=== PATIENT | female | born 1945 | race Caucasian/White ===

== ENCOUNTER 2016-12-07 09:01 | Inpatient (IN) | payer MEDICARE ==
[2016-12-07] MEDS ORDERED: ASPIRIN 81 MG CHEW PO STA (09:47)
[2016-12-07] MEDS ORDERED: NITROGLYCERIN OINT 1 INCH/GM PACKET TOPICAL STA (09:47)
--- NOTE | 2016-12-07 09:51 | ED ---
General Adult HPI - General Chief complaint: Chest Pain Stated complaint: chest face burning Time Seen by Provider: 12/07/16 09:10 Source: patient, RN notes reviewed Mode of arrival: wheelchair Limitations: no limitations - History of Present Illness Initial comments: This is a 71-year-old female who presents emergency Department with an extensive cardiac history hypertension high cholesterol. Patient states she has been having some slight jaw pain over the last week and a half weeks she's had 3 episodes of severe jaws pain. Patient states Thursday she had an episode lasted 10 minutes she was nauseated and vomited times one and she was also diaphoretic. Patient states she's had 2 severe episodes today that were very similar to the Thursday episode except she also had chest pain. Patient states she has noted over this last week and a half if she exerts herself at all she starts getting jaw pain. Patient denies any recent fever chills or cough. Patient denies any abdominal pain patient denies any diarrhea. Patient states she is not currently nauseated and she does not currently have any chest pain however she still has a little bit of jaw pain. Patient denies headache patient denies numbness weakness. Patient denies any lightheadedness dizziness or near syncopal episode. - Related Data Home Medications Medication Instructions Recorded Confirmed Clopidogrel [Plavix] 75 mg PO DAILY 06/16/16 12/07/16 Diltiazem Cd [Cardizem Cd] 120 mg PO DAILY 06/16/16 12/07/16 Nebivolol HCl [Bystolic] 20 mg PO DAILY 06/16/16 12/07/16 amLODIPine [Norvasc] 10 mg PO DAILY 06/16/16 12/07/16 predniSONE 2.5 mg PO DAILY 06/16/16 12/07/16 Aspirin [Adult Low Dose Aspirin EC] 81 mg PO DAILY PRN 12/07/16 12/07/16 Furosemide [Lasix] 20 mg PO DAILY 12/07/16 12/07/16 Allergies Allergy/AdvReac Type Severity Reaction Status Date / Time Sulfa (Sulfonamide Allergy Unknown Verified 12/07/16 10:23 Antibiotics) Review of Systems ROS Statement: Those systems with pertinent positive or pertinent negative responses have been documented in the HPI. ROS Other: All systems not noted in ROS Statement are negative. Past Medical History Past Medical History: Coronary Artery Disease (CAD), Hypertension, Myocardial Infarction ([place]) Additional Past Medical History / Comment(s): polymyalgia History of Any Multi-Drug Resistant Organisms: None Reported Past Surgical History: Heart Catheterization With Stent, Hysterectomy, Tonsillectomy Past Psychological History: No Psychological Hx Reported Smoking Status: Never smoker Past Alcohol Use History: None Reported Past Drug Use History: None Reported General Exam - General Exam Comments Initial Comments: GENERAL: Patient is well-developed and well-nourished. Patient is nontoxic and well- hydrated and is in mild distress. ENT: Neck is soft and supple. No significant lymphadenopathy is noted. Oropharynx is clear. Moist mucous membranes. Neck has full range of motion without eliciting any pain. EYES: The sclera were anicteric and conjunctiva were pink and moist. Extraocular movements were intact and pupils were equal round and reactive to light. Eyelids were unremarkable. PULMONARY: Unlabored respirations. Good breath sounds bilaterally. No audible rales rhonchi or wheezing was noted. CARDIOVASCULAR: There is a regular rate and rhythm without any murmurs gallops or rubs. ABDOMEN: Soft and nontender with normal bowel sounds. SKIN: Skin is clear with no lesions or rashes and otherwise unremarkable. NEUROLOGIC: Patient is alert and oriented x3. Cranial nerves II through XII are grossly intact. Motor and sensory are also intact. Normal speech, volume and content. Symmetrical smile. MUSCULOSKELETAL: Normal extremities with adequate strength and full range of motion. No lower extremity swelling or edema. No calf tenderness. LYMPHATICS: No significant lymphadenopathy is noted PSYCHIATRIC: Normal psychiatric evaluation. Normal interpersonal interactions appears functionally intact in deals appropriately with others. No signs of depression. No signs of anxiety. Limitations: no limitations Course Vital Signs 12/07/16 09:07 Temperature 97.8 F Pulse Rate 60 Respiratory 20 Rate Blood Pressure 165/70 O2 Sat by Pulse 97 Oximetry Medical Decision Making - Medical Decision Making EKG shows sinus bradycardia [address] interval is 184 QRSs 84 Q-T intervals 462 QTC is 457. Patient's EKG shows some slight ST segment depression in leads V3 through V6 as well as 1 and aVL. Chest x-ray shows no acute abnormality. Patient's troponin is mildly elevated this along with her past medical history and her current symptoms puts her at high risk I called unstable angina I started heparin. I spoke with Dr. Alexander and he agreed to admit the patient I wrote admitting orders consult to cardiology continued heparin and aspirin and nitro paste on the floor. He is pain-free - Lab Data Result diagrams: 12/07/16 09:30 12/07/16 09:30 Lab Results 12/07/16 12/07/16 12/07/16 Range/Units 09:30 09:30 09:30 WBC 13.3 H (3.8-10.6) k/uL RBC 5.10 (3.80-5.40) m/uL Hgb 14.6 (11.4-16.0) gm/dL Hct 43.7 (34.0-46.0) % MCV 85.7 (80.0-100.0) fL MCH 28.6 (25.0-35.0) pg MCHC 33.3 (31.0-37.0) g/dL RDW 13.0 (11.5-15.5) % Plt Count 291 (150-450) k/uL Neutrophils % 89 % Lymphocytes % 5 % Monocytes % 4 % Eosinophils % 1 % Basophils % 0 % Neutrophils # 11.9 H (1.3-7.7) k/uL Lymphocytes # 0.7 L (1.0-4.8) k/uL Monocytes # 0.5 (0-1.0) k/uL Eosinophils # 0.1 (0-0.7) k/uL Basophils # 0.0 (0-0.2) k/uL PT (9.0-12.0) sec INR (<1.1) APTT (22.0-30.0) sec Sodium 140 (137-145) mmol/L Potassium 4.1 (3.5-5.1) mmol/L Chloride 105 (98-107) mmol/L Carbon Dioxide 24 (22-30) mmol/L Anion Gap 11 mmol/L BUN 26 H (7-17) mg/dL Creatinine 0.98 (0.52-1.04) mg/dL Est GFR (MDRD) Af Amer >60 (>60 ml/min/1.73 sqM) Est GFR (MDRD) Non-Af 56 (>60 ml/min/1.73 sqM) Glucose 160 H (74-99) mg/dL Calcium 9.1 (8.4-10.2) mg/dL Magnesium 1.9 (1.6-2.3) mg/dL Total Bilirubin 0.9 (0.2-1.3) mg/dL AST 25 (14-36) U/L ALT 26 (9-52) U/L Alkaline Phosphatase 164 H (38-126) U/L Total Creatine Kinase 39 (30-135) U/L CK-MB (CK-2) 0.7 (0.0-2.4) ng/mL CK-MB (CK-2) Rel Index 1.8 Troponin I 0.040 H* (0.000-0.034) ng/mL NT-Pro-B Natriuret Pep pg/mL Total Protein 7.0 (6.3-8.2) g/dL Albumin 3.8 (3.5-5.0) g/dL 12/07/16 12/07/16 Range/Units 09:30 09:30 WBC (3.8-10.6) k/uL RBC (3.80-5.40) m/uL Hgb (11.4-16.0) gm/dL Hct (34.0-46.0) % MCV (80.0-100.0) fL MCH (25.0-35.0) pg MCHC (31.0-37.0) g/dL RDW (11.5-15.5) % Plt Count (150-450) k/uL Neutrophils % % Lymphocytes % % Monocytes % % Eosinophils % % Basophils % % Neutrophils # (1.3-7.7) k/uL Lymphocytes # (1.0-4.8) k/uL Monocytes # (0-1.0) k/uL Eosinophils # (0-0.7) k/uL Basophils # (0-0.2) k/uL PT 10.8 (9.0-12.0) sec INR 1.1 (<1.1) APTT 22.5 (22.0-30.0) sec Sodium (137-145) mmol/L Potassium (3.5-5.1) mmol/L Chloride (98-107) mmol/L Carbon Dioxide (22-30) mmol/L Anion Gap mmol/L BUN (7-17) mg/dL Creatinine (0.52-1.04) mg/dL Est GFR (MDRD) Af Amer (>60 ml/min/1.73 sqM) Est GFR (MDRD) Non-Af (>60 ml/min/1.73 sqM) Glucose (74-99) mg/dL Calcium (8.4-10.2) mg/dL Magnesium (1.6-2.3) mg/dL Total Bilirubin (0.2-1.3) mg/dL AST (14-36) U/L ALT (9-52) U/L Alkaline Phosphatase (38-126) U/L Total Creatine Kinase (30-135) U/L CK-MB (CK-2) (0.0-2.4) ng/mL CK-MB (CK-2) Rel Index Troponin I (0.000-0.034) ng/mL NT-Pro-B Natriuret Pep 1200 pg/mL Total Protein (6.3-8.2) g/dL Albumin (3.5-5.0) g/dL Critical Care Time Critical Care Time: Yes Total Critical Care Time: 35 Disposition Clinical Impression: Unstable angina pectoris Disposition: ADMITTED IP TO THIS HOSP Referrals: None,Stated [Primary Care Provider] - 1-2 days Time of Disposition: 12:03
[2016-12-07 10:10] LABS: Basophils % (A) 0 %; CH 28.7; CHCM 33.6; Eosinophils # (A) 0.1 k/uL (0-0.7); Eosinophils % (A) 1 %; HCT 43.7 % (34.0-46.0); HDW 2.49; HGB 14.6 gm/dL (11.4-16.0); Luc # (Auto) 0.13; Luc % (Auto) 1; Lymphocytes # (A) 0.7 k/uL (1.0-4.8); Lymphocytes % (A) 5 %; MCH 28.6 pg (25.0-35.0); MCHC 33.3 g/dL (31.0-37.0); MCV 85.7 fL (80.0-100.0); Mean Platelet Volume 7.2; Monocytes # (A) 0.5 k/uL (0-1.0); Monocytes % (A) 4 %; Neutrophils # (A) 11.9 k/uL (1.3-7.7); Neutrophils % (A) 89 %; WBC 13.3 k/uL (3.8-10.6); WBC (Perox) 12.75
[2016-12-07 10:19] LABS: ALT 26 U/L (9-52); AST 25 U/L (14-36); Alkaline Phosphatase 164 U/L (38-126); Anion Gap 11 mmol/L; Blood Urea Nitrogen 26 mg/dL (7-17); Calcium 9.1 mg/dL (8.4-10.2); Carbon Dioxide 24 mmol/L (22-30); Chloride 105 mmol/L (98-107); Glucose 160 mg/dL (74-99); Magnesium 1.9 mg/dL (1.6-2.3); Non-African American GFR(MDRD) 56 (>60 ml/min/1.73 sqM); Potassium 4.1 mmol/L (3.5-5.1); Sodium 140 mmol/L (137-145); Total Bilirubin 0.9 mg/dL (0.2-1.3)
[2016-12-07 10:24] LABS: INR 1.1 (<1.1); Partial Thromboplastin Time 22.5 sec (22.0-30.0); Prothrombin Time 10.8 sec (9.0-12.0)
[2016-12-07 10:43] LABS: Creatine Kinase MB 0.7 ng/mL (0.0-2.4)
[2016-12-07 10:44] LABS: Troponin I 0.04 ng/mL (0.000-0.034)
--- NOTE | 2016-12-07 11:00 | XR ---
EXAMINATION TYPE: XR chest 2V DATE OF EXAM: 12/07/2016 10:51 AM COMPARISON: NONE HISTORY: Chest pain. History of 7 cardiac stents. TECHNIQUE: Frontal and lateral views of the chest are obtained. FINDINGS: There is no focal air space opacity, pleural effusion, or pneumothorax seen. Linear left m idlung pleural parenchymal scarring versus atelectasis is noted. The cardiac silhouette size is mild ly enlarged. The osseous structures are intact. IMPRESSION: 1. No acute cardiopulmonary process. No focal consolidation. 2. Linear left midlung pleural parenchymal scarring versus atelectasis. 3. Mild cardiac silhouette enlargement.
[2016-12-07] MEDS ORDERED: FUROSEMIDE 10 MG/ML 4 ML VIAL IV STA (11:42)
[2016-12-07] MEDS ORDERED: HEPARIN SODIUM,PORCINE 5,000 UNIT/ML 1 ML VIAL IV ONE (11:46)
[2016-12-07] MEDS ORDERED: HEPARIN SODIUM,PORCINE/D5W PMX 25,000 UNIT in DEXTROSE/WATER 1 500ML.BAG IV SCH (12:00)
[2016-12-07] MEDS ORDERED: SODIUM CHLORIDE 0.9% 1,000 ML IV SCH (12:30)
[2016-12-07 14:03] VITALS: BMI 37.9
--- NOTE | 2016-12-07 15:47 | P.CRDCN ---
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 The patient was in her usual state of health till about 3 days ago when she started experiencing intermittent episodes of jaw pain, and neck pain. The symptoms are clearly exertional and better with resting. The patient has an extensive history of coronary artery disease and she had 7 stents in the past where performed out of the town with unknown details at this point. The EKG showed sinus rhythm with nonspecific changes in the lateral leads. We have only one set of cardiac enzymes came in to be slightly abnormal. The patient symptoms are very concerning and suggestive of acute coronary event. I recommended proceeding with heart catheterization. Currently she is on aspirin and heparin we'll continue that. I would add Plavix and metoprolol and statin and I will obtain an echocardiogram was Doppler. Past Medical History Past Medical History: Coronary Artery Disease (CAD), Hypertension, Myocardial Infarction ([place]) Additional Past Medical History / Comment(s): .polymyalgia Last Myocardial Infarction Date:: 2003 History of Any Multi-Drug Resistant Organisms: None Reported Past Surgical History: Heart Catheterization With Stent, Hysterectomy, Tonsillectomy Additional Past Surgical History / Comment(s): rectal fissure repaipr Date of Last Stent Placement:: 2003 Past Psychological History: No Psychological Hx Reported Smoking Status: Never smoker Past Alcohol Use History: None Reported Past Drug Use History: None Reported - Past Family History Father Family Medical History: Coronary Artery Disease (CAD) Mother Family Medical History: Coronary Artery Disease (CAD) Medications and Allergies Home Medications Medication Instructions Recorded Confirmed Type Clopidogrel [Plavix] 75 mg PO DAILY 06/16/16 12/07/16 History Diltiazem Cd [Cardizem Cd] 120 mg PO DAILY 06/16/16 12/07/16 History Nebivolol HCl [Bystolic] 20 mg PO DAILY 06/16/16 12/07/16 History amLODIPine [Norvasc] 10 mg PO DAILY 06/16/16 12/07/16 History predniSONE 2.5 mg PO DAILY 06/16/16 12/07/16 History Aspirin [Adult Low Dose Aspirin EC] 81 mg PO DAILY PRN 12/07/16 12/07/16 History Furosemide [Lasix] 20 mg PO DAILY 12/07/16 12/07/16 History Allergies Allergy/AdvReac Type Severity Reaction Status Date / Time Sulfa (Sulfonamide Allergy Unknown Verified 12/07/16 10:23 Antibiotics) Physical Exam Vitals: Vital Signs Temp Pulse Pulse Resp BP BP Pulse Ox 12/07/16 13:14 97.7 F 55 L 16 107/56 12/07/16 12:51 98.3 F 52 L 18 123/59 97 12/07/16 12:26 97.8 F 52 L 16 110/73 95 Intake and Output 12/07/16 12/07/16 12/07/16 06:59 14:59 22:59 Other: Weight 106.594 kg Patient Weight 12/08/16 06:59 Weight 106.594 kg - Constitutional General appearance: no acute distress - Respiratory Respiratory: bilateral: CTA - Cardiovascular Rhythm: regular Heart sounds: normal: S1, S2 Results 12/07/16 09:30 12/07/16 09:30 Current Medications Generic Name Dose Route Start Last Admin Trade Name Freq PRN Reason Stop Dose Admin Aspirin 325 mg 12/08/16 09:00 Aspirin PO DAILY [facility] Heparin Sodium/Dextrose 25,000 500 mls @ 19.99 mls/hr 12/07/16 12:00 12:22 unit/ IV Solution IV 9.38 units/kg/hr .Q24H GEOVANNA 19.99 mls/hr Protocol Administration 9.38 UNITS/KG/HR Sodium Chloride 1,000 mls @ 20 mls/hr 12/07/16 12:30 12/07/16 12:26 Saline 0.9% IV 20 mls/hr .Q24H GEOVANNA Administration Nitroglycerin 1 inch 12/07/16 18:00 Nitro-Bid Oint TOPICAL Q6HR [facility] Nitroglycerin 0.4 mg 12/07/16 12:03 Nitrostat SUBLINGUAL Q5M PRN Chest Pain Intake and Output 12/07/16 12/07/16 12/07/16 06:59 14:59 22:59 Other: Weight 106.594 kg Patient Weight 12/08/16 06:59 Weight 106.594 kg Assessment and Plan Plan: Assessment Acute non-STEMI Known CAD with prior stenting Hypertension Plan I recommended proceeding with heart catheterization Antiplatelet and anticoagulation Statin Metoprolol Echocardiogram was Doppler Follow-up with the patient
[2016-12-07 16:52] LABS: Creatine Kinase MB 3.2 ng/mL (0.0-2.4); Troponin I 0.476 ng/mL (0.000-0.034)
[2016-12-07] MEDS: NITROGLYCERIN OINT 1 INCH/GM PACKET TOPICAL SCH (17:34)
--- NOTE | 2016-12-07 18:16 | HP ---
DATE OF ADMISSION: 12/07/2016 CHIEF COMPLAINT: Unstable angina. HISTORY OF PRESENT ILLNESS: This
--- NOTE | 2016-12-07 19:02 | HP ---
DATE OF ADMISSION: 12/07/2016 CHIEF COMPLAINT: Chest pain and unstable angina. HISTORY OF PRESENT ILLNESS: This is the first admission for this 71-year-old G4, P3, A1, white female. She started to have discomfort in the right cheek and jaw and then this moves into her central chest and is typical of angina with a pressure or squeezing-like sensation with nausea, vomiting, and diaphoresis, and very little shortness of breath. She has had 2 myocardial infarctions in the last year or so. She has had 7 stents placed. These were all done elsewhere. In the emergency room, the troponin was borderline. She had a stress test about a year ago. She is not diabetic. She is on treatment for hypertension and hyperlipidemia. She has a strong family history. REVIEW OF SYSTEMS: She has had no other complaints. She has had no neurologic problems, TIAs, change in vision or the hearing, cough, hemoptysis, sputum production, hemoptysis, murmurs, rheumatic fever, orthopnea, PND, heart failure, abdominal pain, nausea, vomiting, hematemesis, melena, he was, jaundice, hematuria, frequency, urgency, arthralgias, diabetes, etc. Past medical history, family history and history, and personal and social histories are otherwise unremarkable. She does not smoke. PHYSICAL EXAMINATION: VITAL SIGNS: Blood pressure is 142/80 with a pulse of 63, respirations 19, and she is afebrile. GENERAL: She appeared to be slightly overweight and in no acute distress. SKIN: Skin color is normal. Skin is warm and dry. Lymph nodes are not enlarged. Head, ears, eyes, mouth, and throat were normal. NECK: Neck veins not distended. The carotids are normal. CHEST: Clear. CARDIAC: Normal. ABDOMEN: Soft and nontender. Extremities are normal and neurologically she is intact. She is admitted to the hospital with diagnoses: 1. Unstable angina pectoris. 2. Coronary disease with previous myocardial infarction and 7 stents. 3. Hypertension. 4. Hyperlipidemia. PLAN: 1. Bed rest. 2. IV fluids. 3. Serial EKGs and enzymes. 4. Further work-up pending outcome of her cardiac enzymes.
[2016-12-07] MEDS: ATORVASTATIN 80 MG TAB PO SCH (20:41)
[2016-12-07] MEDS: METOPROLOL TARTRATE 12.5 MG TAB PO SCH (20:41)
[2016-12-07 21:57] LABS: Creatine Kinase MB 3.2 ng/mL (0.0-2.4); Troponin I 0.758 ng/mL (0.000-0.034)
[2016-12-08] MEDS: NITROGLYCERIN OINT 1 INCH/GM PACKET TOPICAL SCH ×2 (01:12→06:27)
[2016-12-08] MEDS: NITROGLYCERIN SL TABS 0.4 MG TAB SUBLINGUAL PRN ×3 (04:45→08:29)
[2016-12-08] MEDS: METOPROLOL TARTRATE 12.5 MG TAB PO SCH (06:26)
[2016-12-08] MEDS: CLOPIDOGREL 75 MG TAB PO SCH (06:26)
[2016-12-08] MEDS ORDERED: NITROGLYCERIN-D5W PMX 50 MG in DEXTROSE/WATER 1 250ML.BAG IV SCH (07:30)
[2016-12-08 08:05] LABS: Cholesterol 208 mg/dL (<200); HDL Cholesterol 54 mg/dL (40-60); Triglycerides 83 mg/dL (<150)
[2016-12-08] MEDS ORDERED: ALPRAZolam 0.5 MG TAB PO PRN (08:18)
[2016-12-08] MEDS ORDERED: NITROGLYCERIN SL TABS 0.4 MG TAB SUBLINGUAL PRN (08:18)
[2016-12-08] MEDS ORDERED: ALPRAZolam 0.25 MG TAB PO PRN (08:18)
[2016-12-08] MEDS ORDERED: SODIUM CHLORIDE 0.9% 1,000 ML in EMPTY BAG 1 BAG IV ONE (08:18)
[2016-12-08] MEDS ORDERED: ASPIRIN 325 MG TAB PO SCH (09:00)
[2016-12-08] MEDS ORDERED: SODIUM CHLORIDE 0.9% 1,000 ML IV ONE (09:05)
[2016-12-08] MEDS ORDERED: MIDAZOLAM 2 MG/2 ML VIAL IVP ONE (09:05)
[2016-12-08] MEDS ORDERED: LIDOCAINE 2% INJ 20 MG/ML SQ ONE (09:08)
[2016-12-08] MEDS ORDERED: NITROGLYCERIN SL TABS 0.4 MG TAB SUBLINGUAL ONE (09:23)
[2016-12-08] MEDS: HYDROmorphone 2 MG/ML 1 ML SYRINGE IVP ONE ×2 (09:28→10:15)
[2016-12-08] MEDS ORDERED: ONDANSETRON 4 MG/2 ML VIAL IVP ONE (09:29)
[2016-12-08] MEDS ORDERED: BIVALIRUDIN BOLUS 250 MG/50 ML IV ONE ×2 (09:40)
[2016-12-08] MEDS ORDERED: BIVALIRUDIN 250 MG in SODIUM CHLORIDE 0.9% 50 ML IV ONE (09:41)
[2016-12-08] MEDS ORDERED: NITROGLYCERIN 1000MCG/10ML SYRINGE INTRACORON ONE (10:08)
[2016-12-08] MEDS ORDERED: CLOPIDOGREL 75 MG TAB PO ONE (10:16)
[2016-12-08] MEDS ORDERED: IOHEXOL 350 MG/ML 100 ML BOTTLE INJ ONE (10:18)
[2016-12-08] MEDS ORDERED: ASPIRIN 81 MG CHEW PO PRN (10:25)
[2016-12-08] MEDS ORDERED: MAG HYDROX/AL HYDROX/SIMETH 30 ML CUP PO PRN (10:26)
[2016-12-08] MEDS ORDERED: ATROPINE SULFATE 0.1 MG/ML 10ML SYRINGE IV PRN (10:26)
[2016-12-08] MEDS ORDERED: RX INFO: IV CONTRAST WAS GIVEN 1 EACH MISC MISCELLANE PRN (10:26)
[2016-12-08] MEDS: SODIUM CHLORIDE 0.9% 1,000 ML IV SCH (11:53)
[2016-12-08] MEDS: ATORVASTATIN 80 MG TAB PO SCH (19:40)
--- NOTE | 2016-12-08 21:35 | PN ---
DATE OF SERVICE: 12/08/2016 CHIEF COMPLAINT: Chest pain with history of coronary artery disease. HISTORY OF PRESENT ILLNESS: This lady has been fairly comfortable and there has been no interval change. Further studies are pending and she will be seen by cardiology. Physical examination is unchanged. Her chest is clear and cardiac exam is normal. IMPRESSION: 1. Angina pectoris, unstable. 2. Coronary artery disease. PLAN: Continue to follow, await recommendations from cardiology.
--- NOTE | 2016-12-08 23:30 | PTCA ---
DATE OF SERVICE: PROCEDURE: 1. PTCA and stenting of proximal circumflex coronary artery. 2. Percutaneous transluminal coronary angioplasty and stenting of second obtuse marginal branch of circumflex. PERFORMED BY: Dr. Ayana Chand. CLINICAL INFORMATION: Mrs. Belen Zaidi is a 71-year-old lady with a history of hypertension, hyperlipidemia, CAD, no multivessel stenting. She has stenting of LAD performed and also stenting of obtuse marginal branch performed. The last procedure was in 2008, details are unavailable and these were performed [facility]. However, she presented with a classic symptoms of unstable angina and Dr. Lewis evaluated her and performed coronary angiography which revealed that there was a 95% stenosis in proximal circumflex and another 95 to 99% stenosis in distal obtuse marginal branch, which had a fair amount of myocardium being supplied by it beyond the occlusion. She was advised intervention that was performed expeditiously. Coronary arteries were calcified. PROCEDURE NOTE: The existing 6 Tamazight introducer in the right femoral artery was used to perform the procedure. I used a standard left Natasha-type guide catheter to cannulate the left coronary artery. A BMW wire was advanced and positioned in the distal aspect of the circumflex and both the lesions were crossed with this wire. Predilatation was performed using a 2.5 caliber, 12 mm long NC trek balloon. Both lesions were dilated for the proximal lesion was dilated 12 atmospheres, distal lesion at 8 atmospheres. Subsequently, I advanced and positioned a 3.0 caliber, 12 mm long Xience stent and deployed this in the proximal lesion with excellent angiographic result. This lesion was located just before a groove branch and the groove branch flow was excellent as was the obtuse marginal flow. I then tried to advance a 2.25 caliber, 8 mm long stent into the distal lesion but I had considerable difficulty. I then used another wire, this was a Whisper wire and this wire was placed alongside the previous BMW wire. Using louis wire approach and I advanced the stent over the Whisper wire and deployed this in the distal lesion with excellent angiographic result. Patient had mild chest pain and precordial T wave inversions. Excellent angiographic result was achieved. Patient was already on aspirin and Plavix. She received additional 225 mg of Plavix orally. The sheath was then taken out and I used a Perclose device to secure hemostasis and because of some oozing, a FemoStop was applied. The patient tolerated all of the procedure well without complications. Excellent angiographic result was achieved. Results were discussed with the patient and family members specifically her daughter and sister. Conscious sedation was provided with a combination of Versed and Benadryl and this was for a total duration of 45 minutes. The patient was monitored closely.
--- NOTE | 2016-12-08 23:30 | LTR ---
December 08, 2016 RE: Belen Zaidi Dear Dr. Stuart: Thank you for the opportunity to participate in the care of Mrs. Belen Zaidi. I am pleased to report to you that stenting of her proximal circumflex and distal obtuse marginal branch was performed with 2 drug-eluting stents. Excellent angiographic result without complication was achieved. I expect the patient can be discharged tomorrow if she remains stable. Thank you for your referral. Please call for questions. With kindest regards, Sincerely, HARJEET BULL MD
[2016-12-09] MEDS: SODIUM CHLORIDE 0.9% 1,000 ML IV SCH (06:10)
[2016-12-09 07:03] LABS: Basophils % (A) 0 %; CH 28.3; Eosinophils # (A) 0.1 k/uL (0-0.7); Eosinophils % (A) 1 %; HCT 38.5 % (34.0-46.0); HDW 2.32; HGB 12.4 gm/dL (11.4-16.0); Luc % (Auto) 3; Lymphocytes # (A) 1.4 k/uL (1.0-4.8); Lymphocytes % (A) 19 %; MCH 28.7 pg (25.0-35.0); MCHC 32.2 g/dL (31.0-37.0); Monocytes # (A) 0.5 k/uL (0-1.0); Monocytes % (A) 6 %; Neutrophils # (A) 5.4 k/uL (1.3-7.7); Neutrophils % (A) 71 %; RBC 4.33 m/uL (3.80-5.40); RDW 13.5 % (11.5-15.5); WBC 7.6 k/uL (3.8-10.6); WBC (Perox) 8.15
[2016-12-09 07:19] LABS: Anion Gap 6 mmol/L; Blood Urea Nitrogen 18 mg/dL (7-17); Calcium 8.8 mg/dL (8.4-10.2); Carbon Dioxide 27 mmol/L (22-30); Chloride 107 mmol/L (98-107); Glucose 100 mg/dL (74-99); Non-African American GFR(MDRD) 60 (>60 ml/min/1.73 sqM); Potassium 4.4 mmol/L (3.5-5.1); Sodium 140 mmol/L (137-145)
[2016-12-09] MEDS: CLOPIDOGREL 75 MG TAB PO SCH (07:59)
[2016-12-09] MEDS: LOSARTAN 50 MG TAB PO SCH (07:59)
[2016-12-09] MEDS: predniSONE 5 MG TAB PO SCH (08:00)
[2016-12-09] MEDS ORDERED: amLODIPine 10 MG TAB PO SCH (09:00)
[2016-12-09] MEDS: NEBIVOLOL 5 MG TAB PO SCH (13:42)
--- NOTE | 2016-12-09 15:03 | P.PN ---
Subjective Principal diagnosis: NOn STEMI This is a pleasant 71-year-old female who presented to the hospital with a non-Q-wave myocardial infarction. She was taken to the cardiac catheterization lab by Dr. Franklin and subsequently underwent angioplasty with stenting of the circumflex as well as stenting of the OM. EKG this morning shows normal sinus rhythm with no changes from post-PCI. Hemodynamically stable. Echocardiogram with Doppler study was performed which is yet pending. Patient denies any chest pain, breathing is stable. Objective - Vital Signs Vital signs: Vital Signs Temp 97 F L 12/09/16 03:11 Pulse 62 12/09/16 11:13 Resp 18 12/09/16 11:13 BP 129/59 12/09/16 11:13 Pulse Ox 97 12/09/16 11:13 Intake & Output 12/08/16 12/09/16 12/09/16 18:59 06:59 18:59 Intake Total 1248 750 340 Balance 1248 750 340 Weight 108.1 kg Intake: IV 728 750 Heparin Sodium,Porcine/ 24 D5w Pmx 25,000 unit In Dextrose/Water 1 500ml. bag @ 9.38 UNITS/KG/HR 19 .99 mls/hr IV .Q24H [facility] Rx#:[id number] Sodium Chloride 0.9% 1, 40 750 000 ml @ 20 mls/hr IV . Q24H GEOVANNA Rx#:[id number] Intake, IV Titration 400 0 Amount Sodium Chloride 0.9% 1, 400 0 000 ml @ 75 mls/hr IV . [id number] GEOVANNA Rx#:[id number] Oral 120 340 Other: # Voids 1 # Bowel Movements 1 - Exam PHYSICAL EXAMINATION: HEENT: Head is atraumatic, normocephalic. Pupils equal, round. Neck is supple. There is no elevated jugular venous pressure. HEART EXAMINATION: Heart S1, S2 normal. No murmur or gallop heard. CHEST EXAMINATION: Lungs are clear to auscultation and precussion. No chest wall tenderness is noted on palpation or with deep breathing. ABDOMEN: Soft, nontender. Bowel sounds are heard. No organomegaly noted. Right groin ecchymotic, soft, no hematoma, good distal pulse. EXTREMITIES: 2+ peripheral pulses with no evidence of peripheral edema and no calf tenderness noted. NEUROLOGIC patient is awake, alert and oriented -3. . - Labs CBC & Chem 7: 12/09/16 06:28 12/09/16 06:28 Labs: Abnormal Lab Results - Last 24 Hours (Table) 12/09/16 Range/Units 06:28 BUN 18 H (7-17) mg/dL Glucose 100 H (74-99) mg/dL Assessment and Plan (1) NSTEMI (non-ST elevated myocardial infarction) Status: Acute (2) Hyperlipemia Status: Acute (3) HTN (hypertension) Status: Acute Plan: From cardiology's perspective, we will continue the aspirin 81 mg daily, Lipitor 80 mg daily, Plavix 75 mg daily, losartan 50 mg daily, by systolic 20 mg daily will be added to her medication regime and the Norvasc will be discontinued. We will review the echocardiogram with Doppler study and plan for possible discharge home in 24 hours if stable. DNP note has been reviewed, I agree with a documented findings and plan of care. Patient was seen and examined.
--- NOTE | 2016-12-09 19:48 | PN ---
DATE OF SERVICE: 12/09/2016 CHIEF COMPLAINT: Unstable angina and coronary disease. HISTORY OF PRESENT ILLNESS: This lady is doing well and the pain is gone from her cheek and neck. She had 2 stents placed yesterday and she will probably go home today. PHYSICAL EXAMINATION: Chest is clear. The cardiac exam is normal. Abdomen is soft, nontender. IMPRESSION: 1. Unstable angina pectoris. 2. Coronary artery disease. PLAN: Increase activity and probably home today.
[2016-12-09] MEDS: ATORVASTATIN 80 MG TAB PO SCH (20:47)
[2016-12-09 23:41] VITALS: RESP 16
[2016-12-10] MEDS: NEBIVOLOL 5 MG TAB PO SCH (07:45)
[2016-12-10] MEDS: predniSONE 5 MG TAB PO SCH (07:45)
[2016-12-10] MEDS: LOSARTAN 50 MG TAB PO SCH (07:45)
[2016-12-10] MEDS: CLOPIDOGREL 75 MG TAB PO SCH (07:45)
[2016-12-10 11:14] VITALS: BP 121/60; PULSE 58; TEMP 97.8
--- NOTE | 2016-12-10 14:51 | P.PN ---
Subjective Principal diagnosis: NOn STEMI This is a pleasant 71-year-old female who presented to the hospital with a non-Q-wave myocardial infarction. She was taken to the cardiac catheterization lab by Dr. Lewis and subsequently underwent angioplasty with stenting of the circumflex as well as stenting of the OM. EKG shows normal sinus rhythm with no changes from post-PCI. Hemodynamically stable. Echocardiogram with Doppler study was performed which is yet pending. Patient denies any chest pain, breathing is stable. Objective - Vital Signs Vital signs: Vital Signs Temp 97.8 F 12/10/16 11:13 Pulse 58 L 12/10/16 11:15 Resp 16 12/10/16 11:15 BP 121/60 12/10/16 11:13 Pulse Ox 96 12/10/16 11:13 Intake & Output 12/09/16 12/10/16 12/10/16 18:59 06:59 18:59 Intake Total 562 0 480 Balance 562 0 480 Weight 107.9 kg Intake: Intake, IV Titration 0 0 Amount Sodium Chloride 0.9% 1, 0 0 000 ml @ 75 mls/hr IV . [id number] [facility] Rx#:[id number] Sodium Chloride 0.9% 1, 0 000 ml As IV .[employer] [facility] Rx#:[id number] Oral 562 480 Other: # Voids 2 - Exam PHYSICAL EXAMINATION: HEENT: Head is atraumatic, normocephalic. Pupils equal, round. Neck is supple. There is no elevated jugular venous pressure. HEART EXAMINATION: Heart S1, S2 normal. No murmur or gallop heard. CHEST EXAMINATION: Lungs are clear to auscultation and precussion. No chest wall tenderness is noted on palpation or with deep breathing. ABDOMEN: Soft, nontender. Bowel sounds are heard. No organomegaly noted. Right groin ecchymotic, soft, no hematoma, good distal pulse. EXTREMITIES: 2+ peripheral pulses with no evidence of peripheral edema and no calf tenderness noted. NEUROLOGIC patient is awake, alert and oriented -3. . - Labs CBC & Chem 7: 12/09/16 06:28 12/09/16 06:28 Assessment and Plan (1) NSTEMI (non-ST elevated myocardial infarction) Status: Acute (2) Hyperlipemia Status: Acute (3) HTN (hypertension) Status: Acute Plan: From cardiology's perspective, we will continue the aspirin 81 mg daily, Lipitor 80 mg daily, Plavix 75 mg daily, losartan 50 mg daily, bysystolic 20 mg daily, sublingual nitroglycerin as needed for chest pain. Make her a follow-up appointment to see Dr. Leiws in the office post discharge.. DNP note has been reviewed, I agree with a documented findings and plan of care. Patient was seen and examined.
--- NOTE | 2016-12-10 15:09 | P.DS ---
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 The patient was in her usual state of health till about 3 days ago when she started experiencing intermittent episodes of jaw pain, and neck pain. The symptoms are clearly exertional and better with resting. The patient has an extensive history of coronary artery disease and she had 7 stents in the past where performed out of the town with unknown details at this point. The EKG showed sinus rhythm with nonspecific changes in the lateral leads. Patient was taken to the heart catheterization lab by Dr. Franklin underwent angioplasty stenting of the circumflex as well stenting of the OM. Patient was felt he be stable and appropriate proceed with a discharge on December 10 Impression discharge diagnosis Present on admission chest pain due to a non-ST elevated MA Present on admission hypertension urgency Hyperlipidemia Known coronary artery disease with prior coronary stenting Obesity BMI 38 Successful angioplasty stenting this admission to the circumflex and the OM The above dictated assessment and findings were discussed with dr stuart . Impression and the plan of care have been dictated as directed. Anita Hawkins nurse practitioner acting as a scribe for dr stuart Plan - Discharge Summary New Discharge Prescriptions: Atorvastatin [Lipitor] 80 mg PO HS #30 tab Clopidogrel [Plavix] 75 mg PO DAILY #30 tab Losartan [Cozaar] 50 mg PO DAILY #30 tab Nitroglycerin Sl Tabs [Nitrostat] 0.4 mg SUBLINGUAL Q5M PRN #253 tab PRN Reason: Chest Pain Discharge Medication List Nebivolol HCl [Bystolic] 20 mg PO DAILY 06/16/16 [History] predniSONE 2.5 mg PO DAILY 06/16/16 [History] Aspirin [Adult Low Dose Aspirin EC] 81 mg PO DAILY PRN 12/07/16 [History] Furosemide [Lasix] 20 mg PO DAILY 12/07/16 [History] Atorvastatin [Lipitor] 80 mg PO HS #30 tab 12/10/16 [Rx] Clopidogrel [Plavix] 75 mg PO DAILY #30 tab 12/10/16 [Rx] Losartan [Cozaar] 50 mg PO DAILY #30 tab 12/10/16 [Rx] Nitroglycerin Sl Tabs [Nitrostat] 0.4 mg SUBLINGUAL Q5M PRN #253 tab 12/10/16 [ Rx] Follow up Appointment(s)/Referral(s): None,Stated [Primary Care Provider] - 1-2 days Martin Lewis MD [STAFF PHYSICIAN] - 1 Week (patient given all info to make follow up APT.) Mathieu Stuart MD [STAFF PHYSICIAN] - 12/12/16 Patient Instructions/Handouts: *[facility] - After Heart Catheterization - Regional Liaison Instructions, Myocardial Infarction (DC) Discharge Disposition: HOME SELF-CARE
--- NOTE | 2016-12-10 15:41 | ECHOF ---
Referral Reason:nstemi MEASUREMENTS -------- HEIGHT: 167.6 cm WEIGHT: 106.6 kg BP: 128/64 RVIDd: 4.1 cm (< 3.3) IVSd: 1.4 cm (0.6 - 1.1) LVIDd: 4.7 cm (3.9 - 5.3) LVPWd: 1.2 cm (0.6 - 1.1) IVSs: 1.9 cm LVIDs: 3.7 cm LVPWs: 1.2 cm LAESV Index (A-L): 18.25 ml/m Ao Diam: 2.6 cm (2.0 - 3.7) AV Cusp: 1.1 cm (1.5 - 2.6) LA Diam: 4.6 cm (2.7 - 3.8) MV EXCURSION: 17.180 mm (> 18.000) MV EF SLOPE: 75 mm/s (70 - 150) EPSS: 0.9 cm MV E Cliff: 0.78 m/s MV DecT: 260 ms MV A Cliff: 0.87 m/s MV E/A Ratio: 0.89 RAP: 5.00 mmHg RVSP: 35.91 mmHg FINDINGS -------- Sinus rhythm. This was a technically adequate study. There is mild concentric left ventricular hypertrophy. Overall left ventricular systolic function is moderately impaired with, an EF between 35 - 40 %. Basal posterior LV wall motion is hypokinetic. Mid posterior LV wall motion is hypokinetic. The right ventricle is mildly enlarged. Normal LA size by volume 22+/-6 ml/m2. RA appears enlarged. The aortic valve is trileaflet and appears structurally normal. There is no evidence of aortic regurgitation. There is no evidence of aortic stenosis. The mitral valve leaflets are mildly thickened. There is trace mitral regurgitation. Trace tricuspid regurgitation present. There is no evidence of pulmonary hypertension. The right ventricular systolic pressure, as measured by Doppler, is 35.91mmHg. The aortic root size is normal. There is no pericardial effusion. CONCLUSIONS -------- 1. Sinus rhythm. 2. The aortic root size is normal. 3. There is no pericardial effusion. 4. There is mild concentric left ventricular hypertrophy. 5. Overall left ventricular systolic function is moderately impaired with, an EF between 35 - 40 %. 6. The right ventricle is mildly enlarged. 7. RA appears enlarged. 8. The mitral valve leaflets are mildly thickened. 9. There is trace mitral regurgitation. 10. Trace tricuspid regurgitation present. 11. The right ventricular systolic pressure, as measured by Doppler, is 35.91mmHg. FOREST RANGER TECHNICIAN: Ratna Ha RDCS
--- NOTE | 2016-12-11 14:37 | PN ---
DATE OF SERVICE: 12/10/2016 CHIEF COMPLAINT: Unstable angina pectoris. HISTORY OF PRESENT ILLNESS: This lady is doing well and has no further angina or pain in the right side of the neck or jaw. She probably will go home today and this will be arranged by the nurse practitioner. PHYSICAL EXAM: Chest is clear. Cardiac exam is normal. The abdomen is soft, nontender. IMPRESSION: 1. Unstable angina pectoris. 2. Coronary artery disease. PLAN: Probably home today.
--- NOTE | 2016-12-24 12:54 | CC ---
DATE OF SERVICE: INDICATION: Unstable angina. PROCEDURE NOTE: After obtaining informed consent, left heart catheterization and coronary angiogram are performed via the right femoral artery using standard Natasha catheters. Patient tolerated the procedure well without any obvious immediate complications. FINDINGS: 1. HEMODYNAMICS: Left ventricular end-diastolic pressure is 20 mm. There is no significant gradient across the aortic valve. 2. LEFT VENTRICULOGRAM: Left ventriculogram is not performed. 3. ANGIOGRAPHIC DATA: LEFT MAIN CORONARY ARTERY: Left main coronary artery is normal size vessel and is free of stenosis. Divides into left anterior descending coronary artery and circumflex coronary artery. LAD shows a patent stent in the proximal part. Circumflex coronary artery shows a 95% stenosis. The OM branch has a 70% stenosis. Right coronary artery is free of disease. CONCLUSIONS: 1. Patent stent within the left anterior descending artery. 2. A 95% stenosis involving circumflex coronary artery with a 70% stenosis involving OM branch. PLAN: Patient will undergo angioplasty of the circumflex and OM. The total sedation time was 15 minutes.
== END 2016-12-10 15:25 | disposition home or self-care (01) | DRG 247 ==
LOC: EC 09:01 → OBSVTOIN 12:03 → 6SEL 12:03
PROVIDERS: ADMIT Family Medicine; ATTEND Family Medicine
PROC: 027135Z Dilation of Coronary Artery, Two Arteries with Two Drug-eluting Intraluminal Devices, Percutaneous Approach (ICD-10-PCS; principal; 2016-12-08 08:30)
PROC: 4A023N7 Measurement of Cardiac Sampling and Pressure, Left Heart, Percutaneous Approach (ICD-10-PCS; 2016-12-08 08:30)
PROC: B2111ZZ Fluoroscopy of Multiple Coronary Arteries using Low Osmolar Contrast (ICD-10-PCS; 2016-12-08 08:30)
DX: I21.4 Non-ST elevation (NSTEMI) myocardial infarction (principal); I10 Essential (primary) hypertension; E78.5 Hyperlipidemia, unspecified; I25.2 Old myocardial infarction; M35.3 Polymyalgia rheumatica; E66.9 Obesity, unspecified; I16.0 Hypertensive urgency; I25.10 Atherosclerotic heart disease of native coronary artery without angina pectoris; Z68.38 Body mass index [BMI] 38.0-38.9, adult; Z79.02 Long term (current) use of antithrombotics/antiplatelets; Z79.82 Long term (current) use of aspirin; Z79.899 Other long term (current) drug therapy; Z79.52 Long term (current) use of systemic steroids; Z88.2 Allergy status to sulfonamides; Z95.5 Presence of coronary angioplasty implant and graft; Z82.49 Family history of ischemic heart disease and other diseases of the circulatory system
CPT/HCPCS: 36415; 71020; 80048; 80053; 80061; 82550; 82553; 83735; 83880; 84484; 85025; 85610; 85730; 93005; 93306; 93458; 94760; 96360; 96375; 99291

== ENCOUNTER → 2016-12-20 | Outpatient (CLI) | payer MEDICARE ==
[2016-12-20 10:33] LABS: ALT 59 U/L (9-52); AST 36 U/L (14-36); Cholesterol 165 mg/dL (<200); HDL Cholesterol 49 mg/dL (40-60); Triglycerides 117 mg/dL (<150)
== END | disposition home or self-care (01) ==
LOC: LABWHC1 09:20
PROVIDERS: ATTEND Internal Medicine Cardiovascular Disease
DX: E78.2 Mixed hyperlipidemia (principal)
CPT/HCPCS: 36415; 80061; 84450; 84460

== ENCOUNTER 2020-01-31 13:55 | Emergency (ER) | payer MEDICARE ==
[2020-01-31 14:01] VITALS: BP 120/55; PULSE 63; RESP 16; TEMP 98.8
[2020-01-31] MEDS ORDERED: DIPH,PERTUS(ACELL)TETVAC-LF 0.5 ML VIAL IM ONE (14:13)
--- NOTE | 2020-01-31 14:16 | ED ---
General Adult HPI - General Chief complaint: Fall Stated complaint: fall, head injury Time Seen by Provider: 01/31/20 14:10 Source: patient Mode of arrival: wheelchair Limitations: no limitations - History of Present Illness Initial comments: Dictation was produced using [employer] dictation software. please excuse any grammatical, word or spelling errors. This patient was cared for during a federal and state declared state of emergency secondary to Covid 19 Chief Complaint: 75-year-old female on Xarelto for A. fib presents after fall. History of Present Illness: 75-year-old female she was walking down the steps when she came to the last that. Patient states she tripped and fell forward. She landed on her knees and smacked her face on the ground. Patient reports that after the fall she noted there was some ground. She is bleeding from the side of her head. Patient also has some right rib pain and right knee pain after the fall. Patient has any headache. Denies any pain or back pain. Patient's laboratory after the accident. Patient takes Xarelto for A. fib. The ROS documented in this emergency department record has been reviewed and confirmed by me. Those systems with pertinent positive or negative responses h ave been documented in the HPI. All other systems are other negative and/or noncontributory. PHYSICAL EXAM: General Impression: Alert and oriented x3, not in acute distress HEENT: Normocephalic atraumatic, extra-ocular movements intact, pupils equal and reactive to light bilaterally, mucous membranes moist. Cardiovascular: Heart regular rate and rhythm Chest: Able to complete full sentences, no retractions, no tachypnea Abdomen: abdomen soft, non-tender, non-distended, no organomegaly Musculoskeletal: Pulses present and equal in all extremities, no peripheral edema, no thoracic tenderness to palpation, spine is midline without any places of pain or step-offs or deformities Motor: no focal deficits noted Neurological: CN II-XII grossly intact, no focal motor or sensory deficits noted, no ataxia. Able to stand with no complications Skin: Superficial abrasion to the right lateral forehead just next to the eyebrow, superficial abrasion to the right anterior knee Psych: Normal affect and mood ED course: 75-year-old female presents with chest pain, knee pain and medicated injury after fall. Vital signs upon arrival are within acceptable limits. Laboratory evaluation obtained. CBC, coag panel, metabolic panel is unremarkable. Computed tomography scan of the brain and C-spine shows no acute processes. Chest x-ray and pelvis x-ray unremarkable. It says that there is a difficult to exclude proximal right femur fracture. Patient does not have any pain whatsoever. She is ambulating with no complications. The x-rays shows no acute processes. Patient reevaluated at bedside she continues to deny any sort of hip pain. She is an Cheryl without complications. Patient clear for discharge. She is told to seek medical attention if she at any point develops any left hip symptoms. EKG interpretation: Ventricular rate 77, sinus rhythm,. 194, QRS 80, QTc 443. N o WA prolongation, no QTC prolongation, no ST or T-wave changes noted. . Overall, this EKG is unremarkable - Related Data Home Medications Medication Instructions Recorded Confirmed Milk Thistle 150 mg PO DAILY 07/29/17 07/29/17 Ubidecarenone [Co Q-10] 100 mg PO DAILY 07/29/17 07/29/17 Previous Rx's Medication Instructions Recorded Clopidogrel [Plavix] 75 mg PO DAILY #30 tab 12/10/16 Losartan [Cozaar] 50 mg PO DAILY #30 tab 12/10/16 Nitroglycerin Sl Tabs [Nitrostat] 0.4 mg SUBLINGUAL Q5M PRN #253 tab 12/10/16 Metoprolol Succinate (ER) [Toprol 200 mg PO DAILY #60 tab.er.24h 08/05/17 XL] Pantoprazole [Protonix] 40 mg PO AC-BID #60 tablet. 08/05/17 Rivaroxaban [Xarelto] 15 mg PO W/SUPPER #30 tab 08/05/17 Sucralfate [Carafate] 1 gm PO AC-TID #90 tab 08/05/17 Allergies Allergy/AdvReac Type Severity Reaction Status Date / Time Sulfa (Sulfonamide Allergy Unknown Verified 07/29/17 14:31 Antibiotics) Childhood Review of Systems ROS Statement: Those systems with pertinent positive or pertinent negative responses have been documented in the HPI. ROS Other: All systems not noted in ROS Statement are negative. Past Medical History Past Medical History: Coronary Artery Disease (CAD), Hyperlipidemia, Hypertension, Myocardial Infarction (ME) Additional Past Medical History / Comment(s): polymyalgia- similar to fibro in arms Last Myocardial Infarction Date:: 2003 History of Any Multi-Drug Resistant Organisms: None Reported Past Surgical History: Heart Catheterization With Stent, Tonsillectomy Additional Past Surgical History / Comment(s): PARTIAL HYSTERECTOMY. rectal fissure repair Date of Last Stent Placement:: 2003 Past Psychological History: No Psychological Hx Reported Smoking Status: Never smoker Past Alcohol Use History: None Reported Past Drug Use History: None Reported - Past Family History Father Family Medical History: Coronary Artery Disease (CAD) Mother Family Medical History: Coronary Artery Disease (CAD) General Exam Limitations: no limitations Course Vital Signs 01/31/20 13:56 Temperature 98.8 F Pulse Rate 63 Respiratory 16 Rate Blood Pressure 120/55 O2 Sat by Pulse 95 Oximetry Medical Decision Making - Lab Data Result diagrams: 01/31/20 14:25 01/31/20 14:25 Lab Results 01/31/20 01/31/20 01/31/20 Range/Units 14:25 14:25 14:25 WBC 8.2 (3.8-10.6) k/uL RBC 5.04 (3.80-5.40) m/uL Hgb 15.3 (11.4-16.0) gm/dL Hct 46.5 H (34.0-46.0) % MCV 92.3 (80.0-100.0) fL MCH 30.3 (25.0-35.0) pg MCHC 32.8 (31.0-37.0) g/dL RDW 14.3 (11.5-15.5) % Plt Count 214 (150-450) k/uL Neutrophils % 77 % Lymphocytes % 12 % Monocytes % 6 % Eosinophils % 2 % Basophils % 1 % Neutrophils # 6.3 (1.3-7.7) k/uL Lymphocytes # 1.0 (1.0-4.8) k/uL Monocytes # 0.5 (0-1.0) k/uL Eosinophils # 0.1 (0-0.7) k/uL Basophils # 0.1 (0-0.2) k/uL PT 12.4 H (9.0-12.0) sec INR 1.2 H (<1.2) APTT 25.2 (22.0-30.0) sec Sodium 136 L (137-145) mmol/L Potassium 4.4 (3.5-5.1) mmol/L Chloride 106 (98-107) mmol/L Carbon Dioxide 24 (22-30) mmol/L Anion Gap 6 mmol/L BUN 19 H (7-17) mg/dL Creatinine 0.88 (0.52-1.04) mg/dL Est GFR (CKD-EPI)AfAm 74 (>60 ml/min/1.73 sqM) Est GFR (CKD-EPI)NonAf 64 (>60 ml/min/1.73 sqM) Glucose 105 H (74-99) mg/dL Calcium 8.5 (8.4-10.2) mg/dL Disposition Clinical Impression: Head contusion, Fall Disposition: HOME SELF-CARE Condition: Good Instructions (If sedation given, give patient instructions): Fall Prevention for Older Adults (ED) Is patient prescribed a controlled substance at d/c from ED?: No Referrals: None,Stated [Primary Care Provider] - 1-2 days Time of Disposition: 15:19
--- NOTE | 2020-01-31 14:43 | XR ---
AP pelvis HISTORY: Trauma and pain Single frontal view of the pelvis Bone mineralization is reduced. Joint spaces and alignment are maintained. There is a lucency present along the lesser trochanter of the right hip. No dislocation. Degenerative disc changes are present in the visualized lower lumbar spine. IMPRESSION: Difficult to exclude fracture proximal right femur. Consider CT scan as indicated.
[2020-01-31 14:57] LABS: Basophils # (A) 0.1 k/uL (0-0.2); Basophils % (A) 1 %; Eosinophils # (A) 0.1 k/uL (0-0.7); Eosinophils % (A) 2 %; HCT 46.5 % (34.0-46.0); HGB 15.3 gm/dL (11.4-16.0); Lymphocytes % (A) 12 %; MCH 30.3 pg (25.0-35.0); MCHC 32.8 g/dL (31.0-37.0); MCV 92.3 fL (80.0-100.0); Mean Platelet Volume 8.8; Monocytes # (A) 0.5 k/uL (0-1.0); Monocytes % (A) 6 %; Neutrophils # (A) 6.3 k/uL (1.3-7.7); Neutrophils % (A) 77 %; Platelet Count 214 k/uL (150-450); RBC 5.04 m/uL (3.80-5.40); RDW 14.3 % (11.5-15.5); WBC 8.2 k/uL (3.8-10.6)
--- NOTE | 2020-01-31 14:57 | CT ---
EXAMINATION TYPE: CT brain miguel lopez con DATE OF EXAM: 01/31/2020 COMPARISON: 06/16/2016 HISTORY: Fall. Right supraorbital injury. CT DLP: 1447.[address] of the brain was performed. The ventricles, basal cisterns and sulci overlying the cerebral convexities demonstrate mild enlargem ent. There is no evidence for intracranial hemorrhage or sulcal effacement. There is decreased attenuatio n about the periventricular white matter and deep white matter of both cerebral hemispheres, compatib le with chronic small vessel ischemia. No mass effects are seen. If symptoms persist consider MRI. Osseous calvarium is intact. IMPRESSION: 1. Age related atrophic and chronic small vessel ischemic change without acute intracranial process seen at this time. CT Cervical Spine: Unenhanced CT of the cervical spine was performed with bone and soft tissue window settings submitted . Coronal and sagittal reconstruction is obtained. There is normal alignment and prevertebral soft tissues. No evidence for acute cervical fracture . Scattered degenerative disc disease and spondylosis. Biapical scarring. IMPRESSION: 1. No evidence for acute fracture or subluxation of the cervical spine.
[2020-01-31 15:05] LABS: INR 1.2 (<1.2); Partial Thromboplastin Time 25.2 sec (22.0-30.0); Prothrombin Time 12.4 sec (9.0-12.0)
[2020-01-31 15:08] LABS: Calcium 8.5 mg/dL (8.4-10.2); Potassium 4.4 mmol/L (3.5-5.1)
--- NOTE | 2020-01-31 15:10 | XR ---
EXAMINATION TYPE: XR chest 2V, XR ribs RT DATE OF EXAM: 01/31/2020 COMPARISON: NONE HISTORY: Shortness of breath TECHNIQUE: Frontal and lateral views of the chest are obtained. FINDINGS: Scattered senescent parenchymal changes noted. Hyperinflation compatible with COPD. No evidence for infiltrate. No evidence for atelectasis. No evidence for pneumothorax. Heart size is stable. Mediastinal structures are stable and grossly unremarkable. No evidence for hilar prominence. Degenerative changes dorsal spine. IMPRESSION: 1. No evidence for acute pulmonary disease. EXAMINATION TYPE: XR chest 2V, XR ribs RT DATE OF EXAM: 01/31/2020 CLINICAL HISTORY: Pain, Fall Four views of the ribs fail demonstrate evidence for displaced rib fracture or secondary sign of rib fracture. Visualized lungs are clear. No evidence for pneumothorax. IMPRESSION: 1. No displaced rib fractures seen. ICD 10 NO FRACTURE, INITIAL EVALUATION
--- NOTE | 2020-01-31 15:13 | XR ---
EXAMINATION TYPE: XR knee 4V RT DATE OF EXAM: 01/31/2020 CLINICAL HISTORY: pain TECHNIQUE: Three views of the right knee are obtained. COMPARISON: None. FINDINGS: There is no acute fracture/dislocation. The tri-compartment joint spaces appear within no rmal limits. The overlying soft tissue appears unremarkable. IMPRESSION: There is no acute fracture or dislocation.ICD 10 NO FRACTURE, INITIAL EVALUATION
== END 2020-01-31 16:00 | disposition home or self-care (01) ==
LOC: EC 13:55
DX: S00.93XA Contusion of unspecified part of head, initial encounter (principal); I25.10 Atherosclerotic heart disease of native coronary artery without angina pectoris; I25.2 Old myocardial infarction; I48.91 Unspecified atrial fibrillation; Z88.2 Allergy status to sulfonamides; Z95.5 Presence of coronary angioplasty implant and graft; Z79.01 Long term (current) use of anticoagulants; W01.198A Fall on same level from slipping, tripping and stumbling with subsequent striking against other object, initial encounter
CPT/HCPCS: 36415; 70450; 71046; 72125; 72170; 80048; 85025; 85610; 85730; 90471; 90715; 93005; 99284

== ENCOUNTER 2020-12-31 11:42 | Inpatient (IN) | payer MEDICARE ==
--- NOTE | 2020-12-31 12:30 | ED ---
General Adult HPI - General Chief complaint: Weakness Stated complaint: Fatigue,SOB, Cardiac Hx Time Seen by Provider: 12/31/20 12:00 Source: patient, family, RN notes reviewed Mode of arrival: ambulatory Limitations: no limitations - History of Present Illness Initial comments: Patient is a pleasant 75-year-old female presenting to the emergency Department with complaints of fatigue and exertional dyspnea. Symptoms have been present over the past week, much worse since yesterday. Patient states she becomes very fatigued and short of breath even with walking only 5 feet. Patient has occasional minimal dyspnea at rest. No leg pain or leg swelling. Patient does have history of similar symptoms 3 or 4 times previously associated with bleeding cardiac stents. Patient denies chest pain. No nausea. - Related Data Home Medications Medication Instructions Recorded Confirmed Metoprolol Succinate (ER) [Toprol 100 mg PO DAILY 01/31/20 12/31/20 XL] Rivaroxaban [Xarelto] 15 mg PO HS 01/31/20 12/31/20 Atorvastatin [Lipitor] 40 mg PO HS 12/31/20 12/31/20 Losartan [Cozaar] 25 mg PO DAILY 12/31/20 12/31/20 Allergies Allergy/AdvReac Type Severity Reaction Status Date / Time Sulfa (Sulfonamide Allergy Unknown Verified 12/31/20 13:37 Antibiotics) Childhood Review of Systems ROS Statement: Those systems with pertinent positive or pertinent negative responses have been documented in the HPI. ROS Other: All systems not noted in ROS Statement are negative. Constitutional: Denies: fever Eyes: Denies: eye pain ENT: Denies: ear pain Respiratory: Reports: as per HPI, dyspnea. Denies: cough Cardiovascular: Denies: chest pain Endocrine: Reports: fatigue Gastrointestinal: Denies: abdominal pain Genitourinary: Denies: dysuria Musculoskeletal: Denies: back pain Skin: Denies: rash Neurological: Denies: weakness Past Medical History Past Medical History: Coronary Artery Disease (CAD), Heart Failure, Hyperlipidemia, Hypertension, Myocardial Infarction ([place]) Additional Past Medical History / Comment(s): polymyalgia- similar to fibro in arms Last Myocardial Infarction Date:: 2003 History of Any Multi-Drug Resistant Organisms: None Reported Past Surgical History: Heart Catheterization With Stent, Tonsillectomy Additional Past Surgical History / Comment(s): PARTIAL HYSTERECTOMY. rectal fissure repair Date of Last Stent Placement:: 2003 Past Psychological History: No Psychological Hx Reported Smoking Status: Never smoker Past Alcohol Use History: None Reported Past Drug Use History: None Reported - Past Family History Father Family Medical History: Coronary Artery Disease (CAD) Mother Family Medical History: Coronary Artery Disease (CAD) General Exam Limitations: no limitations General appearance: alert, in no apparent distress Head exam: Present: normocephalic Eye exam: Present: normal appearance Neck exam: Present: normal inspection Respiratory exam: Present: normal lung sounds bilaterally. Absent: respiratory distress, chest wall tenderness Cardiovascular Exam: Present: regular rate, normal rhythm Expanded Peripheral pulses: 2+: Radial (R), Radial (L), Dorsalis Pedis (R), Dorsalis Pedis (L) GI/Abdominal exam: Present: soft. Absent: tenderness Extremities exam: Present: normal inspection. Absent: pedal edema, calf tenderness Neurological exam: Present: alert. Absent: motor sensory deficit Psychiatric exam: Present: normal affect, normal mood Skin exam: Present: normal color Course Vital Signs 12/31/20 11:44 Temperature 97.9 F Pulse Rate 68 Respiratory 18 Rate Blood Pressure 111/56 O2 Sat by Pulse 97 Oximetry EKG Findings - EKG Comments: EKG Findings:: Normal sinus rhythm with rate of 69. RI 194. QRS 80. QT 416. QTC 445. Normal axis. Normal QRS. No acute ST change. Medical Decision Making - Medical Decision Making Patient reevaluated. Patient and family updated. Case discussed with Dr. Mccord, who will admit covering hospital call. Cardiology will be placed on consult - Lab Data Result diagrams: 12/31/20 12:44 12/31/20 12:44 Lab Results 12/31/20 12/31/20 12/31/20 Range/Units 12:44 12:44 12:44 WBC 6.1 (3.8-10.6) k/uL RBC 5.04 (3.80-5.40) m/uL Hgb 15.6 (11.4-16.0) gm/dL Hct 45.6 (34.0-46.0) % MCV 90.5 (80.0-100.0) fL MCH 30.9 (25.0-35.0) pg MCHC 34.2 (31.0-37.0) g/dL RDW 13.7 (11.5-15.5) % Plt Count 197 (150-450) k/uL MPV 8.9 Neutrophils % 71 % Lymphocytes % 16 % Monocytes % 8 % Eosinophils % 1 % Basophils % 1 % Neutrophils # 4.3 (1.3-7.7) k/uL Lymphocytes # 1.0 (1.0-4.8) k/uL Monocytes # 0.5 (0-1.0) k/uL Eosinophils # 0.1 (0-0.7) k/uL Basophils # 0.1 (0-0.2) k/uL PT 13.7 H (9.0-12.0) sec INR 1.3 H (<1.2) APTT 28.4 (22.0-30.0) sec D-Dimer 0.35 (<0.60) mg/L FEU Sodium 138 (137-145) mmol/L Potassium 5.4 H (3.5-5.1) mmol/L Chloride 106 (98-107) mmol/L Carbon Dioxide 26 (22-30) mmol/L Anion Gap 6 mmol/L BUN 25 H (7-17) mg/dL Creatinine 1.27 H (0.52-1.04) mg/dL Est GFR (CKD-EPI)AfAm 47 (>60 ml/min/1.73 sqM) Est GFR (CKD-EPI)NonAf 41 (>60 ml/min/1.73 sqM) Glucose 95 (74-99) mg/dL Plasma Lactic Acid Tan (0.7-2.0) mmol/L Calcium 9.0 (8.4-10.2) mg/dL Total Bilirubin 0.9 (0.2-1.3) mg/dL AST 180 H (14-36) U/L ALT 133 H (4-34) U/L Alkaline Phosphatase 153 H (38-126) U/L Troponin I (0.000-0.034) ng/mL NT-Pro-B Natriuret Pep pg/mL Total Protein 7.2 (6.3-8.2) g/dL Albumin 3.6 (3.5-5.0) g/dL Coronavirus (PCR) (Not Detectd) 12/31/20 12/31/20 12/31/20 Range/Units 12:44 12:44 12:44 WBC (3.8-10.6) k/uL RBC (3.80-5.40) m/uL Hgb (11.4-16.0) gm/dL Hct (34.0-46.0) % MCV (80.0-100.0) fL MCH (25.0-35.0) pg MCHC (31.0-37.0) g/dL RDW (11.5-15.5) % Plt Count (150-450) k/uL MPV Neutrophils % % Lymphocytes % % Monocytes % % Eosinophils % % Basophils % % Neutrophils # (1.3-7.7) k/uL Lymphocytes # (1.0-4.8) k/uL Monocytes # (0-1.0) k/uL Eosinophils # (0-0.7) k/uL Basophils # (0-0.2) k/uL PT (9.0-12.0) sec INR (<1.2) APTT (22.0-30.0) sec D-Dimer (<0.60) mg/L FEU Sodium (137-145) mmol/L Potassium (3.5-5.1) mmol/L Chloride (98-107) mmol/L Carbon Dioxide (22-30) mmol/L Anion Gap mmol/L BUN (7-17) mg/dL Creatinine (0.52-1.04) mg/dL Est GFR (CKD-EPI)AfAm (>60 ml/min/1.73 sqM) Est GFR (CKD-EPI)NonAf (>60 ml/min/1.73 sqM) Glucose (74-99) mg/dL Plasma Lactic Acid Tan 1.6 (0.7-2.0) mmol/L Calcium (8.4-10.2) mg/dL Total Bilirubin (0.2-1.3) mg/dL AST (14-36) U/L ALT (4-34) U/L Alkaline Phosphatase (38-126) U/L Troponin I <0.012 (0.000-0.034) ng/mL NT-Pro-B Natriuret Pep 579 pg/mL Total Protein (6.3-8.2) g/dL Albumin (3.5-5.0) g/dL Coronavirus (PCR) (Not Detectd) 12/31/20 Range/Units 12:44 WBC (3.8-10.6) k/uL RBC (3.80-5.40) m/uL Hgb (11.4-16.0) gm/dL Hct (34.0-46.0) % MCV (80.0-100.0) fL MCH (25.0-35.0) pg MCHC (31.0-37.0) g/dL RDW (11.5-15.5) % Plt Count (150-450) k/uL MPV Neutrophils % % Lymphocytes % % Monocytes % % Eosinophils % % Basophils % % Neutrophils # (1.3-7.7) k/uL Lymphocytes # (1.0-4.8) k/uL Monocytes # (0-1.0) k/uL Eosinophils # (0-0.7) k/uL Basophils # (0-0.2) k/uL PT (9.0-12.0) sec INR (<1.2) APTT (22.0-30.0) sec D-Dimer (<0.60) mg/L FEU Sodium (137-145) mmol/L Potassium (3.5-5.1) mmol/L Chloride (98-107) mmol/L Carbon Dioxide (22-30) mmol/L Anion Gap mmol/L BUN (7-17) mg/dL Creatinine (0.52-1.04) mg/dL Est GFR (CKD-EPI)AfAm (>60 ml/min/1.73 sqM) Est GFR (CKD-EPI)NonAf (>60 ml/min/1.73 sqM) Glucose (74-99) mg/dL Plasma Lactic Acid Tan (0.7-2.0) mmol/L Calcium (8.4-10.2) mg/dL Total Bilirubin (0.2-1.3) mg/dL AST (14-36) U/L ALT (4-34) U/L Alkaline Phosphatase (38-126) U/L Troponin I (0.000-0.034) ng/mL NT-Pro-B Natriuret Pep pg/mL Total Protein (6.3-8.2) g/dL Albumin (3.5-5.0) g/dL Coronavirus (PCR) Not Detected (Not Detectd) - Radiology Data Radiology results: image reviewed (X-ray shows no acute process) Disposition Clinical Impression: Exertional dyspnea Disposition: ADMITTED IP TO THIS HOSP Is patient prescribed a controlled substance at d/c from ED?: No Referrals: None,Stated [Primary Care Provider] - 1-2 days Decision Time: 14:08
[2020-12-31 12:54] LABS: Basophils # (A) 0.1 k/uL (0-0.2); Basophils % (A) 1 %; Eosinophils # (A) 0.1 k/uL (0-0.7); Eosinophils % (A) 1 %; HCT 45.6 % (34.0-46.0); HGB 15.6 gm/dL (11.4-16.0); Lymphocytes % (A) 16 %; MCH 30.9 pg (25.0-35.0); MCHC 34.2 g/dL (31.0-37.0); MCV 90.5 fL (80.0-100.0); Mean Platelet Volume 8.9; Monocytes # (A) 0.5 k/uL (0-1.0); Monocytes % (A) 8 %; Neutrophils # (A) 4.3 k/uL (1.3-7.7); Neutrophils % (A) 71 %; Platelet Count 197 k/uL (150-450); RBC 5.04 m/uL (3.80-5.40); RDW 13.7 % (11.5-15.5); WBC 6.1 k/uL (3.8-10.6)
[2020-12-31 13:09] LABS: Potassium 5.4 mmol/L (3.5-5.1)
[2020-12-31 13:10] LABS: Albumin 3.6 g/dL (3.5-5.0); Total Bilirubin 0.9 mg/dL (0.2-1.3); Total Protein 7.2 g/dL (6.3-8.2)
--- NOTE | 2020-12-31 13:14 | XR ---
EXAMINATION TYPE: XR chest 2V DATE OF EXAM: 12/31/2020 COMPARISON: Chest x-ray 01/31/2020 HISTORY: Difficulty breathing TECHNIQUE: Frontal and lateral views of the chest are obtained. FINDINGS: There is no pleural effusion or pneumothorax seen. Subsegmental atelectatic changes are pr esent at the left lung base, possible lingular scarring. The cardiac silhouette size is within normal limits. The osseous structures are remarkable for probable wedge compression deformity superior en dplate in the thoracic lumbar junction which is chronic. IMPRESSION: No acute cardiopulmonary process.
[2020-12-31 13:23] LABS: INR 1.3 (<1.2); Partial Thromboplastin Time 28.4 sec (22.0-30.0); Prothrombin Time 13.7 sec (9.0-12.0)
[2020-12-31] MEDS ORDERED: NITROGLYCERIN SL TABS 0.4 MG TAB SUBLINGUAL PRN (14:08)
[2020-12-31] MEDS ORDERED: ASPIRIN 81 MG PO STA (14:08)
[2020-12-31] MEDS ORDERED: HEPARIN SODIUM 1,000 UN/ML (10ML VL) IV PRN (17:08)
--- NOTE | 2020-12-31 17:16 | P.HPIM ---
History of Present Illness Patient presents on 75-year-old female came in with complaints of January's fatigue and exertional dyspnea has been going on for last few days much worse since yesterday. Patient does have history of coronary artery disease with multiple stents in the past patient had similar symptoms when she had myocardial infarction in the past. EKG did not show any acute ST-T wave changes facet of troponin is negative. Patient is being admitted for possible unstable angina. The other workup for shortness of breath is all negative patient doesn't have any pneumonia d-dimer is negative chest x-ray did not show any congestive heart failure. Patient BNP is around 500. Patient doesn't have any history of COPD and is not wheezing at this time. shortness of breath is exertional upon further questioning patient said she occasionally has some squeezing sense sensation in the chest and heart area. Patient denied any diaphoresis, nausea, lightheadedness. Patient does have history of atrial fibrillation and will the patient on the monitor patient appeared to have atrial flutter. Review of Systems REVIEW OF SYSTEMS: CONSTITUTIONAL: No fever, no malaise, no fatigue. HEENT: No recent visual problems or hearing problems. Denied any sore throat. CARDIOVASCULAR: No chest pain, orthopnea, PND, no palpitations, no syncope. PULMONARY: no hemoptysis. GASTROINTESTINAL: No diarrhea, no nausea, no vomiting, no abdominal pain. NEUROLOGICAL: No headaches, no weakness, no numbness. HEMATOLOGICAL: Denies any bleeding or petechiae. GENITOURINARY: Denies any burning micturition, frequency, or urgency. MUSCULOSKELETAL/RHEUMATOLOGICAL: Denies any joint pain, swelling, or any muscle pain. ENDOCRINE: Denies any polyuria or polydipsia. The rest of the 14-point review of systems is negative. Past Medical History Past Medical History: Coronary Artery Disease (CAD), Heart Failure, Hyperlipidemia, Hypertension, Myocardial Infarction ([place]) Additional Past Medical History / Comment(s): polymyalgia- similar to fibro in arms Last Myocardial Infarction Date:: 2003 History of Any Multi-Drug Resistant Organisms: None Reported Past Surgical History: Heart Catheterization With Stent, Tonsillectomy Additional Past Surgical History / Comment(s): PARTIAL HYSTERECTOMY. rectal fissure repair Date of Last Stent Placement:: 2003 Past Psychological History: No Psychological Hx Reported Smoking Status: Never smoker Past Alcohol Use History: None Reported Past Drug Use History: None Reported - Past Family History Father Family Medical History: Coronary Artery Disease (CAD) Mother Family Medical History: Coronary Artery Disease (CAD) Medications and Allergies Home Medications Medication Instructions Recorded Confirmed Type Metoprolol Succinate (ER) [Toprol 100 mg PO DAILY 01/31/20 12/31/20 History XL] Rivaroxaban [Xarelto] 15 mg PO HS 01/31/20 12/31/20 History Atorvastatin [Lipitor] 40 mg PO HS 12/31/20 12/31/20 History Losartan [Cozaar] 25 mg PO DAILY 12/31/20 12/31/20 History Allergies Allergy/AdvReac Type Severity Reaction Status Date / Time Sulfa (Sulfonamide Allergy Unknown Verified 12/31/20 13:37 Antibiotics) Childhood Physical Exam Vitals: Vital Signs Temp Pulse Resp BP Pulse Ox 12/31/20 11:44 97.9 F 68 18 111/56 97 Intake and Output 12/31/20 12/31/20 12/31/20 06:59 14:59 22:59 Other: Weight 108.862 kg PHYSICAL EXAMINATION: GENERAL: The patient is alert and oriented x3, not in any acute distress. Well developed, well nourished. HEENT: Pupils are round and equally reacting to light. EOMI. No scleral icterus. No conjunctival pallor. Normocephalic, atraumatic. No pharyngeal erythema. No thyromegaly. CARDIOVASCULAR: S1 and S2 present. No murmurs, rubs, or gallops. PULMONARY: Chest is clear to auscultation, no wheezing or crackles. ABDOMEN: Soft, nontender, nondistended, normoactive bowel sounds. No palpable organomegaly. MUSCULOSKELETAL: No joint swelling or deformity. EXTREMITIES: No cyanosis, clubbing, or pedal edema. NEUROLOGICAL: Gross neurological examination did not reveal any focal deficits. SKIN: No rashes. Results CBC & Chem 7: 12/31/20 12:44 12/31/20 12:44 Labs: Abnormal Lab Results - Last 24 Hours (Table) 12/31/20 12/31/20 Range/Units 12:44 12:44 PT 13.7 H (9.0-12.0) sec INR 1.3 H (<1.2) Potassium 5.4 H (3.5-5.1) mmol/L BUN 25 H (7-17) mg/dL Creatinine 1.27 H (0.52-1.04) mg/dL AST 180 H (14-36) U/L ALT 133 H (4-34) U/L Alkaline Phosphatase 153 H (38-126) U/L Assessment and Plan Plan: -Shortness of breath: Possible anginal equal and patient's the Xarelto will be held and patient will be started on low intensity heparin until she is evaluated by cardiology further patient regarding stress test versus cardiac catheterization as per cardiology. Patient's stress test was more than 2 years ago Patient does have significant coronary artery disease history -mild acute renal failure his baseline creatinine is within normal limits, we'll azotemia. Continue with IV fluids -Paroxysmal A. fib patient is presently in atrial flutter: Patient's anti- correlation as mentioned above patient will be resumed on metoprolol succinate. -Coronary artery disease history -Mild elevation of liver enzymes: Patient appeared to have progressive elevation since her last lab test. We'll repeat the liver enzymes again we'll obtain ultrasound of the gallbladder, hepatitis panel. We'll temporally hold off on the statin but patient only has minimal elevation of AST and ALT of the remain stable patient can be restarted back on statins.
[2020-12-31] MEDS: HEPARIN SOD,PORK IN 0.45% NACL 25,000 UNIT in 0.45% NACL 1 250ML.BAG IV SCH (18:52)
[2020-12-31] MEDS ORDERED: RIVAROXABAN 15 MG TAB PO SCH (21:00)
[2020-12-31] MEDS: SODIUM CHLORIDE 0.9% 1,000 ML IV SCH (22:34)
[2020-12-31 22:53] LABS: Hepatitis A Antibody IgM Non-Reactive (Non-Reactive); Hepatitis B Core IgM Non-Reactive (Non-Reactive); Hepatitis B Surface Antigen Non-Reactive (Non-Reactive); Hepatitis C IgG Antibody Non-Reactive (Non-Reactive)
[2021-01-01] MEDS: SODIUM CHLORIDE 0.9% 1,000 ML IV SCH (06:23)
[2021-01-01 06:48] LABS: INR 1.3 (<1.2)
[2021-01-01 07:24] LABS: Partial Thromboplastin Time 130.5 sec (22.0-30.0)
--- NOTE | 2021-01-01 08:55 | US ---
EXAMINATION TYPE: US gallbladder DATE OF EXAM: 01/01/2021 COMPARISON: Prior ultrasound 07/29/2017 CLINICAL HISTORY: elevated liver enzymes. EXAM MEASUREMENTS: Liver Length: 10.0 cm Gallbladder Wall: 0.1 cm CBD: not seen Right Kidney: 8.6 x 4.6 x 3.5 cm Morbidly obese patient with excessive overlying bowel gas, technically difficult, extremely limited s tudy Pancreas: Obscured by bowel gas Liver: not well visualized/ bowel gas/limited acoustic windows/ rib shadowing, coarse echotexture is again noted Gallbladder: not well visualized/ bowel gas/limited acoustic windows/ rib shadowing, question hydrop ic appearance Evidence for sonographic Garcias's sign: no CBD: Obscured by overlying bowel gas Right Kidney: limited views, probably parapelvic cysts, measures small IMPRESSION: There are some limitations the exam. Correlate for possible hepatic steatosis, hepatocell ular disease. Possible hydropic gallbladder.
[2021-01-01] MEDS ORDERED: ASPIRIN 325 MG TAB PO SCH (09:00)
[2021-01-01] MEDS: METOPROLOL SUCCINATE (ER) 100 MG TAB.ER.24H PO SCH (09:41)
[2021-01-01 10:17] LABS: HGB 13.7 g/dL (12.0-15.0); MCH 29.2 pg (27.0-32.0); MCHC 31.9 g/dL (32.0-37.0); MCV 91.7 fL (80.0-97.0); Mean Platelet Volume 11.9 fL (9.5-12.2); Platelet Count 171 X 10*3/uL (140-440); RBC 4.69 X 10*6/uL (4.10-5.20); WBC 4.86 X 10*3/uL (4.50-10.00)
[2021-01-01] MEDS ORDERED: LOSARTAN 25 MG TAB PO SCH (10:45)
--- NOTE | 2021-01-01 10:45 | P.CRDCN ---
History of Present Illness History of present illness: HISTORY OF PRESENTING ILLNESS This is a pleasant 75-year-old female past medical history significant for paroxysmal atrial fibrillation on long-term anticoagulation, coronary artery disease status post PCI to the circumflex and OM 2017, hypertension, dyslipidemia and obesity. She follows in the office with Dr. Lewis. We have been asked to see in consultation for shortness of breath. She states for the previous few weeks she has been experiencing increased shortness of breath with activity. It mostly has been manageable until 2 days ago when it was causing her more distress. She denies chest pain, dizziness, palpitations, nausea, vomiting or diaphoresis. Overall she feels generalized fatigue as well. Most recent echocardiogram obtained in 2017 reveals preserved LV systolic function with ejection fraction 55-60%, mild MR, mild TR and mild pulmonary hypertension with RVSP of 37 mmHg. DIAGNOSTICS EKG reveals sinus mechanism with no acute ST or T wave abnormalities noted. Telemetry tracings indicate persistent sinus mechanism. Chest xray negative for an acute cardiopulmonary process. Ultrasound of the gallbladder reveals possible hepatic steatosis, hepatocellular disease and possible hydropic gallbladder. Laboratory reviewed, CBC unremarkable, d-dimer 0.35, sodium 138, potassium 5.4, creatinine 1.27, cardiac enzymes negative 3, NT proBNP 579, AST 180, ALT 133 and alkaline phosphate 153. Current cardiac medications include Xarelto 15 mg daily, Toprol 100 mg daily, losartan 25 mg daily and atorvastatin 40 mg daily. REVIEW OF SYSTEMS At the time of my exam: CONSTITUTIONAL: Denies fever or chills. CARDIOVASCULAR: Denies chest pain, shortness of breath, orthopnea, PND or palpitations. RESPIRATORY: Denies cough. GASTROINTESTINAL: Denies abdominal pain, diarrhea, constipation, nausea or vomiting. MUSCULOSKELETAL: Denies myalgias. NEUROLOGIC: Denies numbness, tingling, headacbe or weakness. ENDOCRINE: Denies fatigue, weight change, polydipsia or polyurina. GENITOURINARY: Denies burning, hematuria or urgency with micturation. HEMATOLOGIC: Denies history of anemia or bleeding. PHYSICAL EXAMINATION Blood pressure 126/72 heart rate 64 afebrile and maintaining oxygen saturation on room air. CONSTITUTIONAL: No apparent distress. Obese. HEENT: Head is normocephalic. Pupils are equal, round. Sclerae anicteric. Mucous membranes of the mouth are moist. No JVD. No carotid bruit. CHEST EXAMINATION: Lungs are clear to auscultation. No chest wall tenderness is noted on palpation or with deep breathing. HEART EXAMINATION: Regular rate and rhythm. S1, S2 heard. Soft systolic ejection murmur at the base, no gallops or rub. ABDOMEN: Soft, nontender. Positive bowel sounds. EXTREMITIES: 2+ peripheral pulses, no lower extremity edema and no calf ten derness. NEUROLOGIC EXAMINATION: Patient is awake, alert and oriented x3. ASSESSMENT Generalized fatigue and shortness of breath Transaminitis Hyperkalemia Acute kidney injury Coronary artery disease Hypertension Dyslipidemia Paroxysmal atrial fibrillation on long-term anticoagulation currently ma intaining sinus mechanism PLAN An coronary event has been ruled out. Decrease aspirin to 81 mg daily. HOld losartan secondary to JAMI and hyperkalemia. Clinically she is euvolemic with no evidence of acute heart failure. Shortness of breath could be due to transaminitis. Obtain 2-D echocardiogram and Doppler study to assess cardiac structure and function. Repeat CMP in the morning. Continue to monitor breathing closely and we will make further recommendations if her liver enzymes improved. Thank you kindly for this consultation. Nurse Practitioner note has been reviewed, I agree with a documented findings and plan of care. Patient was seen and examined. Past Medical History Past Medical History: Coronary Artery Disease (CAD), Heart Failure, Hy perlipidemia, Hypertension, Myocardial Infarction ([place]) Additional Past Medical History / Comment(s): polymyalgia- similar to fibro in arms Last Myocardial Infarction Date:: 2003 History of Any Multi-Drug Resistant Organisms: None Reported Past Surgical History: Heart Catheterization With Stent, Tonsillectomy Additional Past Surgical History / Comment(s): PARTIAL HYSTERECTOMY. rectal fissure repair Date of Last Stent Placement:: 2003 Past Psychological History: No Psychological Hx Reported Smoking Status: Never smoker Past Alcohol Use History: None Reported Past Drug Use History: None Reported - Past Family History Father Family Medical History: Coronary Artery Disease (CAD) Mother Family Medical History: Coronary Artery Disease (CAD) Medications and Allergies Home Medications Medication Instructions Recorded Confirmed Type Metoprolol Succinate (ER) [Toprol 100 mg PO DAILY 01/31/20 12/31/20 History XL] Rivaroxaban [Xarelto] 15 mg PO HS 01/31/20 12/31/20 History Atorvastatin [Lipitor] 40 mg PO HS 12/31/20 12/31/20 History Losartan [Cozaar] 25 mg PO DAILY 12/31/20 12/31/20 History Allergies Allergy/AdvReac Type Severity Reaction Status Date / Time Sulfa (Sulfonamide Allergy Unknown Verified 12/31/20 13:37 Antibiotics) Childhood Physical Exam Vitals: Vital Signs Temp Pulse Pulse Resp BP BP Pulse Ox 01/01/21 07:05 97.9 F 64 16 126/72 96 01/01/21 02:00 98.2 F 67 16 111/54 96 01/01/21 01:40 17 12/31/20 20:00 98.1 F 58 L 16 108/65 97 12/31/20 19:00 98.2 F 92 20 135/65 97 12/31/20 18:37 98 18 137/58 96 12/31/20 11:44 97.9 F 68 18 111/56 97 Intake and Output 12/31/20 01/01/21 01/01/21 22:59 06:59 14:59 Intake Total 54.467 72.457 Balance 54.467 72.457 Intake: Intake, IV Titration 54.467 72.457 Amount Heparin Sod,Pork in 0.45% 54.467 72.457 NaCl 25,000 unit In 0.45 % NaCl 1 250ml.bag @ 9.18 UNITS/KG/HR 9.994 mls/hr IV .Q24H [facility] Rx#: [id number] Other: Voiding Method Toilet Toilet # Voids 1 2 Results 01/01/21 05:16 12/31/20 12:44 Cardiac Enzymes 12/31/20 12/31/20 12/31/20 Range/Units 12:44 12:44 15:46 AST 180 H (14-36) U/L Troponin I <0.012 <0.012 (0.000-0.034) ng/mL 12/31/20 Range/Units 19:21 AST (14-36) U/L Troponin I <0.012 (0.000-0.034) ng/mL Coagulation 12/31/20 12/31/20 12/31/20 Range/Units 12:44 19:21 22:39 PT 13.7 H (9.0-12.0) sec APTT 28.4 30.6 H 57.3 H (22.0-30.0) sec 01/01/21 Range/Units 05:16 PT 13.0 H (9.0-12.0) sec APTT 130.5 H* (22.0-30.0) sec CBC 12/31/20 Range/Units 12:44 WBC 6.1 (3.8-10.6) k/uL RBC 5.04 (3.80-5.40) m/uL Hgb 15.6 (11.4-16.0) gm/dL Hct 45.6 (34.0-46.0) % Plt Count 197 (150-450) k/uL Comprehensive Metabolic Panel 12/31/20 Range/Units 12:44 Sodium 138 (137-145) mmol/L Potassium 5.4 H (3.5-5.1) mmol/L Chloride 106 (98-107) mmol/L Carbon Dioxide 26 (22-30) mmol/L BUN 25 H (7-17) mg/dL Creatinine 1.27 H (0.52-1.04) mg/dL Glucose 95 (74-99) mg/dL Calcium 9.0 (8.4-10.2) mg/dL AST 180 H (14-36) U/L ALT 133 H (4-34) U/L Alkaline Phosphatase 153 H (38-126) U/L Total Protein 7.2 (6.3-8.2) g/dL Albumin 3.6 (3.5-5.0) g/dL Current Medications Generic Name Dose Route Start Last Admin Trade Name Freq PRN Reason Stop Dose Admin Aspirin 325 mg 01/01/21 09:00 Aspirin 325 Mg Tab PO DAILY GEOVANNA Heparin Sodium (Porcine) 0 unit 12/31/20 17:08 Heparin Sodium 1,000 Un/Ml (10ml Vl) IV PER PROTOCOL PRN Low PTT Protocol Sodium Chloride 1,000 mls @ 75 mls/hr 12/31/20 16:45 01/01/21 06:23 Saline 0.9% IV Not Given .[id number] GEOVANNA Heparin Sodium/Sodium Chloride 250 mls @ 9.994 mls/hr 12/31/20 17:15 01/01/21 07:34 25,000 unit/ Sodium Chloride IV 0 units/kg/hr .Q24H GEOVANNA 0 mls/hr Titration Protocol 9.18 UNITS/KG/HR Metoprolol Succinate 100 mg 06/01/21 09:00 Metoprolol Succinate (Er) 100 Mg Tab.Er.24h PO DAILY [facility] Nitroglycerin 0.4 mg 12/31/20 14:08 Nitroglycerin Sl Tabs 0.4 Mg Tab SUBLINGUAL Q5M PRN Chest Pain Intake and Output 12/31/20 01/01/21 01/01/21 22:59 06:59 14:59 Intake Total 54.467 72.457 Balance 54.467 72.457 Intake: Intake, IV Titration 54.467 72.457 Amount Heparin Sod,Pork in 0.45% 54.467 72.457 NaCl 25,000 unit In 0.45 % NaCl 1 250ml.bag @ 9.18 UNITS/KG/HR 9.994 mls/hr IV .Q24H [facility] Rx#: [id number] Other: Voiding Method Toilet Toilet # Voids 1 2 12/31/20 12:44 12/31/20 12:44
--- NOTE | 2021-01-01 11:40 | ECHOF ---
Referral Reason:Exertional dyspnea MEASUREMENTS -------- HEIGHT: 167.6 cm WEIGHT: 108.9 kg BP: 111/54 RVIDd: 4.3 cm (< 3.3) IVSd: 1.3 cm (0.6 - 1.1) LVIDd: 4.5 cm (3.9 - 5.3) LVPWd: 1.4 cm (0.6 - 1.1) IVSs: 1.8 cm LVIDs: 3.5 cm LVPWs: 1.6 cm LAESV Index (A-L): 27.59 ml/m Ao Diam: 2.6 cm (2.0 - 3.7) AV Cusp: 1.4 cm (1.5 - 2.6) LA Diam: 4.8 cm (2.7 - 3.8) MV EXCURSION: 16.234 mm (> 18.000) MV EF SLOPE: 43 mm/s (70 - 150) EPSS: 0.5 cm MV E Cliff: 0.93 m/s MV DecT: 272 ms MV A Cliff: 0.76 m/s MV E/A Ratio: 1.23 AR PHT: 615 ms RAP: 5.00 mmHg RVSP: 39.54 mmHg FINDINGS -------- Sinus rhythm. This was a technically difficult study with suboptimal apical views. The left ventricular size is normal. There is mild concentric left ventricular hypertrophy. Overa ll left ventricular systolic function is low-normal with, an EF between 50 - 55 %. The diastolic fi lling pattern is normal for the age of the patient 19.31. Possible Distal Septum Hypokinesis. The right ventricle is severely enlarged. Normal LA size by volume 22+/-6 ml/m2. The right atrium is mildly enlarged. 5.0mg of Lumason was utilized for enhancement of images Interatrial and interventricular septum intact. Trace to mild aortic regurgitation. There is no evidence of aortic stenosis. Mild mitral regurgitation is present. Mild tricuspid regurgitation present. There is mild pulmonary hypertension. The right ventricular systolic pressure, as measured by Doppler, is 39.54mmHg. There is no pulmonic regurgitation present. The aortic root size is normal. IVC Not well visulized. There is a trivial pericardial effusion present. CONCLUSIONS -------- 1. The left ventricular size is normal. 2. There is mild concentric left ventricular hypertrophy. 3. Overall left ventricular systolic function is low-normal with, an EF between 50 - 55 %. 4. The right ventricle is severely enlarged. 5. The right atrium is mildly enlarged. 6. Trace to mild aortic regurgitation. 7. Mild mitral regurgitation is present. 8. Mild tricuspid regurgitation present. 9. There is mild pulmonary hypertension. 10. The right ventricular systolic pressure, as measured by Doppler, is 39.54mmHg. 11. There is a trivial pericardial effusion present. KENNEL ATTENDANT: Belen Schwartz RDCS
[2021-01-01 13:36] LABS: African American GFR (CKD) 71.5 (60.0-200.0); Albumin/Globulin Ratio 1.07 (1.60-3.17); Anion Gap 6.4 mmol/L (4.00-12.00); BUN/Creat Ratio 24.44 Ratio (12.00-20.00); Calcium 7.8 mg/dL (8.7-10.3); Carbon Dioxide 22.6 mmol/L (21.6-31.8); Chol/HDL Ratio 3.76; Globulin 2.8 g/dL (1.6-3.3); LDL Cholesterol,Calculated 91.2 mg/dL (0.0-131.0); Non-African American GFR(CKD) 61.7 (60.0-200.0); Potassium 4.1 mmol/L (3.5-5.5); Total Bilirubin 0.8 mg/dL (0.2-1.2); Total Protein 5.8 g/dL (6.2-8.2); VLDL Calculation 10.8 mg/dL (5.00-40.00)
--- NOTE | 2021-01-01 16:20 | P.PN ---
Subjective Progress Note Date: 01/01/21 This is a pleasant 75-year-old female who came in with complaints of increased fatigue and exertional dyspnea has been going on for last few days much worse since yesterday. Patient does have history of coronary artery disease with multiple stents in the past patient had similar symptoms when she had myocardial infarction in the past. EKG did not show any acute ST-T wave changes facet of troponin is negative. Patient is being admitted for possible unstable angina. The other workup for shortness of breath is all negative patient doesn't have any pneumonia d-dimer is negative chest x-ray did not show any congestive heart failure. Patient BNP is around 500. Patient doesn't have any history of COPD and is not wheezing at this time. shortness of breath is exertional upon further questioning patient said she occasionally has some squeezing sense sensation in the chest and heart area. Patient denied any diaphoresis, nausea, lightheadedness. Patient does have history of atrial fibrillation and will the patient on the monitor patient appeared to have atrial flutter. 01/01/2021 She was seen and evaluated in follow-up with no acute overnight issues. Patient continues to have dyspnea with exertion and has undergone 2-D echo which shows overall LV systolic function is low to normal with an EF of 50-55% with the right ventricle being severely enlarged right atrium is mildly enlarged with a trace to mild aortic regurgitation along with mild mitral and tricuspid regurgitation present. There is also mild pulmonary hypertension noted on the echo. There is a trivial pericardial effusion present. Cardiology following the patient and no plans for stress or cardiac catheterization at this time. Patient continues on IV heparin and will continue at this time and will likely transition back to Xarelto once stabilized. Sodium today is 140 with a potassium of 4.1 and current creatinine is 0.9. Liver functions trending down although continued to be somewhat elevated. We'll repeat a.m. labs to monitor closely. Troponins have been negative. Acute hepatitis panel is also negative. Review of systems: Constitutional: Reports generalized fatigue, fever, or chills Cardiovascular: No reports of chest pain or palpitations Respiratory: reports of shortness of breath with exertion GI: No reports of nausea, vomiting, or diarrhea : No reports of dysuria or retention Neurovascular: No reports of weakness or numbness All medications have been reviewed Objective - Vital Signs Vital signs: Vital Signs Temp 97.9 F 01/01/21 07:05 Pulse 64 01/01/21 07:05 Resp 16 01/01/21 07:05 BP 126/72 01/01/21 07:05 Pulse Ox 96 01/01/21 07:05 Intake & Output 12/31/20 01/01/21 01/01/21 18:59 06:59 18:59 Intake Total 54.467 332.457 Balance 54.467 332.457 Weight 108.862 kg Intake: Intake, IV Titration 54.467 212.457 Amount Heparin Sod,Pork in 0.45% 54.467 72.457 NaCl 25,000 unit In 0.45 % NaCl 1 250ml.bag @ 9.18 UNITS/KG/HR 9.994 mls/hr IV .Q24H [facility] Rx#: [id number] Sodium Chloride 0.9% 1, 140 000 ml @ 75 mls/hr IV . [id number] [facility] Rx#:[id number] Oral 120 Other: Voiding Method Toilet # Voids 2 - Exam GENERAL: The patient is alert and oriented x3, not in any acute distress. Well developed, well nourished. HEENT: Pupils are round and equally reacting to light. EOMI. No scleral icterus. No conjunctival pallor. Normocephalic, atraumatic. No pharyngeal erythema. No thyromegaly. CARDIOVASCULAR: S1 and S2 present. No murmurs, rubs, or gallops. PULMONARY: Chest is clear to auscultation, no wheezing or crackles. ABDOMEN: Soft, nontender, nondistended, normoactive bowel sounds. No palpable organomegaly. MUSCULOSKELETAL: No joint swelling or deformity. EXTREMITIES: No cyanosis, clubbing, or pedal edema. NEUROLOGICAL: Gross neurological examination did not reveal any focal deficits. SKIN: No rashes. - Labs CBC & Chem 7: 01/01/21 05:16 01/01/21 05:16 Labs: Abnormal Lab Results - Last 24 Hours (Table) 12/31/20 12/31/20 01/01/21 Range/Units 19:21 22:39 05:16 MCHC (32.0-37.0) g/dL PT (9.0-12.0) sec INR (<1.2) APTT 30.6 H 57.3 H (22.0-30.0) sec Chloride 111 H (96-109) mmol/L BUN/Creatinine Ratio 24.44 H (12.00-20.00) Ratio Glucose 69 L (70-110) mg/dL Calcium 7.8 L (8.7-10.3) mg/dL AST 155 H (13-35) U/L ALT 114 H (8-44) U/L Total Protein 5.8 L (6.2-8.2) g/dL Albumin 3.00 L (3.80-4.90) g/dL Albumin/Globulin Ratio 1.07 L (1.60-3.17) g/dL HDL Cholesterol 37.0 L (40.0-60.0) mg/dL 01/01/21 01/01/21 Range/Units 05:16 05:16 MCHC 31.9 L (32.0-37.0) g/dL PT 13.0 H (9.0-12.0) sec INR 1.3 H (<1.2) APTT 130.5 H* (22.0-30.0) sec Chloride (96-109) mmol/L BUN/Creatinine Ratio (12.00-20.00) Ratio Glucose (70-110) mg/dL Calcium (8.7-10.3) mg/dL AST (13-35) U/L ALT (8-44) U/L Total Protein (6.2-8.2) g/dL Albumin (3.80-4.90) g/dL Albumin/Globulin Ratio (1.60-3.17) g/dL HDL Cholesterol (40.0-60.0) mg/dL Assessment and Plan Assessment: -Shortness of breath: Possible anginal. patient's Xarelto will be held and patient is maintained on low intensity heparin until she is evaluated by cardiology further patient regarding stress test versus cardiac catheterization as per cardiology. Patient's stress test was more than 2 years ago Patient does have significant coronary artery disease history. Cardiology following and awaiting 2-D echo results to discuss any further interventions at this time -mild acute renal failure, her baseline creatinine is within normal limits, prerenal azotemia. Improved and is currently 0.9 and will discontinue IV fluids. -Paroxysmal A. fib patient is presently in atrial flutter: Patient's anticoagulation as mentioned above patient will be resumed on metoprolol succinate. -Coronary artery disease history -Mild elevation of liver enzymes: Patient appeared to have progressive elevation since her last lab test. Liver enzymes trending down and will continue to follow an acute hepatitis panel is negative. Underwent ultrasound of the gallbladder which was limited to correlate for possible hepatic steatosis, hepatocellular disease or possible hydropic gallbladder. We'll temporally hold off on the statin but patient only has minimal elevation of AST and ALT. we'll trend liver functions and consider resuming statins on discharge Plan: Continue to monitor the patient and discuss with cardiology about treatment plan moving forward. 2-D echo as mentioned previously and awaiting and appreciate cardiology recommendations. Will continue to hold Xarelto in the event patient may undergo stress or cardiac catheterization and continue with IV heparin at this time. Will repeat A.m. labs along with liver functions to monitor the trend. Possible discharge in 24 hours.
[2021-01-01] MEDS: HEPARIN SOD,PORK IN 0.45% NACL 25,000 UNIT in 0.45% NACL 1 250ML.BAG IV SCH (19:56)
[2021-01-02] MEDS: ASPIRIN 81 MG PO SCH (08:15)
[2021-01-02] MEDS: METOPROLOL SUCCINATE (ER) 100 MG TAB.ER.24H PO SCH (08:15)
[2021-01-02 10:42] LABS: Basophils % (A) 1 %; Eosinophils # (A) 0.1 k/uL (0-0.7); Eosinophils % (A) 4 %; HCT 42.2 % (34.0-46.0); HGB 13.6 gm/dL (11.4-16.0); Lymphocytes # (A) 1.1 k/uL (1.0-4.8); Lymphocytes % (A) 27 %; MCH 29.9 pg (25.0-35.0); MCHC 32.3 g/dL (31.0-37.0); MCV 92.5 fL (80.0-100.0); Mean Platelet Volume 10.1; Monocytes # (A) 0.5 k/uL (0-1.0); Monocytes % (A) 12 %; Neutrophils # (A) 2.1 k/uL (1.3-7.7); Neutrophils % (A) 54 %; Platelet Count 139 k/uL (150-450); RBC 4.56 m/uL (3.80-5.40); RDW 13.7 % (11.5-15.5); WBC 3.9 k/uL (3.8-10.6)
[2021-01-02] MEDS ORDERED: ALPRAZolam 0.25 MG TAB PO PRN (10:47)
[2021-01-02] MEDS ORDERED: SODIUM CHLORIDE 0.9% 1,000 ML in EMPTY BAG 1 BAG IV ONE (10:47)
[2021-01-02] MEDS ORDERED: ASPIRIN 81 MG PO ONE (10:55)
--- NOTE | 2021-01-02 11:04 | P.PN ---
Subjective HISTORY OF PRESENTING ILLNESS This is a pleasant 75-year-old female past medical history significant for paroxysmal atrial fibrillation on long-term anticoagulation, coronary artery disease status post PCI to the circumflex and OM 2017, hypertension, dyslipidemia and obesity. She follows in the office with Dr. Lewis. We have been asked to see in consultation for shortness of breath. She states for the previous few weeks she has been experiencing increased shortness of breath with activity. It mostly has been manageable until 2 days ago when it was causing her more distress. She denies chest pain, dizziness, palpitations, nausea, vomiting or diaphoresis. Overall she feels generalized fatigue as well. Most recent echocardiogram obtained in 2017 reveals preserved LV systolic function with ejection fraction 55-60%, mild MR, mild TR and mild pulmonary hypertension with RVSP of 37 mmHg. 01/02/2021 Patient seen and examined sitting up in the recliner in no acute distress. She states she has been up ambulating around the room and has no significant shortness of breath however she has not been very active. She continues to feel fatigued. She denies chest pain, dizziness or palpitations. Blood pressure 124/51 heart rate 56 afebrile maintaining oxygen saturation on room air. Daily labs pending. Echocardiogram obtained reveals preserved LV systolic function with ejection fraction 50-55% PHYSICAL EXAMINATION CONSTITUTIONAL: No apparent distress. Obese. HEENT: Head is normocephalic. Pupils are equal, round. Sclerae anicteric. Mucous membranes of the mouth are moist. No JVD. No carotid bruit. CHEST EXAMINATION: Lungs are clear to auscultation. No chest wall tenderness is noted on palpation or with deep breathing. HEART EXAMINATION: Regular rate and rhythm. S1, S2 heard. Soft systolic ejection murmur at the base, no gallops or rub. EXTREMITIES: 2+ peripheral pulses, no lower extremity edema and no calf tend erness.. ASSESSMENT Generalized fatigue and shortness of breath Transaminitis Hyperkalemia Acute kidney injury Coronary artery disease Hypertension Dyslipidemia Paroxysmal atrial fibrillation on long-term anticoagulation currently maintaining sinus mechanism PLAN Proceed with cardiac catheterization. I have discussed the risks, benefits and alternative therapies for the above- mentioned procedure and for both sedation/analgesia as well as necessary blood product administration, if indicated, as they pertain to this patient. The patient has indicated understanding and acceptance of the risks and procedures discussed. Questions have been answered appropriately and she is agreeable to move forward with the above stated procedure. Further recommendations to follow based upon clinical course. Nurse Practitioner note has been reviewed, I agree with a documented findings and plan of care. Patient was seen and examined. Objective - Vital Signs Vital signs: Vital Signs Temp 97.3 F L 01/02/21 07:00 Pulse 56 L 01/02/21 07:00 Resp 18 01/02/21 07:00 BP 124/51 01/02/21 07:00 Pulse Ox 97 01/02/21 07:00 Intake & Output 01/01/21 01/02/21 01/02/21 18:59 06:59 18:59 Intake Total 332.457 142.073 240 Balance 332.457 142.073 240 Intake: Intake, IV Titration 212.457 142.073 Amount Heparin Sod,Pork in 0.45% 72.457 142.073 NaCl 25,000 unit In 0.45 % NaCl 1 250ml.bag @ 9.18 UNITS/KG/HR 9.994 mls/hr IV .Q24H [facility] Rx#: [id number] Sodium Chloride 0.9% 1, 140 000 ml @ 75 mls/hr IV . [id number] [facility] Rx#:[id number] Oral 120 240 Other: Voiding Method Toilet Toilet # Voids 2 - Labs CBC & Chem 7: 01/02/21 05:54 01/01/21 05:16 Labs: Abnormal Lab Results - Last 24 Hours (Table) 01/01/21 01/01/21 01/02/21 Range/Units 05:16 15:26 05:46 APTT 56.0 H 68.7 H (22.0-30.0) sec Chloride 111 H (96-109) mmol/L BUN/Creatinine Ratio 24.44 H (12.00-20.00) Ratio Glucose 69 L (70-110) mg/dL Calcium 7.8 L (8.7-10.3) mg/dL AST 155 H (13-35) U/L ALT 114 H (8-44) U/L Total Protein 5.8 L (6.2-8.2) g/dL Albumin 3.00 L (3.80-4.90) g/dL Albumin/Globulin Ratio 1.07 L (1.60-3.17) g/dL HDL Cholesterol 37.0 L (40.0-60.0) mg/dL
[2021-01-02 11:59] LABS: ALT 117 U/L (4-34); AST 173 U/L (14-36); African American GFR (CKD) 62 (>60 ml/min/1.73 sqM); Albumin 2.9 g/dL (3.5-5.0); Albumin/Globulin Ratio 0.9; Alkaline Phosphatase 134 U/L (38-126); Anion Gap 4 mmol/L; Blood Urea Nitrogen 22 mg/dL (7-17); Calcium 8.6 mg/dL (8.4-10.2); Carbon Dioxide 22 mmol/L (22-30); Chloride 112 mmol/L (98-107); Globulin 3.4 g/dL; Glucose 77 mg/dL (74-99); Non-African American GFR(CKD) 54 (>60 ml/min/1.73 sqM); Potassium 4.3 mmol/L (3.5-5.1); Sodium 138 mmol/L (137-145); Total Bilirubin 0.5 mg/dL (0.2-1.3); Total Protein 6.3 g/dL (6.3-8.2)
[2021-01-02] MEDS ORDERED: fentaNYL (PF) 50 MCG/ML 2 ML AMP ONE (12:17)
[2021-01-02] MEDS ORDERED: VERAPAMIL 2.5 MG/ML 2 ML AMP ONE (12:17)
[2021-01-02] MEDS ORDERED: LIDOCAINE 1% INJ 10MG/ML (20 ML MDV) ONE (12:17)
[2021-01-02] MEDS ORDERED: HEPARIN SODIUM 1,000 UN/ML (10ML VL) ONE (12:17)
[2021-01-02] MEDS ORDERED: HEPARIN SODIUM 1,000 UN/ML (10ML VL) IV STA (13:41)
--- NOTE | 2021-01-02 14:48 | P.PN ---
Subjective 75-year-old female who came in with complaints of increased fatigue and exertional dyspnea has been going on for last few days much worse since yest erday. Patient does have history of coronary artery disease with multiple stents in the past patient had similar symptoms when she had myocardial infarction in the past. EKG did not show any acute ST-T wave changes facet of troponin is negative. Patient is being admitted for possible unstable angina. The other workup for shortness of breath is all negative patient doesn't have any pneumonia d-dimer is negative chest x-ray did not show any congestive heart failure. Patient BNP is around 500. Patient doesn't have any history of COPD and is not wheezing at this time. shortness of breath is exertional upon further questioning patient said she occasionally has some squeezing sense se nsation in the chest and heart area. Patient denied any diaphoresis, nausea, lightheadedness. Patient does have history of atrial fibrillation and will the patient on the monitor patient appeared to have atrial flutter. 01/01/2021 She was seen and evaluated in follow-up with no acute overnight issues. Patient continues to have dyspnea with exertion and has undergone 2-D echo which shows overall LV systolic function is low to normal with an EF of 50-55% with the right ventricle being severely enlarged right atrium is mildly enlarged with a trace to mild aortic regurgitation along with mild mitral and tricuspid regurgitation present. There is also mild pulmonary hypertension noted on the echo. There is a trivial pericardial effusion present. Cardiology following the patient and no plans for stress or cardiac catheterization at this time. Patient continues on IV heparin and will continue at this time and will likely transition back to Xarelto once stabilized. Sodium today is 140 with a potassium of 4.1 and current creatinine is 0.9. Liver functions trending down although continued to be somewhat elevated. We'll repeat a.m. labs to monitor closely. Troponins have been negative. Acute hepatitis panel is also negative. 01/02/2021 and patient will undergo cardiac catheterization today Review of systems: Constitutional: Reports generalized fatigue, fever, or chills Cardiovascular: No reports of chest pain or palpitations Respiratory: reports of shortness of breath with exertion GI: No reports of nausea, vomiting, or diarrhea : No reports of dysuria or retention Neurovascular: No reports of weakness or numbness All medications have been reviewed Objective - Vital Signs Vital signs: Vital Signs Temp 97.7 F 01/02/21 14:40 Pulse 60 01/02/21 14:40 Resp 18 01/02/21 14:40 BP 109/41 01/02/21 14:40 Pulse Ox 98 01/02/21 14:40 Intake & Output 01/01/21 01/02/21 01/02/21 18:59 06:59 18:59 Intake Total 332.457 142.073 453.594 Balance 332.457 142.073 453.594 Intake: Intake, IV Titration 212.457 142.073 33.594 Amount Heparin Sod,Pork in 0.45% 72.457 142.073 33.594 NaCl 25,000 unit In 0.45 % NaCl 1 250ml.bag @ 9.18 UNITS/KG/HR 9.994 mls/hr IV .Q24H [facility] Rx#: [id number] Sodium Chloride 0.9% 1, 140 000 ml @ 75 mls/hr IV . [id number] [facility] Rx#:[id number] Oral 120 420 Other: Voiding Method Toilet Toilet # Voids 2 3 - Exam PHYSICAL EXAMINATION: GENERAL: The patient is alert and oriented x3, not in any acute distress. Well developed, well nourished. HEENT: Pupils are round and equally reacting to light. EOMI. No scleral icterus. No conjunctival pallor. Normocephalic, atraumatic. No pharyngeal erythema. No thyromegaly. CARDIOVASCULAR: S1 and S2 present. No murmurs, rubs, or gallops. PULMONARY: Chest is clear to auscultation, no wheezing or crackles. ABDOMEN: Soft, nontender, nondistended, normoactive bowel sounds. No palpable organomegaly. MUSCULOSKELETAL: No joint swelling or deformity. EXTREMITIES: No cyanosis, clubbing, or pedal edema. NEUROLOGICAL: Gross neurological examination did not reveal any focal deficits. SKIN: No rashes. - Labs CBC & Chem 7: 01/02/21 05:54 01/02/21 05:54 Labs: Abnormal Lab Results - Last 24 Hours (Table) 01/01/21 01/02/21 01/02/21 Range/Units 15:26 05:46 05:54 Plt Count 139 L (150-450) k/uL APTT 56.0 H 68.7 H (22.0-30.0) sec Chloride (98-107) mmol/L BUN (7-17) mg/dL AST (14-36) U/L ALT (4-34) U/L Alkaline Phosphatase (38-126) U/L Albumin (3.5-5.0) g/dL 01/02/21 01/02/21 Range/Units 05:54 12:55 Plt Count (150-450) k/uL APTT 34.5 H (22.0-30.0) sec Chloride 112 H (98-107) mmol/L BUN 22 H (7-17) mg/dL AST 173 H (14-36) U/L ALT 117 H (4-34) U/L Alkaline Phosphatase 134 H (38-126) U/L Albumin 2.9 L (3.5-5.0) g/dL Assessment and Plan Plan: -Shortness of breath: Possible unstable angina patient is undergoing cardiac catheterization today patient had an echo cardiac exam which did not show any significant wall motion abnormalities. -mild acute renal failure, prerenal azotemia. Improved with IV fluids -Paroxysmal A. fib patient is presently in atrial flutter: on metoprolol succinate. Patient is on IV heparin now will be transitioned to by mouth anticoagulants and the time of discharge -Coronary artery disease history -Mild elevation of liver enzymes: Secondary to non-alcoholic state or hepatitis liver enzymes are fairly stable Will repeat compressive metabolic profile again tomorrow
[2021-01-02] MEDS: HEPARIN SOD,PORK IN 0.45% NACL 25,000 UNIT in 0.45% NACL 1 250ML.BAG IV SCH (17:27)
[2021-01-03 06:36] LABS: Potassium 4.7 mmol/L (3.5-5.1)
[2021-01-03 06:37] LABS: ALT 123 U/L (4-34); AST 185 U/L (14-36); African American GFR (CKD) 62 (>60 ml/min/1.73 sqM); Albumin 3.3 g/dL (3.5-5.0); Albumin/Globulin Ratio 0.9; Alkaline Phosphatase 135 U/L (38-126); Anion Gap 4 mmol/L; Blood Urea Nitrogen 22 mg/dL (7-17); Calcium 8.7 mg/dL (8.4-10.2); Carbon Dioxide 27 mmol/L (22-30); Chloride 109 mmol/L (98-107); Globulin 3.6 g/dL; Glucose 89 mg/dL (74-99); Non-African American GFR(CKD) 54 (>60 ml/min/1.73 sqM); Sodium 140 mmol/L (137-145); Total Bilirubin 0.5 mg/dL (0.2-1.3); Total Protein 6.9 g/dL (6.3-8.2)
[2021-01-03] MEDS ORDERED: HEPARIN SODIUM,PORCINE 10,000 UNIT in SODIUM CHLORIDE 0.9% 1,000 ML IRRIGATION PRN (07:00)
[2021-01-03] MEDS ORDERED: HEPARIN SODIUM,PORCINE 2,500 UNIT in SODIUM CHLORIDE 0.9% 250 ML IRRIGATION PRN (07:00)
[2021-01-03] MEDS ORDERED: LIDOCAINE 1% INJ 10MG/ML (20 ML MDV) ONE (07:13)
[2021-01-03] MEDS ORDERED: fentaNYL (PF) 50 MCG/ML 2 ML AMP ONE (07:31)
[2021-01-03] MEDS ORDERED: MIDAZOLAM 2 MG/2 ML VIAL IVP ONE (07:35)
[2021-01-03] MEDS ORDERED: fentaNYL (PF) 50 MCG/ML 2 ML AMP IVP ONE (07:35)
[2021-01-03] MEDS ORDERED: LIDOCAINE 1% INJ 10MG/ML (20 ML MDV) SQ ONE (07:36)
[2021-01-03] MEDS ORDERED: IV FLUID CONTINUATION 1,000 ML IV ONE (07:38)
[2021-01-03] MEDS ORDERED: IOPAMIDOL-370 125ML BTL INJ ONE (07:48)
[2021-01-03] MEDS ORDERED: RX INFO: IV CONTRAST WAS GIVEN 1 EACH MISC MISCELLANE PRN (09:46)
--- NOTE | 2021-01-03 09:49 | CC ---
CARDIAC CATHETERIZATION REPORT INDICATION: Unstable angina in a patient with known coronary artery disease status post prior multivessel angioplasty. PROCEDURE NOTE: After obtaining informed consent, left heart catheterization and coronary angiogram were performed via the right femoral artery using standard Natasha catheters. The patient tolerated the procedure well without any obvious immediate complications. Patient received moderate conscious sedation. Total sedation time was 15 minutes. Femoral angiogram was performed and Angio-Seal was deployed for hemostasis. FINDINGS: HEMODYNAMICS: Left ventricular end-diastolic pressure is 13 mm. There is no significant gradient across the aortic valve. LEFT VENTRICULOGRAM: Not performed. ANGIOGRAPHIC DATA: LEFT MAIN CORONARY ARTERY: Left main coronary artery appears calcified. There is significant ostial left main stenosis. There is a 70% to 80% stenosis with ventricularization of the pressure wave pattern, divides into left anterior descending coronary artery and circumflex coronary artery. LEFT ANTERIOR DESCENDING CORONARY ARTERY: The proximal LAD was previously stented. There is an 80-90 percent focal stenosis in mid LAD. CIRCUMFLEX CORONARY ARTERY: Circumflex coronary artery and the OM branch was stented before. That appears patent. The AV groove circ has focal stenosis. It is a small caliber vessel. RIGHT CORONARY ARTERY: Right coronary artery is a large dominant vessel that was previously stented in the proximal part. The stent appears patent. Mid right coronary artery shows 40% focal stenosis. CONCLUSION: Severe ostial left main stenosis with focal critical stenosis in the mid LAD and the AV groove circ. PLAN: I am going to consult Dr. Aquino, the cardiothoracic surgeon to evaluate the patient for bypass surgery. She has normal LV systolic function on an echocardiogram I performed on this admission. MMODL / IJN: [id number] /
[2021-01-03] MEDS: HEPARIN SOD,PORK IN 0.45% NACL 25,000 UNIT in 0.45% NACL 1 250ML.BAG IV SCH (10:15)
[2021-01-03 12:14] LABS: Basophils % (A) 1 %; Eosinophils % (A) 1 %; HCT 41.6 % (34.0-46.0); HGB 13.5 gm/dL (11.4-16.0); Lymphocytes # (A) 0.9 k/uL (1.0-4.8); Lymphocytes % (A) 22 %; MCH 29.8 pg (25.0-35.0); MCHC 32.4 g/dL (31.0-37.0); MCV 92.1 fL (80.0-100.0); Mean Platelet Volume 8.9; Monocytes # (A) 0.2 k/uL (0-1.0); Monocytes % (A) 6 %; Neutrophils # (A) 2.7 k/uL (1.3-7.7); Neutrophils % (A) 66 %; Platelet Count 132 k/uL (150-450); RBC 4.52 m/uL (3.80-5.40)
--- NOTE | 2021-01-03 12:17 | P.GSCN ---
History of Present Illness Consult date: 01/03/21 Reason for Consult: Coronary artery disease with left main disease. Requesting physician: Martin Lewis History of present illness: This is a 75-year-old female patient with a past medical history significant for coronary arteries disease with previous stent placement to her left anterior descending coronary artery, and obtuse marginal coronary artery in 2017, history of myocardial infarction, hypertension, hyperlipidemia, history of fatty liver with elevated AST and ALT, persistent paroxysmal atrial fibrillation on Xarelto at home for anticoagulation and morbid obesity with a BMI of 38.7 kg/m. The patient reports over the past week or so she has had complaints of progressive shortness of breath, fatigue, dizziness, generalized weakness and feeling of complete exhaustion. She denies any recent nausea, vomiting, syncope, palpitations, diaphoresis or orthopnea. Due to the above-mentioned symptoms he presented to the emergency department here at [facility] for further evaluation and treatment recommendations. On admission a chest x-ray was completed which showed no acute cardiopulmonary process. A 12-lead EKG was completed which showed normal sinus rhythm with a heart rate of 69 BPM. Initial laboratory results showed a WBC count 6.1, hemoglobin 15.6, hematocrit 45.6, platelets 197, PT 13.7, INR 1.3, sodium 138, potassium 5.4, BUN 25, creatinine 1.27, AST 180 and ALT 133. Serial troponins were completed which were less than 0.01 to and her pro-BNP was 579. Due to her past medical history of coronary artery disease and her presenting symptoms a consult was placed to cardiology associates Dr. Lewis and a 2-D echocardiogram was completed. The 2-D echocardiogram showed an overall left ventricular systolic function to be low normal with an ejection fraction between 50 and 55%, trace to mild aortic valve regurgitation, mild mitral valve regurgitation, mild tricuspid valve regurgitation and a trivial pericardial effusion. Also due to her elevated liver enzymes an ultrasound of her gallbladder was completed which showed possible hepatic steatosis, a hepatocellular disease and possible hydropic gallbladder. Today she underwent a cardiac catheterization performed by Dr. Lewis which demonstrated a 70-80% stenosis to her left main coronary artery, and an 80-90% focal stenosis to her mid left anterior descending coronary artery. Subsequently, due to the findings on the cardiac catheterization a consult was placed to Dr. Curtis Aquino to cardiothoracic surgery for further evaluation and treatment recommendations including myocardial revascularization surgery. Review of Systems A 14 point review of systems was completed and was negative except as mentioned in the HPI. Past Medical History Past Medical History: Atrial Fibrillation, Coronary Artery Disease (CAD), Heart Failure, Hyperlipidemia, Hypertension, Myocardial Infarction ([place]) Additional Past Medical History / Comment(s): polymyalgia- similar to fibro in arms, history of fatty liver with elevated transaminase enzymes. Last Myocardial Infarction Date:: 2003 History of Any Multi-Drug Resistant Organisms: None Reported Past Surgical History: Heart Catheterization With Stent, Tonsillectomy Additional Past Surgical History / Comment(s): PARTIAL HYSTERECTOMY. Bilateral cataract surgery. rectal fissure repair Date of Last Stent Placement:: 2003 Past Psychological History: No Psychological Hx Reported Smoking Status: Never smoker Past Alcohol Use History: None Reported Past Drug Use History: None Reported - Past Family History Father Family Medical History: Coronary Artery Disease (CAD) Mother Family Medical History: Coronary Artery Disease (CAD) Medications and Allergies Home Medications Medication Instructions Recorded Confirmed Type Metoprolol Succinate (ER) [Toprol 100 mg PO DAILY 01/31/20 12/31/20 History XL] Rivaroxaban [Xarelto] 15 mg PO HS 01/31/20 12/31/20 History Atorvastatin [Lipitor] 40 mg PO HS 12/31/20 12/31/20 History Losartan [Cozaar] 25 mg PO DAILY 12/31/20 12/31/20 History Allergies Allergy/AdvReac Type Severity Reaction Status Date / Time Sulfa (Sulfonamide Allergy Unknown Verified 12/31/20 13:37 Antibiotics) Childhood Surgical - Exam Vital Signs Temp Pulse Resp BP Pulse Ox 97.9 F 68 18 111/56 97 12/31/20 11:44 12/31/20 11:44 12/31/20 11:44 12/31/20 11:44 12/31/20 11:44 - General well developed, well nourished, no distress, no pain, obese - Eyes PERRL, normal ocular movement, no icteric - ENT normal pinna, normal nares, normal mucosa, no hearing loss, no congestion, no nasal discharge - Neck Neck is supple, no JVD. No lymphadenopathy. no masses, no bruits, trachea midline, no venous distension - Respiratory Lung sounds essentially clear throughout, few scattered crackles to her bilateral bases. Respirations are symmetrical and nonlabored. Oxygen saturation are 97% on room air. - Cardiovascular Regular rhythm and rate. S1 and S2 present, negative for S3, gallop or murmur. No edema present. - Abdomen Abdomen is soft, nontender and nondistended. Active bowel sounds present in all performed, quadrants. No guarding or rigidity. No organomegaly appreciated. Obese. - Integumentary no rash, no growths, no abnormal pigmentation - Neurologic Cranial nerves II through XII intact. normal coordination, normal sensation - Musculoskeletal Moves all 4 extremities with equal strength. - Psychiatric oriented to time, oriented to person, oriented to place, speech is normal, memory intact Results - Labs 01/02/21 05:54 01/03/21 04:42 Abnormal Lab Results - Last 24 Hours (Table) 01/02/21 01/02/21 01/02/21 Range/Units 05:54 12:55 19:47 APTT 34.5 H 74.1 H (22.0-30.0) sec Chloride 112 H (98-107) mmol/L BUN 22 H (7-17) mg/dL AST 173 H (14-36) U/L ALT 117 H (4-34) U/L Alkaline Phosphatase 134 H (38-126) U/L Albumin 2.9 L (3.5-5.0) g/dL 01/03/21 01/03/21 Range/Units 01:30 04:42 APTT 46.7 H (22.0-30.0) sec Chloride 109 H (98-107) mmol/L BUN 22 H (7-17) mg/dL AST 185 H (14-36) U/L ALT 123 H (4-34) U/L Alkaline Phosphatase 135 H (38-126) U/L Albumin 3.3 L (3.5-5.0) g/dL Diabetes panel 01/02/21 01/03/21 Range/Units 05:54 04:42 Sodium 138 140 (137-145) mmol/L Potassium 4.3 4.7 (3.5-5.1) mmol/L Chloride 112 H 109 H (98-107) mmol/L Carbon Dioxide 22 27 (22-30) mmol/L BUN 22 H 22 H (7-17) mg/dL Creatinine 1.02 1.01 (0.52-1.04) mg/dL Glucose 77 89 (74-99) mg/dL Calcium 8.6 8.7 (8.4-10.2) mg/dL AST 173 H 185 H (14-36) U/L ALT 117 H 123 H (4-34) U/L Alkaline Phosphatase 134 H 135 H (38-126) U/L Total Protein 6.3 6.9 (6.3-8.2) g/dL Albumin 2.9 L 3.3 L (3.5-5.0) g/dL Calcium panel 01/02/21 01/03/21 Range/Units 05:54 04:42 Calcium 8.6 8.7 (8.4-10.2) mg/dL Albumin 2.9 L 3.3 L (3.5-5.0) g/dL Pituitary panel 01/02/21 01/03/21 Range/Units 05:54 04:42 Sodium 138 140 (137-145) mmol/L Potassium 4.3 4.7 (3.5-5.1) mmol/L Chloride 112 H 109 H (98-107) mmol/L Carbon Dioxide 22 27 (22-30) mmol/L BUN 22 H 22 H (7-17) mg/dL Creatinine 1.02 1.01 (0.52-1.04) mg/dL Glucose 77 89 (74-99) mg/dL Calcium 8.6 8.7 (8.4-10.2) mg/dL Adrenal panel 01/02/21 01/03/21 Range/Units 05:54 04:42 Sodium 138 140 (137-145) mmol/L Potassium 4.3 4.7 (3.5-5.1) mmol/L Chloride 112 H 109 H (98-107) mmol/L Carbon Dioxide 22 27 (22-30) mmol/L BUN 22 H 22 H (7-17) mg/dL Creatinine 1.02 1.01 (0.52-1.04) mg/dL Glucose 77 89 (74-99) mg/dL Calcium 8.6 8.7 (8.4-10.2) mg/dL Total Bilirubin 0.5 0.5 (0.2-1.3) mg/dL AST 173 H 185 H (14-36) U/L ALT 117 H 123 H (4-34) U/L Alkaline Phosphatase 134 H 135 H (38-126) U/L Total Protein 6.3 6.9 (6.3-8.2) g/dL Albumin 2.9 L 3.3 L (3.5-5.0) g/dL - Imaging Chest x-ray: report reviewed, image reviewed EKG: image reviewed Additional studies: 2-D echocardiogram and cardiac catheterization results and films reviewed by Dr. Curtis Aquino. Assessment and Plan Assessment: 1. Coronary artery disease with left main disease, history of multivessel angioplasty 2. History of myocardial infarction 3. Hypertension 4. Hyperlipidemia 5. Shortness of breath 6. Generalized weakness 7. Acute kidney injury with elevation of her BUN and creatinine on admission, current BUN 22 creatinine 1.01 8. History of persistent paroxysmal atrial fibrillation on Xarelto for anticoagulation on an outpatient 9. History of fatty liver with elevation of her transaminase enzymes 10. Family history of coronary artery disease Plan: The patient was seen and examined at her bedside on the cardiac observation unit. Her chart and diagnostics were reviewed. The patient was seen and examined by Dr. Curtis Aquino from cardiothoracic surgery. Preoperative testing and preoperative teaching has been initiated. Once the patient is able to ambulate a 5 m walk test will be obtained. The usual preoperative course of myocardial revascularization surgery was discussed in detail with the patient and her questions were answered. Continue to maximize medical therapy with aspirin, statin and beta maxi. Once her preoperative testing has been completed an STS risk score will be calculated and discussed with the patient. Medical management and other comorbidities primary care service. More recommendations to follow based on patient's clinical course. Thank you Dr. Lewis for this consult and we will look fourth working with you in the care of this patient. Time with Patient: Greater than 30
[2021-01-03 12:21] LABS: INR 1.1 (<1.2); Prothrombin Time 11.3 sec (9.0-12.0)
--- NOTE | 2021-01-03 13:22 | P.DS ---
Providers Date of admission: 01/03/21 09:36 Attending physician: Kierra Story Consults: 12/31/20 14:08 Consult Physician Urgent Consulting Provider: Suraj Chand Consult Reason/Comments: Exertional dyspnea Do you want consulting provider notified?: Yes 01/03/21 09:51 Consult Physician Urgent Consulting Provider: Curtis Aquino Consult Reason/Comments: left main disease Do you want consulting provider notified?: Already Contacted Primary care physician: Stated None Hospital Course: 75-year-old female who came in with complaints of increased fatigue and exertional dyspnea has been going on for last few days much worse since yesterday. Patient does have history of coronary artery disease with multiple stents in the past patient had similar symptoms when she had myocardial infarction in the past. EKG did not show any acute ST-T wave changes facet of troponin is negative. Patient is being admitted for possible unstable angina. The other workup for shortness of breath is all negative patient doesn't have any pneumonia d-dimer is negative chest x-ray did not show any congestive heart failure. Patient BNP is around 500. Patient doesn't have any history of COPD and is not wheezing at this time. shortness of breath is exertional upon further questioning patient said she occasionally has some squeezing sense sensation in the chest and heart area. Patient denied any diaphoresis, nausea, lightheadedness. Patient does have history of atrial fibrillation and will the patient on the monitor patient appeared to have atrial flutter. 01/01/2021 She was seen and evaluated in follow-up with no acute overnight issues. Patient continues to have dyspnea with exertion and has undergone 2-D echo which shows overall LV systolic function is low to normal with an EF of 50-55% with the right ventricle being severely enlarged right atrium is mildly enlarged with a trace to mild aortic regurgitation along with mild mitral and tricuspid regurgitation present. There is also mild pulmonary hypertension noted on the echo. There is a trivial pericardial effusion present. Cardiology following the patient and no plans for stress or cardiac catheterization at this time. Patient continues on IV heparin and will continue at this time and will likely transition back to Xarelto once stabilized. Sodium today is 140 with a potassium of 4.1 and current creatinine is 0.9. Liver functions trending down although continued to be somewhat elevated. We'll repeat a.m. labs to monitor closely. Troponins have been negative. Acute hepatitis panel is also negative. 01/02/2021 and patient will undergo cardiac catheterization today. 01/03/2021 Patient had a categorization today which showed severe left main ostial stenosis with focal critical stenosis in the mid LAD and the AV groove. Coronary artery bypass grafting was recommended by cardiology to, Edwardo 6 surgery evaluated the patient and patient is scheduled for coronary artery bypass grafting on next Thursday. Patient will be discharged if cleared by cardiology and she'll come back for CABG. PHYSICAL EXAMINATION: GENERAL: The patient is alert and oriented x3, not in any acute distress. Well developed, well nourished. HEENT: Pupils are round and equally reacting to light. EOMI. No scleral icterus. No conjunctival pallor. Normocephalic, atraumatic. No pharyngeal erythema. No thyromegaly. CARDIOVASCULAR: S1 and S2 present. No murmurs, rubs, or gallops. PULMONARY: Chest is clear to auscultation, no wheezing or crackles. ABDOMEN: Soft, nontender, nondistended, normoactive bowel sounds. No palpable organomegaly. MUSCULOSKELETAL: No joint swelling or deformity. EXTREMITIES: No cyanosis, clubbing, or pedal edema. NEUROLOGICAL: Gross neurological examination did not reveal any focal deficits. SKIN: No rashes. Assessment and Plan Plan: -Shortness of breath: Secondary to unstable angina, patient has critical LAD lesion as mentioned above. CABG next Thursday -mild acute renal failure, prerenal azotemia. Improved with IV fluids. -Paroxysmal A. fib patient is presently in atrial flutter: on metoprolol succinate. Patient will be resumed on oral anticoagulation and will hold off antibiotic correlation 48 hours before surgery -Coronary artery disease history -Mild elevation of liver enzymes: Secondary to non-alcoholic steato- hepatitis liver enzymes are fairly stable . Plan - Discharge Summary Discharge Rx Participant: No New Discharge Prescriptions: New Aspirin 81 mg PO DAILY #30 chew Nitroglycerin Sl Tabs [Nitrostat] 0.4 mg SUBLINGUAL Q5M PRN #30 tab PRN Reason: Chest Pain Continue Metoprolol Succinate (ER) [Toprol XL] 100 mg PO DAILY Atorvastatin [Lipitor] 40 mg PO HS Rivaroxaban [Xarelto] 15 mg PO HS #0 Discontinued Losartan [Cozaar] 25 mg PO DAILY Discharge Medication List Metoprolol Succinate (ER) [Toprol XL] 100 mg PO DAILY 01/31/20 [History] Atorvastatin [Lipitor] 40 mg PO HS 12/31/20 [History] Aspirin 81 mg PO DAILY #30 chew 01/03/21 [Rx] Nitroglycerin Sl Tabs [Nitrostat] 0.4 mg SUBLINGUAL Q5M PRN #30 tab 01/03/21 [Rx] Rivaroxaban [Xarelto] 15 mg PO HS #0 01/03/21 [Rx] Follow up Appointment(s)/Referral(s): Riri Payne III, MD [STAFF PHYSICIAN] - 1 Week [facility],Equipment [NON-STAFF] - As Needed (Supplier of 4 wheeled walker with seat)
[2021-01-03] MEDS: METOPROLOL SUCCINATE (ER) 100 MG TAB.ER.24H PO SCH (14:35)
[2021-01-03] MEDS: ASPIRIN 81 MG PO SCH (14:35)
[2021-01-03 15:55] LABS: Appearance,Urine Clear (Clear); Bacteria,Urine Rare /hpf; Bilirubin,Urine Negative (Negative); Blood,Urine Large (Negative); Color,Urine Light Yellow; Glucose,Urine (UA) Negative (Negative); Ketones,Urine Negative (Negative); Leukocyte Esterase,Urine Negative (Negative); Mucus,Urine Rare /hpf; Nitrite,Urine Negative (Negative); PH, Urine 5.5 (5.0-8.0); Protein,Urine Negative (Negative); RBC,Urine <1 /hpf (0-5); Specific Gravity,Urine 1.024 (1.001-1.035); Squamous Epithelial Cell,Urine <1 /hpf (0-4); Urobilinogen,Urine <2.0 mg/dL (<2.0)
--- NOTE | 2021-01-03 16:18 | US ---
EXAMINATION TYPE: US carotid duplex BILAT DATE OF EXAM: 01/03/2021 COMPARISON: NONE CLINICAL HISTORY: Pre-Op Cardiac Surgery,Ankle Brachial Index (TOY) . EXAM MEASUREMENTS: RIGHT: Peak Systolic Velocity (PSV) cm/sec ----- Right CCA: 65.3 ----- Right ICA: 70.0 ----- Right ECA: 70.3 ICA/CCA ratio: 1.1 RIGHT: End Diastole cm/sec ----- Right CCA: 13.0 ----- Right ICA: 17.2 ----- Right ECA: 0.0 LEFT: Peak Systolic Velocity (PSV) cm/sec ----- Left CCA: 78.8 ----- Left ICA: 120.5 ----- Left ECA: 50.3 ICA/CCA ratio: 1.5 LEFT: End Diastole cm/sec ----- Left CCA: 12.7 ----- Left ICA: 30.0 ----- Left ECA: 0.0 VERTEBRALS (direction of flow): Right Vertebral: Antegrade Left Vertebral: Antegrade Rhythm: Normal No significant velocity elevations, mild atherosclerotic changes. IMPRESSION: 1. Atherosclerotic changes with no significant hemodynamic stenosis. Criteria for Assigning % of Stenosis / Diameter reduction (Estimation based on the indirect measurements of the internal carotid artery velocities (ICA PSV). 1. Normal (no stenosis)=ICA PSV < 125 cm/s: ratio < 2.0: ICA EDV<40 cm/s. 2. Less than 50% stenosis=ICA PSV < 125 cm/s: ratio < 2.0: ICA EDV<40 cm/s. 3. 50 to 69% stenosis=ICA PSV of 125 to 230 cm/s: ration 2.0 ? 4.0: ICA EDV 40-100 cm/s. 4. Greater than 70% stenosis to near occlusion= ICA PSV > 230 cm/s: ratio > 4.0: ICA EDV > 100 cm/s. 5. Near occlusion= ICA PSV velocities may be low or undetectable: variable ratio and ICA EDV. 6. Total occlusion=unable to detect flow.
[2021-01-04] MEDS: METOPROLOL SUCCINATE (ER) 100 MG TAB.ER.24H PO SCH (08:08)
[2021-01-04] MEDS: ASPIRIN 81 MG PO SCH (08:08)
[2021-01-04] MEDS: ALPRAZolam 0.5 MG TAB PO PRN (08:21)
[2021-01-04] MEDS: MUPIROCIN 2% OINT 22 GM TUBE NASAL SCH ×2 (11:08→20:45)
--- NOTE | 2021-01-04 12:54 | P.PN ---
Subjective HISTORY OF PRESENTING ILLNESS This is a pleasant 75-year-old female past medical history significant for paroxysmal atrial fibrillation on long-term anticoagulation, coronary artery disease status post PCI to the circumflex and OM 2017, hypertension, dyslipidemia and obesity. She follows in the office with Dr. Lewis. We have been asked to see in consultation for shortness of breath. She states for the previous few weeks she has been experiencing increased shortness of breath with activity. It mostly has been manageable until 2 days ago when it was causing her more distress. She denies chest pain, dizziness, palpitations, nausea, vomiting or diaphoresis. Overall she feels generalized fatigue as well. Most recent echocardiogram obtained in 2017 reveals preserved LV systolic function with ejection fraction 55-60%, mild MR, mild TR and mild pulmonary hypertension with RVSP of 37 mmHg. 01/04/2021 Patient seen and examined sitting up in recliner in no acute distress. She states overall she slept well last night. When she got up to use the restroom she did have some exertional shortness of breath. She has had no symptoms of chest discomfort. Blood pressure 125/68 heart rate 77 afebrile maintaining oxygen saturation on room air. Cardiac catheterization revealed severe ostial left main stenosis with focal critical stenosis also in the mid LAD and the AV groove circumflex. She continues to be on IV heparin. She has been seen by CT surgery and is scheduled to undergo bypass grafting January 11. PHYSICAL EXAMINATION CONSTITUTIONAL: No apparent distress. Obese. HEENT: Head is normocephalic. Pupils are equal, round. Sclerae anicteric. Mucous membranes of the mouth are moist. No JVD. No carotid bruit. CHEST EXAMINATION: Lungs are clear to auscultation. No chest wall tenderness is noted on palpation or with deep breathing. HEART EXAMINATION: Regular rate and rhythm. S1, S2 heard. Soft systolic ejection murmur at the base, no gallops or rub. EXTREMITIES: 2+ peripheral pulses, no lower extremity edema and no calf tenderness.. ASSESSMENT Generalized fatigue and shortness of breath Transaminitis Hyperkalemia Acute kidney injury Coronary artery disease Hypertension Dyslipidemia Paroxysmal atrial fibrillation on long-term anticoagulation currently maintaining sinus mechanism PLAN Losartan held due to JAMI and hyperkalemia. Stain held due to transaminitis on admission. Continue heparin infusion pending surgery next week. Continue to maximize her medical therapy. Transfer to ICU or 3S as ICU hold. Nurse Practitioner note has been reviewed, I agree with a documented findings and plan of care. Patient was seen and examined. Objective - Vital Signs Vital signs: Vital Signs Temp 97.6 F 01/04/21 07:00 Pulse 77 01/04/21 07:00 Resp 17 01/04/21 08:00 BP 125/68 01/04/21 07:00 Pulse Ox 97 01/04/21 07:00 Intake & Output 01/03/21 01/04/21 01/04/21 18:59 06:59 18:59 Intake Total 351.079 108.214 Balance 351.079 108.214 Intake: IV 50 Intake, IV Titration 64.079 108.214 Amount Heparin Sod,Pork in 0.45% 64.079 108.214 NaCl 25,000 unit In 0.45 % NaCl 1 250ml.bag @ 9.18 UNITS/KG/HR 9.994 mls/hr IV .Q24H GEOVANNA Rx#: [id number] Oral 237 Other: Voiding Method Toilet # Voids 3 1 - Labs CBC & Chem 7: 01/03/21 11:14 01/03/21 04:42 Labs: Abnormal Lab Results - Last 24 Hours (Table) 01/03/21 Range/Units 15:15 Urine Blood Large H (Negative) Urine Bacteria Rare H (None) /hpf Urine Mucus Rare H (None) /hpf
[2021-01-04 13:20] LABS: African American GFR (CKD) 62.9 (60.0-200.0); Albumin 2.9 g/dL (3.80-4.90); Albumin/Globulin Ratio 1.04 (1.60-3.17); Anion Gap 5.3 mmol/L (4.00-12.00); Calcium 8.9 mg/dL (8.7-10.3); Carbon Dioxide 24.7 mmol/L (21.6-31.8); Globulin 2.8 g/dL (1.6-3.3); Non-African American GFR(CKD) 54.3 (60.0-200.0); Potassium 4.2 mmol/L (3.5-5.5); Total Bilirubin 0.5 mg/dL (0.2-1.2); Total Protein 5.7 g/dL (6.2-8.2)
--- NOTE | 2021-01-04 13:26 | CDI ---
Documentation Clarification Form Date: 01/04/2021 01:17:51 PM From: Belen YoussefHUNTER, CCDS Admit Date: 01/03/2021 09:36:00 AM Patient Name: Belen Zaidi Visit Number: [id number] Discharge Date: ATTENTION: The Clinical Documentation Specialists (CDI) and [facility] Coding Staff appreciate your assistance in clarifying documentation. Please respond to the clarification below the line at the bottom and electronically sign. The CDI & [facility] Coding staff will review the response and follow-up if needed. Please note: Queries are made part of the Legal Health Record. If you have any questions, please contact the author of this message via ITS. Dr. Shayla Jose: Atrial Flutter is documented in the 12/31 H/P and subsequent Progress Notes without further specificity. Atrial Flutter is not documented by Cardiology or the Cardiothoracic Surgeon. Additional clarification regarding the type of Atrial Flutter is requested. History/Risk factors per the 12/31 H/P: CAD, Atrial Fibrillation, CHF, Hyperlipidemia, Hypertension, [place], Polymyalgia. Clinical Indicators: Presented to the ED on 12/31 with Weakness, SOB with cardiac history, fatigue & exertional dyspnea. ED Clinical Impression: Exertional dyspnea 12/31 VS: T 97.9, P 68, R 18 (SOB), BP 111/56, PO 97 RA, BMI: 38.7 12/31 LAB: PT 13.7, INR 1.3, K 5.4, BUN 25, Cr 1.27, AST 180, ALT 133, Alk Phos 153, BNP 579, Troponin <0.012, <0.012. 12/31 CXR: No acute cardiopulmonary process. 12/31 EKG: R 69 nsr 01/01 EKG: R 66 nsr, Nonspecific T Wave Abnormality 01/03 EKG: R 65 nsr w/sinus arrhythmia Treatment 12/31: po Aspirin, IV Heparin drip, po Toprol, po Cozaar 01/03 Heart Cath: Severe ostial left main stenosis with focal critical stenosis in the mid LAD and the AV groove circ. Patient is scheduled for CABG on 01/11. Please clarify the type of Atrial Flutter, if known: [ ] Typical/Type I [ ] Atypical/Type II [ ] Atrial Flutter ruled out [ ] Other, please specify [ ] Unable to determine (Template Last Revised: October 2020) Atrial Flutter ruled out MTDD
--- NOTE | 2021-01-04 15:55 | P.PN ---
Subjective 75-year-old female who came in with complaints of increased fatigue and exertional dyspnea has been going on for last few days much worse since yest eribertoay. Patient does have history of coronary artery disease with multiple stents in the past patient had similar symptoms when she had myocardial infarction in the past. EKG did not show any acute ST-T wave changes facet of troponin is negative. Patient is being admitted for possible unstable angina. The other workup for shortness of breath is all negative patient doesn't have any pneumonia d-dimer is negative chest x-ray did not show any congestive heart failure. Patient BNP is around 500. Patient doesn't have any history of COPD and is not wheezing at this time. shortness of breath is exertional upon further questioning patient said she occasionally has some squeezing sense se nsation in the chest and heart area. Patient denied any diaphoresis, nausea, lightheadedness. Patient does have history of atrial fibrillation and will the patient on the monitor patient appeared to have atrial flutter. 01/01/2021 She was seen and evaluated in follow-up with no acute overnight issues. Patient continues to have dyspnea with exertion and has undergone 2-D echo which shows overall LV systolic function is low to normal with an EF of 50-55% with the right ventricle being severely enlarged right atrium is mildly enlarged with a trace to mild aortic regurgitation along with mild mitral and tricuspid regurgitation present. There is also mild pulmonary hypertension noted on the echo. There is a trivial pericardial effusion present. Cardiology following the patient and no plans for stress or cardiac catheterization at this time. Patient continues on IV heparin and will continue at this time and will likely transition back to Xarelto once stabilized. Sodium today is 140 with a potassium of 4.1 and current creatinine is 0.9. Liver functions trending down although continued to be somewhat elevated. We'll repeat a.m. labs to monitor closely. Troponins have been negative. Acute hepatitis panel is also negative. 01/02/2021 and patient will undergo cardiac catheterization today. 01/03/2021 Patient had a categorization today which showed severe left main ostial stenosis with focal critical stenosis in the mid LAD and the AV groove. Coronary artery bypass grafting was recommended by cardiology to, [facility] 6 surgery evaluated the patient and patient is scheduled for coronary artery bypass grafting on next Thursday. Patient will be discharged if cleared by cardiology and she'll come back for CABG. 01/04/2021 Patient doesn't have any symptoms of chest pain at this time. Cardiology is recommending continued hospitalization until her coronary artery bypass grafting and continuation of IV heparin. Patient's liver enzymes are improving can be started on statin. Constitutional: Denied any fatigue denied any fever. Cardio vascular: denied any chest pain, palpitations Gastrointestinal denied any nausea vomiting Pulmonary: Denied any shortness of breath cough Neurologic denied any new focal deficits All inpatient medications were reviewed and appropriate changes in these medications as dictated in the interval history and assessment and plan. Objective - Vital Signs Vital signs: Vital Signs Temp 97.5 F L 01/04/21 15:00 Pulse 65 01/04/21 15:00 Resp 16 01/04/21 15:00 BP 108/61 01/04/21 15:00 Pulse Ox 97 01/04/21 15:00 Intake & Output 01/03/21 01/04/21 01/04/21 18:59 06:59 18:59 Intake Total 351.079 108.214 Balance 351.079 108.214 Intake: IV 50 Intake, IV Titration 64.079 108.214 Amount Heparin Sod,Pork in 0.45% 64.079 108.214 NaCl 25,000 unit In 0.45 % NaCl 1 250ml.bag @ 9.18 UNITS/KG/HR 9.994 mls/hr IV .Q24H [facility] Rx#: [id number] Oral 237 Other: Voiding Method Toilet # Voids 3 1 - Exam PHYSICAL EXAMINATION: GENERAL: The patient is alert and oriented x3, not in any acute distress. Well developed, well nourished. HEENT: Pupils are round and equally reacting to light. EOMI. No scleral icterus. No conjunctival pallor. Normocephalic, atraumatic. No pharyngeal erythema. No thyromegaly. CARDIOVASCULAR: S1 and S2 present. No murmurs, rubs, or gallops. PULMONARY: Chest is clear to auscultation, no wheezing or crackles. ABDOMEN: Soft, nontender, nondistended, normoactive bowel sounds. No palpable organomegaly. MUSCULOSKELETAL: No joint swelling or deformity. EXTREMITIES: No cyanosis, clubbing, or pedal edema. NEUROLOGICAL: Gross neurological examination did not reveal any focal deficits. SKIN: No rashes. - Labs CBC & Chem 7: 01/03/21 11:14 01/04/21 04:42 Labs: Abnormal Lab Results - Last 24 Hours (Table) 01/03/21 01/04/21 Range/Units 15:15 04:42 Chloride 110 H (96-109) mmol/L Est GFR (CKD-EPI)NonAf 54.3 L (60.0-200.0) BUN/Creatinine Ratio 23.00 H (12.00-20.00) Ratio AST 142 H (13-35) U/L ALT 111 H (8-44) U/L Total Protein 5.7 L (6.2-8.2) g/dL Albumin 2.90 L (3.80-4.90) g/dL Albumin/Globulin Ratio 1.04 L (1.60-3.17) g/dL Urine Blood Large H (Negative) Urine Bacteria Rare H (None) /hpf Urine Mucus Rare H (None) /hpf Microbiology - Last 24 Hours (Table) 01/04/21 05:15 Nasal Screen MRSA/MSSA - Preliminary Nasal Swab Assessment and Plan Plan: Assessment and Plan Plan: -Acute coronary syndrome, patient has critical LAD lesion as mentioned above. CABG next Thursday continued on IV heparin not on statin because of elevated liver enzymes continuing on beta maxi -mild acute renal failure, prerenal azotemia. Improved with IV fluids. -Paroxysmal A. fib patient is presently in atrial flutter: on metoprolol succinate. On IV heparin at this time -Coronary artery disease history -Mild elevation of liver enzymes: Secondary to non-alcoholic steato- hepatitis liver enzymes are fairly stable .
--- NOTE | 2021-01-04 16:28 | P.PN ---
Subjective Progress Note Date: 01/04/21 Principal diagnosis: Coronary artery disease with left main disease, acute kidney injury on admission. Previous medical history of myocardial infarction with multivessel angioplasty, hypertension, hyperlipidemia, paroxysmal atrial fibrillation on Xarelto for anticoagulation, fatty liver with transaminitis, and family history of coronary artery disease The patient's currently laying in bed on [address] in no acute distress. She denies any chest discomfort, however she does state she had an episode of shortness of breath and mild nausea this morning with exertion. She is cu rrently on IV heparin. Preoperative teaching continues. No new questions at this time Objective - Vital Signs Vital signs: Vital Signs Temp 97.5 F L 01/04/21 15:00 Pulse 65 01/04/21 15:00 Resp 16 01/04/21 15:00 BP 108/61 01/04/21 15:00 Pulse Ox 97 01/04/21 15:00 Intake & Output 01/03/21 01/04/21 01/04/21 18:59 06:59 18:59 Intake Total 351.079 108.214 Balance 351.079 108.214 Intake: IV 50 Intake, IV Titration 64.079 108.214 Amount Heparin Sod,Pork in 0.45% 64.079 108.214 NaCl 25,000 unit In 0.45 % NaCl 1 250ml.bag @ 9.18 UNITS/KG/HR 9.994 mls/hr IV .Q24H [facility] Rx#: [id number] Oral 237 Other: Voiding Method Toilet # Voids 3 1 - Exam CONSTITUTIONAL: Appears comfortable, cooperative, no acute distress RESPIRATORY: Lungs sounds diminished bilaterally. Respirations even, nonlabored. Currently on room air with oxygen saturation 97%. Able to achieve 1750 mL on incentive spirometry. Strong cough. CARDIOVASCULAR: S1, S2 present. Regular rate and rhythm, sinus rhythm on telemetry. Sternum stable. Palpable peripheral pulses bilaterally. No edema present. No calf pain or tenderness noted. Heart hugger in place with patient demonstrating appropriate use. Antiembolism stockings, SCDs present. GASTROINTESTINAL: Abdomen soft, nontender, nondistended. Active bowel sounds present 4 quadrants. Tolerating diet. GENITOURINARY: Continues to void INTEGUMENTARY: Skin is warm and dry with evidence of good perfusion. NEUROLOGIC: Cranial nerves II through XII intact MUSKULOSKELETAL: Able to move all extremities, strength equal bilaterally, gait normal PSYCHIATRIC: Alert and oriented to person place and time, appropriate affect, intact judgment and insight - Allied health notes Allied health notes reviewed: nursing - Labs CBC & Chem 7: 01/03/21 11:14 01/04/21 04:42 Labs: Abnormal Lab Results - Last 24 Hours (Table) 01/04/21 Range/Units 04:42 Chloride 110 H (96-109) mmol/L Est GFR (CKD-EPI)NonAf 54.3 L (60.0-200.0) BUN/Creatinine Ratio 23.00 H (12.00-20.00) Ratio AST 142 H (13-35) U/L ALT 111 H (8-44) U/L Total Protein 5.7 L (6.2-8.2) g/dL Albumin 2.90 L (3.80-4.90) g/dL Albumin/Globulin Ratio 1.04 L (1.60-3.17) g/dL Microbiology - Last 24 Hours (Table) 01/04/21 05:15 Nasal Screen MRSA/MSSA - Preliminary Nasal Swab Assessment and Plan Assessment: 1. Symptomatic coronary artery disease with left main disease 2. Acute kidney injury on admission 3. History of myocardial infarction with multivessel angioplasty 4. Hypertension 5. Hyperlipidemia, treated, cholesterol 139, LDL 91 6. Paroxysmal atrial fibrillation on Xarelto for anticoagulation 7. Fatty liver with transaminitis 8. Family history of coronary artery disease Plan: 1. Continue aspirin, beta maxi therapy. Statin on hold secondary to transaminitis 2. Encourage incentive spirometry use 3. Increase activity, ambulate as tolerated 4. Our plan is for coronary artery bypass surgery with the left internal mammary artery and endoscopic vein harvesting, ligation of the left atrial appendage on 01/11/[address] Aquino. 5. Patient will remain inpatient awaiting surgery due to symptomatic left main disease 6. Medical management with the comorbidities per primary care service 7. More recommendations to follow Time with Patient: Greater than 30
[2021-01-04] MEDS: HEPARIN SOD,PORK IN 0.45% NACL 25,000 UNIT in 0.45% NACL 1 250ML.BAG IV SCH (18:20)
[2021-01-04 20:12] LABS: Hepatitis A Antibody IgM Non-Reactive (Non-Reactive); Hepatitis B Core IgM Non-Reactive (Non-Reactive); Hepatitis B Surface Antigen Non-Reactive (Non-Reactive); Hepatitis C IgG Antibody Non-Reactive (Non-Reactive)
[2021-01-05] MEDS: HEPARIN SOD,PORK IN 0.45% NACL 25,000 UNIT in 0.45% NACL 1 250ML.BAG IV SCH (03:30)
[2021-01-05] MEDS: METOPROLOL SUCCINATE (ER) 100 MG TAB.ER.24H PO SCH (08:56)
[2021-01-05] MEDS: MUPIROCIN 2% OINT 22 GM TUBE NASAL SCH ×2 (08:56→20:26)
[2021-01-05] MEDS: ASPIRIN 81 MG PO SCH (08:56)
[2021-01-05 10:35] LABS: Calcium 8.6 mg/dL (8.4-10.2); Potassium 4.5 mmol/L (3.5-5.1); Total Bilirubin 0.6 mg/dL (0.2-1.3); Total Protein 6.4 g/dL (6.3-8.2)
--- NOTE | 2021-01-05 10:48 | P.PN ---
Subjective Progress Note Date: 01/05/21 Principal diagnosis: Coronary artery disease with left main disease, acute kidney injury on admission. Previous medical history of myocardial infarction with multivessel angioplasty, hypertension, hyperlipidemia, paroxysmal atrial fibrillation on Xarelto for anticoagulation, fatty liver with transaminitis, and family history of coronary artery disease The patient's currently sitting up in a recliner on the cardiac stepdown unit in no acute distress. She denies any chest discomfort or shortness of breath at this time. She is currently on IV heparin. Preoperative teaching continues, anticipate surgery early next week. No new questions at this time Objective - Vital Signs Vital signs: Vital Signs Temp 97.5 F L 01/05/21 08:00 Pulse 68 01/05/21 08:00 Resp 20 01/05/21 08:00 BP 114/55 01/05/21 08:00 Pulse Ox 97 01/05/21 08:00 Intake & Output 01/04/21 01/05/21 01/05/21 18:59 06:59 18:59 Intake Total 108.214 136.519 Balance 108.214 136.519 Weight 73.1 kg Intake: Intake, IV Titration 108.214 136.519 Amount Heparin Sod,Pork in 0.45% 108.214 136.519 NaCl 25,000 unit In 0.45 % NaCl 1 250ml.bag @ 9.18 UNITS/KG/HR 9.994 mls/hr IV .Q24H [facility] Rx#: [id number] Other: Voiding Method Toilet # Voids 1 1 - Exam CONSTITUTIONAL: Appears comfortable, cooperative, no acute distress RESPIRATORY: Lungs sounds diminished bilaterally. Respirations even, nonlabored. Currently on room air with oxygen saturation 97%. Able to achieve 1750 mL on incentive spirometry. Strong cough. CARDIOVASCULAR: S1, S2 present. Regular rate and rhythm, sinus rhythm on telemetry. Sternum stable. Palpable peripheral pulses bilaterally. No edema present. No calf pain or tenderness noted. Antiembolism stockings, SCDs present. GASTROINTESTINAL: Abdomen soft, nontender, nondistended. Active bowel sounds present 4 quadrants. Tolerating diet. GENITOURINARY: Continues to void INTEGUMENTARY: Skin is warm and dry with evidence of good perfusion. NEUROLOGIC: Cranial nerves II through XII intact MUSKULOSKELETAL: Able to move all extremities, strength equal bilaterally, gait normal PSYCHIATRIC: Alert and oriented to person place and time, appropriate affect, intact judgment and insight - Allied health notes Allied health notes reviewed: nursing - Labs CBC & Chem 7: 01/03/21 11:14 01/05/21 09:03 Labs: Abnormal Lab Results - Last 24 Hours (Table) 01/04/21 01/04/21 01/05/21 Range/Units 04:42 16:21 09:03 APTT 60.8 H (22.0-30.0) sec Chloride 110 H 109 H (96-109) mmol/L Est GFR (CKD-EPI)NonAf 54.3 L (60.0-200.0) BUN/Creatinine Ratio 23.00 H (12.00-20.00) Ratio Glucose 179 H (74-99) mg/dL AST 142 H 170 H (13-35) U/L ALT 111 H 110 H (8-44) U/L Total Protein 5.7 L (6.2-8.2) g/dL Albumin 2.90 L 3.0 L (3.80-4.90) g/dL Albumin/Globulin Ratio 1.04 L (1.60-3.17) g/dL 01/05/21 Range/Units 09:03 APTT 56.6 H (22.0-30.0) sec Chloride (96-109) mmol/L Est GFR (CKD-EPI)NonAf (60.0-200.0) BUN/Creatinine Ratio (12.00-20.00) Ratio Glucose (74-99) mg/dL AST (13-35) U/L ALT (8-44) U/L Total Protein (6.2-8.2) g/dL Albumin (3.80-4.90) g/dL Albumin/Globulin Ratio (1.60-3.17) g/dL Microbiology - Last 24 Hours (Table) 01/04/21 05:15 Nasal Screen MRSA/MSSA - Preliminary Nasal Swab Assessment and Plan Assessment: 1. Symptomatic coronary artery disease with left main disease 2. Acute kidney injury on admission 3. History of myocardial infarction with multivessel angioplasty 4. Hypertension 5. Hyperlipidemia, treated, cholesterol 139, LDL 91 6. Paroxysmal atrial fibrillation on Xarelto for anticoagulation 7. Fatty liver with transaminitis 8. Family history of coronary artery disease Plan: 1. Continue aspirin, beta maxi therapy. Statin on hold secondary to transaminitis 2. Encourage incentive spirometry use 3. Increase activity, ambulate as tolerated 4. Our plan is for coronary artery bypass surgery with the left internal mammary artery and endoscopic vein harvesting, ligation of the left atrial appendage on 01/08/[address] Aquino. 5. Patient will remain inpatient awaiting surgery due to symptomatic left main disease 6. Medical management with the comorbidities per primary care service 7. More recommendations to follow Time with Patient: Greater than 30
--- NOTE | 2021-01-05 11:47 | PN ---
PROGRESS NOTE HISTORY: The patient is a 75-year-old female with a history of coronary artery disease who presented with symptoms of progressive dyspnea. Underwent cardiac catheterization by Dr. Lewis, was found to have significant left main disease as well as obstructive disease in the LAD and left circumflex. She is scheduled to undergo coronary bypass grafting next week. She had an echocardiogram which revealed ejection fraction of 50% to 55%. with mild mitral and tricuspid regurgitation. She is feeling well this morning. She denies any chest pain. She denies any dizziness or palpitations. She denies any nausea. She continues on aspirin once a day, IV heparin, metoprolol succinate 100 mg daily. PHYSICAL EXAMINATION: Blood pressure 114/50 with a heart rate of 60. LUNGS: Clear good rhythm S1, S2. No S3. No rub. ABDOMEN: Soft nontender. EXTREMITIES: No edema. LAB DATA: Lab data revealed a BUN and creatinine of 23 and 1.0. Potassium 4.0. Her AST is 142, ALT of 111. IMPRESSION: 1. Severe coronary artery disease scheduled for coronary artery bypass grafting. 2. Hyperlipidemia. 3. Hypertension. 4. Paroxysmal atrial fibrillation, continued sinus mechanism. 5. Acute renal injury, resolved. RECOMMENDATIONS: I will continue present therapy. I will re-initiate treatment with statin. Follow her lipid profile. Depending on that, further recommendations will be made. MMHERNANDOL / IJN: [id number] /
[2021-01-05] MEDS: ATORVASTATIN 40 MG TAB PO SCH (13:36)
--- NOTE | 2021-01-05 16:24 | P.PN ---
Subjective 75-year-old female who came in with complaints of increased fatigue and exertional dyspnea has been going on for last few days much worse since yest eribertoay. Patient does have history of coronary artery disease with multiple stents in the past patient had similar symptoms when she had myocardial infarction in the past. EKG did not show any acute ST-T wave changes facet of troponin is negative. Patient is being admitted for possible unstable angina. The other workup for shortness of breath is all negative patient doesn't have any pneumonia d-dimer is negative chest x-ray did not show any congestive heart failure. Patient BNP is around 500. Patient doesn't have any history of COPD and is not wheezing at this time. shortness of breath is exertional upon further questioning patient said she occasionally has some squeezing sense se nsation in the chest and heart area. Patient denied any diaphoresis, nausea, lightheadedness. Patient does have history of atrial fibrillation and will the patient on the monitor patient appeared to have atrial flutter. 01/01/2021 She was seen and evaluated in follow-up with no acute overnight issues. Patient continues to have dyspnea with exertion and has undergone 2-D echo which shows overall LV systolic function is low to normal with an EF of 50-55% with the right ventricle being severely enlarged right atrium is mildly enlarged with a trace to mild aortic regurgitation along with mild mitral and tricuspid regurgitation present. There is also mild pulmonary hypertension noted on the echo. There is a trivial pericardial effusion present. Cardiology following the patient and no plans for stress or cardiac catheterization at this time. Patient continues on IV heparin and will continue at this time and will likely transition back to Xarelto once stabilized. Sodium today is 140 with a potassium of 4.1 and current creatinine is 0.9. Liver functions trending down although continued to be somewhat elevated. We'll repeat a.m. labs to monitor closely. Troponins have been negative. Acute hepatitis panel is also negative. 01/02/2021 and patient will undergo cardiac catheterization today. 01/03/2021 Patient had a categorization today which showed severe left main ostial stenosis with focal critical stenosis in the mid LAD and the AV groove. Coronary artery bypass grafting was recommended by cardiology to, [facility] 6 surgery evaluated the patient and patient is scheduled for coronary artery bypass grafting on next Thursday. Patient will be discharged if cleared by cardiology and she'll come back for CABG. 01/04/2021 Patient doesn't have any symptoms of chest pain at this time. Cardiology is recommending continued hospitalization until her coronary artery bypass grafting and continuation of IV heparin. Patient's liver enzymes are improving can be started on statin. 01/05/2021 Patient doesn't have any chest pain patient probably will undergo CABG and Thursday Constitutional: Denied any fatigue denied any fever. Cardio vascular: denied any chest pain, palpitations Gastrointestinal denied any nausea vomiting Pulmonary: Denied any shortness of breath cough Neurologic denied any new focal deficits All inpatient medications were reviewed and appropriate changes in these medications as dictated in the interval history and assessment and plan. Objective - Vital Signs Vital signs: Vital Signs Temp 97.8 F 01/05/21 16:00 Pulse 68 01/05/21 16:00 Resp 16 01/05/21 16:00 BP 129/58 01/05/21 16:00 Pulse Ox 98 01/05/21 16:00 Intake & Output 01/04/21 01/05/21 01/05/21 18:59 06:59 18:59 Intake Total 108.214 136.519 Balance 108.214 136.519 Weight 73.1 kg Intake: Intake, IV Titration 108.214 136.519 Amount Heparin Sod,Pork in 0.45% 108.214 136.519 NaCl 25,000 unit In 0.45 % NaCl 1 250ml.bag @ 9.18 UNITS/KG/HR 9.994 mls/hr IV .Q24H [facility] Rx#: [id number] Other: Voiding Method Toilet # Voids 1 1 1 - Exam PHYSICAL EXAMINATION: GENERAL: The patient is alert and oriented x3, not in any acute distress. Well developed, well nourished. HEENT: Pupils are round and equally reacting to light. EOMI. No scleral icterus. No conjunctival pallor. Normocephalic, atraumatic. No pharyngeal erythema. No thyromegaly. CARDIOVASCULAR: S1 and S2 present. No murmurs, rubs, or gallops. PULMONARY: Chest is clear to auscultation, no wheezing or crackles. ABDOMEN: Soft, nontender, nondistended, normoactive bowel sounds. No palpable organomegaly. MUSCULOSKELETAL: No joint swelling or deformity. EXTREMITIES: No cyanosis, clubbing, or pedal edema. NEUROLOGICAL: Gross neurological examination did not reveal any focal deficits. SKIN: No rashes. - Labs CBC & Chem 7: 01/03/21 11:14 01/05/21 09:03 Labs: Abnormal Lab Results - Last 24 Hours (Table) 01/04/21 01/05/21 01/05/21 Range/Units 16:21 09:03 09:03 APTT 60.8 H 56.6 H (22.0-30.0) sec Chloride 109 H (98-107) mmol/L Glucose 179 H (74-99) mg/dL AST 170 H (14-36) U/L ALT 110 H (4-34) U/L Albumin 3.0 L (3.5-5.0) g/dL Microbiology - Last 24 Hours (Table) 01/04/21 05:15 Nasal Screen MRSA/MSSA - Final Nasal Swab Assessment and Plan Plan: Assessment and Plan Plan: -Acute coronary syndrome, patient has critical LAD lesion as mentioned above. CABG next Thursday continued on IV heparin not on statin because of elevated liver enzymes continuing on beta maxi -mild acute renal failure, prerenal azotemia. Improved with IV fluids. -Paroxysmal A. fib patient is presently in atrial flutter: on metoprolol succinate. On IV heparin at this time -Coronary artery disease history -Mild elevation of liver enzymes: Secondary to non-alcoholic steato- hepatitis liver enzymes are fairly stable .
[2021-01-06] MEDS: ASPIRIN 81 MG PO SCH (08:03)
[2021-01-06] MEDS: MUPIROCIN 2% OINT 22 GM TUBE NASAL SCH ×2 (08:03→22:40)
[2021-01-06] MEDS: METOPROLOL SUCCINATE (ER) 100 MG TAB.ER.24H PO SCH (08:03)
[2021-01-06] MEDS: ATORVASTATIN 40 MG TAB PO SCH (08:03)
--- NOTE | 2021-01-06 09:25 | P.PN ---
Subjective 75-year-old female who came in with complaints of increased fatigue and exertional dyspnea has been going on for last few days much worse since yest eribertoay. Patient does have history of coronary artery disease with multiple stents in the past patient had similar symptoms when she had myocardial infarction in the past. EKG did not show any acute ST-T wave changes facet of troponin is negative. Patient is being admitted for possible unstable angina. The other workup for shortness of breath is all negative patient doesn't have any pneumonia d-dimer is negative chest x-ray did not show any congestive heart failure. Patient BNP is around 500. Patient doesn't have any history of COPD and is not wheezing at this time. shortness of breath is exertional upon further questioning patient said she occasionally has some squeezing sense se nsation in the chest and heart area. Patient denied any diaphoresis, nausea, lightheadedness. Patient does have history of atrial fibrillation and will the patient on the monitor patient appeared to have atrial flutter. 01/01/2021 She was seen and evaluated in follow-up with no acute overnight issues. Patient continues to have dyspnea with exertion and has undergone 2-D echo which shows overall LV systolic function is low to normal with an EF of 50-55% with the right ventricle being severely enlarged right atrium is mildly enlarged with a trace to mild aortic regurgitation along with mild mitral and tricuspid regurgitation present. There is also mild pulmonary hypertension noted on the echo. There is a trivial pericardial effusion present. Cardiology following the patient and no plans for stress or cardiac catheterization at this time. Patient continues on IV heparin and will continue at this time and will likely transition back to Xarelto once stabilized. Sodium today is 140 with a potassium of 4.1 and current creatinine is 0.9. Liver functions trending down although continued to be somewhat elevated. We'll repeat a.m. labs to monitor closely. Troponins have been negative. Acute hepatitis panel is also negative. 01/02/2021 and patient will undergo cardiac catheterization today. 01/03/2021 Patient had a categorization today which showed severe left main ostial stenosis with focal critical stenosis in the mid LAD and the AV groove. Coronary artery bypass grafting was recommended by cardiology to, Edward[facility] 6 surgery evaluated the patient and patient is scheduled for coronary artery bypass grafting on next Thursday. Patient will be discharged if cleared by cardiology and she'll come back for CABG. 01/04/2021 Patient doesn't have any symptoms of chest pain at this time. Cardiology is recommending continued hospitalization until her coronary artery bypass grafting and continuation of IV heparin. Patient's liver enzymes are improving can be started on statin. 01/05/2021 Patient doesn't have any chest pain patient probably will undergo CABG and Thursday01/06/2021 No chest pain patient clinically doing well. Constitutional: Denied any fatigue denied any fever. Cardio vascular: denied any chest pain, palpitations Gastrointestinal denied any nausea vomiting Pulmonary: Denied any shortness of breath cough Neurologic denied any new focal deficits All inpatient medications were reviewed and appropriate changes in these med ications as dictated in the interval history and assessment and plan. Objective - Vital Signs Vital signs: Vital Signs Temp 98.2 F 01/06/21 03:12 Pulse 65 01/06/21 08:00 Resp 20 01/06/21 08:00 BP 120/55 01/06/21 08:00 Pulse Ox 96 01/06/21 08:00 Intake & Output 01/05/21 01/06/21 01/06/21 18:59 06:59 18:59 Intake Total 240 Balance 240 Weight 110.9 kg Intake: Oral 240 Other: Voiding Method Toilet # Voids 1 1 - Exam PHYSICAL EXAMINATION: GENERAL: The patient is alert and oriented x3, not in any acute distress. Well developed, well nourished. HEENT: Pupils are round and equally reacting to light. EOMI. No scleral icterus. No conjunctival pallor. Normocephalic, atraumatic. No pharyngeal erythema. No thyromegaly. CARDIOVASCULAR: S1 and S2 present. No murmurs, rubs, or gallops. PULMONARY: Chest is clear to auscultation, no wheezing or crackles. ABDOMEN: Soft, nontender, nondistended, normoactive bowel sounds. No palpable organomegaly. MUSCULOSKELETAL: No joint swelling or deformity. EXTREMITIES: No cyanosis, clubbing, or pedal edema. NEUROLOGICAL: Gross neurological examination did not reveal any focal deficits. SKIN: No rashes. - Labs CBC & Chem 7: 01/03/21 11:14 01/05/21 09:03 Labs: Abnormal Lab Results - Last 24 Hours (Table) 01/05/21 01/05/21 01/06/21 Range/Units 09:03 09:03 08:01 APTT 56.6 H 59.3 H (22.0-30.0) sec Chloride 109 H (98-107) mmol/L Glucose 179 H (74-99) mg/dL AST 170 H (14-36) U/L ALT 110 H (4-34) U/L Albumin 3.0 L (3.5-5.0) g/dL Microbiology - Last 24 Hours (Table) 01/04/21 05:15 Nasal Screen MRSA/MSSA - Final Nasal Swab Assessment and Plan Plan: Assessment and Plan Plan: -Acute coronary syndrome, patient has critical LAD lesion as mentioned above. CABG next Thursday continued on IV heparin not on statin because of elevated liver enzymes continuing on beta maxi -mild acute renal failure, prerenal azotemia. Improved with IV fluids. -Paroxysmal A. fib patient is presently in atrial flutter: on metoprolol succinate. On IV heparin at this time -Coronary artery disease history -Mild elevation of liver enzymes: Secondary to non-alcoholic steato- hepatitis liver enzymes are fairly stable .
--- NOTE | 2021-01-06 09:28 | P.PN ---
Subjective Progress Note Date: 01/06/21 Principal diagnosis: Coronary artery disease with left main disease, acute kidney injury on admission. Previous medical history of myocardial infarction with multivessel angioplasty, hypertension, hyperlipidemia, paroxysmal atrial fibrillation on Xarelto for anticoagulation, fatty liver with transaminitis, and family history of coronary artery disease The patient's currently sitting up in a recliner on the cardiac stepdown unit in no acute distress. She denies any chest discomfort or shortness of breath at this time. She is currently on IV heparin. Preoperative teaching continues, anticipate surgery Thursday. No new questions at this time Objective - Vital Signs Vital signs: Vital Signs Temp 98.2 F 01/06/21 03:12 Pulse 65 01/06/21 08:00 Resp 20 01/06/21 08:00 BP 120/55 01/06/21 08:00 Pulse Ox 96 01/06/21 08:00 Intake & Output 01/05/21 01/06/21 01/06/21 18:59 06:59 18:59 Intake Total 240 Balance 240 Weight 110.9 kg Intake: Oral 240 Other: Voiding Method Toilet # Voids 1 1 - Exam CONSTITUTIONAL: Appears comfortable, cooperative, no acute distress RESPIRATORY: Lungs sounds diminished bilaterally. Respirations even, nonlabored. Currently on room air with oxygen saturation 97%. Able to achieve 1000 mL on incentive spirometry. Strong cough. CARDIOVASCULAR: S1, S2 present. Regular rate and rhythm, sinus rhythm on telemetry. Sternum stable. Palpable peripheral pulses bilaterally. No edema present. No calf pain or tenderness noted. Antiembolism stockings, SCDs p resent. GASTROINTESTINAL: Abdomen soft, nontender, nondistended. Active bowel sounds present 4 quadrants. Tolerating diet. GENITOURINARY: Continues to void INTEGUMENTARY: Skin is warm and dry with evidence of good perfusion. NEUROLOGIC: Cranial nerves II through XII intact MUSKULOSKELETAL: Able to move all extremities, strength equal bilaterally, gait normal PSYCHIATRIC: Alert and oriented to person place and time, appropriate affect, intact judgment and insight - Allied health notes Allied health notes reviewed: nursing - Labs CBC & Chem 7: 01/03/21 11:14 01/05/21 09:03 Labs: Abnormal Lab Results - Last 24 Hours (Table) 01/05/21 01/05/21 01/06/21 Range/Units 09:03 09:03 08:01 APTT 56.6 H 59.3 H (22.0-30.0) sec Chloride 109 H (98-107) mmol/L Glucose 179 H (74-99) mg/dL AST 170 H (14-36) U/L ALT 110 H (4-34) U/L Albumin 3.0 L (3.5-5.0) g/dL Microbiology - Last 24 Hours (Table) 01/04/21 05:15 Nasal Screen MRSA/MSSA - Final Nasal Swab Assessment and Plan Assessment: 1. Symptomatic coronary artery disease with left main disease 2. Acute kidney injury on admission 3. History of myocardial infarction with multivessel angioplasty 4. Hypertension 5. Hyperlipidemia, treated, cholesterol 139, LDL 91 6. Paroxysmal atrial fibrillation on Xarelto for anticoagulation 7. Fatty liver with transaminitis 8. Never smoker, preoperative FEV1 57% of predicted 9. Family history of coronary artery disease Plan: 1. Continue aspirin, statin, beta maxi therapy. 2. Encourage incentive spirometry use 3. Increase activity, ambulate as tolerated 4. Our plan is for coronary artery bypass surgery with the left internal mammary artery and endoscopic vein harvesting, ligation of the left atrial appendage on 01/08/[address] Aquino. 5. Patient will remain inpatient awaiting surgery due to symptomatic left main disease 6. Medical management with the comorbidities per primary care service 7. More recommendations to follow Time with Patient: Less than 30
[2021-01-06] MEDS: HEPARIN SOD,PORK IN 0.45% NACL 25,000 UNIT in 0.45% NACL 1 250ML.BAG IV SCH (11:29)
--- NOTE | 2021-01-06 12:52 | PN ---
PROGRESS NOTE Mrs. Zaidi is a 75-year-old female who presented with symptoms of progressive dyspnea, underwent cardiac catheterization and was found to have critical left main disease. She is scheduled to undergo coronary artery bypass grafting on Thursday. She is feeling well this morning. She denies any chest pain. Her breathing is stable. She denies any dizziness or palpitation. She denies any nausea. Hemodynamically, she is stable. She continues to be on the IV heparin. In addition to that she is on aspirin, Lipitor 40 mg daily, metoprolol succinate 100 mg daily. PHYSICAL EXAMINATION: Blood pressure 120/50 with a heart rate in the 60s. LUNGS: Clear. HEART: Regular rate and rhythm, S1, S2. No S3. No rub with a systolic murmur at the base. No diastolic murmur. No rub. No gallop. ABDOMEN: Soft, nontender. EXTREMITIES: No edema. IMPRESSION: 1. Severe left main disease scheduled for coronary artery bypass grafting. 2. Hyperlipidemia. 3. History of hypertension. 4. Paroxysmal atrial fibrillation. RECOMMENDATION: We will continue present therapy. Proceed with surgery as planned on Thursday. MMODL / IJN: [id number] /
[2021-01-06] MEDS: ALPRAZolam 0.5 MG TAB PO PRN (17:29)
[2021-01-07] MEDS ORDERED: NITROGLYCERIN-D5W PMX 50 MG in DEXTROSE/WATER 1 250ML.BAG IV ONE (05:00)
[2021-01-07] MEDS ORDERED: LACTATED RINGERS 1,000 ML IV ONE (05:00)
[2021-01-07] MEDS: ASPIRIN 81 MG PO SCH (09:08)
[2021-01-07] MEDS: METOPROLOL SUCCINATE (ER) 100 MG TAB.ER.24H PO SCH (09:08)
[2021-01-07] MEDS: ATORVASTATIN 40 MG TAB PO SCH (09:09)
[2021-01-07] MEDS: MUPIROCIN 2% OINT 22 GM TUBE NASAL SCH ×2 (09:09→20:54)
--- NOTE | 2021-01-07 09:59 | P.PN ---
Subjective Progress Note Date: 01/07/21 Principal diagnosis: Coronary artery disease with left main disease, acute kidney injury on admission. Previous medical history of myocardial infarction with multivessel angioplasty, hypertension, hyperlipidemia, paroxysmal atrial fibrillation on Xarelto for anticoagulation, fatty liver with transaminitis, and family history of coronary artery disease The patient's currently sitting up in a recliner on the cardiac stepdown unit in no acute distress. She denies chest discomfort, does complain of some mild shortness of breath at this time though she continues to have good oxygen saturation on room air. She is currently on IV heparin. Preoperative teaching continues, anticipate surgery tomorrow. No new questions at this time Objective - Vital Signs Vital signs: Vital Signs Temp 97.7 F 01/07/21 04:00 Pulse 69 01/07/21 04:00 Resp 18 01/07/21 04:00 BP 119/59 01/07/21 04:00 Pulse Ox 97 01/07/21 04:00 Intake & Output 01/06/21 01/07/21 01/07/21 18:59 06:59 18:59 Intake Total 1149.982 420 Balance 1149.982 420 Weight 111.4 kg Intake: Intake, IV Titration 249.982 Amount Heparin Sod,Pork in 0.45% 249.982 NaCl 25,000 unit In 0.45 % NaCl 1 250ml.bag @ 9.18 UNITS/KG/HR 9.994 mls/hr IV .Q24H GEOVANNA Rx#: [id number] Oral 900 420 Other: Voiding Method Toilet # Voids 1 1 - Exam CONSTITUTIONAL: Appears comfortable, cooperative, no acute distress RESPIRATORY: Lungs sounds diminished bilaterally. Respirations even, nonlabored. Currently on room air with oxygen saturation 97%. Able to achieve 1000 mL on incentive spirometry. Strong cough. CARDIOVASCULAR: S1, S2 present. Regular rate and rhythm, sinus rhythm on telemetry. Sternum stable. Palpable peripheral pulses bilaterally. No edema present. No calf pain or tenderness noted. Antiembolism stockings, SCDs present. GASTROINTESTINAL: Abdomen soft, nontender, nondistended. Active bowel sounds present 4 quadrants. Tolerating diet. GENITOURINARY: Continues to void INTEGUMENTARY: Skin is warm and dry with evidence of good perfusion. NEUROLOGIC: Cranial nerves II through XII intact MUSKULOSKELETAL: Able to move all extremities, strength equal bilaterally, gait normal PSYCHIATRIC: Alert and oriented to person place and time, appropriate affect, intact judgment and insight - Allied health notes Allied health notes reviewed: nursing - Labs CBC & Chem 7: 01/03/21 11:14 01/05/21 09:03 - Imaging and Cardiology Chest x-ray: image reviewed Assessment and Plan Assessment: 1. Symptomatic coronary artery disease with left main disease 2. Acute kidney injury on admission 3. History of myocardial infarction with multivessel angioplasty 4. Hypertension 5. Hyperlipidemia, treated, cholesterol 139, LDL 91 6. Paroxysmal atrial fibrillation on Xarelto for anticoagulation 7. Fatty liver with transaminitis 8. Never smoker, preoperative FEV1 57% of predicted 9. Family history of coronary artery disease Plan: 1. Continue aspirin, statin, beta maxi therapy. 2. Encourage incentive spirometry use 3. Increase activity, ambulate as tolerated 4. Our plan is for coronary artery bypass surgery with the left internal mammary artery and endoscopic vein harvesting, ligation of the left atrial appendage tomorrow by Dr. Aquino. 5. Medical management with the comorbidities per primary care service 6. More recommendations to follow Time with Patient: Greater than 30
--- NOTE | 2021-01-07 10:08 | XR ---
EXAMINATION TYPE: XR chest 2V DATE OF EXAM: 01/07/2021 COMPARISON: 12/31/2020 TECHNIQUE: PA and lateral views submitted. HISTORY: Preop FINDINGS: The lungs are clear and there is no pneumothorax, pleural effusion, or focal pneumonia. Bilateral s ubsegmental areas of consolidation. Diffuse osteopenia. Arthropathy shoulders. No sizable pneumothora x. IMPRESSION: 1. COPD with changes of bilateral scar or atelectasis..
[2021-01-07 10:23] LABS: HCT 39.3 % (34.0-46.0); MCH 30.7 pg (25.0-35.0); MCHC 33.1 g/dL (31.0-37.0); MCV 92.8 fL (80.0-100.0); Mean Platelet Volume 9.1; Platelet Count 134 k/uL (150-450); RBC 4.24 m/uL (3.80-5.40); RDW 13.9 % (11.5-15.5); WBC 4.8 k/uL (3.8-10.6)
[2021-01-07] MEDS ORDERED: MD COMMUNICATION TO PHARMACY 1 EACH MISC PO ONE (10:25)
[2021-01-07 10:55] LABS: Partial Thromboplastin Time 58.1 sec (22.0-30.0); Prothrombin Time 11.1 sec (9.0-12.0)
[2021-01-07 11:20] LABS: Albumin 3.2 g/dL (3.5-5.0); Magnesium 1.8 mg/dL (1.6-2.3); Total Bilirubin 0.4 mg/dL (0.2-1.3); Total Protein 6.6 g/dL (6.3-8.2)
[2021-01-07 11:36] LABS: Potassium 3.8 mmol/L (3.5-5.1)
--- NOTE | 2021-01-07 12:27 | P.CNPUL ---
History of Present Illness Consult date: 01/07/21 Requesting physician: Kierra Story Chief complaint: Preoperative pulmonary evaluation. History of present illness: Pulmonary consultation dated 01/07/2021. 75-year-old female, with anticipated off pump bypass grafting by Dr. Aquino tomorrow. We are asked to see the patient for preop clearance. The patient is a lifelong nonsmoker. She denies a history of any lung issues such as COPD, emphysema, chronic bronchitis, or asthma. She denies any breathing or pulmonary symptoms such as shortness of breath, cough, wheezing, phlegm production, tightness, or any other complaints for that matter. The patient has been in the hospital for a number of days. She apparently was admitted back on December 31. She had a cardiac catheterization performed by Dr. Lewis on January 03. I explained to the patient what our role in the bypass surgery would be. It would include 2 major things, initially getting the patient off the mechanical ventilator. The second thing would be watching her throughout her hospitalization to make sure she did not develop a primary complication such as pleural effusion, atelectasis, lobar collapse, or pneumonia. Lab data includes a CBC which is essentially normal. Platelet count a bit low 134. Electrolyte profile is also relatively normal. AST and ALTs are bit elevated at 190 and 119 respectively. A chest x-ray done on the day of admission showed no acute cardiopulmonary process. Review of Systems REVIEW OF SYSTEMS: CONSTITUTIONAL: Weakness and fatigue. NEUROLOGIC: [ Negative.] HEENT: [ Negative.] CARDIAC: [Negative.] PULMONARY: Exertional dyspnea. GI: [Negative.] : [Negative.] RHEUMATOLOGIC: [ Negative.] IMMUNOLOGIC: [ Negative.] ENDOCRINE: [Negative. ] DERMATOLOGIC: [Negative.] Past Medical History Past Medical History: Atrial Fibrillation, Coronary Artery Disease (CAD), Heart Failure, Hyperlipidemia, Hypertension, Myocardial Infarction ([place]) Additional Past Medical History / Comment(s): polymyalgia- similar to fibro in arms, history of fatty liver with elevated transaminase enzymes. Last Myocardial Infarction Date:: 2003 History of Any Multi-Drug Resistant Organisms: None Reported Past Surgical History: Heart Catheterization With Stent, Tonsillectomy Additional Past Surgical History / Comment(s): PARTIAL HYSTERECTOMY. Bilateral cataract surgery. rectal fissure repair Date of Last Stent Placement:: 2003 Past Psychological History: No Psychological Hx Reported Smoking Status: Never smoker Past Alcohol Use History: None Reported Past Drug Use History: None Reported - Past Family History Father Family Medical History: Coronary Artery Disease (CAD) Mother Family Medical History: Coronary Artery Disease (CAD) Medications and Allergies Home Medications Medication Instructions Recorded Confirmed Type Metoprolol Succinate (ER) [Toprol 100 mg PO DAILY 01/31/20 12/31/20 History XL] Atorvastatin [Lipitor] 40 mg PO HS 12/31/20 12/31/20 History Aspirin 81 mg PO DAILY #30 chew 01/03/21 Rx Nitroglycerin Sl Tabs [Nitrostat] 0.4 mg SUBLINGUAL Q5M PRN #30 tab 01/03/21 Rx Rivaroxaban [Xarelto] 15 mg PO HS #0 01/03/21 12/31/20 Rx Allergies Allergy/AdvReac Type Severity Reaction Status Date / Time Sulfa (Sulfonamide Allergy Unknown Verified 12/31/20 13:37 Antibiotics) Childhood Physical Exam Osteopathic Statement: *. No significant issues noted on an osteopathic structural exam other than those noted in the History and Physical/Consult. Vitals: Vital Signs Temp Pulse Pulse Resp BP Pulse Ox 01/07/21 08:00 97.6 F 69 66 16 127/58 98 01/07/21 04:00 97.7 F 69 18 119/59 97 01/07/21 02:00 69 18 01/06/21 23:39 97.8 F 71 17 133/72 97 01/06/21 20:00 97.6 F 66 18 111/57 95 01/06/21 16:00 97.8 F 63 22 173/66 98 Intake and Output 01/06/21 01/07/21 01/07/21 22:59 06:59 14:59 Intake Total 240 420 Balance 240 420 Intake: Oral 240 420 Other: Voiding Method Toilet Toilet Toilet # Voids 2 1 Weight 111.4 kg No acute distress, oriented 3. HEENT examination is grossly unremarkable. Neck supple. Full range of motion. No adenopathy thyromegaly or neck vein distention. Cardiovascular examination reveals regular rhythm rate. S1-S2 normal. No S3 or S4. No discernible murmur noted. Lungs reveal clear breath sounds. Breath sounds are equal bilaterally. No adventitious lung sounds including wheezes rhonchi or crackles. Abdomen soft bowel sounds are heard. No masses or tenderness. Extremities are intact. No cyanosis clubbing or edema. Skin is without rash or lesion. Neurologic examination is brief but nonfocal. Results - Laboratory Findings CBC and BMP: 01/07/21 09:58 01/07/21 09:58 PT/INR, D-dimer PT 11.1 sec (9.0-12.0) 01/07/21 09:58 INR 1.0 (<1.2) 01/07/21 09:58 D-Dimer 0.35 mg/L FEU (<0.60) 12/31/20 12:44 Abnormal lab findings: Abnormal Labs 12/31/20 12/31/20 12/31/20 12:44 12:44 19:21 MCHC Plt Count Lymphocytes # PT 13.7 H INR 1.3 H APTT 30.6 H Potassium 5.4 H Chloride BUN 25 H Creatinine 1.27 H Est GFR (CKD-EPI)NonAf BUN/Creatinine Ratio Glucose Calcium AST 180 H ALT 133 H Alkaline Phosphatase 153 H Total Protein Albumin Albumin/Globulin Ratio HDL Cholesterol Urine Blood Urine Bacteria Urine Mucus Crossmatch 12/31/20 01/01/21 01/01/21 22:39 05:16 05:16 MCHC 31.9 L Plt Count Lymphocytes # PT INR APTT 57.3 H Potassium Chloride 111 H BUN Creatinine Est GFR (CKD-EPI)NonAf BUN/Creatinine Ratio 24.44 H Glucose 69 L Calcium 7.8 L AST 155 H ALT 114 H Alkaline Phosphatase Total Protein 5.8 L Albumin 3.00 L Albumin/Globulin Ratio 1.07 L HDL Cholesterol 37.0 L Urine Blood Urine Bacteria Urine Mucus Crossmatch 01/01/21 01/01/21 01/02/21 05:16 15:26 05:46 MCHC Plt Count Lymphocytes # PT 13.0 H INR 1.3 H APTT 130.5 H* 56.0 H 68.7 H Potassium Chloride BUN Creatinine Est GFR (CKD-EPI)NonAf BUN/Creatinine Ratio Glucose Calcium AST ALT Alkaline Phosphatase Total Protein Albumin Albumin/Globulin Ratio HDL Cholesterol Urine Blood Urine Bacteria Urine Mucus Crossmatch 01/02/21 01/02/21 01/02/21 05:54 05:54 12:55 MCHC Plt Count 139 L Lymphocytes # PT INR APTT 34.5 H Potassium Chloride 112 H BUN 22 H Creatinine Est GFR (CKD-EPI)NonAf BUN/Creatinine Ratio Glucose Calcium AST 173 H ALT 117 H Alkaline Phosphatase 134 H Total Protein Albumin 2.9 L Albumin/Globulin Ratio HDL Cholesterol Urine Blood Urine Bacteria Urine Mucus Crossmatch 01/02/21 01/03/21 01/03/21 19:47 01:30 04:42 MCHC Plt Count Lymphocytes # PT INR APTT 74.1 H 46.7 H Potassium Chloride 109 H BUN 22 H Creatinine Est GFR (CKD-EPI)NonAf BUN/Creatinine Ratio Glucose Calcium AST 185 H ALT 123 H Alkaline Phosphatase 135 H Total Protein Albumin 3.3 L Albumin/Globulin Ratio HDL Cholesterol Urine Blood Urine Bacteria Urine Mucus Crossmatch 01/03/21 01/03/21 01/04/21 11:14 15:15 04:42 MCHC Plt Count 132 L Lymphocytes # 0.9 L PT INR APTT Potassium Chloride 110 H BUN Creatinine Est GFR (CKD-EPI)NonAf 54.3 L BUN/Creatinine Ratio 23.00 H Glucose Calcium AST 142 H ALT 111 H Alkaline Phosphatase Total Protein 5.7 L Albumin 2.90 L Albumin/Globulin Ratio 1.04 L HDL Cholesterol Urine Blood Large H Urine Bacteria Rare H Urine Mucus Rare H Crossmatch 01/04/21 01/05/21 01/05/21 16:21 09:03 09:03 MCHC Plt Count Lymphocytes # PT INR APTT 60.8 H 56.6 H Potassium Chloride 109 H BUN Creatinine Est GFR (CKD-EPI)NonAf BUN/Creatinine Ratio Glucose 179 H Calcium AST 170 H ALT 110 H Alkaline Phosphatase Total Protein Albumin 3.0 L Albumin/Globulin Ratio HDL Cholesterol Urine Blood Urine Bacteria Urine Mucus Crossmatch 01/06/21 01/07/21 01/07/21 08:01 09:58 09:58 MCHC Plt Count Lymphocytes # PT INR APTT 59.3 H 58.1 H Potassium Chloride BUN Creatinine Est GFR (CKD-EPI)NonAf BUN/Creatinine Ratio Glucose Calcium AST ALT Alkaline Phosphatase Total Protein Albumin Albumin/Globulin Ratio HDL Cholesterol Urine Blood Urine Bacteria Urine Mucus Crossmatch See Detail 01/07/21 01/07/21 09:58 09:58 MCHC Plt Count 134 L Lymphocytes # PT INR APTT Potassium Chloride BUN Creatinine Est GFR (CKD-EPI)NonAf BUN/Creatinine Ratio Glucose 111 H Calcium AST 190 H ALT 119 H Alkaline Phosphatase 141 H Total Protein Albumin 3.2 L Albumin/Globulin Ratio HDL Cholesterol Urine Blood Urine Bacteria Urine Mucus Crossmatch - Diagnostic Findings Chest x-ray: image reviewed Assessment and Plan Assessment: Coronary artery disease, with anticipated off pump bypass on 01/08/2021, by Dr. Aquino. No history of pulmonary disease. Lifelong nontobacco use. History of heart failure. History of hyperlipidemia. History of hypertension. Prior history of myocardial infarction. History of CAD with previous stent placement. Plan: Plan dated 01/07/2021. The patient should do very well. She has no history of any lung issues. She is a lifelong nontobacco user. She denies a prior history of asthma, COPD, chronic bronchitis, or emphysema. The patient denies all pulmonary complaints including shortness of breath, cough, wheezing, chest tightness, and phlegm production. I did explain our role in the process. She understands. Time with Patient: Less than 30
--- NOTE | 2021-01-07 13:05 | P.PN ---
Subjective HISTORY OF PRESENTING ILLNESS This is a pleasant 75-year-old female past medical history significant for paroxysmal atrial fibrillation on long-term anticoagulation (Xarelto at home), coronary artery disease status post PCI to the circumflex and OM 2017, hypertension, dyslipidemia and obesity. She follows in the office with Dr. Lewis. We have been asked to see in consultation for shortness of breath. She states for the previous few weeks she has been experiencing increased shortness of breath with activity. It mostly has been manageable until 2 days ago when it was causing her more distress. Echo reveals preserved LV systolic function with ejection fraction 50-55%, mild MR, mild TR and mild pulmonary hypertension with RVSP of 39 mmHg. Cardiac catheterization revealed severe ostial left main stenosis with focal critical stenosis also in the mid LAD and the AV groove circumflex. 01/07/2021 Patient seen and examined sitting up in recliner in no acute distress. She states overall she slept well last night. When she ambulates in her room and the halls she does have some exertional shortness of breath. She has had no sym ptoms of chest discomfort. Blood pressure 127/58 heart rate 66 afebrile maintaining oxygen saturation on room air. She is currently being maintained on IV heparin, aspirin 81 mg daily, atorvastatin 40 mg daily. Laboratory data reviewed, sodium 140, potassium 3.8, BUN 17, serum 0.8, magnesium 1.8, AST 190, PLT 119, alkaline phosphatase 141, WBC 4.8, hemoglobin 13, platelets 134 She has been seen by CT surgery and is scheduled to undergo bypass grafting tomorrow January 08. PHYSICAL EXAMINATION CONSTITUTIONAL: No apparent distress. Obese. HEENT: Head is normocephalic. Pupils are equal, round. Sclerae anicteric. Mucous membranes of the mouth are moist. No JVD. No carotid bruit. CHEST EXAMINATION: Lungs are clear to auscultation. No chest wall tenderness is noted on palpation or with deep breathing. HEART EXAMINATION: Regular rate and rhythm. S1, S2 heard. Soft systolic ejection murmur at the base, no gallops or rub. EXTREMITIES: 2+ peripheral pulses, no lower extremity edema and no calf tenderness.. ASSESSMENT Severe left main disease - scheduled for CABG on January 08 Transaminitis Hyperkalemia Acute kidney injury Coronary artery disease status post PCI to the circumflex and OM 2017 Hypertension Dyslipidemia Paroxysmal atrial fibrillation on long-term anticoagulation (Xarelto) currently maintaining sinus mechanism PLAN Continue current medical therapy with statin, aspirin, IV heparin, atorvastatin Encourage incentive spirometry use Plan for coronary artery bypass grafting tomorrow January 08 We will continue to follow Nurse Practitioner note has been reviewed, I agree with a documented findings and plan of care. Patient was seen and examined. Objective - Vital Signs Vital signs: Vital Signs Temp 97.6 F 01/07/21 08:00 Pulse 69 01/07/21 08:00 Resp 18 01/07/21 08:00 BP 127/58 01/07/21 08:00 Pulse Ox 98 01/07/21 08:00 Intake & Output 01/06/21 01/07/21 01/07/21 18:59 06:59 18:59 Intake Total 1149.982 420 Balance 1149.982 420 Weight 111.4 kg Intake: Intake, IV Titration 249.982 Amount Heparin Sod,Pork in 0.45% 249.982 NaCl 25,000 unit In 0.45 % NaCl 1 250ml.bag @ 9.18 UNITS/KG/HR 9.994 mls/hr IV .Q24H [facility] Rx#: [id number] Oral 900 420 Other: Voiding Method Toilet Toilet # Voids 1 1 - Labs CBC & Chem 7: 01/07/21 09:58 01/07/21 09:58 Labs: Abnormal Lab Results - Last 24 Hours (Table) 01/07/21 01/07/21 01/07/21 Range/Units 09:58 09:58 09:58 Plt Count 134 L (150-450) k/uL APTT 58.1 H (22.0-30.0) sec Glucose (74-99) mg/dL AST (14-36) U/L ALT (4-34) U/L Alkaline Phosphatase (38-126) U/L Albumin (3.5-5.0) g/dL Crossmatch See Detail 01/07/21 Range/Units 09:58 Plt Count (150-450) k/uL APTT (22.0-30.0) sec Glucose 111 H (74-99) mg/dL AST 190 H (14-36) U/L ALT 119 H (4-34) U/L Alkaline Phosphatase 141 H (38-126) U/L Albumin 3.2 L (3.5-5.0) g/dL Crossmatch
[2021-01-07] MEDS: HEPARIN SOD,PORK IN 0.45% NACL 25,000 UNIT in 0.45% NACL 1 250ML.BAG IV SCH (18:11)
[2021-01-07] MEDS: ALPRAZolam 0.5 MG TAB PO PRN (20:54)
[2021-01-08] MEDS ORDERED: ATORVASTATIN 10 MG TAB PO ONE (05:00)
[2021-01-08] MEDS ORDERED: ASPIRIN 325 MG TAB PO ONE (05:00)
[2021-01-08] MEDS ORDERED: CLEVIDIPINE BUTYRATE 25 MG in EMPTY BAG 1 BAG IV ONE (05:00)
[2021-01-08] MEDS ORDERED: INSULIN REGULAR 100 UNIT in SODIUM CHLORIDE 0.9% 100 ML IV ONE (05:00)
[2021-01-08] MEDS ORDERED: ALBUMIN HUMAN 25% 50 ML in EMPTY BAG 1 BAG IVPB ONE (05:00)
[2021-01-08] MEDS ORDERED: PROTAMINE SULFATE 10 MG/ML 25 ML VIAL IV ONE (05:00)
[2021-01-08] MEDS ORDERED: METOPROLOL TARTRATE 12.5 MG TAB PO ONE (05:00)
[2021-01-08] MEDS ORDERED: CARDIOPLEGIC SOLN (K+ 16 MEQ/L 1,000 ML with SOD BICARB SYR 8.4% (1 MEQ/ML) 20 ML, LIDO... PERFUSION NR ×3 (05:00)
[2021-01-08] MEDS ORDERED: ceFAZolin 1,000 MG in SODIUM CHLORIDE 0.9% IRRIGATIO 1,000 ML IRRIGATION ONE (05:00)
[2021-01-08] MEDS ORDERED: CALCIUM CHLORIDE 100 MG/ML 10 ML SYRINGE IVP ONE (05:00)
[2021-01-08] MEDS ORDERED: MAGNESIUM SULFATE SYG 4.06 MEQ/ML SYRINGE IV ONE (05:00)
[2021-01-08] MEDS ORDERED: PAPAVERINE 360 MG in SODIUM CHLORIDE 0.9% 90 ML IV ONE (05:00)
[2021-01-08] MEDS ORDERED: CHLORHEXIDINE GLUCONATE 15 ML CUP MUCOUS MEM ONE (05:00)
[2021-01-08] MEDS ORDERED: PHENYLEPHRINE 10 MG/ML VIAL IV ONE (05:00)
[2021-01-08] MEDS ORDERED: HEPARIN SODIUM,PORCINE 5,000 UNIT in SODIUM CHLORIDE 0.9% 500 ML 500 ML IV ONE (05:00)
[2021-01-08] MEDS ORDERED: PHENYLEPHRINE 40 MG in SODIUM CHLORIDE 0.9% 250 ML IV ONE (05:00)
[2021-01-08] MEDS ORDERED: NOREPINEPHRINE 4 MG in SODIUM CHLORIDE 0.9% 250 ML IV ONE (05:00)
[2021-01-08] MEDS ORDERED: SODIUM BICARB 8.4% 50 ML SYR (1 MEQ/ML) IV ONE (05:00)
[2021-01-08] MEDS ORDERED: NITROGLYCERIN-D5W PMX 50 MG in DEXTROSE/WATER 1 250ML.BAG IV ONE (05:00)
[2021-01-08] MEDS ORDERED: NITROGLYCERIN-D5W PMX 25 MG/250 ML BTL IV ONE (05:00)
[2021-01-08] MEDS ORDERED: HEPARIN SODIUM 1,000 UN/ML (10ML VL) IV ONE (05:00)
[2021-01-08] MEDS ORDERED: MANNITOL 25% 12.5 GM/50 ML VIAL IV ONE ×2 (05:00)
[2021-01-08] MEDS ORDERED: PROTAMINE SULFATE 250 MG in EMPTY BAG 1 BAG IV ONE (05:00)
[2021-01-08] MEDS ORDERED: ALBUMIN HUMAN 5% 500 ML in EMPTY BAG 1 BAG IVPB ONE ×6 (05:00)
[2021-01-08] MEDS ORDERED: TRANEXAMIC ACID 2,000 MG in SODIUM CHLORIDE 0.9% 80 ML IV ONE ×4 (05:00)
[2021-01-08] MEDS: MUPIROCIN 2% OINT 22 GM TUBE NASAL SCH (08:34)
--- NOTE | 2021-01-08 10:32 | P.PN ---
Subjective Progress Note Date: 01/07/21 Principal diagnosis: Left main coronary artery disease. 75-year-old female who came in with complaints of increased fatigue and exertional dyspnea has been going on for last few days much worse since yesterday. Patient does have history of coronary artery disease with multiple stents in the past patient had similar symptoms when she had myocardial infarction in the past. EKG did not show any acute ST-T wave changes facet of troponin is negative. Patient is being admitted for possible unstable angina. The other workup for shortness of breath is all negative patient doesn't have any pneumonia d-dimer is negative chest x-ray did not show any congestive heart failure. Patient BNP is around 500. Patient doesn't have any history of COPD and is not wheezing at this time. shortness of breath is exertional upon further questioning patient said she occasionally has some squeezing sense sensation in the chest and heart area. Patient denied any diaphoresis, nausea, lightheadedness. Patient does have history of atrial fibrillation and will the patient on the monitor patient appeared to have atrial flutter. 01/01/2021 She was seen and evaluated in follow-up with no acute overnight issues. Patient continues to have dyspnea with exertion and has undergone 2-D echo which shows overall LV systolic function is low to normal with an EF of 50-55% with the right ventricle being severely enlarged right atrium is mildly enlarged with a trace to mild aortic regurgitation along with mild mitral and tricuspid regurgitation present. There is also mild pulmonary hypertension noted on the echo. There is a trivial pericardial effusion present. Cardiology following the patient and no plans for stress or cardiac catheterization at this time. Patient continues on IV heparin and will continue at this time and will likely transition back to Xarelto once stabilized. Sodium today is 140 with a potassium of 4.1 and current creatinine is 0.9. Liver functions trending down although continued to be somewhat elevated. We'll repeat a.m. labs to monitor closely. Troponins have been negative. Acute hepatitis panel is also negative. 01/02/2021 and patient will undergo cardiac catheterization today. 01/03/2021 Patient had a categorization today which showed severe left main ostial stenosis with focal critical stenosis in the mid LAD and the AV groove. Coronary artery bypass grafting was recommended by cardiology to, Edwardo 6 surgery evaluated the patient and patient is scheduled for coronary artery bypass grafting on next Thursday. Patient will be discharged if cleared by cardiology and she'll come back for CABG. 01/04/2021 Patient doesn't have any symptoms of chest pain at this time. Cardiology is recommending continued hospitalization until her coronary artery bypass grafting and continuation of IV heparin. Patient's liver enzymes are improving can be started on statin. 01/05/2021 Patient doesn't have any chest pain patient probably will undergo CABG and Thursday01/06/2021 No chest pain patient clinically doing well. 01/07/2021. Patient is currently sitting in the chair comfortably. No complaints of chest p ain or shortness of breath. No leg swelling. Patient is scheduled for CABG tomorrow. Using incentive spirometry. Constitutional: Denied any fatigue denied any fever. Cardio vascular: denied any chest pain, palpitations Gastrointestinal denied any nausea vomiting Pulmonary: Denied any shortness of breath cough Neurologic denied any new focal deficits All inpatient medications were reviewed and appropriate changes in these medications as dictated in the interval history and assessment and plan. Objective - Vital Signs Vital signs: Vital Signs Temp 97.7 F 01/07/21 04:00 Pulse 69 01/07/21 04:00 Resp 18 01/07/21 04:00 BP 119/59 01/07/21 04:00 Pulse Ox 97 01/07/21 04:00 Intake & Output 01/06/21 01/07/21 01/07/21 18:59 06:59 18:59 Intake Total 1149.982 420 Balance 1149.982 420 Weight 111.4 kg Intake: Intake, IV Titration 249.982 Amount Heparin Sod,Pork in 0.45% 249.982 NaCl 25,000 unit In 0.45 % NaCl 1 250ml.bag @ 9.18 UNITS/KG/HR 9.994 mls/hr IV .Q24H [facility] Rx#: [id number] Oral 900 420 Other: Voiding Method Toilet # Voids 1 1 - Exam PHYSICAL EXAMINATION: GENERAL: The patient is alert and oriented x3, not in any acute distress. Well developed, well nourished. HEENT: Pupils are round and equally reacting to light. EOMI. No scleral icterus. No conjunctival pallor. Normocephalic, atraumatic. No pharyngeal erythema. No thyromegaly. CARDIOVASCULAR: S1 and S2 present. No murmurs, rubs, or gallops. PULMONARY: Chest is clear to auscultation, no wheezing or crackles. ABDOMEN: Soft, nontender, nondistended, normoactive bowel sounds. No palpable organomegaly. MUSCULOSKELETAL: No joint swelling or deformity. EXTREMITIES: No cyanosis, clubbing, or pedal edema. NEUROLOGICAL: Gross neurological examination did not reveal any focal deficits. SKIN: No rashes. - Labs CBC & Chem 7: 01/07/21 09:58 01/07/21 09:58 Labs: Abnormal Lab Results - Last 24 Hours (Table) 01/07/21 Range/Units 09:58 Plt Count 134 L (150-450) k/uL Assessment and Plan Assessment: -Acute coronary syndrome, patient has critical LAD lesion as mentioned above. Patient is scheduled for CABG. Continue with aspirin, statins and beta blockers. Encourage incentive spirometry. -mild acute renal failure, prerenal azotemia. Improved with IV fluids. -Paroxysmal A. fib patient is presently in atrial flutter: on metoprolol succinate. On Xarelto at this time -Coronary artery disease history and history of NE. -Mild elevation of liver enzymes: Secondary to non-alcoholic steato- hepatitis liver enzymes are fairly stable . -Family history of coronary disease. Time with Patient: Greater than 30
--- NOTE | 2021-01-08 10:56 | P.PN ---
Subjective Progress Note Date: 01/08/21 Principal diagnosis: Coronary artery disease. Pulmonary consultation dated 01/07/2021. 75-year-old female, with anticipated off pump bypass grafting by Dr. Aquino tomorrow. We are asked to see the patient for preop clearance. The patient is a lifelong nonsmoker. She denies a history of any lung issues such as COPD, emphysema, chronic bronchitis, or asthma. She denies any breathing or pulmonary symptoms such as shortness of breath, cough, wheezing, phlegm production, tig htness, or any other complaints for that matter. The patient has been in the hospital for a number of days. She apparently was admitted back on December 31. She had a cardiac catheterization performed by Dr. Lewis on January 03. I explained to the patient what our role in the bypass surgery would be. It would include 2 major things, initially getting the patient off the mechanical ventilator. The second thing would be watching her throughout her hospitalization to make sure she did not develop a primary complication such as pleural effusion, atelectasis, lobar collapse, or pneumonia. Lab data includes a CBC which is essentially normal. Platelet count a bit low 134. Electrolyte profile is also relatively normal. AST and ALTs are bit elevated at 190 and 119 respectively. A chest x-ray done on the day of admission showed no acute cardiopulmonary process. Progress note dated 01/08/2021. The patient will have surgery today. She is postop having off pump bypass grafting done by Dr. Aquino. I again explained the role of the pulmonary/critical care doctor in the process. She understands that she'll be coming back from the operating room on the mechanical ventilator. It's our goal to get her off the ventilator as quickly as possible. In addition, I told that we will see her each step of the way, to make sure that her lungs remain in good shape while here. I emphasized the importance of using incentive spirometer. She has no clearcut evidence of any lung issues or lung disease. He is a lifelong nonsmoker. She should do well. Objective - Vital Signs Vital signs: Vital Signs Temp 97.7 F 01/08/21 02:37 Pulse 69 01/08/21 08:00 Resp 18 01/08/21 08:00 BP 161/67 01/08/21 08:00 Pulse Ox 98 01/08/21 08:00 Intake & Output 01/07/21 01/08/21 01/08/21 18:59 06:59 18:59 Intake Total 1139.951 Balance 1139.951 Weight 111.3 kg Intake: Intake, IV Titration 239.951 Amount Heparin Sod,Pork in 0.45% 239.951 NaCl 25,000 unit In 0.45 % NaCl 1 250ml.bag @ 9.18 UNITS/KG/HR 9.994 mls/hr IV .Q24H [facility] Rx#: [id number] Oral 900 Other: Voiding Method Toilet Toilet # Voids 2 1 - Exam No acute distress, oriented 3. HEENT examination is grossly unremarkable. Neck supple. Full range of motion. No adenopathy thyromegaly or neck vein dist ention. Cardiovascular examination reveals regular rhythm rate. S1-S2 normal. No S3 or S4. No discernible murmur noted. Lungs reveal clear breath sounds. Breath sounds are equal bilaterally. No adventitious lung sounds including wheezes rhonchi or crackles. Abdomen soft bowel sounds are heard. No masses or tenderness. Extremities are intact. No cyanosis clubbing or edema. Skin is without rash or lesion. Neurologic examination is brief but nonfocal. - Labs CBC & Chem 7: 01/07/21 09:58 01/07/21 09:58 Labs: Abnormal Lab Results - Last 24 Hours (Table) 01/07/21 01/07/21 01/07/21 Range/Units 09:58 09:58 09:58 APTT 58.1 H (22.0-30.0) sec Glucose 111 H (74-99) mg/dL AST 190 H (14-36) U/L ALT 119 H (4-34) U/L Alkaline Phosphatase 141 H (38-126) U/L Albumin 3.2 L (3.5-5.0) g/dL Crossmatch See Detail Assessment and Plan Assessment: Coronary artery disease, with anticipated off pump bypass on 01/08/2021, by Dr. Aquino. No history of pulmonary disease. Lifelong nontobacco use. History of heart failure. History of hyperlipidemia. History of hypertension. Prior history of myocardial infarction. History of CAD with previous stent placement. Plan: Plan dated 01/07/2021. The patient should do very well. She has no history of any lung issues. She is a lifelong nontobacco user. She denies a prior history of asthma, COPD, chronic bronchitis, or emphysema. The patient denies all pulmonary complaints including shortness of breath, cough, wheezing, chest tightness, and phlegm production. I did explain our role in the process. She understands. Plan dated 01/08/2021. The patient will be going to the operating room to much later today. They will probably call me with blood gases, and we'll make adjustments accordingly. Hopefully, we can get the patient extubated quickly. Our goal is to get the patient extubated in less than 4 hours, and certainly less than 6 hours. No additional recommendations are made. Patient is again counseled about the impor tance of using the incentive spirometer. Additional recommendations and suggestions are forthcoming. Time with Patient: Less than 30
[2021-01-08] MEDS ORDERED: IV FLUID CONTINUATION 1,000 ML IV ONE (11:49)
[2021-01-08] MEDS ORDERED: SUCCINYLCHOLINE CHLORIDE 100 MG/5 ML SYR IV ONE (12:42)
[2021-01-08] MEDS ORDERED: ALBUMIN HUMAN 5% (25gm) 500 ML VIAL IVPB ONE (12:42)
[2021-01-08] MEDS ORDERED: fentaNYL (PF) 50 MCG/ML 50 ML VIAL ONE (12:42)
[2021-01-08] MEDS ORDERED: PROPOFOL 10 MG/ML 20 ML VIAL IV ONE (12:42)
[2021-01-08] MEDS ORDERED: NITROGLYCERIN-D5W PMX 50 MG/250 ML BOTTLE IV ONE (12:42)
[2021-01-08] MEDS ORDERED: HEPARIN SODIUM,PORCINE 10,000 UNIT/ML 1 ML VIAL ONE (12:42)
[2021-01-08] MEDS ORDERED: SODIUM CHLORIDE 0.9% IRRIG 1,000 ML BTL IRRIGATION ONE (12:42)
[2021-01-08] MEDS ORDERED: DOPamine DRIP 400 MG/250 ML BAG IV ONE (12:42)
[2021-01-08] MEDS ORDERED: PROTAMINE SULFATE 10 MG/ML 5 ML VIAL IV ONE (12:42)
[2021-01-08] MEDS ORDERED: VECURONIUM 10 MG VIAL IV ONE (12:42)
[2021-01-08] MEDS ORDERED: SODIUM CHLORIDE 0.9% 100 ML BAG ONE (12:42)
[2021-01-08] MEDS ORDERED: SODIUM BICARB 8.4% 50 ML SYR (1 MEQ/ML) ONE (12:42)
[2021-01-08] MEDS ORDERED: MAGNESIUM SULFATE 4 MEQ/ML 10ML VIAL ONE (12:42)
[2021-01-08] MEDS ORDERED: ceFAZolin 1,000 MG VIAL ONE (12:42)
[2021-01-08] MEDS ORDERED: fentaNYL (PF) 50 MCG/ML 2 ML AMP ONE (12:42)
[2021-01-08] MEDS ORDERED: ePHEDrine SULFATE/0.9% NACL/PF 50 MG/5 ML SYRINGE IV ONE (12:42)
[2021-01-08] MEDS ORDERED: MIDAZOLAM 2 MG/2 ML VIAL ONE (12:42)
[2021-01-08 14:00] LABS: ABG Base Excess -2.5 mmol/L; ABG Glucose Whole Blood 81 mg/dL (75-99); ABG HCO3 22 mmol/L (21-25); ABG Hematocrit 35 % (34.0-46.0); ABG Ionized Calcium 4.7 mg/dL (4.5-5.3); ABG Lactic Acid Whole Blood 1.8 mmol/L (0.5-1.6); ABG Oxygen Saturation 99.9 % (94-97); ABG PCO2 37 mmHg (35-45); ABG PH 7.39 (7.35-7.45); ABG PO2 228 mmHg (83-108); ABG Potassium Whole Blood 4.2 mmol/L (3.4-4.5); ABG Sodium Whole Blood 141 mmol/L (135-146); ABG TCO2 23 mmol/L (19-24)
[2021-01-08 15:17] LABS: ABG Glucose Whole Blood 100 mg/dL (75-99); ABG HCO3 22 mmol/L (21-25); ABG Hematocrit 33 % (34.0-46.0); ABG Ionized Calcium 4.5 mg/dL (4.5-5.3); ABG Lactic Acid Whole Blood 1.1 mmol/L (0.5-1.6); ABG Oxygen Saturation 99.9 % (94-97); ABG PCO2 33 mmHg (35-45); ABG PH 7.43 (7.35-7.45); ABG PO2 229 mmHg (83-108); ABG Potassium Whole Blood 5.2 mmol/L (3.4-4.5); ABG Sodium Whole Blood 140 mmol/L (135-146); ABG TCO2 23 mmol/L (19-24)
[2021-01-08 15:40] LABS: ABG Base Excess -3.9 mmol/L; ABG Glucose Whole Blood 106 mg/dL (75-99); ABG HCO3 20 mmol/L (21-25); ABG Hematocrit 29 % (34.0-46.0); ABG Ionized Calcium 4.4 mg/dL (4.5-5.3); ABG Lactic Acid Whole Blood 1.1 mmol/L (0.5-1.6); ABG PCO2 30 mmHg (35-45); ABG PH 7.43 (7.35-7.45); ABG PO2 247 mmHg (83-108); ABG Potassium Whole Blood 3.9 mmol/L (3.4-4.5); ABG Sodium Whole Blood 141 mmol/L (135-146); ABG TCO2 21 mmol/L (19-24)
[2021-01-08 16:30] LABS: ABG Base Excess -3.9 mmol/L; ABG Glucose Whole Blood 118 mg/dL (75-99); ABG HCO3 21 mmol/L (21-25); ABG Hematocrit 28 % (34.0-46.0); ABG Ionized Calcium 4.5 mg/dL (4.5-5.3); ABG Lactic Acid Whole Blood 1.3 mmol/L (0.5-1.6); ABG Oxygen Saturation 99.8 % (94-97); ABG PCO2 34 mmHg (35-45); ABG PH 7.39 (7.35-7.45); ABG PO2 194 mmHg (83-108); ABG Sodium Whole Blood 141 mmol/L (135-146); ABG TCO2 22 mmol/L (19-24)
[2021-01-08 16:47] LABS: ABG Base Excess -0.6 mmol/L; ABG Glucose Whole Blood 116 mg/dL (75-99); ABG HCO3 24 mmol/L (21-25); ABG Hematocrit 28 % (34.0-46.0); ABG Ionized Calcium 4.4 mg/dL (4.5-5.3); ABG Lactic Acid Whole Blood 1.6 mmol/L (0.5-1.6); ABG Oxygen Saturation 98.7 % (94-97); ABG PCO2 37 mmHg (35-45); ABG PH 7.42 (7.35-7.45); ABG PO2 109 mmHg (83-108); ABG Sodium Whole Blood 143 mmol/L (135-146); ABG TCO2 25 mmol/L (19-24)
--- NOTE | 2021-01-08 16:58 | P.OP ---
Date of Procedure: 01/08/21 Preoperative Diagnosis: Coronary artery disease Postoperative Diagnosis: Same Procedure(s) Performed: Off pump CABG 2 with WASSERMAN to LAD, saphenous vein graft to obtuse marginal, application of 35 mm Atri-clip to Base of left atrial appendage, endovascular vein harvest. Implants: 35 mm Atri-clip Anesthesia: JACKSON Surgeon: Curtis Aquino Purchasing Administrative Assistant #1: Edouard Delgado Purchasing Administrative Assistant #2: Annel Raymond Estimated Blood Loss (ml): 100 IV fluids (ml): 2,000 Urine output (ml): 40 Condition: stable Disposition: ICU Indications for Procedure: 75-year-old female who presents with ongoing fatigue and worsening dyspnea. Found to have significant left main coronary artery stenosis. Coronary bypass surgery was scheduled at the next available time slot. Operative Findings: Significant left ventricular hypertrophy. Small coronary targets. Small blood well flowing internal mammary artery. Large but thin-walled and consistent saphenous vein. Description of Procedure: The patient was brought to the operating room, placed supine on the operating table, anesthetized and intubated. T probe was placed. [place]in catheter and arterial line of been placed in preop holding. Blackwood catheter was placed. The anterior torso and bilateral lower extremities were sterilely sterilely prepped and draped. Left greater saphenous vein was harvested from knee to groin and was of good quality. Endovascular vein harvest technique was used. Simultaneous sternotomy was performed, the left hemisternum was retracted upwards, left internal mammary artery was harvested on a vascularized pedicle. Was left intact on its origin from the subclavian and divided distally. The left pleural space was drained with a 32-Burmese chest tube. Standard sternal retractor was placed. Pericardium was opened in the midline. The heart was exposed pericardial sutures. Patient was systemically heparinized. A CTs were maintained greater than 250 during grafting. WASSERMAN to the LAD was performed first. The LAD ran intramyocardial for much of its length. It exited the distal portion of the middle third of the anterior wall. Here was a 1.5 mm vessel of good quality. It was dissected just proximal to this and grafted here. WASSERMAN to the LAD anastomosis was constructed with running 8-0 Prolene suture. The artery was opened and the blood flow within the LAD was controlled with a 1.5 mm flow through. On completion of the anastomosis flow through was removed effectively probing the proximal distal portion anastomosis. Suture was tied with good result and hemostasis. Inflow the WASSERMAN to the LAD was opened. Good hemostasis was again noted. The graft lay well with good length and with no kinking. The heart filled well. LILLIAN pedicle was tacked surrounding epicardium with 6-0 silk suture. The lateral wall of the heart was exposed. The 35 mm AtriCure clip was placed at the base of the left atrial appendage. Major marginal branch was identified. It ran fairly deep in the epicardial fat. Stent the previously placed was palpated and we dissected distal to this. Here the vessel was a 1.5-1.75 mm vessel of good quality. It was opened and blood flow control with a 1.5 mm flow through. Saphenous vein was anastomosed in end-to-side fashion with running 7-0 Prolene suture. Completion anastomosis flow through was removed 50 probe the proximal distal portion anastomosis. Suture was tied with good result and hemostasis. Good backbleeding was noted and the vein graft to the first valve. Heart was lowered into anatomic position. The vein was cut to appropriately to reach the ascending aorta. Heartstring device was deployed in the mid ascending aorta to the left of midline. Proximal anastomosis was constructed with running 5-0 Prolene suture. On completion anastomosis the heartstring device was removed and the suture was tied with good result and hemostasis. Inflow was open. Good hemostasis was noted at the distal. Heparin was reversed with protamine. Once good hemostasis of been obtained throughout the chest the mediastinum was drained with a 36- Burmese chest tube and irrigated with antibiotic solution. Sternum was closed with 8 sternal wires. Fascia was closed with 0 Ethibond. Subcutaneous and subcuticular layers were closed with layers of Vicryl suture. Patient was transferred to the CVICU in stable condition.
[2021-01-08] MEDS: INSULIN REGULAR 100 UNIT in SODIUM CHLORIDE 0.9% 100 ML IV SCH (17:30)
[2021-01-08] MEDS ORDERED: ALBUMIN HUMAN 5% 250 ML IVPB ONE ×2 (17:37→18:18)
[2021-01-08] MEDS ORDERED: DEXMEDETOMIDINE/0.9% NACL(PMX) 400 MCG in EMPTY BAG 1 BAG IV SCH (17:49)
[2021-01-08] MEDS ORDERED: METOCLOPRAMIDE 5 MG/ML 2 ML VIAL IVP PRN (17:49)
[2021-01-08] MEDS ORDERED: CALCIUM GLUCONATE 2 GM in SODIUM CHLORIDE 0.9% 100 ML IVPB PRN (17:49)
[2021-01-08] MEDS ORDERED: Phosphorus Replacement Protoco 1 EACH MISC MISCELLANE PRN (17:49)
[2021-01-08] MEDS ORDERED: Potassium Replacement Protocol 1 EACH MISC MISCELLANE PRN (17:49)
[2021-01-08] MEDS ORDERED: BENZOCAINE/MENTHOL LOZENG 1 EACH LOZENGE MUCOUS MEM PRN (17:49)
[2021-01-08] MEDS ORDERED: AMIODARONE 360 MG in DEXTROSE 5% IN WATER 200 ML IV PRN ×2 (17:49)
[2021-01-08] MEDS ORDERED: IPRATROPIUM-ALBUTEROL 3 ML NEB INHALATION PRN (17:49)
[2021-01-08] MEDS ORDERED: ONDANSETRON 4 MG/2 ML VIAL IVP PRN (17:49)
[2021-01-08] MEDS ORDERED: hydrALAZINE HCL 20 MG/ML 1 ML VIAL IVP PRN (17:49)
[2021-01-08] MEDS ORDERED: AMIODARONE 450 MG in DEXTROSE 5% IN WATER 250 ML IV PRN ×2 (17:49)
[2021-01-08] MEDS ORDERED: Magnesium Replacement Protocol 1 EACH MISC MISCELLANE PRN (17:49)
[2021-01-08] MEDS: ALBUMIN HUMAN 5% 250 ML in EMPTY BAG 1 BAG IVPB PRN ×4 (17:50→18:29)
[2021-01-08 17:57] LABS: Ionized Calcium 4.6 mg/dL (4.5-5.3)
[2021-01-08 17:58] LABS: Basophils % (A) 0 %; Eosinophils # (A) 0.1 k/uL (0-0.7); Eosinophils % (A) 1 %; HCT 28.7 % (34.0-46.0); Lymphocytes # (A) 0.6 k/uL (1.0-4.8); Lymphocytes % (A) 6 %; MCV 91.1 fL (80.0-100.0); Mean Platelet Volume 9.6; Monocytes # (A) 0.4 k/uL (0-1.0); Monocytes % (A) 4 %; Neutrophils % (A) 88 %; RBC 3.15 m/uL (3.80-5.40); RDW 13.9 % (11.5-15.5); WBC 10.2 k/uL (3.8-10.6)
[2021-01-08] MEDS: CLEVIDIPINE BUTYRATE 25 MG in EMPTY BAG 1 BAG IV SCH (18:00)
[2021-01-08 18:04] LABS: ABG HCO3 23 mmol/L (21-25); ABG PCO2 43 mmHg (35-45); ABG PH 7.33 (7.35-7.45); ABG PO2 180 mmHg (83-108); ABG TCO2 24 mmol/L (19-24)
[2021-01-08 18:07] LABS: Allen Test Performed? No
[2021-01-08 18:08] LABS: HGB 9.8 gm/dL (11.4-16.0)
[2021-01-08 18:09] LABS: Albumin 2.8 g/dL (3.5-5.0); Magnesium 2.1 mg/dL (1.6-2.3); Total Bilirubin 0.5 mg/dL (0.2-1.3); Total Protein 5.2 g/dL (6.3-8.2)
--- NOTE | 2021-01-08 18:10 | XR ---
EXAMINATION TYPE: XR chest 1V portable DATE OF EXAM: 01/08/2021 COMPARISON: 01/07/2021 HISTORY: Preop cardiac surgery TECHNIQUE: Single view FINDINGS: There is pulmonary congestion. There is poor inspiration. There is right jugular catheter w ith tip in the right pulmonary artery. There is endotracheal tube 3 cm from the dao. There is naso gastric tube. There is some infiltrate at both lung bases. IMPRESSION: There is compared to yesterday new congestive heart failure and basilar pulmonary infiltr ates and atelectasis.
[2021-01-08 18:13] LABS: Glucose,Whole Blood 143 mg/dL (75-99)
[2021-01-08] MEDS: LACTATED RINGERS 1,000 ML IV SCH ×2 (18:15→19:01)
[2021-01-08] MEDS ORDERED: ALBUMIN HUMAN 5% IVPB ONE (18:19)
[2021-01-08 18:21] LABS: INR 1.2 (<1.2); Partial Thromboplastin Time 24.5 sec (22.0-30.0); Prothrombin Time 12.1 sec (9.0-12.0)
[2021-01-08 18:24] LABS: Platelet Count 92 k/uL (150-450)
[2021-01-08] MEDS ORDERED: DOPamine DRIP 800 MG in DEXTROSE/WATER 1 250ML.BAG IV SCH (18:30)
[2021-01-08] MEDS ORDERED: NITROGLYCERIN-D5W PMX 50 MG in DEXTROSE/WATER 1 250ML.BAG IV SCH (18:30)
[2021-01-08] MEDS: ACETAMINOPHEN IV (For NPO) 1,000 MG in EMPTY BAG 1 BAG IVPB SCH (18:53)
[2021-01-08 19:24] LABS: Glucose,Whole Blood 151 mg/dL (75-99)
[2021-01-08 19:49] LABS: Glucose,Whole Blood 151 mg/dL (75-99)
[2021-01-08] MEDS: IPRATROPIUM-ALBUTEROL 3 ML NEB INHALATION SCH (20:01)
[2021-01-08 20:11] LABS: Basophils % (A) 0 %; Eosinophils % (A) 0 %; HCT 25.9 % (34.0-46.0); HGB 8.8 gm/dL (11.4-16.0); Lymphocytes # (A) 0.7 k/uL (1.0-4.8); Lymphocytes % (A) 7 %; MCH 30.8 pg (25.0-35.0); MCHC 33.9 g/dL (31.0-37.0); Mean Platelet Volume 10.6; Monocytes # (A) 0.5 k/uL (0-1.0); Monocytes % (A) 5 %; Neutrophils # (A) 8.7 k/uL (1.3-7.7); Neutrophils % (A) 87 %; RBC 2.85 m/uL (3.80-5.40); WBC 9.9 k/uL (3.8-10.6)
[2021-01-08 20:28] LABS: Platelet Count 86 k/uL (150-450)
[2021-01-08] MEDS: KETOROLAC 15 MG/ML 1 ML VIAL IVP SCH (20:31)
[2021-01-08 20:52] LABS: Glucose,Whole Blood 159 mg/dL (75-99)
[2021-01-08 21:49] LABS: Glucose,Whole Blood 148 mg/dL (75-99)
[2021-01-08 22:57] LABS: Glucose,Whole Blood 139 mg/dL (75-99)
[2021-01-08 23:07] LABS: Basophils % (A) 0 %; Eosinophils % (A) 0 %; HCT 27.2 % (34.0-46.0); HGB 9.2 gm/dL (11.4-16.0); Lymphocytes # (A) 0.5 k/uL (1.0-4.8); Lymphocytes % (A) 4 %; MCH 30.7 pg (25.0-35.0); MCHC 33.6 g/dL (31.0-37.0); MCV 91.1 fL (80.0-100.0); Mean Platelet Volume 11.8; Monocytes # (A) 0.6 k/uL (0-1.0); Monocytes % (A) 5 %; Neutrophils # (A) 10.3 k/uL (1.3-7.7); Neutrophils % (A) 90 %; RBC 2.99 m/uL (3.80-5.40); WBC 11.5 k/uL (3.8-10.6)
[2021-01-08 23:13] LABS: Platelet Count 93 k/uL (150-450)
[2021-01-08] MEDS: HEPARIN SODIUM,PORCINE/PF 5,000 UNIT/0.5 ML SYRINGE SQ SCH (23:29)
[2021-01-09] MEDS: KETOROLAC 15 MG/ML 1 ML VIAL IVP SCH ×5 (00:14→23:44)
[2021-01-09] MEDS: ACETAMINOPHEN IV (For NPO) 1,000 MG in EMPTY BAG 1 BAG IVPB SCH (00:14)
[2021-01-09 00:22] LABS: Glucose,Whole Blood 129 mg/dL (75-99)
[2021-01-09 01:16] LABS: Glucose,Whole Blood 124 mg/dL (75-99)
[2021-01-09 01:51] LABS: Glucose,Whole Blood 140 mg/dL (75-99)
[2021-01-09 03:34] LABS: Glucose,Whole Blood 104 mg/dL (75-99)
[2021-01-09 03:47] LABS: Basophils # (A) 0.1 k/uL (0-0.2); Basophils % (A) 1 %; Eosinophils % (A) 0 %; HCT 28.5 % (34.0-46.0); HGB 9.5 gm/dL (11.4-16.0); Lymphocytes # (A) 0.3 k/uL (1.0-4.8); Lymphocytes % (A) 2 %; MCH 30.2 pg (25.0-35.0); MCHC 33.4 g/dL (31.0-37.0); MCV 90.3 fL (80.0-100.0); Mean Platelet Volume 11.1; Monocytes # (A) 0.7 k/uL (0-1.0); Monocytes % (A) 6 %; Neutrophils # (A) 11.1 k/uL (1.3-7.7); Neutrophils % (A) 90 %; Platelet Count 103 k/uL (150-450); RBC 3.16 m/uL (3.80-5.40); RDW 13.9 % (11.5-15.5); WBC 12.4 k/uL (3.8-10.6)
[2021-01-09 04:01] LABS: ALT 57 U/L (4-34); AST 89 U/L (14-36); African American GFR (CKD) >90 (>60 ml/min/1.73 sqM); Albumin 3.5 g/dL (3.5-5.0); Alkaline Phosphatase 65 U/L (38-126); Anion Gap 6 mmol/L; Blood Urea Nitrogen 14 mg/dL (7-17); Calcium 8.4 mg/dL (8.4-10.2); Carbon Dioxide 24 mmol/L (22-30); Chloride 110 mmol/L (98-107); Glucose 99 mg/dL (74-99); Magnesium 1.8 mg/dL (1.6-2.3); Non-African American GFR(CKD) 83 (>60 ml/min/1.73 sqM); Sodium 140 mmol/L (137-145); Total Bilirubin 0.5 mg/dL (0.2-1.3); Total Protein 5.8 g/dL (6.3-8.2)
[2021-01-09 04:20] LABS: Glucose,Whole Blood 107 mg/dL (75-99)
[2021-01-09] MEDS ORDERED: HYDROcodone/APAP 5-325MG 1 EACH TAB PO PRN (04:55)
[2021-01-09] MEDS: ALBUMIN HUMAN 5% 250 ML in EMPTY BAG 1 BAG IVPB PRN ×3 (05:21→23:13)
[2021-01-09] MEDS: MAGNESIUM SULFATE-D5W PMX 1 GM in DEXTROSE/WATER 1 100ML.BAG IVPB SCH ×2 (05:30→06:52)
[2021-01-09 06:06] LABS: Glucose,Whole Blood 163 mg/dL (75-99)
[2021-01-09 06:58] LABS: Glucose,Whole Blood 159 mg/dL (75-99)
[2021-01-09] MEDS: IPRATROPIUM-ALBUTEROL 3 ML NEB INHALATION SCH ×5 (07:39→21:48)
--- NOTE | 2021-01-09 07:59 | P.PN ---
Subjective Progress Note Date: 01/09/21 Principal diagnosis: Coronary artery disease with left main disease, acute kidney injury on admission. Previous medical history of myocardial infarction with multivessel angioplasty, hypertension, hyperlipidemia, paroxysmal atrial fibrillation on Xarelto for anticoagulation, fatty liver with transaminitis, and family history of coronary artery disease POD 1 off-pump coronary artery bypass graft 2 with left internal mammary artery to the left anterior descending artery, reverse saphenous vein graft to the obtuse marginal artery, ligation of the left atrial appendage using a 35 mm AtriClip, endovascular vein harvest of the left greater saphenous vein from the knee to the groin, intraoperative transesophageal echocardiogram Postoperative acute blood loss anemia and thrombocytopenia, expected given hemodilution The patient's currently sitting up in a recliner in the intensive care unit in no acute distress. She was successfully extubated last night at 00:05. She does complain of post surgical pain which is controlled on current medication regimen, denies shortness of breath. Remains in sinus rhythm and hemodynamically stable. She was on IV dopamine for renal perfusion and urine output which has picked up since surgery. Right internal jugular [place]/Cordis, right radial arterial line, mediastinal and left pleural chest tubes all remaining present. No other new concerns Objective - Vital Signs Vital signs: Vital Signs Temp 97.7 F 01/09/21 04:00 Pulse 63 01/09/21 07:15 Resp 10 L 01/09/21 07:15 BP 126/73 01/09/21 05:30 Pulse Ox 97 01/09/21 07:15 Intake & Output 01/08/21 01/09/21 01/09/21 18:59 06:59 18:59 Intake Total 749.837 6233.329 114.306 Output Total 810 1480 5 Balance -771.689 7761.329 109.306 Weight 105.4 kg Intake: IV 242.0 2423.5 59 ACETAMINOPHEN IV (For NPO 100 ) 1,000 mg In Empty Bag 1 bag @ 400 mls/hr IVPB Q6HR [facility] Rx#:[id number] Albumin Human 5% 250 ml 1250 In Empty Bag 1 bag @ 250 mls/hr IVPB Q1HR PRN Rx#: [id number] CO/CI 60 260 Calcium Gluconate 2 gm In 100 Sodium Chloride 0.9% 100 ml @ 100 mls/hr IVPB ONCE PRN Rx#:[id number] DOPamine DRIP 800 mg In 8 4 Dextrose/Water 1 250ml. bag @ 2 MCG/KG/MIN 4.174 mls/hr IV .Q24H [facility] Rx#: [id number] Lactated Ringers 1,000 ml 100 600 50 @ 50 mls/hr IV .Q20H [facility] Rx#:[id number] Nitroglycerin-D5w Pmx 50 3.0 1.5 mg In Dextrose/Water 1 250ml.bag @ 5 MCG/MIN 1.5 mls/hr IV .Q24H [facility] Rx#: [id number] Pressure Bags 18 108 9 Intake, IV Titration 3.125 78.829 55.306 Amount Clevidipine Butyrate 25 2.367 20.967 mg In Empty Bag 1 bag @ 1 MG/HR 2 mls/hr IV .Q24H [facility] Rx#:[id number] DOPamine DRIP 800 mg In 55.306 Dextrose/Water 1 250ml. bag @ 2 MCG/KG/MIN 4.174 mls/hr IV .Q24H [facility] Rx#: [id number] Insulin Regular 100 unit 0.758 33.709 In Sodium Chloride 0.9% 100 ml @ Per Protocol IV .Q0M [facility] Rx#:[id number] propofoL 1,000 mg In 24.153 Empty Bag 1 bag @ Titrate IV .Q0M [facility] Rx#: [id number] Output: Chest Tube Drainage 130 520 0 Chest Tube Left Pleural/ 130 520 0 Mediastinal Urine 180 960 5 Estimated Blood Loss 500 Other: Voiding Method Indwelling Catheter ABP, PAP, CO, CI - Last Documented Arterial Blood Pressure 134/40 Pulmonary Artery Pressure 36/11 Cardiac Output 4.7 Cardiac Index 2.2 - Exam CONSTITUTIONAL: Appears comfortable, cooperative, no acute distress RESPIRATORY: Lungs sounds diminished bilaterally. Respirations even, nonlabored. Currently on 4 L nasal cannula with oxygen saturation 97%. Able to achieve 500 mL on incentive spirometry. Strong cough. CARDIOVASCULAR: S1, S2 present. Regular rate and rhythm, sinus rhythm on telemetry. Sternum stable. Palpable peripheral pulses bilaterally. Trace bilateral lower extremity edema present. No calf pain or tenderness noted. Heart hugger in place with patient demonstrating appropriate use. Antiembolism stockings, SCDs present. GASTROINTESTINAL: Abdomen soft, nontender, nondistended. Active bowel sounds present 4 quadrants. Tolerating clear liquids. Negative flatus GENITOURINARY: Blackwood present draining clear, yellow urine. Output overnight 75-100 mL per hour INTEGUMENTARY: Skin is warm and dry with evidence of good perfusion. Anterior chest incision well approximated and covered with dry intact dressing. EVH site well approximated without redness or drainage. NEUROLOGIC: Cranial nerves II through XII intact MUSKULOSKELETAL: Able to move all extremities, strength equal bilaterally, gait normal PSYCHIATRIC: Alert and oriented to person place and time, appropriate affect, intact judgment and insight INVASIVE LINES AND TUBES: Mediastinal/left pleural chest tubes present and connected to wall suction, no air leaks present, 250 mL serosanguineous output overnight, 650 mL since surgery. Right internal jugular [place]/Cordis, right radial arterial line present. Last CO/CI 4.7/2.2, PA 32/8, CVP 2. - Allied health notes Allied health notes reviewed: nursing - Labs CBC & Chem 7: 01/09/21 03:30 01/09/21 03:30 Labs: Abnormal Lab Results - Last 24 Hours (Table) 01/07/21 01/08/21 01/08/21 Range/Units 09:58 14:02 15:20 WBC (3.8-10.6) k/uL RBC (3.80-5.40) m/uL Hgb (11.4-16.0) gm/dL Hct (34.0-46.0) % Plt Count (150-450) k/uL Neutrophils # (1.3-7.7) k/uL Lymphocytes # (1.0-4.8) k/uL PT (9.0-12.0) sec INR (<1.2) ABG pH (7.35-7.45) ABG pCO2 33 L (35-45) mmHg ABG pO2 228 H 229 H (83-108) mmHg ABG HCO3 (21-25) mmol/L ABG Total CO2 (19-24) mmol/L ABG O2 Saturation 99.9 H 99.9 H (94-97) % ABG Hematocrit 33 L (34.0-46.0) % ABG Potassium 5.2 H (3.4-4.5) mmol/L ABG Ionized Calcium (4.5-5.3) mg/dL ABG Glucose 100 H (75-99) mg/dL ABG Lactic Acid 1.8 H (0.5-1.6) mmol/L Hemoglobin 11.3 L 10.7 L (11.4-16.0) gm/dL Chloride (98-107) mmol/L Glucose (74-99) mg/dL POC Glucose (mg/dL) (75-99) mg/dL Calcium (8.4-10.2) mg/dL AST (14-36) U/L ALT (4-34) U/L Total Protein (6.3-8.2) g/dL Albumin (3.5-5.0) g/dL Arterial Blood Potassium 5.2 H (3.4-4.5) mmol/L Arterial Blood Glucose 100 H (75-99) mg/dL Crossmatch See Detail 01/08/21 01/08/21 01/08/21 Range/Units 15:42 16:33 16:50 WBC (3.8-10.6) k/uL RBC (3.80-5.40) m/uL Hgb (11.4-16.0) gm/dL Hct (34.0-46.0) % Plt Count (150-450) k/uL Neutrophils # (1.3-7.7) k/uL Lymphocytes # (1.0-4.8) k/uL PT (9.0-12.0) sec INR (<1.2) ABG pH (7.35-7.45) ABG pCO2 30 L 34 L (35-45) mmHg ABG pO2 247 H 194 H 109 H (83-108) mmHg ABG HCO3 20 L (21-25) mmol/L ABG Total CO2 25 H (19-24) mmol/L ABG O2 Saturation 100.0 H 99.8 H 98.7 H (94-97) % ABG Hematocrit 29 L 28 L 28 L (34.0-46.0) % ABG Potassium (3.4-4.5) mmol/L ABG Ionized Calcium 4.4 L 4.4 L (4.5-5.3) mg/dL ABG Glucose 106 H 118 H 116 H (75-99) mg/dL ABG Lactic Acid (0.5-1.6) mmol/L Hemoglobin 9.5 L 9.0 L 9.0 L (11.4-16.0) gm/dL Chloride (98-107) mmol/L Glucose (74-99) mg/dL POC Glucose (mg/dL) (75-99) mg/dL Calcium (8.4-10.2) mg/dL AST (14-36) U/L ALT (4-34) U/L Total Protein (6.3-8.2) g/dL Albumin (3.5-5.0) g/dL Arterial Blood Potassium (3.4-4.5) mmol/L Arterial Blood Glucose 106 H 118 H 116 H (75-99) mg/dL Crossmatch 01/08/21 01/08/21 01/08/21 Range/Units 17:34 17:38 17:40 WBC (3.8-10.6) k/uL RBC 3.15 L (3.80-5.40) m/uL Hgb 9.8 L D (11.4-16.0) gm/dL Hct 28.7 L (34.0-46.0) % Plt Count 92 L (150-450) k/uL Neutrophils # 9.0 H (1.3-7.7) k/uL Lymphocytes # 0.6 L (1.0-4.8) k/uL PT (9.0-12.0) sec INR (<1.2) ABG pH 7.33 L (7.35-7.45) ABG pCO2 (35-45) mmHg ABG pO2 180 H (83-108) mmHg ABG HCO3 (21-25) mmol/L ABG Total CO2 (19-24) mmol/L ABG O2 Saturation 99.0 H (94-97) % ABG Hematocrit (34.0-46.0) % ABG Potassium (3.4-4.5) mmol/L ABG Ionized Calcium (4.5-5.3) mg/dL ABG Glucose (75-99) mg/dL ABG Lactic Acid (0.5-1.6) mmol/L Hemoglobin (11.4-16.0) gm/dL Chloride (98-107) mmol/L Glucose (74-99) mg/dL POC Glucose (mg/dL) 140 H (75-99) mg/dL Calcium (8.4-10.2) mg/dL AST (14-36) U/L ALT (4-34) U/L Total Protein (6.3-8.2) g/dL Albumin (3.5-5.0) g/dL Arterial Blood Potassium (3.4-4.5) mmol/L Arterial Blood Glucose (75-99) mg/dL Crossmatch 01/08/21 01/08/21 01/08/21 Range/Units 17:40 17:40 18:12 WBC (3.8-10.6) k/uL RBC (3.80-5.40) m/uL Hgb (11.4-16.0) gm/dL Hct (34.0-46.0) % Plt Count (150-450) k/uL Neutrophils # (1.3-7.7) k/uL Lymphocytes # (1.0-4.8) k/uL PT 12.1 H (9.0-12.0) sec INR 1.2 H (<1.2) ABG pH (7.35-7.45) ABG pCO2 (35-45) mmHg ABG pO2 (83-108) mmHg ABG HCO3 (21-25) mmol/L ABG Total CO2 (19-24) mmol/L ABG O2 Saturation (94-97) % ABG Hematocrit (34.0-46.0) % ABG Potassium (3.4-4.5) mmol/L ABG Ionized Calcium (4.5-5.3) mg/dL ABG Glucose (75-99) mg/dL ABG Lactic Acid (0.5-1.6) mmol/L Hemoglobin (11.4-16.0) gm/dL Chloride 110 H (98-107) mmol/L Glucose 135 H (74-99) mg/dL POC Glucose (mg/dL) 143 H (75-99) mg/dL Calcium 8.0 L (8.4-10.2) mg/dL AST 111 H (14-36) U/L ALT 78 H (4-34) U/L Total Protein 5.2 L (6.3-8.2) g/dL Albumin 2.8 L (3.5-5.0) g/dL Arterial Blood Potassium (3.4-4.5) mmol/L Arterial Blood Glucose (75-99) mg/dL Crossmatch 01/08/21 01/08/21 01/08/21 Range/Units 19:04 19:47 19:52 WBC (3.8-10.6) k/uL RBC 2.85 L (3.80-5.40) m/uL Hgb 8.8 L (11.4-16.0) gm/dL Hct 25.9 L (34.0-46.0) % Plt Count 86 L (150-450) k/uL Neutrophils # 8.7 H (1.3-7.7) k/uL Lymphocytes # 0.7 L (1.0-4.8) k/uL PT (9.0-12.0) sec INR (<1.2) ABG pH (7.35-7.45) ABG pCO2 (35-45) mmHg ABG pO2 (83-108) mmHg ABG HCO3 (21-25) mmol/L ABG Total CO2 (19-24) mmol/L ABG O2 Saturation (94-97) % ABG Hematocrit (34.0-46.0) % ABG Potassium (3.4-4.5) mmol/L ABG Ionized Calcium (4.5-5.3) mg/dL ABG Glucose (75-99) mg/dL ABG Lactic Acid (0.5-1.6) mmol/L Hemoglobin (11.4-16.0) gm/dL Chloride (98-107) mmol/L Glucose (74-99) mg/dL POC Glucose (mg/dL) 151 H 151 H (75-99) mg/dL Calcium (8.4-10.2) mg/dL AST (14-36) U/L ALT (4-34) U/L Total Protein (6.3-8.2) g/dL Albumin (3.5-5.0) g/dL Arterial Blood Potassium (3.4-4.5) mmol/L Arterial Blood Glucose (75-99) mg/dL Crossmatch 01/08/21 01/08/21 01/08/21 Range/Units 20:51 21:49 22:55 WBC (3.8-10.6) k/uL RBC (3.80-5.40) m/uL Hgb (11.4-16.0) gm/dL Hct (34.0-46.0) % Plt Count (150-450) k/uL Neutrophils # (1.3-7.7) k/uL Lymphocytes # (1.0-4.8) k/uL PT (9.0-12.0) sec INR (<1.2) ABG pH (7.35-7.45) ABG pCO2 (35-45) mmHg ABG pO2 (83-108) mmHg ABG HCO3 (21-25) mmol/L ABG Total CO2 (19-24) mmol/L ABG O2 Saturation (94-97) % ABG Hematocrit (34.0-46.0) % ABG Potassium (3.4-4.5) mmol/L ABG Ionized Calcium (4.5-5.3) mg/dL ABG Glucose (75-99) mg/dL ABG Lactic Acid (0.5-1.6) mmol/L Hemoglobin (11.4-16.0) gm/dL Chloride (98-107) mmol/L Glucose (74-99) mg/dL POC Glucose (mg/dL) 159 H 148 H 139 H (75-99) mg/dL Calcium (8.4-10.2) mg/dL AST (14-36) U/L ALT (4-34) U/L Total Protein (6.3-8.2) g/dL Albumin (3.5-5.0) g/dL Arterial Blood Potassium (3.4-4.5) mmol/L Arterial Blood Glucose (75-99) mg/dL Crossmatch 01/08/21 01/09/21 01/09/21 Range/Units 22:56 00:21 01:14 WBC 11.5 H (3.8-10.6) k/uL RBC 2.99 L (3.80-5.40) m/uL Hgb 9.2 L (11.4-16.0) gm/dL Hct 27.2 L (34.0-46.0) % Plt Count 93 L (150-450) k/uL Neutrophils # 10.3 H (1.3-7.7) k/uL Lymphocytes # 0.5 L (1.0-4.8) k/uL PT (9.0-12.0) sec INR (<1.2) ABG pH (7.35-7.45) ABG pCO2 (35-45) mmHg ABG pO2 (83-108) mmHg ABG HCO3 (21-25) mmol/L ABG Total CO2 (19-24) mmol/L ABG O2 Saturation (94-97) % ABG Hematocrit (34.0-46.0) % ABG Potassium (3.4-4.5) mmol/L ABG Ionized Calcium (4.5-5.3) mg/dL ABG Glucose (75-99) mg/dL ABG Lactic Acid (0.5-1.6) mmol/L Hemoglobin (11.4-16.0) gm/dL Chloride (98-107) mmol/L Glucose (74-99) mg/dL POC Glucose (mg/dL) 129 H 124 H (75-99) mg/dL Calcium (8.4-10.2) mg/dL AST (14-36) U/L ALT (4-34) U/L Total Protein (6.3-8.2) g/dL Albumin (3.5-5.0) g/dL Arterial Blood Potassium (3.4-4.5) mmol/L Arterial Blood Glucose (75-99) mg/dL Crossmatch 01/09/21 01/09/21 01/09/21 Range/Units 03:30 03:30 03:32 WBC 12.4 H (3.8-10.6) k/uL RBC 3.16 L (3.80-5.40) m/uL Hgb 9.5 L (11.4-16.0) gm/dL Hct 28.5 L (34.0-46.0) % Plt Count 103 L (150-450) k/uL Neutrophils # 11.1 H (1.3-7.7) k/uL Lymphocytes # 0.3 L (1.0-4.8) k/uL PT (9.0-12.0) sec INR (<1.2) ABG pH (7.35-7.45) ABG pCO2 (35-45) mmHg ABG pO2 (83-108) mmHg ABG HCO3 (21-25) mmol/L ABG Total CO2 (19-24) mmol/L ABG O2 Saturation (94-97) % ABG Hematocrit (34.0-46.0) % ABG Potassium (3.4-4.5) mmol/L ABG Ionized Calcium (4.5-5.3) mg/dL ABG Glucose (75-99) mg/dL ABG Lactic Acid (0.5-1.6) mmol/L Hemoglobin (11.4-16.0) gm/dL Chloride 110 H (98-107) mmol/L Glucose (74-99) mg/dL POC Glucose (mg/dL) 104 H (75-99) mg/dL Calcium (8.4-10.2) mg/dL AST 89 H (14-36) U/L ALT 57 H (4-34) U/L Total Protein 5.8 L (6.3-8.2) g/dL Albumin (3.5-5.0) g/dL Arterial Blood Potassium (3.4-4.5) mmol/L Arterial Blood Glucose (75-99) mg/dL Crossmatch 01/09/21 01/09/21 01/09/21 Range/Units 04:19 06:05 06:57 WBC (3.8-10.6) k/uL RBC (3.80-5.40) m/uL Hgb (11.4-16.0) gm/dL Hct (34.0-46.0) % Plt Count (150-450) k/uL Neutrophils # (1.3-7.7) k/uL Lymphocytes # (1.0-4.8) k/uL PT (9.0-12.0) sec INR (<1.2) ABG pH (7.35-7.45) ABG pCO2 (35-45) mmHg ABG pO2 (83-108) mmHg ABG HCO3 (21-25) mmol/L ABG Total CO2 (19-24) mmol/L ABG O2 Saturation (94-97) % ABG Hematocrit (34.0-46.0) % ABG Potassium (3.4-4.5) mmol/L ABG Ionized Calcium (4.5-5.3) mg/dL ABG Glucose (75-99) mg/dL ABG Lactic Acid (0.5-1.6) mmol/L Hemoglobin (11.4-16.0) gm/dL Chloride (98-107) mmol/L Glucose (74-99) mg/dL POC Glucose (mg/dL) 107 H 163 H 159 H (75-99) mg/dL Calcium (8.4-10.2) mg/dL AST (14-36) U/L ALT (4-34) U/L Total Protein (6.3-8.2) g/dL Albumin (3.5-5.0) g/dL Arterial Blood Potassium (3.4-4.5) mmol/L Arterial Blood Glucose (75-99) mg/dL Crossmatch - Imaging and Cardiology Chest x-ray: image reviewed Assessment and Plan Assessment: 1. Symptomatic coronary artery disease with left main disease, status post 2 vessel CABG 2. Acute kidney injury on admission, resolved 3. History of myocardial infarction with multivessel angioplasty 4. Hypertension 5. Hyperlipidemia, treated, cholesterol 139, LDL 91 6. Paroxysmal atrial fibrillation on Xarelto for anticoagulation, status post left atrial appendage ligation 7. Fatty liver with transaminitis 8. Never smoker, preoperative FEV1 57% of predicted 9. Family history of coronary artery disease 10. Postoperative acute blood loss anemia and thrombocytopenia, expected Plan: 1. Continue aspirin, Plavix, statin, beta maxi therapy. Will increase beta maxi therapy as tolerated. Discontinue IV nitro. 2. Discontinue IV dopamine 3. Wean O2 as tolerated. Encourage incentive spirometry use 10 times every hour while awake. Bronchodilators per pulmonology 3. Increase activity, ambulate as tolerated. PT/OT/cardiac rehab consulted 4. Will monitor daily labs and x-rays. Electrolyte replacement per protocol. 5. GI/DVT prophylaxis 6. Insulin management per primary care service. Patient is not diabetic, hemoglobin A1c 5.4% 7. Pain controlled with current medication regimen 8. Discontinue [place]. Connect Cordis to continuous CVP monitoring 9. Will continue mediastinal left pleural chest tubes, Cord[place], arterial line for another 24 hours 10. Will continue Blackwood catheter for another 24 hours for strict accurate intake and output. Daily weights 11. More recommendations to follow based on patient's progress Time with Patient: Greater than 30
--- NOTE | 2021-01-09 08:45 | XR ---
EXAMINATION TYPE: XR chest 1V portable DATE OF EXAM: 01/09/2021 COMPARISON: 01/08/2021 HISTORY: Postop TECHNIQUE: Single frontal view of the chest is obtained. FINDINGS: ET and NG tube have been removed. [place] catheter stable bilateral infiltrate and pleur al effusion. Chest tube noted with no sizable pneumothorax. Arthropathy of the shoulders. Cardiomegaly and postsur gical changes noted. IMPRESSION: 1. Bilateral infiltrate and pleural effusion. 2. Postsurgical changes
[2021-01-09] MEDS ORDERED: MAGNESIUM HYDROXIDE 2,400 MG/10 ML CUP PO PRN (09:00)
[2021-01-09] MEDS ORDERED: bisacodyL 10 MG SUPP RECTAL PRN (09:00)
--- NOTE | 2021-01-09 09:23 | P.PN ---
Subjective Progress Note Date: 01/09/21 Principal diagnosis: Coronary artery disease, status post coronary artery bypass grafting 2 with a WASSERMAN to the LAD, SVG to the OM. Pulmonary consultation dated 01/07/2021. 75-year-old female, with anticipated off pump bypass grafting by Dr. Aquino tomorrow. We are asked to see the patient for preop clearance. The patient is a lifelong nonsmoker. She denies a history of any lung issues such as COPD, emphysema, chronic bronchitis, or asthma. She denies any breathing or pulmonary symptoms such as shortness of breath, cough, wheezing, phlegm production, tightness, or any other complaints for that matter. The patient has been in the hospital for a number of days. She apparently was admitted back on December 31. She had a cardiac catheterization performed by Dr. Lewis on January 03. I explained to the patient what our role in the bypass surgery would be. It would include 2 major things, initially getting the patient off the mechanical ventilator. The second thing would be watching her throughout her hospitalization to make sure she did not develop a primary complication such as pleural effusion, atelectasis, lobar collapse, or pneumonia. Lab data includes a CBC which is essentially normal. Platelet count a bit low 134. Electrolyte profile is also relatively normal. AST and ALTs are bit elevated at 190 and 119 respectively. A chest x-ray done on the day of admission showed no acute cardiopulmonary process. Progress note dated 01/08/2021. The patient will have surgery today. She is postop having off pump bypass grafting done by Dr. Aquino. I again explained the role of the pulmonary/critical care doctor in the process. She understands that she'll be coming back from the operating room on the mechanical ventilator. It's our goal to get her off the ventilator as quickly as possible. In addition, I told that we will see her each step of the way, to make sure that her lungs remain in good shape while here. I emphasized the importance of using incentive spirometer. She has no clearcut evidence of any lung issues or lung disease. He is a l ifelong nonsmoker. She should do well. The patient is seen today 01/09/2021 in follow-up in the intensive care unit. She is awake and alert in no acute distress. Sitting up in a chair at the [facility]. Postoperative day #1 of coronary artery bypass grafting 2 with a WASSERMAN to the LAD, SVG to the OM. She is currently on 4 L/m per nasal cannula and maintaining O2 saturation in the 90s. Chest x-ray reveals bilateral infiltrates/atelectasis with effusion. Chest tube remains in place. No sizable pneumothorax. Working with the incentive spirometer. She remains on a nitroglycerin drip at 5 mg/m. Insulin drip at 5 units per hour. Lactated Ringer's at 50 MLS per hour. White count 12.4. Hemoglobin 9.5. Platelets 103. Sodium 140. Potassium 4.0. Creatinine 0.71. AST 89. ALT 57. Current blood pressure 124/38, PA pressure 29/8. Mean of 15. CVP 3. Cardiac output 4.7. Cardiac index 2.2. She remains on bronchodilators, heparin for DVT prophylaxis. Protonix for GI prophylaxis. Objective - Vital Signs Vital signs: Vital Signs Temp 98.9 F 01/09/21 08:00 Pulse 74 01/09/21 09:00 Resp 9 L 01/09/21 09:00 BP 126/73 01/09/21 09:00 Pulse Ox 97 01/09/21 09:00 Intake & Output 01/08/21 01/09/21 01/09/21 18:59 06:59 18:59 Intake Total 947.307 5021.329 192.306 Output Total 810 1480 80 Balance -593.449 3292.329 112.306 Weight 105.4 kg Intake: IV 242.0 2423.5 137 ACETAMINOPHEN IV (For NPO 100 ) 1,000 mg In Empty Bag 1 bag @ 400 mls/hr IVPB Q6HR [facility] Rx#:[id number] Albumin Human 5% 250 ml 1250 In Empty Bag 1 bag @ 250 mls/hr IVPB Q1HR PRN Rx#: [id number] CO/CI 60 260 60 Calcium Gluconate 2 gm In 100 Sodium Chloride 0.9% 100 ml @ 100 mls/hr IVPB ONCE PRN Rx#:[id number] DOPamine DRIP 800 mg In 8 4 Dextrose/Water 1 250ml. bag @ 2 MCG/KG/MIN 4.174 mls/hr IV .Q24H [facility] Rx#: [id number] Lactated Ringers 1,000 ml 100 600 50 @ 50 mls/hr IV .Q20H [facility] Rx#:[id number] Nitroglycerin-D5w Pmx 50 3.0 1.5 mg In Dextrose/Water 1 250ml.bag @ 5 MCG/MIN 1.5 mls/hr IV .Q24H [facility] Rx#: [id number] Pressure Bags 18 108 27 Intake, IV Titration 3.125 78.829 55.306 Amount Clevidipine Butyrate 25 2.367 20.967 mg In Empty Bag 1 bag @ 1 MG/HR 2 mls/hr IV .Q24H [facility] Rx#:[id number] DOPamine DRIP 800 mg In 55.306 Dextrose/Water 1 250ml. bag @ 2 MCG/KG/MIN 4.174 mls/hr IV .Q24H [facility] Rx#: [id number] Insulin Regular 100 unit 0.758 33.709 In Sodium Chloride 0.9% 100 ml @ Per Protocol IV .Q0M [facility] Rx#:[id number] propofoL 1,000 mg In 24.153 Empty Bag 1 bag @ Titrate IV .Q0M [facility] Rx#: [id number] Output: Chest Tube Drainage 130 520 0 Chest Tube Left Pleural/ 130 520 0 Mediastinal Urine 180 960 80 Estimated Blood Loss 500 Other: Voiding Method Indwelling Catheter Indwelling Catheter ABP, PAP, CO, CI - Last Documented Arterial Blood Pressure 124/38 Pulmonary Artery Pressure 29/8 Cardiac Output 4.7 Cardiac Index 2.2 - Exam GENERAL EXAM: Alert, very pleasant 75-year-old female, on 4 L nasal cannula, up in a chair, fairly comfortable in no apparent distress. HEAD: Normocephalic. EYES: Normal reaction of pupils, equal size. NOSE: Clear with pink turbinates. THROAT: No erythema or exudates. NECK: [place]-Navin catheter in place. No masses, no JVD. CHEST: Sternal dressing dry and intact. Hugger in place. Chest tubes in place. LUNGS: Equal air entry with crackles in the bilateral bases. CVS: S1 and S2 normal with no audible murmur, regular rhythm. ABDOMEN: No hepatosplenomegaly, normal bowel sounds, no guarding or rigidity. SPINE: No scoliosis or deformity SKIN: No rashes CENTRAL NERVOUS SYSTEM: No focal deficits, tone is normal in all 4 extremities. EXTREMITIES: SCDs in place. There is trace peripheral edema. No clubbing, no cyanosis. Peripheral pulses are intact. - Labs CBC & Chem 7: 01/09/21 03:30 01/09/21 03:30 Labs: Abnormal Lab Results - Last 24 Hours (Table) 01/07/21 01/08/21 01/08/21 Range/Units 09:58 14:02 15:20 WBC (3.8-10.6) k/uL RBC (3.80-5.40) m/uL Hgb (11.4-16.0) gm/dL Hct (34.0-46.0) % Plt Count (150-450) k/uL Neutrophils # (1.3-7.7) k/uL Lymphocytes # (1.0-4.8) k/uL PT (9.0-12.0) sec INR (<1.2) ABG pH (7.35-7.45) ABG pCO2 33 L (35-45) mmHg ABG pO2 228 H 229 H (83-108) mmHg ABG HCO3 (21-25) mmol/L ABG Total CO2 (19-24) mmol/L ABG O2 Saturation 99.9 H 99.9 H (94-97) % ABG Hematocrit 33 L (34.0-46.0) % ABG Potassium 5.2 H (3.4-4.5) mmol/L ABG Ionized Calcium (4.5-5.3) mg/dL ABG Glucose 100 H (75-99) mg/dL ABG Lactic Acid 1.8 H (0.5-1.6) mmol/L Hemoglobin 11.3 L 10.7 L (11.4-16.0) gm/dL Chloride (98-107) mmol/L Glucose (74-99) mg/dL POC Glucose (mg/dL) (75-99) mg/dL Calcium (8.4-10.2) mg/dL AST (14-36) U/L ALT (4-34) U/L Total Protein (6.3-8.2) g/dL Albumin (3.5-5.0) g/dL Arterial Blood Potassium 5.2 H (3.4-4.5) mmol/L Arterial Blood Glucose 100 H (75-99) mg/dL Crossmatch See Detail 01/08/21 01/08/21 01/08/21 Range/Units 15:42 16:33 16:50 WBC (3.8-10.6) k/uL RBC (3.80-5.40) m/uL Hgb (11.4-16.0) gm/dL Hct (34.0-46.0) % Plt Count (150-450) k/uL Neutrophils # (1.3-7.7) k/uL Lymphocytes # (1.0-4.8) k/uL PT (9.0-12.0) sec INR (<1.2) ABG pH (7.35-7.45) ABG pCO2 30 L 34 L (35-45) mmHg ABG pO2 247 H 194 H 109 H (83-108) mmHg ABG HCO3 20 L (21-25) mmol/L ABG Total CO2 25 H (19-24) mmol/L ABG O2 Saturation 100.0 H 99.8 H 98.7 H (94-97) % ABG Hematocrit 29 L 28 L 28 L (34.0-46.0) % ABG Potassium (3.4-4.5) mmol/L ABG Ionized Calcium 4.4 L 4.4 L (4.5-5.3) mg/dL ABG Glucose 106 H 118 H 116 H (75-99) mg/dL ABG Lactic Acid (0.5-1.6) mmol/L Hemoglobin 9.5 L 9.0 L 9.0 L (11.4-16.0) gm/dL Chloride (98-107) mmol/L Glucose (74-99) mg/dL POC Glucose (mg/dL) (75-99) mg/dL Calcium (8.4-10.2) mg/dL AST (14-36) U/L ALT (4-34) U/L Total Protein (6.3-8.2) g/dL Albumin (3.5-5.0) g/dL Arterial Blood Potassium (3.4-4.5) mmol/L Arterial Blood Glucose 106 H 118 H 116 H (75-99) mg/dL Crossmatch 01/08/21 01/08/21 01/08/21 Range/Units 17:34 17:38 17:40 WBC (3.8-10.6) k/uL RBC 3.15 L (3.80-5.40) m/uL Hgb 9.8 L D (11.4-16.0) gm/dL Hct 28.7 L (34.0-46.0) % Plt Count 92 L (150-450) k/uL Neutrophils # 9.0 H (1.3-7.7) k/uL Lymphocytes # 0.6 L (1.0-4.8) k/uL PT (9.0-12.0) sec INR (<1.2) ABG pH 7.33 L (7.35-7.45) ABG pCO2 (35-45) mmHg ABG pO2 180 H (83-108) mmHg ABG HCO3 (21-25) mmol/L ABG Total CO2 (19-24) mmol/L ABG O2 Saturation 99.0 H (94-97) % ABG Hematocrit (34.0-46.0) % ABG Potassium (3.4-4.5) mmol/L ABG Ionized Calcium (4.5-5.3) mg/dL ABG Glucose (75-99) mg/dL ABG Lactic Acid (0.5-1.6) mmol/L Hemoglobin (11.4-16.0) gm/dL Chloride (98-107) mmol/L Glucose (74-99) mg/dL POC Glucose (mg/dL) 140 H (75-99) mg/dL Calcium (8.4-10.2) mg/dL AST (14-36) U/L ALT (4-34) U/L Total Protein (6.3-8.2) g/dL Albumin (3.5-5.0) g/dL Arterial Blood Potassium (3.4-4.5) mmol/L Arterial Blood Glucose (75-99) mg/dL Crossmatch 01/08/21 01/08/21 01/08/21 Range/Units 17:40 17:40 18:12 WBC (3.8-10.6) k/uL RBC (3.80-5.40) m/uL Hgb (11.4-16.0) gm/dL Hct (34.0-46.0) % Plt Count (150-450) k/uL Neutrophils # (1.3-7.7) k/uL Lymphocytes # (1.0-4.8) k/uL PT 12.1 H (9.0-12.0) sec INR 1.2 H (<1.2) ABG pH (7.35-7.45) ABG pCO2 (35-45) mmHg ABG pO2 (83-108) mmHg ABG HCO3 (21-25) mmol/L ABG Total CO2 (19-24) mmol/L ABG O2 Saturation (94-97) % ABG Hematocrit (34.0-46.0) % ABG Potassium (3.4-4.5) mmol/L ABG Ionized Calcium (4.5-5.3) mg/dL ABG Glucose (75-99) mg/dL ABG Lactic Acid (0.5-1.6) mmol/L Hemoglobin (11.4-16.0) gm/dL Chloride 110 H (98-107) mmol/L Glucose 135 H (74-99) mg/dL POC Glucose (mg/dL) 143 H (75-99) mg/dL Calcium 8.0 L (8.4-10.2) mg/dL AST 111 H (14-36) U/L ALT 78 H (4-34) U/L Total Protein 5.2 L (6.3-8.2) g/dL Albumin 2.8 L (3.5-5.0) g/dL Arterial Blood Potassium (3.4-4.5) mmol/L Arterial Blood Glucose (75-99) mg/dL Crossmatch 01/08/21 01/08/21 01/08/21 Range/Units 19:04 19:47 19:52 WBC (3.8-10.6) k/uL RBC 2.85 L (3.80-5.40) m/uL Hgb 8.8 L (11.4-16.0) gm/dL Hct 25.9 L (34.0-46.0) % Plt Count 86 L (150-450) k/uL Neutrophils # 8.7 H (1.3-7.7) k/uL Lymphocytes # 0.7 L (1.0-4.8) k/uL PT (9.0-12.0) sec INR (<1.2) ABG pH (7.35-7.45) ABG pCO2 (35-45) mmHg ABG pO2 (83-108) mmHg ABG HCO3 (21-25) mmol/L ABG Total CO2 (19-24) mmol/L ABG O2 Saturation (94-97) % ABG Hematocrit (34.0-46.0) % ABG Potassium (3.4-4.5) mmol/L ABG Ionized Calcium (4.5-5.3) mg/dL ABG Glucose (75-99) mg/dL ABG Lactic Acid (0.5-1.6) mmol/L Hemoglobin (11.4-16.0) gm/dL Chloride (98-107) mmol/L Glucose (74-99) mg/dL POC Glucose (mg/dL) 151 H 151 H (75-99) mg/dL Calcium (8.4-10.2) mg/dL AST (14-36) U/L ALT (4-34) U/L Total Protein (6.3-8.2) g/dL Albumin (3.5-5.0) g/dL Arterial Blood Potassium (3.4-4.5) mmol/L Arterial Blood Glucose (75-99) mg/dL Crossmatch 01/08/21 01/08/21 01/08/21 Range/Units 20:51 21:49 22:55 WBC (3.8-10.6) k/uL RBC (3.80-5.40) m/uL Hgb (11.4-16.0) gm/dL Hct (34.0-46.0) % Plt Count (150-450) k/uL Neutrophils # (1.3-7.7) k/uL Lymphocytes # (1.0-4.8) k/uL PT (9.0-12.0) sec INR (<1.2) ABG pH (7.35-7.45) ABG pCO2 (35-45) mmHg ABG pO2 (83-108) mmHg ABG HCO3 (21-25) mmol/L ABG Total CO2 (19-24) mmol/L ABG O2 Saturation (94-97) % ABG Hematocrit (34.0-46.0) % ABG Potassium (3.4-4.5) mmol/L ABG Ionized Calcium (4.5-5.3) mg/dL ABG Glucose (75-99) mg/dL ABG Lactic Acid (0.5-1.6) mmol/L Hemoglobin (11.4-16.0) gm/dL Chloride (98-107) mmol/L Glucose (74-99) mg/dL POC Glucose (mg/dL) 159 H 148 H 139 H (75-99) mg/dL Calcium (8.4-10.2) mg/dL AST (14-36) U/L ALT (4-34) U/L Total Protein (6.3-8.2) g/dL Albumin (3.5-5.0) g/dL Arterial Blood Potassium (3.4-4.5) mmol/L Arterial Blood Glucose (75-99) mg/dL Crossmatch 01/08/21 01/09/21 01/09/21 Range/Units 22:56 00:21 01:14 WBC 11.5 H (3.8-10.6) k/uL RBC 2.99 L (3.80-5.40) m/uL Hgb 9.2 L (11.4-16.0) gm/dL Hct 27.2 L (34.0-46.0) % Plt Count 93 L (150-450) k/uL Neutrophils # 10.3 H (1.3-7.7) k/uL Lymphocytes # 0.5 L (1.0-4.8) k/uL PT (9.0-12.0) sec INR (<1.2) ABG pH (7.35-7.45) ABG pCO2 (35-45) mmHg ABG pO2 (83-108) mmHg ABG HCO3 (21-25) mmol/L ABG Total CO2 (19-24) mmol/L ABG O2 Saturation (94-97) % ABG Hematocrit (34.0-46.0) % ABG Potassium (3.4-4.5) mmol/L ABG Ionized Calcium (4.5-5.3) mg/dL ABG Glucose (75-99) mg/dL ABG Lactic Acid (0.5-1.6) mmol/L Hemoglobin (11.4-16.0) gm/dL Chloride (98-107) mmol/L Glucose (74-99) mg/dL POC Glucose (mg/dL) 129 H 124 H (75-99) mg/dL Calcium (8.4-10.2) mg/dL AST (14-36) U/L ALT (4-34) U/L Total Protein (6.3-8.2) g/dL Albumin (3.5-5.0) g/dL Arterial Blood Potassium (3.4-4.5) mmol/L Arterial Blood Glucose (75-99) mg/dL Crossmatch 01/09/21 01/09/21 01/09/21 Range/Units 03:30 03:30 03:32 WBC 12.4 H (3.8-10.6) k/uL RBC 3.16 L (3.80-5.40) m/uL Hgb 9.5 L (11.4-16.0) gm/dL Hct 28.5 L (34.0-46.0) % Plt Count 103 L (150-450) k/uL Neutrophils # 11.1 H (1.3-7.7) k/uL Lymphocytes # 0.3 L (1.0-4.8) k/uL PT (9.0-12.0) sec INR (<1.2) ABG pH (7.35-7.45) ABG pCO2 (35-45) mmHg ABG pO2 (83-108) mmHg ABG HCO3 (21-25) mmol/L ABG Total CO2 (19-24) mmol/L ABG O2 Saturation (94-97) % ABG Hematocrit (34.0-46.0) % ABG Potassium (3.4-4.5) mmol/L ABG Ionized Calcium (4.5-5.3) mg/dL ABG Glucose (75-99) mg/dL ABG Lactic Acid (0.5-1.6) mmol/L Hemoglobin (11.4-16.0) gm/dL Chloride 110 H (98-107) mmol/L Glucose (74-99) mg/dL POC Glucose (mg/dL) 104 H (75-99) mg/dL Calcium (8.4-10.2) mg/dL AST 89 H (14-36) U/L ALT 57 H (4-34) U/L Total Protein 5.8 L (6.3-8.2) g/dL Albumin (3.5-5.0) g/dL Arterial Blood Potassium (3.4-4.5) mmol/L Arterial Blood Glucose (75-99) mg/dL Crossmatch 01/09/21 01/09/21 01/09/21 Range/Units 04:19 06:05 06:57 WBC (3.8-10.6) k/uL RBC (3.80-5.40) m/uL Hgb (11.4-16.0) gm/dL Hct (34.0-46.0) % Plt Count (150-450) k/uL Neutrophils # (1.3-7.7) k/uL Lymphocytes # (1.0-4.8) k/uL PT (9.0-12.0) sec INR (<1.2) ABG pH (7.35-7.45) ABG pCO2 (35-45) mmHg ABG pO2 (83-108) mmHg ABG HCO3 (21-25) mmol/L ABG Total CO2 (19-24) mmol/L ABG O2 Saturation (94-97) % ABG Hematocrit (34.0-46.0) % ABG Potassium (3.4-4.5) mmol/L ABG Ionized Calcium (4.5-5.3) mg/dL ABG Glucose (75-99) mg/dL ABG Lactic Acid (0.5-1.6) mmol/L Hemoglobin (11.4-16.0) gm/dL Chloride (98-107) mmol/L Glucose (74-99) mg/dL POC Glucose (mg/dL) 107 H 163 H 159 H (75-99) mg/dL Calcium (8.4-10.2) mg/dL AST (14-36) U/L ALT (4-34) U/L Total Protein (6.3-8.2) g/dL Albumin (3.5-5.0) g/dL Arterial Blood Potassium (3.4-4.5) mmol/L Arterial Blood Glucose (75-99) mg/dL Crossmatch Assessment and Plan Assessment: 1 Coronary artery disease status post coronary artery bypass grafting 2 with a WASSERMAN to LAD, saphenous vein grafts to the obtuse marginal. Postoperative day #1 2 Mechanical ventilation management, extubated just after midnight 01/09/2021 3 Lifelong nonsmoker 4 History of congestive heart failure 5 Hyperlipidemia 6 Hypertension 7 Prior history of myocardial infarction with stent placement Plan: The patient was seen and evaluated by Dr. Waterman Chest x-ray, labs reviewed Continue to encourage increased use the incentive spirometer Titrate the FiO2 as tolerated Increase her activity as tolerated Continue bronchodilators, DVT prophylaxis We will continue to follow and make further recommendations based on her clinical status I, the cosigning physician, performed a history & physical examination of the patient. Lungs sounds with crackles in bilateral bases. Maintaining good O2 saturations in the 90s on 4 L/m per nasal cannula. I discussed the assessment and plan of care with my nurse practitioner, Joanna Newsome. I attest to the above note as dictated by her.
--- NOTE | 2021-01-09 10:09 | P.VSCSTY ---
Greater Saphenous Vein Mapping This is bilateral lower extremity greater saphenous vein mapping. Date of service: 01/03/2021 Vein quality and ultrasound appearance: We see no intraluminal thrombus or obvious wall changes. Vein size groin right : 6.6 x 6.0 groin left: 7.6 x 6.4 High thigh right: 3.5 x 2.8 high thigh left: 6.2 x 5.6 Mid thigh right: 2.9 x 2.9 mid thigh left: 5.3 x 4.7 Above-knee right: 2.2 x 1.7 above- knee left: 5.3 x 5.0 Below knee right: 4.0 x 2.9 below-knee left: 3.9 x 3.0 Mid calf right: 2.0 x 2.1 mid calf left: 1.8 x 2.2 Ankle right: 3.1 x 2.5 ankle left: 2.5 x 1.4 Impression: Usable bilateral greater saphenous vein.
--- NOTE | 2021-01-09 10:09 | P.PN ---
Subjective This is a pleasant 75-year-old female past medical history significant for paroxysmal atrial fibrillation on long-term anticoagulation (Xarelto at home), coronary artery disease status post PCI to the circumflex and OM 2017, hypertension, dyslipidemia and obesity. She follows in the office with Dr. Lewis. We were first consulted for for shortness of breath on 01/01/21. Echo 01/01 revealed preserved LV systolic function with ejection fraction 50-55%, mild MR, mild TR and mild pulmonary hypertension with RVSP of 39 mmHg. Cardiac catheteri zation was recommended and completed on 01/03 which revealed severe ostial left main stenosis with focal critical stenosis also in the mid LAD and the AV groove circumflex. Cardiothoracic Surgery was consulted for further evaluation and treatment recommendations including myocardial revascularization surgery 01/08/21 Patient underwent coronary artery bypass graft 2 with WASSERMAN to the LAD, reverse saphenous vein graft to the obtuse marginal artery, ligation of the left atrial appendage, endovascular vein harvest of the left greater saphenous vein from the knee to the groin. 01/09/2021 Patient is POD #1. Patient seen and examined sitting up in recliner in no acute distress. She was extubated overnight She states she does have some left sided back pain. She is able to tolerate some jello this morning, not much of an appetite. Post operatively patient was on IV nitro and IV dopamine. Which have been discontinued. Blood pressure 124/38 HR 74, afebrile, maintaining oxygen saturations on 4L nasal cannula. She is currently being maintained on aspirin 325 mg daily, atorvastatin 40 mg daily, IV Cleviprex has been turned off, Plavix 75mg daily, metoprolol 12.5mg BID. Laboratory data reviewed, WBC 12.4, hemoglobin 9.5, platelets 3, sodium 140, potassium 4.0, BUN 14, serum creatinine 0.7, magnesium 1.8, AST 89, PLT 57 PHYSICAL EXAMINATION CONSTITUTIONAL: No apparent distress. HEENT: Mucous membranes of the mouth are moist. No JVD. Righ IJ swan/cordis noted. CHEST EXAMINATION: Lungs are diminished bilaterally to auscultation. Denies chest tenderness. Mediastinal and left pleural chest tubes with serosanguineous drainage HEART EXAMINATION: Regular rate and rhythm. S1, S2 heard. Soft systolic ejection murmur at the base, no gallops or rub. EXTREMITIES: 2+ peripheral pulses, no lower extremity edema and no calf tenderness. Right radial arterial line present : bruce catheter in place SKIN: Anterior chest incision site clean dry covered in dressin NEURO: Alert and oriented x 3. ASSESSMENT Severe left main disease Status post 2 vessel coronary artery bypass graft 01/08/21 Transaminitis Hyperkalemia Acute kidney injury Coronary artery disease status post PCI to the circumflex and OM 2017 Hypertension Dyslipidemia Paroxysmal atrial fibrillation on long-term anticoagulation (Xarelto) currently maintaining sinus mechanism PLAN Continue aspirin, Plavix, statin, beta maxi therapy. Post operative management per CT surgery Increase activity as tolerated Encourage incentive spirometry every hour Further recommendations based on clinical course. We will follow patient. Nurse Practitioner note has been reviewed, I agree with a documented findings and plan of care. Patient was seen and examined. Objective - Vital Signs Vital signs: Vital Signs Temp 98.9 F 01/09/21 08:00 Pulse 74 01/09/21 09:00 Resp 9 L 01/09/21 09:00 BP 126/73 01/09/21 09:00 Pulse Ox 97 01/09/21 09:00 Intake & Output 01/08/21 01/09/21 01/09/21 18:59 06:59 18:59 Intake Total 217.865 0629.329 192.306 Output Total 810 1480 80 Balance -608.401 1498.329 112.306 Weight 105.4 kg Intake: IV 242.0 2423.5 137 ACETAMINOPHEN IV (For NPO 100 ) 1,000 mg In Empty Bag 1 bag @ 400 mls/hr IVPB Q6HR GE[facility]NA Rx#:[id number] Albumin Human 5% 250 ml 1250 In Empty Bag 1 bag @ 250 mls/hr IVPB Q1HR PRN Rx#: [id number] CO/CI 60 260 60 Calcium Gluconate 2 gm In 100 Sodium Chloride 0.9% 100 ml @ 100 mls/hr IVPB ONCE PRN Rx#:[id number] DOPamine DRIP 800 mg In 8 4 Dextrose/Water 1 250ml. bag @ 2 MCG/KG/MIN 4.174 mls/hr IV .Q24H GE[facility]ANNA Rx#: [id number] Lactated Ringers 1,000 ml 100 600 50 @ 50 mls/hr IV .Q20H GE[facility]NA Rx#:[id number] Nitroglycerin-D5w Pmx 50 3.0 1.5 mg In Dextrose/Water 1 250ml.bag @ 5 MCG/MIN 1.5 mls/hr IV .Q24H ONE Rx#: [id number] Pressure Bags 18 108 27 Intake, IV Titration 3.125 78.829 55.306 Amount Clevidipine Butyrate 25 2.367 20.967 mg In Empty Bag 1 bag @ 1 MG/HR 2 mls/hr IV .Q24H [facility]NA Rx#:[id number] DOPamine DRIP 800 mg In 55.306 Dextrose/Water 1 250ml. bag @ 2 MCG/KG/MIN 4.174 mls/hr IV .Q24H [facility]NA Rx#: [id number] Insulin Regular 100 unit 0.758 33.709 In Sodium Chloride 0.9% 100 ml @ Per Protocol IV .Q0M [facility] Rx#:[id number] propofoL 1,000 mg In 24.153 Empty Bag 1 bag @ Titrate IV .Q0M GE[facility]NA Rx#: [id number] Output: Chest Tube Drainage 130 520 0 Chest Tube Left Pleural/ 130 520 0 Mediastinal Urine 180 960 80 Estimated Blood Loss 500 Other: Voiding Method Indwelling Catheter Indwelling Catheter ABP, PAP, CO, CI - Last Documented Arterial Blood Pressure 124/38 Pulmonary Artery Pressure 29/8 Cardiac Output 4.7 Cardiac Index 2.2 - Labs CBC & Chem 7: 01/09/21 03:30 01/09/21 03:30 Labs: Abnormal Lab Results - Last 24 Hours (Table) 01/07/21 01/08/21 01/08/21 Range/Units 09:58 14:02 15:20 WBC (3.8-10.6) k/uL RBC (3.80-5.40) m/uL Hgb (11.4-16.0) gm/dL Hct (34.0-46.0) % Plt Count (150-450) k/uL Neutrophils # (1.3-7.7) k/uL Lymphocytes # (1.0-4.8) k/uL PT (9.0-12.0) sec INR (<1.2) ABG pH (7.35-7.45) ABG pCO2 33 L (35-45) mmHg ABG pO2 228 H 229 H (83-108) mmHg ABG HCO3 (21-25) mmol/L ABG Total CO2 (19-24) mmol/L ABG O2 Saturation 99.9 H 99.9 H (94-97) % ABG Hematocrit 33 L (34.0-46.0) % ABG Potassium 5.2 H (3.4-4.5) mmol/L ABG Ionized Calcium (4.5-5.3) mg/dL ABG Glucose 100 H (75-99) mg/dL ABG Lactic Acid 1.8 H (0.5-1.6) mmol/L Hemoglobin 11.3 L 10.7 L (11.4-16.0) gm/dL Chloride (98-107) mmol/L Glucose (74-99) mg/dL POC Glucose (mg/dL) (75-99) mg/dL Calcium (8.4-10.2) mg/dL AST (14-36) U/L ALT (4-34) U/L Total Protein (6.3-8.2) g/dL Albumin (3.5-5.0) g/dL Arterial Blood Potassium 5.2 H (3.4-4.5) mmol/L Arterial Blood Glucose 100 H (75-99) mg/dL Crossmatch See Detail 01/08/21 01/08/21 01/08/21 Range/Units 15:42 16:33 16:50 WBC (3.8-10.6) k/uL RBC (3.80-5.40) m/uL Hgb (11.4-16.0) gm/dL Hct (34.0-46.0) % Plt Count (150-450) k/uL Neutrophils # (1.3-7.7) k/uL Lymphocytes # (1.0-4.8) k/uL PT (9.0-12.0) sec INR (<1.2) ABG pH (7.35-7.45) ABG pCO2 30 L 34 L (35-45) mmHg ABG pO2 247 H 194 H 109 H (83-108) mmHg ABG HCO3 20 L (21-25) mmol/L ABG Total CO2 25 H (19-24) mmol/L ABG O2 Saturation 100.0 H 99.8 H 98.7 H (94-97) % ABG Hematocrit 29 L 28 L 28 L (34.0-46.0) % ABG Potassium (3.4-4.5) mmol/L ABG Ionized Calcium 4.4 L 4.4 L (4.5-5.3) mg/dL ABG Glucose 106 H 118 H 116 H (75-99) mg/dL ABG Lactic Acid (0.5-1.6) mmol/L Hemoglobin 9.5 L 9.0 L 9.0 L (11.4-16.0) gm/dL Chloride (98-107) mmol/L Glucose (74-99) mg/dL POC Glucose (mg/dL) (75-99) mg/dL Calcium (8.4-10.2) mg/dL AST (14-36) U/L ALT (4-34) U/L Total Protein (6.3-8.2) g/dL Albumin (3.5-5.0) g/dL Arterial Blood Potassium (3.4-4.5) mmol/L Arterial Blood Glucose 106 H 118 H 116 H (75-99) mg/dL Crossmatch 01/08/21 01/08/21 01/08/21 Range/Units 17:34 17:38 17:40 WBC (3.8-10.6) k/uL RBC 3.15 L (3.80-5.40) m/uL Hgb 9.8 L D (11.4-16.0) gm/dL Hct 28.7 L (34.0-46.0) % Plt Count 92 L (150-450) k/uL Neutrophils # 9.0 H (1.3-7.7) k/uL Lymphocytes # 0.6 L (1.0-4.8) k/uL PT (9.0-12.0) sec INR (<1.2) ABG pH 7.33 L (7.35-7.45) ABG pCO2 (35-45) mmHg ABG pO2 180 H (83-108) mmHg ABG HCO3 (21-25) mmol/L ABG Total CO2 (19-24) mmol/L ABG O2 Saturation 99.0 H (94-97) % ABG Hematocrit (34.0-46.0) % ABG Potassium (3.4-4.5) mmol/L ABG Ionized Calcium (4.5-5.3) mg/dL ABG Glucose (75-99) mg/dL ABG Lactic Acid (0.5-1.6) mmol/L Hemoglobin (11.4-16.0) gm/dL Chloride (98-107) mmol/L Glucose (74-99) mg/dL POC Glucose (mg/dL) 140 H (75-99) mg/dL Calcium (8.4-10.2) mg/dL AST (14-36) U/L ALT (4-34) U/L Total Protein (6.3-8.2) g/dL Albumin (3.5-5.0) g/dL Arterial Blood Potassium (3.4-4.5) mmol/L Arterial Blood Glucose (75-99) mg/dL Crossmatch 01/08/21 01/08/21 01/08/21 Range/Units 17:40 17:40 18:12 WBC (3.8-10.6) k/uL RBC (3.80-5.40) m/uL Hgb (11.4-16.0) gm/dL Hct (34.0-46.0) % Plt Count (150-450) k/uL Neutrophils # (1.3-7.7) k/uL Lymphocytes # (1.0-4.8) k/uL PT 12.1 H (9.0-12.0) sec INR 1.2 H (<1.2) ABG pH (7.35-7.45) ABG pCO2 (35-45) mmHg ABG pO2 (83-108) mmHg ABG HCO3 (21-25) mmol/L ABG Total CO2 (19-24) mmol/L ABG O2 Saturation (94-97) % ABG Hematocrit (34.0-46.0) % ABG Potassium (3.4-4.5) mmol/L ABG Ionized Calcium (4.5-5.3) mg/dL ABG Glucose (75-99) mg/dL ABG Lactic Acid (0.5-1.6) mmol/L Hemoglobin (11.4-16.0) gm/dL Chloride 110 H (98-107) mmol/L Glucose 135 H (74-99) mg/dL POC Glucose (mg/dL) 143 H (75-99) mg/dL Calcium 8.0 L (8.4-10.2) mg/dL AST 111 H (14-36) U/L ALT 78 H (4-34) U/L Total Protein 5.2 L (6.3-8.2) g/dL Albumin 2.8 L (3.5-5.0) g/dL Arterial Blood Potassium (3.4-4.5) mmol/L Arterial Blood Glucose (75-99) mg/dL Crossmatch 01/08/21 01/08/21 01/08/21 Range/Units 19:04 19:47 19:52 WBC (3.8-10.6) k/uL RBC 2.85 L (3.80-5.40) m/uL Hgb 8.8 L (11.4-16.0) gm/dL Hct 25.9 L (34.0-46.0) % Plt Count 86 L (150-450) k/uL Neutrophils # 8.7 H (1.3-7.7) k/uL Lymphocytes # 0.7 L (1.0-4.8) k/uL PT (9.0-12.0) sec INR (<1.2) ABG pH (7.35-7.45) ABG pCO2 (35-45) mmHg ABG pO2 (83-108) mmHg ABG HCO3 (21-25) mmol/L ABG Total CO2 (19-24) mmol/L ABG O2 Saturation (94-97) % ABG Hematocrit (34.0-46.0) % ABG Potassium (3.4-4.5) mmol/L ABG Ionized Calcium (4.5-5.3) mg/dL ABG Glucose (75-99) mg/dL ABG Lactic Acid (0.5-1.6) mmol/L Hemoglobin (11.4-16.0) gm/dL Chloride (98-107) mmol/L Glucose (74-99) mg/dL POC Glucose (mg/dL) 151 H 151 H (75-99) mg/dL Calcium (8.4-10.2) mg/dL AST (14-36) U/L ALT (4-34) U/L Total Protein (6.3-8.2) g/dL Albumin (3.5-5.0) g/dL Arterial Blood Potassium (3.4-4.5) mmol/L Arterial Blood Glucose (75-99) mg/dL Crossmatch 01/08/21 01/08/21 01/08/21 Range/Units 20:51 21:49 22:55 WBC (3.8-10.6) k/uL RBC (3.80-5.40) m/uL Hgb (11.4-16.0) gm/dL Hct (34.0-46.0) % Plt Count (150-450) k/uL Neutrophils # (1.3-7.7) k/uL Lymphocytes # (1.0-4.8) k/uL PT (9.0-12.0) sec INR (<1.2) ABG pH (7.35-7.45) ABG pCO2 (35-45) mmHg ABG pO2 (83-108) mmHg ABG HCO3 (21-25) mmol/L ABG Total CO2 (19-24) mmol/L ABG O2 Saturation (94-97) % ABG Hematocrit (34.0-46.0) % ABG Potassium (3.4-4.5) mmol/L ABG Ionized Calcium (4.5-5.3) mg/dL ABG Glucose (75-99) mg/dL ABG Lactic Acid (0.5-1.6) mmol/L Hemoglobin (11.4-16.0) gm/dL Chloride (98-107) mmol/L Glucose (74-99) mg/dL POC Glucose (mg/dL) 159 H 148 H 139 H (75-99) mg/dL Calcium (8.4-10.2) mg/dL AST (14-36) U/L ALT (4-34) U/L Total Protein (6.3-8.2) g/dL Albumin (3.5-5.0) g/dL Arterial Blood Potassium (3.4-4.5) mmol/L Arterial Blood Glucose (75-99) mg/dL Crossmatch 01/08/21 01/09/21 01/09/21 Range/Units 22:56 00:21 01:14 WBC 11.5 H (3.8-10.6) k/uL RBC 2.99 L (3.80-5.40) m/uL Hgb 9.2 L (11.4-16.0) gm/dL Hct 27.2 L (34.0-46.0) % Plt Count 93 L (150-450) k/uL Neutrophils # 10.3 H (1.3-7.7) k/uL Lymphocytes # 0.5 L (1.0-4.8) k/uL PT (9.0-12.0) sec INR (<1.2) ABG pH (7.35-7.45) ABG pCO2 (35-45) mmHg ABG pO2 (83-108) mmHg ABG HCO3 (21-25) mmol/L ABG Total CO2 (19-24) mmol/L ABG O2 Saturation (94-97) % ABG Hematocrit (34.0-46.0) % ABG Potassium (3.4-4.5) mmol/L ABG Ionized Calcium (4.5-5.3) mg/dL ABG Glucose (75-99) mg/dL ABG Lactic Acid (0.5-1.6) mmol/L Hemoglobin (11.4-16.0) gm/dL Chloride (98-107) mmol/L Glucose (74-99) mg/dL POC Glucose (mg/dL) 129 H 124 H (75-99) mg/dL Calcium (8.4-10.2) mg/dL AST (14-36) U/L ALT (4-34) U/L Total Protein (6.3-8.2) g/dL Albumin (3.5-5.0) g/dL Arterial Blood Potassium (3.4-4.5) mmol/L Arterial Blood Glucose (75-99) mg/dL Crossmatch 01/09/21 01/09/21 01/09/21 Range/Units 03:30 03:30 03:32 WBC 12.4 H (3.8-10.6) k/uL RBC 3.16 L (3.80-5.40) m/uL Hgb 9.5 L (11.4-16.0) gm/dL Hct 28.5 L (34.0-46.0) % Plt Count 103 L (150-450) k/uL Neutrophils # 11.1 H (1.3-7.7) k/uL Lymphocytes # 0.3 L (1.0-4.8) k/uL PT (9.0-12.0) sec INR (<1.2) ABG pH (7.35-7.45) ABG pCO2 (35-45) mmHg ABG pO2 (83-108) mmHg ABG HCO3 (21-25) mmol/L ABG Total CO2 (19-24) mmol/L ABG O2 Saturation (94-97) % ABG Hematocrit (34.0-46.0) % ABG Potassium (3.4-4.5) mmol/L ABG Ionized Calcium (4.5-5.3) mg/dL ABG Glucose (75-99) mg/dL ABG Lactic Acid (0.5-1.6) mmol/L Hemoglobin (11.4-16.0) gm/dL Chloride 110 H (98-107) mmol/L Glucose (74-99) mg/dL POC Glucose (mg/dL) 104 H (75-99) mg/dL Calcium (8.4-10.2) mg/dL AST 89 H (14-36) U/L ALT 57 H (4-34) U/L Total Protein 5.8 L (6.3-8.2) g/dL Albumin (3.5-5.0) g/dL Arterial Blood Potassium (3.4-4.5) mmol/L Arterial Blood Glucose (75-99) mg/dL Crossmatch 01/09/21 01/09/21 01/09/21 Range/Units 04:19 06:05 06:57 WBC (3.8-10.6) k/uL RBC (3.80-5.40) m/uL Hgb (11.4-16.0) gm/dL Hct (34.0-46.0) % Plt Count (150-450) k/uL Neutrophils # (1.3-7.7) k/uL Lymphocytes # (1.0-4.8) k/uL PT (9.0-12.0) sec INR (<1.2) ABG pH (7.35-7.45) ABG pCO2 (35-45) mmHg ABG pO2 (83-108) mmHg ABG HCO3 (21-25) mmol/L ABG Total CO2 (19-24) mmol/L ABG O2 Saturation (94-97) % ABG Hematocrit (34.0-46.0) % ABG Potassium (3.4-4.5) mmol/L ABG Ionized Calcium (4.5-5.3) mg/dL ABG Glucose (75-99) mg/dL ABG Lactic Acid (0.5-1.6) mmol/L Hemoglobin (11.4-16.0) gm/dL Chloride (98-107) mmol/L Glucose (74-99) mg/dL POC Glucose (mg/dL) 107 H 163 H 159 H (75-99) mg/dL Calcium (8.4-10.2) mg/dL AST (14-36) U/L ALT (4-34) U/L Total Protein (6.3-8.2) g/dL Albumin (3.5-5.0) g/dL Arterial Blood Potassium (3.4-4.5) mmol/L Arterial Blood Glucose (75-99) mg/dL Crossmatch
[2021-01-09 10:39] VITALS: BMI 37.5
[2021-01-09] MEDS: ASPIRIN 325 MG TAB PO SCH (10:42)
[2021-01-09] MEDS: PANTOPRAZOLE 40 MG/10 ML VIAL IVP SCH (10:43)
[2021-01-09] MEDS: ATORVASTATIN 40 MG TAB PO SCH (10:43)
[2021-01-09] MEDS: METOPROLOL TARTRATE 12.5 MG TAB PO SCH ×2 (10:43→20:39)
[2021-01-09] MEDS: CLOPIDOGREL 75 MG TAB PO SCH (10:43)
[2021-01-09 10:55] LABS: Glucose,Whole Blood 119 mg/dL (75-99)
[2021-01-09] MEDS: HEPARIN SODIUM,PORCINE/PF 5,000 UNIT/0.5 ML SYRINGE SQ SCH ×3 (11:01→23:46)
[2021-01-09 12:52] LABS: Glucose,Whole Blood 80 mg/dL (75-99)
[2021-01-09 16:17] LABS: Glucose,Whole Blood 158 mg/dL (75-99)
[2021-01-09 17:54] LABS: Glucose,Whole Blood 148 mg/dL (75-99)
[2021-01-09] MEDS: CLEVIDIPINE BUTYRATE 25 MG in EMPTY BAG 1 BAG IV SCH (18:07)
[2021-01-09 19:12] LABS: Glucose,Whole Blood 163 mg/dL (75-99)
[2021-01-09 19:51] LABS: Glucose,Whole Blood 161 mg/dL (75-99)
[2021-01-09] MEDS: SENNOSIDES-DOCUSATE SODIUM 1 EACH TAB PO SCH (20:39)
[2021-01-09 22:13] LABS: Glucose,Whole Blood 92 mg/dL (75-99)
[2021-01-09] MEDS: HYDROcodone/APAP 5-325MG 1 EACH TAB PO PRN (22:16)
[2021-01-09 23:24] LABS: Glucose,Whole Blood 106 mg/dL (75-99)
[2021-01-09 23:56] LABS: Glucose,Whole Blood 98 mg/dL (75-99)
--- NOTE | 2021-01-10 00:02 | P.PN ---
Subjective Progress Note Date: 01/08/21 Principal diagnosis: Left main coronary artery disease. 75-year-old female who came in with complaints of increased fatigue and exertional dyspnea has been going on for last few days much worse since yesterday. Patient does have history of coronary artery disease with multiple stents in the past patient had similar symptoms when she had myocardial infarction in the past. EKG did not show any acute ST-T wave changes facet of troponin is negative. Patient is being admitted for possible unstable angina. The other workup for shortness of breath is all negative patient doesn't have any pneumonia d-dimer is negative chest x-ray did not show any congestive heart failure. Patient BNP is around 500. Patient doesn't have any history of COPD and is not wheezing at this time. shortness of breath is exertional upon further questioning patient said she occasionally has some squeezing sense sensation in the chest and heart area. Patient denied any diaphoresis, nausea, lightheadedness. Patient does have history of atrial fibrillation and will the patient on the monitor patient appeared to have atrial flutter. 01/01/2021 She was seen and evaluated in follow-up with no acute overnight issues. Patient continues to have dyspnea with exertion and has undergone 2-D echo which shows overall LV systolic function is low to normal with an EF of 50-55% with the right ventricle being severely enlarged right atrium is mildly enlarged with a trace to mild aortic regurgitation along with mild mitral and tricuspid regurgitation present. There is also mild pulmonary hypertension noted on the echo. There is a trivial pericardial effusion present. Cardiology following the patient and no plans for stress or cardiac catheterization at this time. Patient continues on IV heparin and will continue at this time and will likely transition back to Xarelto once stabilized. Sodium today is 140 with a potassium of 4.1 and current creatinine is 0.9. Liver functions trending down although continued to be somewhat elevated. We'll repeat a.m. labs to monitor closely. Troponins have been negative. Acute hepatitis panel is also negative. 01/02/2021 and patient will undergo cardiac catheterization today. 01/03/2021 Patient had a categorization today which showed severe left main ostial stenosis with focal critical stenosis in the mid LAD and the AV groove. Coronary artery bypass grafting was recommended by cardiology to, [facility] 6 surgery evaluated the patient and patient is scheduled for coronary artery bypass grafting on next Thursday. Patient will be discharged if cleared by cardiology and she'll come back for CABG. 01/04/2021 Patient doesn't have any symptoms of chest pain at this time. Cardiology is recommending continued hospitalization until her coronary artery bypass grafting and continuation of IV heparin. Patient's liver enzymes are improving can be started on statin. 01/05/2021 Patient doesn't have any chest pain patient probably will undergo CABG and Thursday01/06/2021 No chest pain patient clinically doing well. 01/07/2021. Patient is currently sitting in the chair comfortably. No complaints of chest p ain or shortness of breath. No leg swelling. Patient is scheduled for CABG tomorrow. Using incentive spirometry. 01/08/2021 Patient is scheduled for coronary artery bypass graft today afternoon. Continued on incentive spirometry. No complaints of chest pain or shortness of. No leg swelling. No headache or dizziness or lightheadedness. CT surgery and critical care team is on board. Patient will be transferred to MICU for surgery. Constitutional: Denied any fatigue denied any fever. Cardio vascular: denied any chest pain, palpitations Gastrointestinal denied any nausea vomiting Pulmonary: Denied any shortness of breath cough Neurologic denied any new focal deficits All inpatient medications were reviewed and appropriate changes in these medications as dictated in the interval history and assessment and plan. Objective - Vital Signs Vital signs: Vital Signs Temp 97.2 F L 01/08/21 20:00 Pulse 81 01/08/21 20:30 Resp 16 01/08/21 20:30 BP 106/54 01/08/21 20:30 Pulse Ox 100 01/08/21 20:30 Intake & Output 01/08/21 01/08/21 01/09/21 06:59 18:59 06:59 Intake Total 554.480 3027.007 Output Total 810 260 Balance -063.455 0836.007 Weight 111.3 kg Intake: IV 242.0 1383.5 ACETAMINOPHEN IV (For NPO 100 ) 1,000 mg In Empty Bag 1 bag @ 400 mls/hr IVPB Q6HR [facility] Rx#:[id number] Albumin Human 5% 250 ml 1000 In Empty Bag 1 bag @ 250 mls/hr IVPB Q1HR PRN Rx#: [id number] CO/CI 60 39 Calcium Gluconate 2 gm In 100 Sodium Chloride 0.9% 100 ml @ 100 mls/hr IVPB ONCE PRN Rx#:[id number] DOPamine DRIP 800 mg In 8 4 Dextrose/Water 1 250ml. bag @ 2 MCG/KG/MIN 4.174 mls/hr IV .Q24H [facility] Rx#: [id number] Lactated Ringers 1,000 ml 100 100 @ 50 mls/hr IV .Q20H [facility] Rx#:[id number] Nitroglycerin-D5w Pmx 50 3.0 1.5 mg In Dextrose/Water 1 250ml.bag @ 5 MCG/MIN 1.5 mls/hr IV .Q24H [facility] Rx#: [id number] Pressure Bags 18 39 Intake, IV Titration 3.125 33.507 Amount Clevidipine Butyrate 25 2.367 2.867 mg In Empty Bag 1 bag @ 1 MG/HR 2 mls/hr IV .Q24H [facility] Rx#:[id number] Insulin Regular 100 unit 0.758 7.155 In Sodium Chloride 0.9% 100 ml @ Per Protocol IV .Q0M [facility] Rx#:[id number] propofoL 1,000 mg In 23.485 Empty Bag 1 bag @ Titrate IV .Q0M [facility] Rx#: [id number] Output: Chest Tube Drainage 130 120 Chest Tube Left Pleural/ 130 120 Mediastinal Urine 180 140 Estimated Blood Loss 500 Other: Voiding Method Toilet # Voids 1 ABP, PAP, CO, CI - Last Documented Arterial Blood Pressure 104/38 Pulmonary Artery Pressure 39/21 Cardiac Output 6.8 Cardiac Index 3.1 - Exam PHYSICAL EXAMINATION: GENERAL: The patient is alert and oriented x3, not in any acute distress. Well developed, well nourished. HEENT: Pupils are round and equally reacting to light. EOMI. No scleral icterus. No conjunctival pallor. Normocephalic, atraumatic. No pharyngeal erythema. No thyromegaly. CARDIOVASCULAR: S1 and S2 present. No murmurs, rubs, or gallops. PULMONARY: Chest is clear to auscultation, no wheezing or crackles. ABDOMEN: Soft, nontender, nondistended, normoactive bowel sounds. No palpable organomegaly. MUSCULOSKELETAL: No joint swelling or deformity. EXTREMITIES: No cyanosis, clubbing, or pedal edema. NEUROLOGICAL: Gross neurological examination did not reveal any focal deficits. SKIN: No rashes. - Labs CBC & Chem 7: 01/09/21 03:30 01/09/21 03:30 Labs: Abnormal Lab Results - Last 24 Hours (Table) 01/07/21 01/08/21 01/08/21 Range/Units 09:58 14:02 15:20 RBC (3.80-5.40) m/uL Hgb (11.4-16.0) gm/dL Hct (34.0-46.0) % Plt Count (150-450) k/uL Neutrophils # (1.3-7.7) k/uL Lymphocytes # (1.0-4.8) k/uL PT (9.0-12.0) sec INR (<1.2) ABG pH (7.35-7.45) ABG pCO2 33 L (35-45) mmHg ABG pO2 228 H 229 H (83-108) mmHg ABG HCO3 (21-25) mmol/L ABG Total CO2 (19-24) mmol/L ABG O2 Saturation 99.9 H 99.9 H (94-97) % ABG Hematocrit 33 L (34.0-46.0) % ABG Potassium 5.2 H (3.4-4.5) mmol/L ABG Ionized Calcium (4.5-5.3) mg/dL ABG Glucose 100 H (75-99) mg/dL ABG Lactic Acid 1.8 H (0.5-1.6) mmol/L Hemoglobin 11.3 L 10.7 L (11.4-16.0) gm/dL Chloride (98-107) mmol/L Glucose (74-99) mg/dL POC Glucose (mg/dL) (75-99) mg/dL Calcium (8.4-10.2) mg/dL AST (14-36) U/L ALT (4-34) U/L Total Protein (6.3-8.2) g/dL Albumin (3.5-5.0) g/dL Arterial Blood Potassium 5.2 H (3.4-4.5) mmol/L Arterial Blood Glucose 100 H (75-99) mg/dL Crossmatch See Detail 01/08/21 01/08/21 01/08/21 Range/Units 15:42 16:33 16:50 RBC (3.80-5.40) m/uL Hgb (11.4-16.0) gm/dL Hct (34.0-46.0) % Plt Count (150-450) k/uL Neutrophils # (1.3-7.7) k/uL Lymphocytes # (1.0-4.8) k/uL PT (9.0-12.0) sec INR (<1.2) ABG pH (7.35-7.45) ABG pCO2 30 L 34 L (35-45) mmHg ABG pO2 247 H 194 H 109 H (83-108) mmHg ABG HCO3 20 L (21-25) mmol/L ABG Total CO2 25 H (19-24) mmol/L ABG O2 Saturation 100.0 H 99.8 H 98.7 H (94-97) % ABG Hematocrit 29 L 28 L 28 L (34.0-46.0) % ABG Potassium (3.4-4.5) mmol/L ABG Ionized Calcium 4.4 L 4.4 L (4.5-5.3) mg/dL ABG Glucose 106 H 118 H 116 H (75-99) mg/dL ABG Lactic Acid (0.5-1.6) mmol/L Hemoglobin 9.5 L 9.0 L 9.0 L (11.4-16.0) gm/dL Chloride (98-107) mmol/L Glucose (74-99) mg/dL POC Glucose (mg/dL) (75-99) mg/dL Calcium (8.4-10.2) mg/dL AST (14-36) U/L ALT (4-34) U/L Total Protein (6.3-8.2) g/dL Albumin (3.5-5.0) g/dL Arterial Blood Potassium (3.4-4.5) mmol/L Arterial Blood Glucose 106 H 118 H 116 H (75-99) mg/dL Crossmatch 01/08/21 01/08/21 01/08/21 Range/Units 17:34 17:40 17:40 RBC 3.15 L (3.80-5.40) m/uL Hgb 9.8 L D (11.4-16.0) gm/dL Hct 28.7 L (34.0-46.0) % Plt Count 92 L (150-450) k/uL Neutrophils # 9.0 H (1.3-7.7) k/uL Lymphocytes # 0.6 L (1.0-4.8) k/uL PT 12.1 H (9.0-12.0) sec INR 1.2 H (<1.2) ABG pH 7.33 L (7.35-7.45) ABG pCO2 (35-45) mmHg ABG pO2 180 H (83-108) mmHg ABG HCO3 (21-25) mmol/L ABG Total CO2 (19-24) mmol/L ABG O2 Saturation 99.0 H (94-97) % ABG Hematocrit (34.0-46.0) % ABG Potassium (3.4-4.5) mmol/L ABG Ionized Calcium (4.5-5.3) mg/dL ABG Glucose (75-99) mg/dL ABG Lactic Acid (0.5-1.6) mmol/L Hemoglobin (11.4-16.0) gm/dL Chloride (98-107) mmol/L Glucose (74-99) mg/dL POC Glucose (mg/dL) (75-99) mg/dL Calcium (8.4-10.2) mg/dL AST (14-36) U/L ALT (4-34) U/L Total Protein (6.3-8.2) g/dL Albumin (3.5-5.0) g/dL Arterial Blood Potassium (3.4-4.5) mmol/L Arterial Blood Glucose (75-99) mg/dL Crossmatch 01/08/21 01/08/21 01/08/21 Range/Units 17:40 18:12 19:04 RBC (3.80-5.40) m/uL Hgb (11.4-16.0) gm/dL Hct (34.0-46.0) % Plt Count (150-450) k/uL Neutrophils # (1.3-7.7) k/uL Lymphocytes # (1.0-4.8) k/uL PT (9.0-12.0) sec INR (<1.2) ABG pH (7.35-7.45) ABG pCO2 (35-45) mmHg ABG pO2 (83-108) mmHg ABG HCO3 (21-25) mmol/L ABG Total CO2 (19-24) mmol/L ABG O2 Saturation (94-97) % ABG Hematocrit (34.0-46.0) % ABG Potassium (3.4-4.5) mmol/L ABG Ionized Calcium (4.5-5.3) mg/dL ABG Glucose (75-99) mg/dL ABG Lactic Acid (0.5-1.6) mmol/L Hemoglobin (11.4-16.0) gm/dL Chloride 110 H (98-107) mmol/L Glucose 135 H (74-99) mg/dL POC Glucose (mg/dL) 143 H 151 H (75-99) mg/dL Calcium 8.0 L (8.4-10.2) mg/dL AST 111 H (14-36) U/L ALT 78 H (4-34) U/L Total Protein 5.2 L (6.3-8.2) g/dL Albumin 2.8 L (3.5-5.0) g/dL Arterial Blood Potassium (3.4-4.5) mmol/L Arterial Blood Glucose (75-99) mg/dL Crossmatch 01/08/21 01/08/21 01/08/21 Range/Units 19:47 19:52 20:51 RBC 2.85 L (3.80-5.40) m/uL Hgb 8.8 L (11.4-16.0) gm/dL Hct 25.9 L (34.0-46.0) % Plt Count 86 L (150-450) k/uL Neutrophils # 8.7 H (1.3-7.7) k/uL Lymphocytes # 0.7 L (1.0-4.8) k/uL PT (9.0-12.0) sec INR (<1.2) ABG pH (7.35-7.45) ABG pCO2 (35-45) mmHg ABG pO2 (83-108) mmHg ABG HCO3 (21-25) mmol/L ABG Total CO2 (19-24) mmol/L ABG O2 Saturation (94-97) % ABG Hematocrit (34.0-46.0) % ABG Potassium (3.4-4.5) mmol/L ABG Ionized Calcium (4.5-5.3) mg/dL ABG Glucose (75-99) mg/dL ABG Lactic Acid (0.5-1.6) mmol/L Hemoglobin (11.4-16.0) gm/dL Chloride (98-107) mmol/L Glucose (74-99) mg/dL POC Glucose (mg/dL) 151 H 159 H (75-99) mg/dL Calcium (8.4-10.2) mg/dL AST (14-36) U/L ALT (4-34) U/L Total Protein (6.3-8.2) g/dL Albumin (3.5-5.0) g/dL Arterial Blood Potassium (3.4-4.5) mmol/L Arterial Blood Glucose (75-99) mg/dL Crossmatch Assessment and Plan Assessment: -Acute coronary syndrome, patient has critical LAD lesion as mentioned above. Patient is scheduled for CABG today. Continue with aspirin, statins and beta blockers. Encourage incentive spirometry. -mild acute renal failure, prerenal azotemia. Improved with IV fluids. -Paroxysmal A. fib patient is presently in atrial flutter: on metoprolol succinate. On Xarelto at this time -Coronary artery disease history and history of CA. -Mild elevation of liver enzymes: Secondary to non-alcoholic steato- hepatitis liver enzymes are fairly stable . -Family history of coronary disease.
--- NOTE | 2021-01-10 00:10 | P.PN ---
Subjective Progress Note Date: 01/09/21 Principal diagnosis: Left main coronary artery disease. 75-year-old female who came in with complaints of increased fatigue and exertional dyspnea has been going on for last few days much worse since yesterday. Patient does have history of coronary artery disease with multiple stents in the past patient had similar symptoms when she had myocardial infarction in the past. EKG did not show any acute ST-T wave changes facet of troponin is negative. Patient is being admitted for possible unstable angina. The other workup for shortness of breath is all negative patient doesn't have any pneumonia d-dimer is negative chest x-ray did not show any congestive heart failure. Patient BNP is around 500. Patient doesn't have any history of COPD and is not wheezing at this time. shortness of breath is exertional upon further questioning patient said she occasionally has some squeezing sense sensation in the chest and heart area. Patient denied any diaphoresis, nausea, lightheadedness. Patient does have history of atrial fibrillation and will the patient on the monitor patient appeared to have atrial flutter. 01/01/2021 She was seen and evaluated in follow-up with no acute overnight issues. Patient continues to have dyspnea with exertion and has undergone 2-D echo which shows overall LV systolic function is low to normal with an EF of 50-55% with the right ventricle being severely enlarged right atrium is mildly enlarged with a trace to mild aortic regurgitation along with mild mitral and tricuspid regurgitation present. There is also mild pulmonary hypertension noted on the echo. There is a trivial pericardial effusion present. Cardiology following the patient and no plans for stress or cardiac catheterization at this time. Patient continues on IV heparin and will continue at this time and will likely transition back to Xarelto once stabilized. Sodium today is 140 with a potassium of 4.1 and current creatinine is 0.9. Liver functions trending down although continued to be somewhat elevated. We'll repeat a.m. labs to monitor closely. Troponins have been negative. Acute hepatitis panel is also negative. 01/02/2021 and patient will undergo cardiac catheterization today. 01/03/2021 Patient had a categorization today which showed severe left main ostial stenosis with focal critical stenosis in the mid LAD and the AV groove. Coronary artery bypass grafting was recommended by cardiology to, [facility] 6 surgery evaluated the patient and patient is scheduled for coronary artery bypass grafting on next Thursday. Patient will be discharged if cleared by cardiology and she'll come back for CABG. 01/04/2021 Patient doesn't have any symptoms of chest pain at this time. Cardiology is recommending continued hospitalization until her coronary artery bypass grafting and continuation of IV heparin. Patient's liver enzymes are improving can be started on statin. 01/05/2021 Patient doesn't have any chest pain patient probably will undergo CABG and Thursday01/06/2021 No chest pain patient clinically doing well. 01/07/2021. Patient is currently sitting in the chair comfortably. No complaints of chest p ain or shortness of breath. No leg swelling. Patient is scheduled for CABG tomorrow. Using incentive spirometry. 01/08/2021 Patient is scheduled for coronary artery bypass graft today afternoon. Continued on incentive spirometry. No complaints of chest pain or shortness of. No leg swelling. No headache or dizziness or lightheadedness. CT surgery and critical care team is on board. Patient will be transferred to MICU for surgery. 01/09/21 Postoperative day one-CABG x2. Patient is currently in MICU. Awake alert and oriented. Sitting in a chair comfortably. Patient was extubated overnight. Satur ating well on oxygen via nasal cannula. Chest tube is in place. On insulin drip for better blood sugar control which has been discontinued and continue with insulin sliding scale. Patient has been afebrile. Chest x-ray today showed bilateral infiltrate and pleural effusion. Postsurgical changes noted. Lab data showed WBC 12.4, hemoglobin 9.5 and platelets 103 BUN 14 and creatinine 0.71 AST 89 ALT 57 and total protein 5.8 and blood sugar is 163 this morning. Cardiology and pulmonary is on board. Patient is being continued aspirin, statins, Plavix and breathing treatments.. Constitutional: Denied any fatigue denied any fever. Cardio vascular: denied any chest pain, palpitations Gastrointestinal denied any nausea vomiting Pulmonary: Denied any shortness of breath cough Neurologic denied any new focal deficits All inpatient medications were reviewed and appropriate changes in these medicat ions as dictated in the interval history and assessment and plan. Objective - Vital Signs Vital signs: Vital Signs Temp 98.9 F 01/09/21 08:00 Pulse 85 01/09/21 15:32 Resp 16 01/09/21 12:00 BP 126/73 01/09/21 09:00 Pulse Ox 97 01/09/21 12:00 Intake & Output 01/08/21 01/09/21 01/09/21 18:59 06:59 18:59 Intake Total 037.231 2463.329 192.306 Output Total 810 1480 80 Balance -376.428 0383.329 112.306 Weight 105.4 kg 105.4 kg Intake: IV 242.0 2423.5 137 ACETAMINOPHEN IV (For NPO 100 ) 1,000 mg In Empty Bag 1 bag @ 400 mls/hr IVPB Q6HR [facility] Rx#:[id number] Albumin Human 5% 250 ml 1250 In Empty Bag 1 bag @ 250 mls/hr IVPB Q1HR PRN Rx#: [id number] CO/CI 60 260 60 Calcium Gluconate 2 gm In 100 Sodium Chloride 0.9% 100 ml @ 100 mls/hr IVPB ONCE PRN Rx#:[id number] DOPamine DRIP 800 mg In 8 4 Dextrose/Water 1 250ml. bag @ 2 MCG/KG/MIN 4.174 mls/hr IV .Q24H [facility] Rx#: [id number] Lactated Ringers 1,000 ml 100 600 50 @ 50 mls/hr IV .Q20H [facility] Rx#:[id number] Nitroglycerin-D5w Pmx 50 3.0 1.5 mg In Dextrose/Water 1 250ml.bag @ 5 MCG/MIN 1.5 mls/hr IV .Q24H [facility] Rx#: [id number] Pressure Bags 18 108 27 Intake, IV Titration 3.125 78.829 55.306 Amount Clevidipine Butyrate 25 2.367 20.967 mg In Empty Bag 1 bag @ 1 MG/HR 2 mls/hr IV .Q24H [facility] Rx#:[id number] DOPamine DRIP 800 mg In 55.306 Dextrose/Water 1 250ml. bag @ 2 MCG/KG/MIN 4.174 mls/hr IV .Q24H [facility] Rx#: [id number] Insulin Regular 100 unit 0.758 33.709 In Sodium Chloride 0.9% 100 ml @ Per Protocol IV .Q0M [facility] Rx#:[id number] propofoL 1,000 mg In 24.153 Empty Bag 1 bag @ Titrate IV .Q0M [facility] Rx#: [id number] Output: Chest Tube Drainage 130 520 0 Chest Tube Left Pleural/ 130 520 0 Mediastinal Urine 180 960 80 Estimated Blood Loss 500 Other: Voiding Method Indwelling Catheter Indwelling Catheter ABP, PAP, CO, CI - Last Documented Arterial Blood Pressure 130/40 Pulmonary Artery Pressure 33/8 Cardiac Output 4.7 Cardiac Index 2.2 - Exam PHYSICAL EXAMINATION: GENERAL: The patient is alert and oriented x3, not in any acute distress. Well developed, well nourished. HEENT: Pupils are round and equally reacting to light. EOMI. No scleral icterus. No conjunctival pallor. Normocephalic, atraumatic. No pharyngeal erythema. No thyromegaly. CARDIOVASCULAR: S1 and S2 present. No murmurs, rubs, or gallops. Midsternal surgical site is bandaged. PULMONARY: Bibasilar diminished sounds., no wheezing or crackles. Chest tube in place. ABDOMEN: Soft, nontender, nondistended, normoactive bowel sounds. No palpable organomegaly. MUSCULOSKELETAL: No joint swelling or deformity. EXTREMITIES: No cyanosis, clubbing, or pedal edema. NEUROLOGICAL: Gross neurological examination did not reveal any focal deficits. SKIN: No rashes. - Labs CBC & Chem 7: 01/09/21 03:30 01/09/21 03:30 Labs: Abnormal Lab Results - Last 24 Hours (Table) 01/07/21 01/08/21 01/08/21 Range/Units 09:58 14:02 15:20 WBC (3.8-10.6) k/uL RBC (3.80-5.40) m/uL Hgb (11.4-16.0) gm/dL Hct (34.0-46.0) % Plt Count (150-450) k/uL Neutrophils # (1.3-7.7) k/uL Lymphocytes # (1.0-4.8) k/uL PT (9.0-12.0) sec INR (<1.2) ABG pH (7.35-7.45) ABG pCO2 33 L (35-45) mmHg ABG pO2 228 H 229 H (83-108) mmHg ABG HCO3 (21-25) mmol/L ABG Total CO2 (19-24) mmol/L ABG O2 Saturation 99.9 H 99.9 H (94-97) % ABG Hematocrit 33 L (34.0-46.0) % ABG Potassium 5.2 H (3.4-4.5) mmol/L ABG Ionized Calcium (4.5-5.3) mg/dL ABG Glucose 100 H (75-99) mg/dL ABG Lactic Acid 1.8 H (0.5-1.6) mmol/L Hemoglobin 11.3 L 10.7 L (11.4-16.0) gm/dL Chloride (98-107) mmol/L Glucose (74-99) mg/dL POC Glucose (mg/dL) (75-99) mg/dL Calcium (8.4-10.2) mg/dL AST (14-36) U/L ALT (4-34) U/L Total Protein (6.3-8.2) g/dL Albumin (3.5-5.0) g/dL Arterial Blood Potassium 5.2 H (3.4-4.5) mmol/L Arterial Blood Glucose 100 H (75-99) mg/dL Crossmatch See Detail 01/08/21 01/08/21 01/08/21 Range/Units 15:42 16:33 16:50 WBC (3.8-10.6) k/uL RBC (3.80-5.40) m/uL Hgb (11.4-16.0) gm/dL Hct (34.0-46.0) % Plt Count (150-450) k/uL Neutrophils # (1.3-7.7) k/uL Lymphocytes # (1.0-4.8) k/uL PT (9.0-12.0) sec INR (<1.2) ABG pH (7.35-7.45) ABG pCO2 30 L 34 L (35-45) mmHg ABG pO2 247 H 194 H 109 H (83-108) mmHg ABG HCO3 20 L (21-25) mmol/L ABG Total CO2 25 H (19-24) mmol/L ABG O2 Saturation 100.0 H 99.8 H 98.7 H (94-97) % ABG Hematocrit 29 L 28 L 28 L (34.0-46.0) % ABG Potassium (3.4-4.5) mmol/L ABG Ionized Calcium 4.4 L 4.4 L (4.5-5.3) mg/dL ABG Glucose 106 H 118 H 116 H (75-99) mg/dL ABG Lactic Acid (0.5-1.6) mmol/L Hemoglobin 9.5 L 9.0 L 9.0 L (11.4-16.0) gm/dL Chloride (98-107) mmol/L Glucose (74-99) mg/dL POC Glucose (mg/dL) (75-99) mg/dL Calcium (8.4-10.2) mg/dL AST (14-36) U/L ALT (4-34) U/L Total Protein (6.3-8.2) g/dL Albumin (3.5-5.0) g/dL Arterial Blood Potassium (3.4-4.5) mmol/L Arterial Blood Glucose 106 H 118 H 116 H (75-99) mg/dL Crossmatch 01/08/21 01/08/21 01/08/21 Range/Units 17:34 17:38 17:40 WBC (3.8-10.6) k/uL RBC 3.15 L (3.80-5.40) m/uL Hgb 9.8 L D (11.4-16.0) gm/dL Hct 28.7 L (34.0-46.0) % Plt Count 92 L (150-450) k/uL Neutrophils # 9.0 H (1.3-7.7) k/uL Lymphocytes # 0.6 L (1.0-4.8) k/uL PT (9.0-12.0) sec INR (<1.2) ABG pH 7.33 L (7.35-7.45) ABG pCO2 (35-45) mmHg ABG pO2 180 H (83-108) mmHg ABG HCO3 (21-25) mmol/L ABG Total CO2 (19-24) mmol/L ABG O2 Saturation 99.0 H (94-97) % ABG Hematocrit (34.0-46.0) % ABG Potassium (3.4-4.5) mmol/L ABG Ionized Calcium (4.5-5.3) mg/dL ABG Glucose (75-99) mg/dL ABG Lactic Acid (0.5-1.6) mmol/L Hemoglobin (11.4-16.0) gm/dL Chloride (98-107) mmol/L Glucose (74-99) mg/dL POC Glucose (mg/dL) 140 H (75-99) mg/dL Calcium (8.4-10.2) mg/dL AST (14-36) U/L ALT (4-34) U/L Total Protein (6.3-8.2) g/dL Albumin (3.5-5.0) g/dL Arterial Blood Potassium (3.4-4.5) mmol/L Arterial Blood Glucose (75-99) mg/dL Crossmatch 01/08/21 01/08/21 01/08/21 Range/Units 17:40 17:40 18:12 WBC (3.8-10.6) k/uL RBC (3.80-5.40) m/uL Hgb (11.4-16.0) gm/dL Hct (34.0-46.0) % Plt Count (150-450) k/uL Neutrophils # (1.3-7.7) k/uL Lymphocytes # (1.0-4.8) k/uL PT 12.1 H (9.0-12.0) sec INR 1.2 H (<1.2) ABG pH (7.35-7.45) ABG pCO2 (35-45) mmHg ABG pO2 (83-108) mmHg ABG HCO3 (21-25) mmol/L ABG Total CO2 (19-24) mmol/L ABG O2 Saturation (94-97) % ABG Hematocrit (34.0-46.0) % ABG Potassium (3.4-4.5) mmol/L ABG Ionized Calcium (4.5-5.3) mg/dL ABG Glucose (75-99) mg/dL ABG Lactic Acid (0.5-1.6) mmol/L Hemoglobin (11.4-16.0) gm/dL Chloride 110 H (98-107) mmol/L Glucose 135 H (74-99) mg/dL POC Glucose (mg/dL) 143 H (75-99) mg/dL Calcium 8.0 L (8.4-10.2) mg/dL AST 111 H (14-36) U/L ALT 78 H (4-34) U/L Total Protein 5.2 L (6.3-8.2) g/dL Albumin 2.8 L (3.5-5.0) g/dL Arterial Blood Potassium (3.4-4.5) mmol/L Arterial Blood Glucose (75-99) mg/dL Crossmatch 01/08/21 01/08/21 01/08/21 Range/Units 19:04 19:47 19:52 WBC (3.8-10.6) k/uL RBC 2.85 L (3.80-5.40) m/uL Hgb 8.8 L (11.4-16.0) gm/dL Hct 25.9 L (34.0-46.0) % Plt Count 86 L (150-450) k/uL Neutrophils # 8.7 H (1.3-7.7) k/uL Lymphocytes # 0.7 L (1.0-4.8) k/uL PT (9.0-12.0) sec INR (<1.2) ABG pH (7.35-7.45) ABG pCO2 (35-45) mmHg ABG pO2 (83-108) mmHg ABG HCO3 (21-25) mmol/L ABG Total CO2 (19-24) mmol/L ABG O2 Saturation (94-97) % ABG Hematocrit (34.0-46.0) % ABG Potassium (3.4-4.5) mmol/L ABG Ionized Calcium (4.5-5.3) mg/dL ABG Glucose (75-99) mg/dL ABG Lactic Acid (0.5-1.6) mmol/L Hemoglobin (11.4-16.0) gm/dL Chloride (98-107) mmol/L Glucose (74-99) mg/dL POC Glucose (mg/dL) 151 H 151 H (75-99) mg/dL Calcium (8.4-10.2) mg/dL AST (14-36) U/L ALT (4-34) U/L Total Protein (6.3-8.2) g/dL Albumin (3.5-5.0) g/dL Arterial Blood Potassium (3.4-4.5) mmol/L Arterial Blood Glucose (75-99) mg/dL Crossmatch 06/08/21 06/08/21 06/08/21 Range/Units 20:51 21:49 22:55 WBC (3.8-10.6) k/uL RBC (3.80-5.40) m/uL Hgb (11.4-16.0) gm/dL Hct (34.0-46.0) % Plt Count (150-450) k/uL Neutrophils # (1.3-7.7) k/uL Lymphocytes # (1.0-4.8) k/uL PT (9.0-12.0) sec INR (<1.2) ABG pH (7.35-7.45) ABG pCO2 (35-45) mmHg ABG pO2 (83-108) mmHg ABG HCO3 (21-25) mmol/L ABG Total CO2 (19-24) mmol/L ABG O2 Saturation (94-97) % ABG Hematocrit (34.0-46.0) % ABG Potassium (3.4-4.5) mmol/L ABG Ionized Calcium (4.5-5.3) mg/dL ABG Glucose (75-99) mg/dL ABG Lactic Acid (0.5-1.6) mmol/L Hemoglobin (11.4-16.0) gm/dL Chloride (98-107) mmol/L Glucose (74-99) mg/dL POC Glucose (mg/dL) 159 H 148 H 139 H (75-99) mg/dL Calcium (8.4-10.2) mg/dL AST (14-36) U/L ALT (4-34) U/L Total Protein (6.3-8.2) g/dL Albumin (3.5-5.0) g/dL Arterial Blood Potassium (3.4-4.5) mmol/L Arterial Blood Glucose (75-99) mg/dL Crossmatch 01/08/21 01/09/21 01/09/21 Range/Units 22:56 00:21 01:14 WBC 11.5 H (3.8-10.6) k/uL RBC 2.99 L (3.80-5.40) m/uL Hgb 9.2 L (11.4-16.0) gm/dL Hct 27.2 L (34.0-46.0) % Plt Count 93 L (150-450) k/uL Neutrophils # 10.3 H (1.3-7.7) k/uL Lymphocytes # 0.5 L (1.0-4.8) k/uL PT (9.0-12.0) sec INR (<1.2) ABG pH (7.35-7.45) ABG pCO2 (35-45) mmHg ABG pO2 (83-108) mmHg ABG HCO3 (21-25) mmol/L ABG Total CO2 (19-24) mmol/L ABG O2 Saturation (94-97) % ABG Hematocrit (34.0-46.0) % ABG Potassium (3.4-4.5) mmol/L ABG Ionized Calcium (4.5-5.3) mg/dL ABG Glucose (75-99) mg/dL ABG Lactic Acid (0.5-1.6) mmol/L Hemoglobin (11.4-16.0) gm/dL Chloride (98-107) mmol/L Glucose (74-99) mg/dL POC Glucose (mg/dL) 129 H 124 H (75-99) mg/dL Calcium (8.4-10.2) mg/dL AST (14-36) U/L ALT (4-34) U/L Total Protein (6.3-8.2) g/dL Albumin (3.5-5.0) g/dL Arterial Blood Potassium (3.4-4.5) mmol/L Arterial Blood Glucose (75-99) mg/dL Crossmatch 01/09/21 01/09/21 01/09/21 Range/Units 03:30 03:30 03:32 WBC 12.4 H (3.8-10.6) k/uL RBC 3.16 L (3.80-5.40) m/uL Hgb 9.5 L (11.4-16.0) gm/dL Hct 28.5 L (34.0-46.0) % Plt Count 103 L (150-450) k/uL Neutrophils # 11.1 H (1.3-7.7) k/uL Lymphocytes # 0.3 L (1.0-4.8) k/uL PT (9.0-12.0) sec INR (<1.2) ABG pH (7.35-7.45) ABG pCO2 (35-45) mmHg ABG pO2 (83-108) mmHg ABG HCO3 (21-25) mmol/L ABG Total CO2 (19-24) mmol/L ABG O2 Saturation (94-97) % ABG Hematocrit (34.0-46.0) % ABG Potassium (3.4-4.5) mmol/L ABG Ionized Calcium (4.5-5.3) mg/dL ABG Glucose (75-99) mg/dL ABG Lactic Acid (0.5-1.6) mmol/L Hemoglobin (11.4-16.0) gm/dL Chloride 110 H (98-107) mmol/L Glucose (74-99) mg/dL POC Glucose (mg/dL) 104 H (75-99) mg/dL Calcium (8.4-10.2) mg/dL AST 89 H (14-36) U/L ALT 57 H (4-34) U/L Total Protein 5.8 L (6.3-8.2) g/dL Albumin (3.5-5.0) g/dL Arterial Blood Potassium (3.4-4.5) mmol/L Arterial Blood Glucose (75-99) mg/dL Crossmatch 01/09/21 01/09/21 01/09/21 Range/Units 04:19 06:05 06:57 WBC (3.8-10.6) k/uL RBC (3.80-5.40) m/uL Hgb (11.4-16.0) gm/dL Hct (34.0-46.0) % Plt Count (150-450) k/uL Neutrophils # (1.3-7.7) k/uL Lymphocytes # (1.0-4.8) k/uL PT (9.0-12.0) sec INR (<1.2) ABG pH (7.35-7.45) ABG pCO2 (35-45) mmHg ABG pO2 (83-108) mmHg ABG HCO3 (21-25) mmol/L ABG Total CO2 (19-24) mmol/L ABG O2 Saturation (94-97) % ABG Hematocrit (34.0-46.0) % ABG Potassium (3.4-4.5) mmol/L ABG Ionized Calcium (4.5-5.3) mg/dL ABG Glucose (75-99) mg/dL ABG Lactic Acid (0.5-1.6) mmol/L Hemoglobin (11.4-16.0) gm/dL Chloride (98-107) mmol/L Glucose (74-99) mg/dL POC Glucose (mg/dL) 107 H 163 H 159 H (75-99) mg/dL Calcium (8.4-10.2) mg/dL AST (14-36) U/L ALT (4-34) U/L Total Protein (6.3-8.2) g/dL Albumin (3.5-5.0) g/dL Arterial Blood Potassium (3.4-4.5) mmol/L Arterial Blood Glucose (75-99) mg/dL Crossmatch 01/09/21 Range/Units 10:53 WBC (3.8-10.6) k/uL RBC (3.80-5.40) m/uL Hgb (11.4-16.0) gm/dL Hct (34.0-46.0) % Plt Count (150-450) k/uL Neutrophils # (1.3-7.7) k/uL Lymphocytes # (1.0-4.8) k/uL PT (9.0-12.0) sec INR (<1.2) ABG pH (7.35-7.45) ABG pCO2 (35-45) mmHg ABG pO2 (83-108) mmHg ABG HCO3 (21-25) mmol/L ABG Total CO2 (19-24) mmol/L ABG O2 Saturation (94-97) % ABG Hematocrit (34.0-46.0) % ABG Potassium (3.4-4.5) mmol/L ABG Ionized Calcium (4.5-5.3) mg/dL ABG Glucose (75-99) mg/dL ABG Lactic Acid (0.5-1.6) mmol/L Hemoglobin (11.4-16.0) gm/dL Chloride (98-107) mmol/L Glucose (74-99) mg/dL POC Glucose (mg/dL) 119 H (75-99) mg/dL Calcium (8.4-10.2) mg/dL AST (14-36) U/L ALT (4-34) U/L Total Protein (6.3-8.2) g/dL Albumin (3.5-5.0) g/dL Arterial Blood Potassium (3.4-4.5) mmol/L Arterial Blood Glucose (75-99) mg/dL Crossmatch Assessment and Plan Assessment: -Coronary artery disease/Severe left main disease. status post CABG x2, on 01/08/21 -Preoperative medical ventilation expected. Patient was extubated last night. -Acute coronary syndrome, patient has critical LAD lesion as mentioned above. Continue with aspirin, statins and beta blockers. Encourage incentive spirometry. -mild acute renal failure, prerenal azotemia. Improved with IV fluids. -Paroxysmal A. fib patient is presently in atrial flutter: on metoprolol succinate. On Xarelto at home, -Coronary artery disease history and history of UT. -Mild elevation of liver enzymes: Secondary to non-alcoholic steato- hepatitis liver enzymes are fairly stable . -Family history of coronary disease. Time with Patient: Greater than 30
[2021-01-10] MEDS: DEXTROSE/WATER 1 250ML.BAG with DOPamine DRIP 800 MG IV SCH (00:28)
[2021-01-10 01:13] LABS: Glucose,Whole Blood 145 mg/dL (75-99)
[2021-01-10 02:03] LABS: Glucose,Whole Blood 153 mg/dL (75-99)
[2021-01-10 03:23] LABS: Glucose,Whole Blood 120 mg/dL (75-99)
[2021-01-10 03:59] LABS: Glucose,Whole Blood 113 mg/dL (75-99)
[2021-01-10 04:14] LABS: Basophils % (A) 0 %; Eosinophils % (A) 0 %; HCT 24.5 % (34.0-46.0); HGB 8.3 gm/dL (11.4-16.0); Lymphocytes # (A) 0.6 k/uL (1.0-4.8); Lymphocytes % (A) 6 %; MCV 91.3 fL (80.0-100.0); Mean Platelet Volume 10.8; Monocytes # (A) 0.6 k/uL (0-1.0); Monocytes % (A) 6 %; Neutrophils # (A) 9.6 k/uL (1.3-7.7); Neutrophils % (A) 87 %; RBC 2.68 m/uL (3.80-5.40); RDW 14.2 % (11.5-15.5)
[2021-01-10 04:20] LABS: Platelet Count 86 k/uL (150-450)
[2021-01-10 04:28] LABS: Ionized Calcium 4.7 mg/dL (4.5-5.3)
[2021-01-10 04:42] LABS: Albumin 3.4 g/dL (3.5-5.0); Calcium 8.2 mg/dL (8.4-10.2); Magnesium 2.5 mg/dL (1.6-2.3); Potassium 3.7 mmol/L (3.5-5.1); Total Bilirubin 0.6 mg/dL (0.2-1.3); Total Protein 5.5 g/dL (6.3-8.2)
[2021-01-10] MEDS: KETOROLAC 15 MG/ML 1 ML VIAL IVP SCH (05:05)
[2021-01-10] MEDS: HYDROcodone/APAP 5-325MG 1 EACH TAB PO PRN (05:07)
[2021-01-10 05:17] LABS: Glucose,Whole Blood 114 mg/dL (75-99)
[2021-01-10] MEDS ORDERED: POTASSIUM CHLORIDE ER 20 MEQ TAB.ER PO SCH (06:00)
[2021-01-10] MEDS: INSULIN REGULAR 100 UNIT in SODIUM CHLORIDE 0.9% 100 ML IV SCH (06:31)
[2021-01-10 06:33] LABS: Glucose,Whole Blood 138 mg/dL (75-99)
[2021-01-10 07:03] LABS: Glucose,Whole Blood 127 mg/dL (75-99)
[2021-01-10] MEDS: IPRATROPIUM-ALBUTEROL 3 ML NEB INHALATION SCH ×4 (07:55→21:00)
[2021-01-10 08:12] LABS: Glucose,Whole Blood 123 mg/dL (75-99)
[2021-01-10] MEDS: HEPARIN SODIUM,PORCINE/PF 5,000 UNIT/0.5 ML SYRINGE SQ SCH ×3 (09:01→23:18)
[2021-01-10] MEDS: PANTOPRAZOLE 40 MG/10 ML VIAL IVP SCH (09:01)
[2021-01-10] MEDS: ATORVASTATIN 40 MG TAB PO SCH (09:01)
[2021-01-10] MEDS: CLOPIDOGREL 75 MG TAB PO SCH (09:01)
[2021-01-10] MEDS: ACETAMINOPHEN TAB 325 MG TAB PO PRN ×2 (09:01→20:29)
[2021-01-10] MEDS: ASPIRIN 325 MG TAB PO SCH (09:01)
[2021-01-10] MEDS: METOPROLOL TARTRATE 12.5 MG TAB PO SCH ×3 (09:01→20:31)
--- NOTE | 2021-01-10 09:07 | P.PN ---
Subjective Progress Note Date: 01/10/21 Principal diagnosis: Coronary artery disease, status post coronary artery bypass grafting 2 with a WASSERMAN to the LAD, SVG to the OM. Pulmonary consultation dated 01/07/2021. 75-year-old female, with anticipated off pump bypass grafting by Dr. Aquino tomorrow. We are asked to see the patient for preop clearance. The patient is a lifelong nonsmoker. She denies a history of any lung issues such as COPD, emphysema, chronic bronchitis, or asthma. She denies any breathing or pulmonary symptoms such as shortness of breath, cough, wheezing, phlegm production, tightness, or any other complaints for that matter. The patient has been in the hospital for a number of days. She apparently was admitted back on December 31. She had a cardiac catheterization performed by Dr. Lewis on January 03. I explained to the patient what our role in the bypass surgery would be. It would include 2 major things, initially getting the patient off the mechanical ventilator. The second thing would be watching her throughout her hospitalization to make sure she did not develop a primary complication such as pleural effusion, atelectasis, lobar collapse, or pneumonia. Lab data includes a CBC which is essentially normal. Platelet count a bit low 134. Electrolyte profile is also relatively normal. AST and ALTs are bit elevated at 190 and 119 respectively. A chest x-ray done on the day of admission showed no acute cardiopulmonary process. Progress note dated 01/08/2021. The patient will have surgery today. She is postop having off pump bypass grafting done by Dr. Aquino. I again explained the role of the pulmonary/critical care doctor in the process. She understands that she'll be coming back from the operating room on the mechanical ventilator. It's our goal to get her off the ventilator as quickly as possible. In addition, I told that we will see her each step of the way, to make sure that her lungs remain in good shape while here. I emphasized the importance of using incentive spirometer. She has no clearcut evidence of any lung issues or lung disease. He is a l ifelong nonsmoker. She should do well. The patient is seen today 01/09/2021 in follow-up in the intensive care unit. She is awake and alert in no acute distress. Sitting up in a chair at the [facility]. Postoperative day #1 of coronary artery bypass grafting 2 with a WASSERMAN to the LAD, SVG to the OM. She is currently on 4 L/m per nasal cannula and maintaining O2 saturation in the 90s. Chest x-ray reveals bilateral infiltrates/atelectasis with effusion. Chest tube remains in place. No sizable pneumothorax. Working with the incentive spirometer. She remains on a nitroglycerin drip at 5 mg/m. Insulin drip at 5 units per hour. Lactated Ringer's at 50 MLS per hour. White count 12.4. Hemoglobin 9.5. Platelets 103. Sodium 140. Potassium 4.0. Creatinine 0.71. AST 89. ALT 57. Current blood pressure 124/38, PA pressure 29/8. Mean of 15. CVP 3. Cardiac output 4.7. Cardiac index 2.2. She remains on bronchodilators, heparin for DVT prophylaxis. Protonix for GI prophylaxis. The patient is seen today 01/10/2021 in follow-up in the intensive care unit. This is postoperative day #2 of her two-vessel coronary artery bypass surgery. She is sitting up in a chair at the bedside. She is maintaining O2 saturations in the low 90s on 4 L/m per nasal cannula. Chest x-ray shows bilateral atelectasis, small effusions. Chest tube currently in place. She is on lactated Ringer's at 30 mL per hour. Insulin drip at 3 units per hour. Dopamine at 2 mcg/kg/m. She is currently in sinus rhythm. White count 11.0. Hemoglobin 8.3. Platelet count 86,000. Sodium 137. Potassium 3.7. Creatinine 1.25. Glucose 105. AST 57. ALT 23. Albumin 3.4. She remains on heparin for DVT prophylaxis. Protonix for GI prophylaxis. Objective - Vital Signs Vital signs: Vital Signs Temp 98.2 F 01/10/21 08:00 Pulse 89 01/10/21 08:45 Resp 12 01/10/21 08:45 BP 99/49 01/10/21 06:30 Pulse Ox 96 01/10/21 08:45 Intake & Output 01/09/21 01/10/21 01/10/21 18:59 06:59 18:59 Intake Total 577.141 976.698 172.657 Output Total 595 852 25 Balance -17.859 124.698 147.657 Weight 105.4 kg 116.981 kg Intake: IV 488 944 72 CO/CI 330 30 Lactated Ringers 1,000 ml 50 330 60 @ 20 mls/hr IV .Q24H GEOVANNA Rx#:[id number] Pressure Bags 108 84 12 albumin 500 Intake, IV Titration 89.141 32.698 0.657 Amount DOPamine DRIP 800 mg In 55.306 Dextrose/Water 1 250ml. bag @ 2 MCG/KG/MIN 4.174 mls/hr IV .Q24H GE[facility]ANNA Rx#: [id number] Insulin Regular 100 unit 33.835 32.698 0.657 In Sodium Chloride 0.9% 100 ml @ Per Protocol IV .Q0M GEOVANNA Rx#:[id number] Oral 100 Output: Chest Tube Drainage 75 600 Chest Tube Left Pleural/ 75 600 Mediastinal Urine 520 252 25 Other: Voiding Method Indwelling Catheter Indwelling Catheter Indwelling Catheter ABP, PAP, CO, CI - Last Documented Arterial Blood Pressure 125/40 Pulmonary Artery Pressure 38/11 Cardiac Output 4.7 Cardiac Index 2.2 - Exam GENERAL EXAM: Alert, very pleasant 75-year-old female, on 4 L nasal cannula, up in a chair, fairly comfortable in no apparent distress. HEAD: Normocephalic. EYES: Normal reaction of pupils, equal size. NOSE: Clear with pink turbinates. THROAT: No erythema or exudates. NECK: [place]-Navin catheter in place. No masses, no JVD. CHEST: Sternal dressing dry and intact. Hugger in place. Chest tube in place. LUNGS: Equal air entry with crackles in the bilateral bases. CVS: S1 and S2 normal with no audible murmur, regular rhythm. ABDOMEN: No hepatosplenomegaly, normal bowel sounds, no guarding or rigidity. SPINE: No scoliosis or deformity SKIN: No rashes CENTRAL NERVOUS SYSTEM: No focal deficits, tone is normal in all 4 extremities. EXTREMITIES: SCDs in place. There is trace peripheral edema. No clubbing, no cyanosis. Peripheral pulses are intact. - Labs CBC & Chem 7: 01/10/21 04:00 01/10/21 04:00 Labs: Abnormal Lab Results - Last 24 Hours (Table) 01/09/21 01/09/21 01/09/21 Range/Units 10:53 16:16 17:52 WBC (3.8-10.6) k/uL RBC (3.80-5.40) m/uL Hgb (11.4-16.0) gm/dL Hct (34.0-46.0) % Plt Count (150-450) k/uL Neutrophils # (1.3-7.7) k/uL Lymphocytes # (1.0-4.8) k/uL BUN (7-17) mg/dL Creatinine (0.52-1.04) mg/dL Glucose (74-99) mg/dL POC Glucose (mg/dL) 119 H 158 H 148 H (75-99) mg/dL Calcium (8.4-10.2) mg/dL Magnesium (1.6-2.3) mg/dL AST (14-36) U/L Total Protein (6.3-8.2) g/dL Albumin (3.5-5.0) g/dL 01/09/21 01/09/21 01/09/21 Range/Units 19:11 19:50 23:22 WBC (3.8-10.6) k/uL RBC (3.80-5.40) m/uL Hgb (11.4-16.0) gm/dL Hct (34.0-46.0) % Plt Count (150-450) k/uL Neutrophils # (1.3-7.7) k/uL Lymphocytes # (1.0-4.8) k/uL BUN (7-17) mg/dL Creatinine (0.52-1.04) mg/dL Glucose (74-99) mg/dL POC Glucose (mg/dL) 163 H 161 H 106 H (75-99) mg/dL Calcium (8.4-10.2) mg/dL Magnesium (1.6-2.3) mg/dL AST (14-36) U/L Total Protein (6.3-8.2) g/dL Albumin (3.5-5.0) g/dL 01/10/21 01/10/21 01/10/21 Range/Units 01:11 02:02 03:20 WBC (3.8-10.6) k/uL RBC (3.80-5.40) m/uL Hgb (11.4-16.0) gm/dL Hct (34.0-46.0) % Plt Count (150-450) k/uL Neutrophils # (1.3-7.7) k/uL Lymphocytes # (1.0-4.8) k/uL BUN (7-17) mg/dL Creatinine (0.52-1.04) mg/dL Glucose (74-99) mg/dL POC Glucose (mg/dL) 145 H 153 H 120 H (75-99) mg/dL Calcium (8.4-10.2) mg/dL Magnesium (1.6-2.3) mg/dL AST (14-36) U/L Total Protein (6.3-8.2) g/dL Albumin (3.5-5.0) g/dL 01/10/21 01/10/21 01/10/21 Range/Units 03:58 04:00 04:00 WBC 11.0 H (3.8-10.6) k/uL RBC 2.68 L (3.80-5.40) m/uL Hgb 8.3 L (11.4-16.0) gm/dL Hct 24.5 L (34.0-46.0) % Plt Count 86 L (150-450) k/uL Neutrophils # 9.6 H (1.3-7.7) k/uL Lymphocytes # 0.6 L (1.0-4.8) k/uL BUN 19 H (7-17) mg/dL Creatinine 1.25 H (0.52-1.04) mg/dL Glucose 105 H (74-99) mg/dL POC Glucose (mg/dL) 113 H (75-99) mg/dL Calcium 8.2 L (8.4-10.2) mg/dL Magnesium 2.5 H (1.6-2.3) mg/dL AST 57 H (14-36) U/L Total Protein 5.5 L (6.3-8.2) g/dL Albumin 3.4 L (3.5-5.0) g/dL 01/10/21 01/10/21 01/10/21 Range/Units 05:05 06:30 07:01 WBC (3.8-10.6) k/uL RBC (3.80-5.40) m/uL Hgb (11.4-16.0) gm/dL Hct (34.0-46.0) % Plt Count (150-450) k/uL Neutrophils # (1.3-7.7) k/uL Lymphocytes # (1.0-4.8) k/uL BUN (7-17) mg/dL Creatinine (0.52-1.04) mg/dL Glucose (74-99) mg/dL POC Glucose (mg/dL) 114 H 138 H 127 H (75-99) mg/dL Calcium (8.4-10.2) mg/dL Magnesium (1.6-2.3) mg/dL AST (14-36) U/L Total Protein (6.3-8.2) g/dL Albumin (3.5-5.0) g/dL 01/10/21 Range/Units 08:11 WBC (3.8-10.6) k/uL RBC (3.80-5.40) m/uL Hgb (11.4-16.0) gm/dL Hct (34.0-46.0) % Plt Count (150-450) k/uL Neutrophils # (1.3-7.7) k/uL Lymphocytes # (1.0-4.8) k/uL BUN (7-17) mg/dL Creatinine (0.52-1.04) mg/dL Glucose (74-99) mg/dL POC Glucose (mg/dL) 123 H (75-99) mg/dL Calcium (8.4-10.2) mg/dL Magnesium (1.6-2.3) mg/dL AST (14-36) U/L Total Protein (6.3-8.2) g/dL Albumin (3.5-5.0) g/dL Assessment and Plan Assessment: 1 Coronary artery disease status post coronary artery bypass grafting 2 with a WASSERMAN to LAD, saphenous vein grafts to the obtuse marginal. Postoperative day #2 2 Mechanical ventilation management, extubated just after midnight 01/09/2021 3 Lifelong nonsmoker 4 History of congestive heart failure 5 Hyperlipidemia 6 Hypertension 7 Prior history of myocardial infarction with stent placement Plan: The patient was seen and evaluated by Dr. Waterman Chest x-ray, labs reviewed Titrate the FiO2 as tolerated Encouraged increased use the incentive spirometer Continue bronchodilators, DVT prophylaxis We will continue to follow I, the cosigning physician, performed a history & physical examination of the patient. Lungs sounds with crackles in bilateral bases. Maintaining good O2 saturations in the 90s on 4 L/m per nasal cannula. I discussed the assessment and plan of care with my nurse practitioner, Joanna Newsome. I attest to the above note as dictated by her.
--- NOTE | 2021-01-10 10:00 | XR ---
EXAMINATION TYPE: XR chest 1V portable DATE OF EXAM: 01/10/2021 COMPARISON: 01/09/2021 HISTORY: Postop cardiac surgery TECHNIQUE: Single frontal view of the chest is obtained. FINDINGS: The heart is enlarged and there is bilateral infiltrate and pleural effusion with intersti tial pattern. No pneumothorax. Mediastinal drain noted. Atherosclerotic change aorta. Arthropathy of the shoulders. [place]-Navin catheter has been removed. IMPRESSION: 1. Bilateral infiltrate and pleural effusion stable. Correlate for mild venous congestion.
[2021-01-10 11:34] LABS: Glucose,Whole Blood 95 mg/dL (75-99)
[2021-01-10] MEDS: INSULIN ASPART (NovoLOG) 100 UNIT/ML VIAL SQ SCH ×3 (12:05→20:31)
--- NOTE | 2021-01-10 12:25 | P.PN ---
Subjective Progress Note Date: 01/10/21 Principal diagnosis: Coronary artery disease with left main disease, acute kidney injury on admission. Past medical history significant for myocardial infarction with multivessel angioplasty, hypertension, hyperlipidemia, paroxysmal atrial fibrillation on Xarelto for anticoagulation, fatty liver with transaminitis, and family history of coronary artery disease. POD #2 off-pump coronary artery bypass graft 2 with left internal mammary artery to the left anterior descending artery, reverse saphenous vein graft to the obtuse marginal artery, ligation of the left atrial appendage using a 35 mm AtriClip, endovascular vein harvest of the left greater saphenous vein from the knee to the groin, intraoperative transesophageal echocardiogram. Postoperative acute blood loss anemia and thrombocytopenia, expected given hemodilution. The patient is seen in follow-up today 01/10/2021 at her bedside in the intensive care unit. Currently she is sitting up to the bedside chair, is awake, alert and oriented 3 and is in no acute distress. Denies any complaints of shortness of breath although she is complaining of some back pain which she reports is chronic. Bedside telemetry showing normal sinus rhythm heart rate 87 BPM. Oxygen saturation are 94% on 4 L nasal cannula. She is achieving 500 mL on her incentive spirometry with much encouragement. Her night nurse reports that she had some low urine output and was subsequently started on dopamine drip at 2 mcg/kg/m for renal perfusion. Right IJ cordis remains in place with current CVP pressure 10 mmHg. Mediastinal and left pleural chest tubes remain in place to low continuous wall suction -20 cm H2O. No air leak is present. Draining thin serosanguineous drainage with 170 mL output the last 8 hours and 600 mL output in the last 24 hours. Laboratory results this morning show a WBC count 11.0, hemoglobin 8.3, hematocrit 24.5, platelets 86, sodium 137, potassium 3.7, BUN 19 and creatinine 1.25. The patient reports that she ambulated in the intensive care unit hallway 2 yesterday with minimal assistance from nursing and therapy staff. Objective - Vital Signs Vital signs: Vital Signs Temp 98.2 F 01/10/21 08:45 Pulse 85 01/10/21 09:00 Resp 10 L 01/10/21 09:00 BP 95/44 01/10/21 09:00 Pulse Ox 94 L 01/10/21 09:00 Intake & Output 0601/10/21 01/10/21 18:59 06:59 18:59 Intake Total 577.141 976.698 208.657 Output Total 595 852 120 Balance -17.859 124.698 88.657 Weight 105.4 kg 116.981 kg Intake: IV 488 944 108 CO/CI 330 30 Lactated Ringers 1,000 ml 50 330 90 @ 20 mls/hr IV .Q24H [facility] Rx#:[id number] Pressure Bags 108 84 18 albumin 500 Intake, IV Titration 89.141 32.698 0.657 Amount DOPamine DRIP 800 mg In 55.306 Dextrose/Water 1 250ml. bag @ 2 MCG/KG/MIN 4.174 mls/hr IV .Q24H GE[facility]NA Rx#: [id number] Insulin Regular 100 unit 33.835 32.698 0.657 In Sodium Chloride 0.9% 100 ml @ Per Protocol IV .Q0M GE[facility]ANNA Rx#:[id number] Oral 100 Output: Chest Tube Drainage 75 600 90 Chest Tube Left Pleural/ 75 600 90 Mediastinal Urine 520 252 30 Other: Voiding Method Indwelling Catheter Indwelling Catheter Indwelling Catheter ABP, PAP, CO, CI - Last Documented Arterial Blood Pressure 126/40 Pulmonary Artery Pressure 38/11 Cardiac Output 4.7 Cardiac Index 2.2 - Exam CONSTITUTIONAL: Sitting up to the bedside chair in the intensive care unit, appears comfortable, cooperative, no apparent acute distress. HEENT: Neck is supple, no JVD, no lymphadenopathy. Right IJ Cordis in place and functioning. RESPIRATORY: Lungs sounds essentially clear throughout, diminished to his bilateral bases. Respirations are symmetrical and nonlabored. Currently on 4 L nasal cannula with oxygen saturations 94%. Able to achieve 500 mL on her incentive spirometry. Strong cough. CARDIOVASCULAR: Regular rhythm and rate. S1 and S2 present, negative for S3, gallop or murmur. Sternum is stable. Palpable peripheral pulses bilaterally. No calf pain or tenderness noted. Heart hugger in place with patient demonstrating appropriate use. Knee-high EDY hose and sequential compression devices in place to his bilateral lower extremities. GASTROINTESTINAL: Abdomen soft, nontender, nondistended. Active bowel sounds present 4 quadrants. Tolerating diet. Passing flatus. No guarding or rigidity. GENITOURINARY: [place] present draining clear, yellow urine. Marginal urine output with 160 mL in the last 8 hours. INTEGUMENTARY: Skin is warm and dry with evidence of good perfusion. Midline sternal incision clean dry and well approximated, covered with dry intact dr essing. Left lower extremity EVH site well approximated without redness or drainage. NEUROLOGIC: Cranial nerves II through XII intact. No focal deficits. MUSKULOSKELETAL: Able to move all extremities, strength equal bilaterally, generalized weakness. PSYCHIATRIC: Alert and oriented to person place and time, appropriate affect, intact judgment and insight. INVASIVE LINES AND TUBES: Mediastinal/left pleural chest tubes present and connected to low continuous wall suction, no air leaks present. Chest tubes with 170 mL of thin serosanguineous drainage overnight, 600 mL output in the last 24 hours. Right internal jugular Cordis, with current CVP pressure 10 mmHg. Right radial arterial line present. - Labs CBC & Chem 7: 01/10/21 04:00 01/10/21 04:00 Labs: Abnormal Lab Results - Last 24 Hours (Table) 01/09/21 01/09/21 01/09/21 Range/Units 10:53 16:16 17:52 WBC (3.8-10.6) k/uL RBC (3.80-5.40) m/uL Hgb (11.4-16.0) gm/dL Hct (34.0-46.0) % Plt Count (150-450) k/uL Neutrophils # (1.3-7.7) k/uL Lymphocytes # (1.0-4.8) k/uL BUN (7-17) mg/dL Creatinine (0.52-1.04) mg/dL Glucose (74-99) mg/dL POC Glucose (mg/dL) 119 H 158 H 148 H (75-99) mg/dL Calcium (8.4-10.2) mg/dL Magnesium (1.6-2.3) mg/dL AST (14-36) U/L Total Protein (6.3-8.2) g/dL Albumin (3.5-5.0) g/dL 01/09/21 01/09/21 01/09/21 Range/Units 19:11 19:50 23:22 WBC (3.8-10.6) k/uL RBC (3.80-5.40) m/uL Hgb (11.4-16.0) gm/dL Hct (34.0-46.0) % Plt Count (150-450) k/uL Neutrophils # (1.3-7.7) k/uL Lymphocytes # (1.0-4.8) k/uL BUN (7-17) mg/dL Creatinine (0.52-1.04) mg/dL Glucose (74-99) mg/dL POC Glucose (mg/dL) 163 H 161 H 106 H (75-99) mg/dL Calcium (8.4-10.2) mg/dL Magnesium (1.6-2.3) mg/dL AST (14-36) U/L Total Protein (6.3-8.2) g/dL Albumin (3.5-5.0) g/dL 01/10/21 01/10/21 01/10/21 Range/Units 01:11 02:02 03:20 WBC (3.8-10.6) k/uL RBC (3.80-5.40) m/uL Hgb (11.4-16.0) gm/dL Hct (34.0-46.0) % Plt Count (150-450) k/uL Neutrophils # (1.3-7.7) k/uL Lymphocytes # (1.0-4.8) k/uL BUN (7-17) mg/dL Creatinine (0.52-1.04) mg/dL Glucose (74-99) mg/dL POC Glucose (mg/dL) 145 H 153 H 120 H (75-99) mg/dL Calcium (8.4-10.2) mg/dL Magnesium (1.6-2.3) mg/dL AST (14-36) U/L Total Protein (6.3-8.2) g/dL Albumin (3.5-5.0) g/dL 01/10/21 01/10/21 01/10/21 Range/Units 03:58 04:00 04:00 WBC 11.0 H (3.8-10.6) k/uL RBC 2.68 L (3.80-5.40) m/uL Hgb 8.3 L (11.4-16.0) gm/dL Hct 24.5 L (34.0-46.0) % Plt Count 86 L (150-450) k/uL Neutrophils # 9.6 H (1.3-7.7) k/uL Lymphocytes # 0.6 L (1.0-4.8) k/uL BUN 19 H (7-17) mg/dL Creatinine 1.25 H (0.52-1.04) mg/dL Glucose 105 H (74-99) mg/dL POC Glucose (mg/dL) 113 H (75-99) mg/dL Calcium 8.2 L (8.4-10.2) mg/dL Magnesium 2.5 H (1.6-2.3) mg/dL AST 57 H (14-36) U/L Total Protein 5.5 L (6.3-8.2) g/dL Albumin 3.4 L (3.5-5.0) g/dL 01/10/21 01/10/21 01/10/21 Range/Units 05:05 06:30 07:01 WBC (3.8-10.6) k/uL RBC (3.80-5.40) m/uL Hgb (11.4-16.0) gm/dL Hct (34.0-46.0) % Plt Count (150-450) k/uL Neutrophils # (1.3-7.7) k/uL Lymphocytes # (1.0-4.8) k/uL BUN (7-17) mg/dL Creatinine (0.52-1.04) mg/dL Glucose (74-99) mg/dL POC Glucose (mg/dL) 114 H 138 H 127 H (75-99) mg/dL Calcium (8.4-10.2) mg/dL Magnesium (1.6-2.3) mg/dL AST (14-36) U/L Total Protein (6.3-8.2) g/dL Albumin (3.5-5.0) g/dL 01/10/21 Range/Units 08:11 WBC (3.8-10.6) k/uL RBC (3.80-5.40) m/uL Hgb (11.4-16.0) gm/dL Hct (34.0-46.0) % Plt Count (150-450) k/uL Neutrophils # (1.3-7.7) k/uL Lymphocytes # (1.0-4.8) k/uL BUN (7-17) mg/dL Creatinine (0.52-1.04) mg/dL Glucose (74-99) mg/dL POC Glucose (mg/dL) 123 H (75-99) mg/dL Calcium (8.4-10.2) mg/dL Magnesium (1.6-2.3) mg/dL AST (14-36) U/L Total Protein (6.3-8.2) g/dL Albumin (3.5-5.0) g/dL Assessment and Plan Assessment: 1. Symptomatic coronary artery disease with left main disease, status post 2 vessel coronary artery bypass grafting 2. Acute kidney injury on admission 3. History of myocardial infarction, history of multivessel angioplasty 4. Hypertension 5. Hyperlipidemia, treated, cholesterol 139, LDL 91 6. History of persistent paroxysmal atrial fibrillation on Xarelto for anticoagulation on an outpatient, status post left atrial appendage ligation 7. History of fatty liver with elevation of her transaminase enzymes 8. Family history of coronary artery disease 9. Lifetime nonsmoker with the preoperative FEV1 57% of predicted value 10. Postoperative acute blood loss anemia and thrombocytopenia, expected Plan: 1. Continue aspirin, Plavix, statin, and beta maxi. Will increase beta maxi as tolerated. 2. Continue dopamine drip at 2 mcg/kg/m for renal perfusion. 3. Wean O2 as tolerated. Encourage incentive spirometry use 10 times every hour while awake. Bronchodilators per pulmonology. 3. Increase activity, ambulate as tolerated. PT/OT/cardiac rehab following. 4. Will monitor daily labs and chest x-rays. Electrolyte replacement per protocol. 5. GI/DVT prophylaxis. 6. Insulin management per primary care service. Patient is not diabetic, hemoglobin A1c 5.4%. 7. Pain controlled with current medication regimen. Discontinue Toradol for elevated creatinine. 8. Keep right IJ Cordis with continuous CVP monitoring and the patient continues on dopamine drip. Remove right radial arterial line. 9. Remove mediastinal chest tube and left pleural chest tubes. 10. Continue [place] catheter for another 24 hours. Continue to record strict accurate intake and output. Daily weights 11. More recommendations to follow based on patient's clinical course. Time with Patient: Greater than 30
--- NOTE | 2021-01-10 14:13 | P.PN ---
Subjective This is a pleasant 75-year-old female past medical history significant for paroxysmal atrial fibrillation on long-term anticoagulation (Xarelto at home), coronary artery disease status post PCI to the circumflex and OM 2017, hypertension, dyslipidemia and obesity. She follows in the office with Dr. Lewis. We were first consulted for for shortness of breath on 01/01/21. Echo 01/01 revealed preserved LV systolic function with ejection fraction 50-55%, mild MR, mild TR and mild pulmonary hypertension with RVSP of 39 mmHg. Cardiac catheteri zation was recommended and completed on 01/03 which revealed severe ostial left main stenosis with focal critical stenosis also in the mid LAD and the AV groove circumflex. Cardiothoracic Surgery was consulted for further evaluation and treatment recommendations including myocardial revascularization surgery 01/08/21 Patient underwent coronary artery bypass graft 2 with WASSERMAN to the LAD, reverse saphenous vein graft to the obtuse marginal artery, ligation of the left atrial appendage, endovascular vein harvest of the left greater saphenous vein from the knee to the groin. 01/10/2021 Patient is POD #2. Patient seen and examined sitting up in recliner in no acute distress. She was extubated 01/08 night. She states she does continue to have some left sided back pain. Denies chest pain or shortness of breath. She is tolerating PO intake. She was hypotensive overnight, and decreaed urine output given IV albumin and started IV dopamine for renal perfusion. Urine output with 2.2 L over the past 24 hours. Patient has not had a bowel movement yet. Blood pressure 124/41 HR 81, afebrile, maintaining oxygen saturations on 4L nasal cannula. She is currently being maintained on aspirin 325 mg daily, atorvastatin 40 mg daily, IV Dopamine at 2mcg/kg/min, Plavix 75mg daily, metoprolol 12.5mg BID. Laboratory data reviewed, WBC 11, hemoglobin 8.3, platelets 86, sodium 137, potassium 3.7, serum creatinine 1.25, BUN 19, magnesium 2.5 PHYSICAL EXAMINATION CONSTITUTIONAL: No apparent distress. HEENT: Mucous membranes of the mouth are moist. No JVD. Righ IJ swan/cordis noted. CHEST EXAMINATION: Lungs are diminished bilaterally to auscultation. Denies chest tenderness. Mediastinal and left pleural chest tubes with serosanguineous drainage HEART EXAMINATION: Regular rate and rhythm. S1, S2 heard. Soft systolic ejection murmur at the base, no gallops or rub. EXTREMITIES: 2+ peripheral pulses, no lower extremity edema and no calf tenderness. Right radial arterial line present : bruce catheter in place SKIN: Anterior chest incision site clean dry covered in dressin NEURO: Alert and oriented x 3. ASSESSMENT Severe left main disease Status post 2 vessel coronary artery bypass graft 01/08/21 Transaminitis Hyperkalemia Acute kidney injury sCr 0.70--> 1.25 Coronary artery disease status post PCI to the circumflex and OM 2017 Hypertension Dyslipidemia Paroxysmal atrial fibrillation on long-term anticoagulation (Xarelto) currently maintaining sinus mechanism PLAN Continue aspirin, Plavix, statin, beta maxi therapy. Post operative management per CT surgery Increase activity as tolerated Encourage incentive spirometry every hour Further recommendations based on clinical course. We will follow patient. Nurse Practitioner note has been reviewed, I agree with a documented findings and plan of care. Patient was seen and examined. Objective - Vital Signs Vital signs: Vital Signs Temp 97.7 F 01/10/21 13:30 Pulse 82 01/10/21 13:30 Resp 9 L 01/10/21 13:30 BP 123/68 01/10/21 13:30 Pulse Ox 95 01/10/21 13:30 Intake & Output 01/09/21 01/10/21 01/10/21 18:59 06:59 18:59 Intake Total 577.141 976.698 352.657 Output Total 595 852 265 Balance -17.859 124.698 87.657 Weight 105.4 kg 116.981 kg Intake: IV 488 944 252 CO/CI 330 30 Lactated Ringers 1,000 ml 50 330 210 @ 20 mls/hr IV .Q24H [facility] Rx#:[id number] Pressure Bags 108 84 42 albumin 500 Intake, IV Titration 89.141 32.698 0.657 Amount DOPamine DRIP 800 mg In 55.306 Dextrose/Water 1 250ml. bag @ 2 MCG/KG/MIN 4.174 mls/hr IV .Q24H [facility] Rx#: [id number] Insulin Regular 100 unit 33.835 32.698 0.657 In Sodium Chloride 0.9% 100 ml @ Per Protocol IV .Q0M [facility] Rx#:[id number] Oral 100 Output: Chest Tube Drainage 75 600 130 Chest Tube Left Pleural/ 75 600 130 Mediastinal Urine 520 252 135 Other: Voiding Method Indwelling Catheter Indwelling Catheter Indwelling Catheter ABP, PAP, CO, CI - Last Documented Arterial Blood Pressure 116/31 Pulmonary Artery Pressure 38/11 Cardiac Output 4.7 Cardiac Index 2.2 - Labs CBC & Chem 7: 01/10/21 04:00 01/10/21 04:00 Labs: Abnormal Lab Results - Last 24 Hours (Table) 01/09/21 01/09/21 01/09/21 Range/Units 16:16 17:52 19:11 WBC (3.8-10.6) k/uL RBC (3.80-5.40) m/uL Hgb (11.4-16.0) gm/dL Hct (34.0-46.0) % Plt Count (150-450) k/uL Neutrophils # (1.3-7.7) k/uL Lymphocytes # (1.0-4.8) k/uL BUN (7-17) mg/dL Creatinine (0.52-1.04) mg/dL Glucose (74-99) mg/dL POC Glucose (mg/dL) 158 H 148 H 163 H (75-99) mg/dL Calcium (8.4-10.2) mg/dL Magnesium (1.6-2.3) mg/dL AST (14-36) U/L Total Protein (6.3-8.2) g/dL Albumin (3.5-5.0) g/dL 01/09/21 01/09/21 01/10/21 Range/Units 19:50 23:22 01:11 WBC (3.8-10.6) k/uL RBC (3.80-5.40) m/uL Hgb (11.4-16.0) gm/dL Hct (34.0-46.0) % Plt Count (150-450) k/uL Neutrophils # (1.3-7.7) k/uL Lymphocytes # (1.0-4.8) k/uL BUN (7-17) mg/dL Creatinine (0.52-1.04) mg/dL Glucose (74-99) mg/dL POC Glucose (mg/dL) 161 H 106 H 145 H (75-99) mg/dL Calcium (8.4-10.2) mg/dL Magnesium (1.6-2.3) mg/dL AST (14-36) U/L Total Protein (6.3-8.2) g/dL Albumin (3.5-5.0) g/dL 01/10/21 01/10/21 01/10/21 Range/Units 02:02 03:20 03:58 WBC (3.8-10.6) k/uL RBC (3.80-5.40) m/uL Hgb (11.4-16.0) gm/dL Hct (34.0-46.0) % Plt Count (150-450) k/uL Neutrophils # (1.3-7.7) k/uL Lymphocytes # (1.0-4.8) k/uL BUN (7-17) mg/dL Creatinine (0.52-1.04) mg/dL Glucose (74-99) mg/dL POC Glucose (mg/dL) 153 H 120 H 113 H (75-99) mg/dL Calcium (8.4-10.2) mg/dL Magnesium (1.6-2.3) mg/dL AST (14-36) U/L Total Protein (6.3-8.2) g/dL Albumin (3.5-5.0) g/dL 01/10/21 01/10/21 01/10/21 Range/Units 04:00 04:00 05:05 WBC 11.0 H (3.8-10.6) k/uL RBC 2.68 L (3.80-5.40) m/uL Hgb 8.3 L (11.4-16.0) gm/dL Hct 24.5 L (34.0-46.0) % Plt Count 86 L (150-450) k/uL Neutrophils # 9.6 H (1.3-7.7) k/uL Lymphocytes # 0.6 L (1.0-4.8) k/uL BUN 19 H (7-17) mg/dL Creatinine 1.25 H (0.52-1.04) mg/dL Glucose 105 H (74-99) mg/dL POC Glucose (mg/dL) 114 H (75-99) mg/dL Calcium 8.2 L (8.4-10.2) mg/dL Magnesium 2.5 H (1.6-2.3) mg/dL AST 57 H (14-36) U/L Total Protein 5.5 L (6.3-8.2) g/dL Albumin 3.4 L (3.5-5.0) g/dL 01/10/21 01/10/21 01/10/21 Range/Units 06:30 07:01 08:11 WBC (3.8-10.6) k/uL RBC (3.80-5.40) m/uL Hgb (11.4-16.0) gm/dL Hct (34.0-46.0) % Plt Count (150-450) k/uL Neutrophils # (1.3-7.7) k/uL Lymphocytes # (1.0-4.8) k/uL BUN (7-17) mg/dL Creatinine (0.52-1.04) mg/dL Glucose (74-99) mg/dL POC Glucose (mg/dL) 138 H 127 H 123 H (75-99) mg/dL Calcium (8.4-10.2) mg/dL Magnesium (1.6-2.3) mg/dL AST (14-36) U/L Total Protein (6.3-8.2) g/dL Albumin (3.5-5.0) g/dL
[2021-01-10 17:15] LABS: Glucose,Whole Blood 156 mg/dL (75-99)
[2021-01-10] MEDS: LACTATED RINGERS 1,000 ML IV SCH (19:47)
[2021-01-10 20:14] LABS: Glucose,Whole Blood 237 mg/dL (75-99)
[2021-01-10] MEDS: SENNOSIDES-DOCUSATE SODIUM 1 EACH TAB PO SCH (20:30)
[2021-01-10] MEDS: DEXTROSE 5% IN WATER 100 ML with AMIODARONE 150 MG IV PRN (22:54)
[2021-01-11] MEDS: DEXTROSE/WATER 1 250ML.BAG with DOPamine DRIP 800 MG IV SCH (00:41)
[2021-01-11] MEDS: ACETAMINOPHEN TAB 325 MG TAB PO PRN ×2 (03:08→21:16)
[2021-01-11 04:26] LABS: Basophils % (A) 0 %; Eosinophils # (A) 0.1 k/uL (0-0.7); Eosinophils % (A) 1 %; HCT 26.8 % (34.0-46.0); HGB 8.9 gm/dL (11.4-16.0); Lymphocytes # (A) 0.6 k/uL (1.0-4.8); Lymphocytes % (A) 6 %; MCH 30.3 pg (25.0-35.0); MCHC 33.1 g/dL (31.0-37.0); MCV 91.5 fL (80.0-100.0); Mean Platelet Volume 10.7; Monocytes # (A) 0.6 k/uL (0-1.0); Monocytes % (A) 6 %; Neutrophils # (A) 9.1 k/uL (1.3-7.7); Neutrophils % (A) 85 %; Platelet Count 115 k/uL (150-450); RBC 2.93 m/uL (3.80-5.40); RDW 14.6 % (11.5-15.5); WBC 10.7 k/uL (3.8-10.6)
[2021-01-11 04:54] LABS: Calcium 8.3 mg/dL (8.4-10.2); Potassium 3.9 mmol/L (3.5-5.1); Total Bilirubin 1.2 mg/dL (0.2-1.3); Total Protein 5.3 g/dL (6.3-8.2)
[2021-01-11] MEDS ORDERED: POTASSIUM CHLORIDE ER 20 MEQ TAB.ER PO SCH (06:00)
--- NOTE | 2021-01-11 06:09 | P.PN ---
Subjective Progress Note Date: 01/11/21 Principal diagnosis: Coronary artery disease. Pulmonary consultation dated 01/07/2021. 75-year-old female, with anticipated off pump bypass grafting by Dr. Aquino tomorrow. We are asked to see the patient for preop clearance. The patient is a lifelong nonsmoker. She denies a history of any lung issues such as COPD, emphysema, chronic bronchitis, or asthma. She denies any breathing or pulmonary symptoms such as shortness of breath, cough, wheezing, phlegm production, tig htness, or any other complaints for that matter. The patient has been in the hospital for a number of days. She apparently was admitted back on December 31. She had a cardiac catheterization performed by Dr. Lewis on January 03. I explained to the patient what our role in the bypass surgery would be. It would include 2 major things, initially getting the patient off the mechanical ventilator. The second thing would be watching her throughout her hospitalization to make sure she did not develop a primary complication such as pleural effusion, atelectasis, lobar collapse, or pneumonia. Lab data includes a CBC which is essentially normal. Platelet count a bit low 134. Electrolyte profile is also relatively normal. AST and ALTs are bit elevated at 190 and 119 respectively. A chest x-ray done on the day of admission showed no acute cardiopulmonary process. Progress note dated 01/08/2021. The patient will have surgery today. She is postop having off pump bypass grafting done by Dr. Aquino. I again explained the role of the pulmonary/critical care doctor in the process. She understands that she'll be coming back from the operating room on the mechanical ventilator. It's our goal to get her off the ventilator as quickly as possible. In addition, I told that we will see her each step of the way, to make sure that her lungs remain in good shape while here. I emphasized the importance of using incentive spirometer. She has no clearcut evidence of any lung issues or lung disease. He is a lifelong nonsmoker. She should do well. The patient is seen today 01/09/2021 in follow-up in the intensive care unit. She is awake and alert in no acute distress. Sitting up in a chair at the bedside. Postoperative day #1 of coronary artery bypass grafting 2 with a WASSERMAN to the LAD, SVG to the OM. She is currently on 4 L/m per nasal cannula and maintaining O2 saturation in the 90s. Chest x-ray reveals bilateral infiltrates/atelectasis with effusion. Chest tube remains in place. No sizable pneumothorax. Working with the incentive spirometer. She remains on a nitroglycerin drip at 5 mg/m. Insulin drip at 5 units per hour. Lactated Ringer's at 50 MLS per hour. White count 12.4. Hemoglobin 9.5. Platelets 103. Sodium 140. Potassium 4.0. Creatinine 0.71. AST 89. ALT 57. Current blood pressure 124/38, PA pressure 29/8. Mean of 15. CVP 3. Cardiac output 4.7. Cardiac index 2.2. She remains on bronchodilators, heparin for DVT prophylaxis. Protonix for GI prophylaxis. The patient is seen today 01/10/2021 in follow-up in the intensive care unit. This is postoperative day #2 of her two-vessel coronary artery bypass surgery. She is sitting up in a chair at the bedside. She is maintaining O2 saturations in the low 90s on 4 L/m per nasal cannula. Chest x-ray shows bilateral atelectasis, small effusions. Chest tube currently in place. She is on l actated Ringer's at 30 mL per hour. Insulin drip at 3 units per hour. Dopamine at 2 mcg/kg/m. She is currently in sinus rhythm. White count 11.0. Hemoglobin 8.3. Platelet count 86,000. Sodium 137. Potassium 3.7. Creatinine 1.25. Glucose 105. AST 57. ALT 23. Albumin 3.4. She remains on heparin for DVT prophylaxis. Protonix for GI prophylaxis. Progress note dated 01/11/2021. 75-year-old female again seen in room 257. She is postoperative day #3, status post 2 vessel bypass grafting. The patient is currently sitting in bed. She is currently on 2 L nasal cannula. She's getting lactated Ringer's at 30 mL an hour, dopamine at 2 mcg/kg/m, and amiodarone 0.5 mg/m. Today's laboratory data includes a white count 10.7, hemoglobin 8.9, hematocrit 26.8, and platelet count 115,000. Sodium 132, potassium 3.9, chlorides 104, CO2 19, anion gap 9, BUN 22, and creatinine 1.05. Chest x-ray from today is currently pending. She has no major complaints. She seemed to be doing relatively well. Encouraged hourly use of the incentive spirometer. Objective - Vital Signs Vital signs: Vital Signs Temp 98.3 F 01/11/21 04:00 Pulse 86 01/11/21 04:00 Resp 15 01/11/21 04:00 BP 151/45 01/11/21 04:00 Pulse Ox 96 01/11/21 04:00 Intake & Output 01/10/21 01/10/21 01/11/21 06:59 18:59 06:59 Intake Total 976.698 700.248 6498 Output Total 852 394 558 Balance 124.698 138.657 606 Weight 116.981 kg Intake: IV 944 432 664 Amiodarone 360 mg In 204 Dextrose 5% in Water 200 ml @ 1 MG/MIN 34.533 mls/ hr IV .Q6H [facility] Rx#: [id number] Amiodarone Bolus 100 CO/CI 30 Lactated Ringers 1,000 ml 330 360 300 @ 20 mls/hr IV .Q24H [facility] Rx#:[id number] Pressure Bags 84 72 60 albumin 500 Intake, IV Titration 32.698 0.657 Amount Insulin Regular 100 unit 32.698 0.657 In Sodium Chloride 0.9% 100 ml @ Per Protocol IV .Q0M [facility] Rx#:[id number] Oral 100 500 Output: Chest Tube Drainage 600 130 Chest Tube Left Pleural/ 600 130 Mediastinal Urine 252 264 558 Other: Voiding Method Indwelling Catheter Indwelling Catheter Indwelling Catheter ABP, PAP, CO, CI - Last Documented Arterial Blood Pressure 184/39 Pulmonary Artery Pressure 38/11 Cardiac Output 4.7 Cardiac Index 2.2 - Exam No acute distress, oriented 3. Currently on 2 L nasal cannula. HEENT examination is grossly unremarkable. Neck supple. Full range of motion. No adenopathy thyromegaly or neck vein distention. Cardiovascular examination reveals regular rhythm rate. S1-S2 normal. No S3 or S4. No discernible murmur noted. Heart rate 86 bpm. Heart sounds are distant. Lungs reveal mostly clear breath sounds. Some scattered rhonchi are noted. No wheezes or crackles. Breath sounds are equal bilaterally. Abdomen soft bowel sounds are heard. No masses or tenderness. Extremities are intact. No cyanosis clubbing or edema. Skin is without rash or lesion. Neurologic examination is brief but nonfocal. - Labs CBC & Chem 7: 01/11/21 04:16 01/11/21 04:16 Labs: Abnormal Lab Results - Last 24 Hours (Table) 01/10/21 01/10/21 01/10/21 Range/Units 06:30 07:01 08:11 WBC (3.8-10.6) k/uL RBC (3.80-5.40) m/uL Hgb (11.4-16.0) gm/dL Hct (34.0-46.0) % Plt Count (150-450) k/uL Neutrophils # (1.3-7.7) k/uL Lymphocytes # (1.0-4.8) k/uL Sodium (137-145) mmol/L Carbon Dioxide (22-30) mmol/L BUN (7-17) mg/dL Creatinine (0.52-1.04) mg/dL Glucose (74-99) mg/dL POC Glucose (mg/dL) 138 H 127 H 123 H (75-99) mg/dL Calcium (8.4-10.2) mg/dL AST (14-36) U/L Total Protein (6.3-8.2) g/dL Albumin (3.5-5.0) g/dL 01/10/21 01/10/21 01/11/21 Range/Units 17:13 20:07 04:16 WBC 10.7 H (3.8-10.6) k/uL RBC 2.93 L (3.80-5.40) m/uL Hgb 8.9 L (11.4-16.0) gm/dL Hct 26.8 L (34.0-46.0) % Plt Count 115 L (150-450) k/uL Neutrophils # 9.1 H (1.3-7.7) k/uL Lymphocytes # 0.6 L (1.0-4.8) k/uL Sodium (137-145) mmol/L Carbon Dioxide (22-30) mmol/L BUN (7-17) mg/dL Creatinine (0.52-1.04) mg/dL Glucose (74-99) mg/dL POC Glucose (mg/dL) 156 H 237 H (75-99) mg/dL Calcium (8.4-10.2) mg/dL AST (14-36) U/L Total Protein (6.3-8.2) g/dL Albumin (3.5-5.0) g/dL 01/11/21 Range/Units 04:16 WBC (3.8-10.6) k/uL RBC (3.80-5.40) m/uL Hgb (11.4-16.0) gm/dL Hct (34.0-46.0) % Plt Count (150-450) k/uL Neutrophils # (1.3-7.7) k/uL Lymphocytes # (1.0-4.8) k/uL Sodium 132 L (137-145) mmol/L Carbon Dioxide 19 L (22-30) mmol/L BUN 22 H (7-17) mg/dL Creatinine 1.05 H (0.52-1.04) mg/dL Glucose 163 H (74-99) mg/dL POC Glucose (mg/dL) (75-99) mg/dL Calcium 8.3 L (8.4-10.2) mg/dL AST 59 H (14-36) U/L Total Protein 5.3 L (6.3-8.2) g/dL Albumin 3.0 L (3.5-5.0) g/dL Assessment and Plan Assessment: Status post two-vessel bypass grafting, including WASSERMAN to LAD and saphenous vein graft to the obtuse marginal, postop day #3 Routine postoperative ventilator management with extubation on 01/09/2021. Lifelong nontobacco use. History of heart failure. History of hyperlipidemia. History of hypertension. Prior history of myocardial infarction. History of CAD with previous stent placement. Plan: Plan dated 01/07/2021. The patient should do very well. She has no history of any lung issues. She is a lifelong nontobacco user. She denies a prior history of asthma, COPD, chronic bronchitis, or emphysema. The patient denies all pulmonary complaints including shortness of breath, cough, wheezing, chest tightness, and phlegm production. I did explain our role in the process. She understands. Plan dated 01/08/2021. The patient will be going to the operating room to much later today. They will probably call me with blood gases, and we'll make adjustments accordingly. Hopefully, we can get the patient extubated quickly. Our goal is to get the patient extubated in less than 4 hours, and certainly less than 6 hours. No additional recommendations are made. Patient is again counseled about the importance of using the incentive spirometer. Additional recommendations and suggestions are forthcoming. Plan dated 01/11/2021. Continues to do very well. We will continue to follow the patient and make recommendations where appropriate. Is currently on 2 L. She remains on lactated Ringer's at 30 mL an hour, dopamine at 2 mcg/kg/m, and amiodarone at 0.5 mg/m. We encouraged hourly use of the incentive spirometer, and deep breathing, coughing, and clearing of secretions. Time with Patient: Less than 30
[2021-01-11] MEDS: LACTATED RINGERS 1,000 ML IV SCH (07:02)
[2021-01-11 07:06] LABS: Glucose,Whole Blood 154 mg/dL (75-99)
[2021-01-11] MEDS: INSULIN ASPART (NovoLOG) 100 UNIT/ML VIAL SQ SCH ×4 (07:08→21:15)
[2021-01-11] MEDS: PANTOPRAZOLE 40 MG TABLET PO SCH (07:09)
[2021-01-11] MEDS: HEPARIN SODIUM,PORCINE/PF 5,000 UNIT/0.5 ML SYRINGE SQ SCH ×2 (08:00→15:15)
[2021-01-11] MEDS: ATORVASTATIN 40 MG TAB PO SCH (08:00)
[2021-01-11] MEDS: METOPROLOL TARTRATE 12.5 MG TAB PO SCH (08:00)
[2021-01-11] MEDS: CLOPIDOGREL 75 MG TAB PO SCH (08:00)
[2021-01-11] MEDS: ASPIRIN 325 MG TAB PO SCH (08:00)
[2021-01-11] MEDS: IPRATROPIUM-ALBUTEROL 3 ML NEB INHALATION SCH ×4 (08:46→19:54)
--- NOTE | 2021-01-11 08:50 | XR ---
EXAMINATION TYPE: XR chest 1V portable DATE OF EXAM: 01/11/2021 COMPARISON: 01/10/2021 HISTORY: Post CABG TECHNIQUE: Single frontal view of the chest is obtained. FINDINGS: Postoperative change and cardiomegaly and bilateral lower lobe infiltrate and small effusi on. Mild central interstitial prominence. No pneumothorax. Arthropathy shoulders. IMPRESSION: 1. Bilateral infiltrate and pleural effusion stable correlate for mild central venous
--- NOTE | 2021-01-11 10:46 | P.PN ---
Subjective Progress Note Date: 01/11/21 Principal diagnosis: Coronary artery disease with left main disease, acute kidney injury on admission. Previous medical history of myocardial infarction with multivessel angioplasty, hypertension, hyperlipidemia, paroxysmal atrial fibrillation on Xarelto for anticoagulation, fatty liver with transaminitis, and family history of coronary artery disease POD #3 off-pump coronary artery bypass graft 2 with left internal mammary artery to the left anterior descending artery, reverse saphenous vein graft to the obtuse marginal artery, ligation of the left atrial appendage using a 35 mm AtriClip, endovascular vein harvest of the left greater saphenous vein from the knee to the groin, intraoperative transesophageal echocardiogram Postoperative acute blood loss anemia and thrombocytopenia, expected given hemodilution Paroxysmal atrial fibrillation, known common occurrence after open heart surgery, especially given patient has history of PAF The patient's currently sitting up in a recliner in the intensive care unit in no acute distress. She post surgical pain is controlled on current medication regimen, denies shortness of breath. Currently in sinus rhythm and h emodynamically stable. She did have atrial fibrillation with conversion to normal sinus rhythm after amiodarone initiation. Remains on IV dopamine for pressor support, weaned down this am. She is oxygenating well but is only achieving 500 mL on her incentive spirometry. Ambulated in room with PT. No other new concerns. Objective - Vital Signs Vital signs: Vital Signs Temp 98.5 F 01/11/21 08:00 Pulse 78 01/11/21 10:00 Resp 17 01/11/21 10:00 BP 115/90 01/11/21 10:00 Pulse Ox 97 01/11/21 10:00 Intake & Output 01/10/21 01/11/21 01/11/21 18:59 06:59 18:59 Intake Total 363.204 7224 296 Output Total 394 668 80 Balance 138.657 917 216 Weight 118.1 kg Intake: IV 432 1035 196 Amiodarone 360 mg In 204 Dextrose 5% in Water 200 ml @ 1 MG/MIN 34.533 mls/ hr IV .Q6H [facility] Rx#: [id number] Amiodarone 450 mg In 32 64 Dextrose 5% in Water 250 ml @ 0.5 MG/MIN 16.667 mls/hr IV .Q15H [facility] Rx#: [id number] Amiodarone Bolus 100 Lactated Ringers 1,000 ml 360 633 120 @ 20 mls/hr IV .Q24H [facility] Rx#:[id number] Pressure Bags 72 66 12 Intake, IV Titration 0.657 Amount Insulin Regular 100 unit 0.657 In Sodium Chloride 0.9% 100 ml @ Per Protocol IV .Q0M [facility] Rx#:[id number] Oral 100 550 100 Output: Chest Tube Drainage 130 Chest Tube Left Pleural/ 130 Mediastinal Urine 264 668 80 Other: Voiding Method Indwelling Catheter Indwelling Catheter Indwelling Catheter ABP, PAP, CO, CI - Last Documented Arterial Blood Pressure 184/39 Pulmonary Artery Pressure 38/11 Cardiac Output 4.7 Cardiac Index 2.2 - Exam CONSTITUTIONAL: Appears comfortable, cooperative, no acute distress RESPIRATORY: Lungs sounds diminished bilaterally. Respirations even, nonlabored. Currently on 4 L nasal cannula with oxygen saturation 97%. Able to achieve 500 mL on incentive spirometry. Strong cough. CARDIOVASCULAR: S1, S2 present. Regular rate and rhythm, sinus rhythm on telemetry. Sternum stable. Palpable peripheral pulses bilaterally. Trace bilateral lower extremity edema present. No calf pain or tenderness noted. Heart hugger in place with patient demonstrating appropriate use. Antiembolism stockings, SCDs present. GASTROINTESTINAL: Abdomen soft, nontender, nondistended. Active bowel sounds present 4 quadrants. Tolerating diet. Positive flatus, negative bowel movement GENITOURINARY: Bruce present draining clear, yellow urine. INTEGUMENTARY: Skin is warm and dry with evidence of good perfusion. Anterior chest incision well approximated and covered with dry intact dressing. EVH site well approximated without redness or drainage. NEUROLOGIC: Cranial nerves II through XII intact MUSKULOSKELETAL: Able to move all extremities, strength equal bilaterally, gait normal PSYCHIATRIC: Alert and oriented to person place and time, appropriate affect, intact judgment and insight INVASIVE LINES AND TUBES: Right internal jugular Cordis present. - Allied health notes Allied health notes reviewed: nursing - Labs CBC & Chem 7: 01/11/21 04:16 01/11/21 04:16 Labs: Abnormal Lab Results - Last 24 Hours (Table) 01/10/21 01/10/21 01/11/21 Range/Units 17:13 20:07 04:16 WBC 10.7 H (3.8-10.6) k/uL RBC 2.93 L (3.80-5.40) m/uL Hgb 8.9 L (11.4-16.0) gm/dL Hct 26.8 L (34.0-46.0) % Plt Count 115 L (150-450) k/uL Neutrophils # 9.1 H (1.3-7.7) k/uL Lymphocytes # 0.6 L (1.0-4.8) k/uL Sodium (137-145) mmol/L Carbon Dioxide (22-30) mmol/L BUN (7-17) mg/dL Creatinine (0.52-1.04) mg/dL Glucose (74-99) mg/dL POC Glucose (mg/dL) 156 H 237 H (75-99) mg/dL Calcium (8.4-10.2) mg/dL AST (14-36) U/L Total Protein (6.3-8.2) g/dL Albumin (3.5-5.0) g/dL 01/11/21 01/11/21 Range/Units 04:16 07:05 WBC (3.8-10.6) k/uL RBC (3.80-5.40) m/uL Hgb (11.4-16.0) gm/dL Hct (34.0-46.0) % Plt Count (150-450) k/uL Neutrophils # (1.3-7.7) k/uL Lymphocytes # (1.0-4.8) k/uL Sodium 132 L (137-145) mmol/L Carbon Dioxide 19 L (22-30) mmol/L BUN 22 H (7-17) mg/dL Creatinine 1.05 H (0.52-1.04) mg/dL Glucose 163 H (74-99) mg/dL POC Glucose (mg/dL) 154 H (75-99) mg/dL Calcium 8.3 L (8.4-10.2) mg/dL AST 59 H (14-36) U/L Total Protein 5.3 L (6.3-8.2) g/dL Albumin 3.0 L (3.5-5.0) g/dL - Imaging and Cardiology Chest x-ray: report reviewed, image reviewed Assessment and Plan Assessment: 1. Symptomatic coronary artery disease with left main disease, status post 2 vessel CABG 2. Acute kidney injury on admission, resolved 3. History of myocardial infarction with multivessel angioplasty 4. Hypertension 5. Hyperlipidemia, treated, cholesterol 139, LDL 91 6. Paroxysmal atrial fibrillation on Xarelto for anticoagulation, status post left atrial appendage ligation 7. Fatty liver with transaminitis 8. Never smoker, preoperative FEV1 57% of predicted 9. Family history of coronary artery disease 10. Postoperative acute blood loss anemia and thrombocytopenia, expected Plan: 1. Continue aspirin, Plavix, statin, beta maxi therapy. Will increase beta maxi therapy as tolerated. 2. Wean IV dopamine, will discontinue tomorrow 3. Wean O2 as tolerated. Encourage incentive spirometry use 10 times every hour while awake. Bronchodilators per pulmonology 3. Increase activity, ambulate as tolerated. PT/OT/cardiac rehab consulted 4. Will monitor daily labs and x-rays. Electrolyte replacement per protocol. 5. GI/DVT prophylaxis 6. Insulin management per primary care service. Patient is not diabetic, hemoglobin A1c 5.4% 7. Pain controlled with current medication regimen 8. Will continue cordis until dopamine discontinued 9. Keep bruce for another 24 hours 10. More recommendations to follow based on patient's progress Time with Patient: Greater than 30
[2021-01-11] MEDS: AMIODARONE 200 MG TAB PO SCH ×2 (11:05→21:15)
[2021-01-11 11:09] LABS: Glucose,Whole Blood 160 mg/dL (75-99)
--- NOTE | 2021-01-11 11:28 | PN ---
PROGRESS NOTE Belen is a 75-year-old lady who was admitted to the hospital with unstable angina and underwent cardiac catheterization and was found to have severe left main stenosis. She also has history of paroxysmal atrial fibrillation and was on Xarelto for the same. She is making slow but steady recovery following her bypass. EXAM: Comfortable at rest. Heart rate is 78 with a blood pressure is 115/90. Respiratory rate 18. Chest exam reveals diminished air entry at the bases. Heart exam reveals first and second heart sounds. No gallop. No murmur. ABDOMEN: Soft. Exam of extremities reveals mild edema. Peripheral pulses are felt. LABS: Labs show a hemoglobin of 8.9, potassium is 3.9, creatinine is 1. The patient is currently on aspirin, Lipitor, Plavix, insulin, Lopressor. ASSESSMENT: Coronary artery disease status post coronary artery bypass grafting. PLAN: Patient is doing well. She will work on incentive spirometry. Continue her medications. MMODL / IJN: [id number] /
[2021-01-11 16:48] LABS: Glucose,Whole Blood 142 mg/dL (75-99)
[2021-01-11] MEDS ORDERED: METOPROLOL TARTRATE 12.5 MG TAB PO STA (17:32)
[2021-01-11] MEDS ORDERED: METOPROLOL TARTRATE 12.5 MG TAB PO SCH (21:00)
[2021-01-11 21:08] LABS: Glucose,Whole Blood 173 mg/dL (75-99)
[2021-01-11] MEDS: MELATONIN 3 MG TABLET PO PRN (21:15)
[2021-01-11] MEDS: SENNOSIDES-DOCUSATE SODIUM 1 EACH TAB PO SCH (21:16)
--- NOTE | 2021-01-12 00:27 | P.PN ---
Subjective Progress Note Date: 01/10/21 Principal diagnosis: Left main coronary artery disease. 75-year-old female who came in with complaints of increased fatigue and exertional dyspnea has been going on for last few days much worse since yesterday. Patient does have history of coronary artery disease with multiple stents in the past patient had similar symptoms when she had myocardial infarction in the past. EKG did not show any acute ST-T wave changes facet of troponin is negative. Patient is being admitted for possible unstable angina. The other workup for shortness of breath is all negative patient doesn't have any pneumonia d-dimer is negative chest x-ray did not show any congestive heart failure. Patient BNP is around 500. Patient doesn't have any history of COPD and is not wheezing at this time. shortness of breath is exertional upon further questioning patient said she occasionally has some squeezing sense sensation in the chest and heart area. Patient denied any diaphoresis, nausea, lightheadedness. Patient does have history of atrial fibrillation and will the patient on the monitor patient appeared to have atrial flutter. 01/01/2021 She was seen and evaluated in follow-up with no acute overnight issues. Patient continues to have dyspnea with exertion and has undergone 2-D echo which shows overall LV systolic function is low to normal with an EF of 50-55% with the right ventricle being severely enlarged right atrium is mildly enlarged with a trace to mild aortic regurgitation along with mild mitral and tricuspid regurgitation present. There is also mild pulmonary hypertension noted on the echo. There is a trivial pericardial effusion present. Cardiology following the patient and no plans for stress or cardiac catheterization at this time. Patient continues on IV heparin and will continue at this time and will likely transition back to Xarelto once stabilized. Sodium today is 140 with a potassium of 4.1 and current creatinine is 0.9. Liver functions trending down although continued to be somewhat elevated. We'll repeat a.m. labs to monitor closely. Troponins have been negative. Acute hepatitis panel is also negative. 01/02/2021 and patient will undergo cardiac catheterization today. 01/03/2021 Patient had a categorization today which showed severe left main ostial stenosis with focal critical stenosis in the mid LAD and the AV groove. Coronary artery bypass grafting was recommended by cardiology to, [facility] surgery evaluated the patient and patient is scheduled for coronary artery bypass grafting on next Thursday. Patient will be discharged if cleared by cardiology and she'll come back for CABG. 01/04/2021 Patient doesn't have any symptoms of chest pain at this time. Cardiology is recommending continued hospitalization until her coronary artery bypass grafting and continuation of IV heparin. Patient's liver enzymes are improving can be started on statin. 01/05/2021 Patient doesn't have any chest pain patient probably will undergo CABG and Thursday01/06/2021 No chest pain patient clinically doing well. 01/07/2021. Patient is currently sitting in the chair comfortably. No complaints of chest p ain or shortness of breath. No leg swelling. Patient is scheduled for CABG tomorrow. Using incentive spirometry. 01/08/2021 Patient is scheduled for coronary artery bypass graft today afternoon. Continued on incentive spirometry. No complaints of chest pain or shortness of. No leg swelling. No headache or dizziness or lightheadedness. CT surgery and critical care team is on board. Patient will be transferred to MICU for surgery. 01/09/21 Postoperative day one-CABG x2. Patient is currently in MICU. Awake alert and oriented. Sitting in a chair comfortably. Patient was extubated overnight. Satur ating well on oxygen via nasal cannula. Chest tube is in place. On insulin drip for better blood sugar control which has been discontinued and continue with insulin sliding scale. Patient has been afebrile. Chest x-ray today showed bilateral infiltrate and pleural effusion. Postsurgical changes noted. Lab data showed WBC 12.4, hemoglobin 9.5 and platelets 103 BUN 14 and creatinine 0.71 AST 89 ALT 57 and total protein 5.8 and blood sugar is 163 this morning. Cardiology and pulmonary is on board. Patient is being continued aspirin, statins, Plavix and breathing treatments.. 01/10/2021 patient is postoperative day 2, CABG 2 vessel. Sitting in a chair comfortably. Awake alert and oriented x3. Tolerating liquids. Saturating at 90% on 4 L oxygen via nasal cannula. Chest x-ray showed bibasilar atelectasis and small effusions. Chest tube is in place. Patient is also on insulin drip at 3 units/h and dopamine at 2 mcg/kg/min. Lab data showed WBC 11.0 hemoglobin 8.3 platelets 86 and sodium 137 potassium 3.7 creatinine 1.25 blood sugar is controlled and AST 27 ALT 23. Continued on incentive spirometry. Constitutional: Denied any fatigue denied any fever. Cardio vascular: denied any chest pain, palpitations Gastrointestinal denied any nausea vomiting Pulmonary: Denied any shortness of breath cough Neurologic denied any new focal deficits All inpatient medications were reviewed and appropriate changes in these medications as dictated in the interval history and assessment and plan. Objective - Vital Signs Vital signs: Vital Signs Temp 97.8 F 01/10/21 18:00 Pulse 87 01/10/21 18:00 Resp 9 L 01/10/21 18:00 BP 123/68 01/10/21 15:15 Pulse Ox 97 01/10/21 18:00 Intake & Output 01/09/21 01/10/21 01/10/21 18:59 06:59 18:59 Intake Total 577.141 976.698 532.657 Output Total 595 852 394 Balance -17.859 124.698 138.657 Weight 105.4 kg 116.981 kg Intake: IV 488 944 432 CO/CI 330 30 Lactated Ringers 1,000 ml 50 330 360 @ 20 mls/hr IV .Q24H [facility] Rx#:[id number] Pressure Bags 108 84 72 albumin 500 Intake, IV Titration 89.141 32.698 0.657 Amount DOPamine DRIP 800 mg In 55.306 Dextrose/Water 1 250ml. bag @ 2 MCG/KG/MIN 4.174 mls/hr IV .Q24H [facility] Rx#: [id number] Insulin Regular 100 unit 33.835 32.698 0.657 In Sodium Chloride 0.9% 100 ml @ Per Protocol IV .Q0M [facility] Rx#:[id number] Oral 100 Output: Chest Tube Drainage 75 600 130 Chest Tube Left Pleural/ 75 600 130 Mediastinal Urine 520 252 264 Other: Voiding Method Indwelling Catheter Indwelling Catheter Indwelling Catheter ABP, PAP, CO, CI - Last Documented Arterial Blood Pressure 111/38 Pulmonary Artery Pressure 38/11 Cardiac Output 4.7 Cardiac Index 2.2 - Exam PHYSICAL EXAMINATION: GENERAL: The patient is alert and oriented x3, not in any acute distress. Well developed, well nourished. HEENT: Pupils are round and equally reacting to light. EOMI. No scleral icterus. No conjunctival pallor. Normocephalic, atraumatic. No pharyngeal erythema. No thyromegaly. CARDIOVASCULAR: S1 and S2 present. No murmurs, rubs, or gallops. Midsternal surgical site is bandaged. PULMONARY: Bibasilar diminished sounds., no wheezing or crackles. Chest tube in place. ABDOMEN: Soft, nontender, nondistended, normoactive bowel sounds. No palpable organomegaly. MUSCULOSKELETAL: No joint swelling or deformity. EXTREMITIES: No cyanosis, clubbing, or pedal edema. NEUROLOGICAL: Gross neurological examination did not reveal any focal deficits. SKIN: No rashes. - Labs CBC & Chem 7: 01/11/21 04:16 01/11/21 04:16 Labs: Abnormal Lab Results - Last 24 Hours (Table) 01/09/21 01/09/21 01/09/21 Range/Units 19:11 19:50 23:22 WBC (3.8-10.6) k/uL RBC (3.80-5.40) m/uL Hgb (11.4-16.0) gm/dL Hct (34.0-46.0) % Plt Count (150-450) k/uL Neutrophils # (1.3-7.7) k/uL Lymphocytes # (1.0-4.8) k/uL BUN (7-17) mg/dL Creatinine (0.52-1.04) mg/dL Glucose (74-99) mg/dL POC Glucose (mg/dL) 163 H 161 H 106 H (75-99) mg/dL Calcium (8.4-10.2) mg/dL Magnesium (1.6-2.3) mg/dL AST (14-36) U/L Total Protein (6.3-8.2) g/dL Albumin (3.5-5.0) g/dL 01/10/21 01/10/21 01/10/21 Range/Units 01:11 02:02 03:20 WBC (3.8-10.6) k/uL RBC (3.80-5.40) m/uL Hgb (11.4-16.0) gm/dL Hct (34.0-46.0) % Plt Count (150-450) k/uL Neutrophils # (1.3-7.7) k/uL Lymphocytes # (1.0-4.8) k/uL BUN (7-17) mg/dL Creatinine (0.52-1.04) mg/dL Glucose (74-99) mg/dL POC Glucose (mg/dL) 145 H 153 H 120 H (75-99) mg/dL Calcium (8.4-10.2) mg/dL Magnesium (1.6-2.3) mg/dL AST (14-36) U/L Total Protein (6.3-8.2) g/dL Albumin (3.5-5.0) g/dL 01/10/21 01/10/21 01/10/21 Range/Units 03:58 04:00 04:00 WBC 11.0 H (3.8-10.6) k/uL RBC 2.68 L (3.80-5.40) m/uL Hgb 8.3 L (11.4-16.0) gm/dL Hct 24.5 L (34.0-46.0) % Plt Count 86 L (150-450) k/uL Neutrophils # 9.6 H (1.3-7.7) k/uL Lymphocytes # 0.6 L (1.0-4.8) k/uL BUN 19 H (7-17) mg/dL Creatinine 1.25 H (0.52-1.04) mg/dL Glucose 105 H (74-99) mg/dL POC Glucose (mg/dL) 113 H (75-99) mg/dL Calcium 8.2 L (8.4-10.2) mg/dL Magnesium 2.5 H (1.6-2.3) mg/dL AST 57 H (14-36) U/L Total Protein 5.5 L (6.3-8.2) g/dL Albumin 3.4 L (3.5-5.0) g/dL 01/10/21 01/10/21 01/10/21 Range/Units 05:05 06:30 07:01 WBC (3.8-10.6) k/uL RBC (3.80-5.40) m/uL Hgb (11.4-16.0) gm/dL Hct (34.0-46.0) % Plt Count (150-450) k/uL Neutrophils # (1.3-7.7) k/uL Lymphocytes # (1.0-4.8) k/uL BUN (7-17) mg/dL Creatinine (0.52-1.04) mg/dL Glucose (74-99) mg/dL POC Glucose (mg/dL) 114 H 138 H 127 H (75-99) mg/dL Calcium (8.4-10.2) mg/dL Magnesium (1.6-2.3) mg/dL AST (14-36) U/L Total Protein (6.3-8.2) g/dL Albumin (3.5-5.0) g/dL 01/10/21 01/10/21 Range/Units 08:11 17:13 WBC (3.8-10.6) k/uL RBC (3.80-5.40) m/uL Hgb (11.4-16.0) gm/dL Hct (34.0-46.0) % Plt Count (150-450) k/uL Neutrophils # (1.3-7.7) k/uL Lymphocytes # (1.0-4.8) k/uL BUN (7-17) mg/dL Creatinine (0.52-1.04) mg/dL Glucose (74-99) mg/dL POC Glucose (mg/dL) 123 H 156 H (75-99) mg/dL Calcium (8.4-10.2) mg/dL Magnesium (1.6-2.3) mg/dL AST (14-36) U/L Total Protein (6.3-8.2) g/dL Albumin (3.5-5.0) g/dL Assessment and Plan Assessment: -Coronary artery disease/Severe left main disease. status post CABG x2, on 01/08/21 -Preoperative medical ventilation expected. Patient was extubated with in 24 hrs.. -Acute coronary syndrome, patient has critical LAD lesion as mentioned above. Continue with aspirin, statins and beta blockers. Encourage incentive spirometry. -mild acute renal failure, prerenal azotemia. Improved with IV fluids. -Elevated blood sugars likely due to acute illness. A1c 5.4. Continue with insulin sliding scale and drip as needed.. -Paroxysmal A. fib patient is presently in atrial flutter: on metoprolol succinate. On Xarelto at home, -Coronary artery disease history and history of [place]. -Mild elevation of liver enzymes: Secondary to non-alcoholic steato- hepatitis liver enzymes are fairly stable . -Family history of coronary disease. Time with Patient: Greater than 30
--- NOTE | 2021-01-12 00:30 | P.PN ---
Subjective Progress Note Date: 01/11/21 Principal diagnosis: Left main coronary artery disease. 75-year-old female who came in with complaints of increased fatigue and exertional dyspnea has been going on for last few days much worse since yesterday. Patient does have history of coronary artery disease with multiple stents in the past patient had similar symptoms when she had myocardial infarction in the past. EKG did not show any acute ST-T wave changes facet of troponin is negative. Patient is being admitted for possible unstable angina. The other workup for shortness of breath is all negative patient doesn't have any pneumonia d-dimer is negative chest x-ray did not show any congestive heart failure. Patient BNP is around 500. Patient doesn't have any history of COPD and is not wheezing at this time. shortness of breath is exertional upon further questioning patient said she occasionally has some squeezing sense sensation in the chest and heart area. Patient denied any diaphoresis, nausea, lightheadedness. Patient does have history of atrial fibrillation and will the patient on the monitor patient appeared to have atrial flutter. 01/01/2021 She was seen and evaluated in follow-up with no acute overnight issues. Patient continues to have dyspnea with exertion and has undergone 2-D echo which shows overall LV systolic function is low to normal with an EF of 50-55% with the right ventricle being severely enlarged right atrium is mildly enlarged with a trace to mild aortic regurgitation along with mild mitral and tricuspid regurgitation present. There is also mild pulmonary hypertension noted on the echo. There is a trivial pericardial effusion present. Cardiology following the patient and no plans for stress or cardiac catheterization at this time. Patient continues on IV heparin and will continue at this time and will likely transition back to Xarelto once stabilized. Sodium today is 140 with a potassium of 4.1 and current creatinine is 0.9. Liver functions trending down although continued to be somewhat elevated. We'll repeat a.m. labs to monitor closely. Troponins have been negative. Acute hepatitis panel is also negative. 01/02/2021 and patient will undergo cardiac catheterization today. 01/03/2021 Patient had a categorization today which showed severe left main ostial stenosis with focal critical stenosis in the mid LAD and the AV groove. Coronary artery bypass grafting was recommended by cardiology to, [facility] 6 surgery evaluated the patient and patient is scheduled for coronary artery bypass grafting on next Thursday. Patient will be discharged if cleared by cardiology and she'll come back for CABG. 01/04/2021 Patient doesn't have any symptoms of chest pain at this time. Cardiology is recommending continued hospitalization until her coronary artery bypass grafting and continuation of IV heparin. Patient's liver enzymes are improving can be started on statin. 01/05/2021 Patient doesn't have any chest pain patient probably will undergo CABG and Thursday01/06/2021 No chest pain patient clinically doing well. 01/07/2021. Patient is currently sitting in the chair comfortably. No complaints of chest p ain or shortness of breath. No leg swelling. Patient is scheduled for CABG tomorrow. Using incentive spirometry. 01/08/2021 Patient is scheduled for coronary artery bypass graft today afternoon. Continued on incentive spirometry. No complaints of chest pain or shortness of. No leg swelling. No headache or dizziness or lightheadedness. CT surgery and critical care team is on board. Patient will be transferred to MICU for surgery. 01/09/21 Postoperative day one-CABG x2. Patient is currently in MICU. Awake alert and oriented. Sitting in a chair comfortably. Patient was extubated overnight. Satur ating well on oxygen via nasal cannula. Chest tube is in place. On insulin drip for better blood sugar control which has been discontinued and continue with insulin sliding scale. Patient has been afebrile. Chest x-ray today showed bilateral infiltrate and pleural effusion. Postsurgical changes noted. Lab data showed WBC 12.4, hemoglobin 9.5 and platelets 103 BUN 14 and creatinine 0.71 AST 89 ALT 57 and total protein 5.8 and blood sugar is 163 this morning. Cardiology and pulmonary is on board. Patient is being continued aspirin, statins, Plavix and breathing treatments.. 01/10/2021 patient is postoperative day 2, CABG 2 vessel. Sitting in a chair comfortably. Awake alert and oriented x3. Tolerating liquids. Saturating at 90% on 4 L oxygen via nasal cannula. Chest x-ray showed bibasilar atelectasis and small effusions. Chest tube is in place. Patient is also on insulin drip at 3 units/h and dopamine at 2 mcg/kg/min. Lab data showed WBC 11.0 hemoglobin 8.3 platelets 86 and sodium 137 potassium 3.7 creatinine 1.25 blood sugar is controlled and AST 27 ALT 23. Continued on incentive spirometry. 01/11/2021 patient is currently in MICU. Postoperative day 3 two-vessel CABG. Patient is sitting in a chair comfortably. No complaints of chest pain. Was able to participate in physical therapy yesterday but became dyspneic after walking in the room.. Blood sugar is better controlled. Continue insulin sliding scale. Patient is on dopamine drip and amiodarone drip. Chest x-ray showed bilateral infiltrate and pleural effusion stable correlate for mild central congestion. Laboratory data showed WBC 10.7 hemoglobin 8.9 platelets 115 sodium 132 potassium 3.9 chloride 104 bicarb is 19 BUN 22 creatinine 1.05 blood sugar is 163 patient is tolerating oral diet. No nausea vomiting or abdominal pain. Did have a small bowel movement. No fever no chills. No cough or sputum production. Chest tube was removed. Constitutional: Denied any fatigue denied any fever. Cardio vascular: denied any chest pain, palpitations Gastrointestinal denied any nausea vomiting Pulmonary: Denied any shortness of breath cough Neurologic denied any new focal deficits All inpatient medications were reviewed and appropriate changes in these medications as dictated in the interval history and assessment and plan. Objective - Vital Signs Vital signs: Vital Signs Temp 97.8 F 01/11/21 16:00 Pulse 95 01/11/21 16:00 Resp 14 01/11/21 16:00 BP 143/61 01/11/21 16:00 Pulse Ox 97 01/11/21 16:00 Intake & Output 01/10/21 01/11/21 01/11/21 18:59 06:59 18:59 Intake Total 323.042 1675 386 Output Total 394 668 250 Balance 138.657 917 136 Weight 118.1 kg Intake: IV 432 1035 286 Amiodarone 360 mg In 204 Dextrose 5% in Water 200 ml @ 1 MG/MIN 34.533 mls/ hr IV .Q6H [facility] Rx#: [id number] Amiodarone 450 mg In 32 16 Dextrose 5% in Water 250 ml @ 0.5 MG/MIN 16.667 mls/hr IV .Q15H [facility] Rx#: [id number] Amiodarone Bolus 100 Lactated Ringers 1,000 ml 360 633 240 @ 20 mls/hr IV .Q24H [facility] Rx#:[id number] Pressure Bags 72 66 30 Intake, IV Titration 0.657 Amount Insulin Regular 100 unit 0.657 In Sodium Chloride 0.9% 100 ml @ Per Protocol IV .Q0M [facility] Rx#:[id number] Oral 100 550 100 Output: Chest Tube Drainage 130 Chest Tube Left Pleural/ 130 Mediastinal Urine 264 668 250 Other: Voiding Method Indwelling Catheter Indwelling Catheter Indwelling Catheter ABP, PAP, CO, CI - Last Documented Arterial Blood Pressure 184/39 Pulmonary Artery Pressure 38/11 Cardiac Output 4.7 Cardiac Index 2.2 - Exam PHYSICAL EXAMINATION: GENERAL: The patient is alert and oriented x3, not in any acute distress. Well developed, well nourished. HEENT: Pupils are round and equally reacting to light. EOMI. No scleral icterus. No conjunctival pallor. Normocephalic, atraumatic. No pharyngeal erythema. No thyromegaly. CARDIOVASCULAR: S1 and S2 present. No murmurs, rubs, or gallops. Midsternal surgical site is bandaged. PULMONARY: Bibasilar diminished sounds., no wheezing or crackles. Chest tube in place. ABDOMEN: Soft, nontender, nondistended, normoactive bowel sounds. No palpable organomegaly. MUSCULOSKELETAL: No joint swelling or deformity. EXTREMITIES: No cyanosis, clubbing, or pedal edema. NEUROLOGICAL: Gross neurological examination did not reveal any focal deficits. SKIN: No rashes. - Labs CBC & Chem 7: 01/11/21 04:16 01/11/21 04:16 Labs: Abnormal Lab Results - Last 24 Hours (Table) 01/10/21 01/10/21 01/11/21 Range/Units 17:13 20:07 04:16 WBC 10.7 H (3.8-10.6) k/uL RBC 2.93 L (3.80-5.40) m/uL Hgb 8.9 L (11.4-16.0) gm/dL Hct 26.8 L (34.0-46.0) % Plt Count 115 L (150-450) k/uL Neutrophils # 9.1 H (1.3-7.7) k/uL Lymphocytes # 0.6 L (1.0-4.8) k/uL Sodium (137-145) mmol/L Carbon Dioxide (22-30) mmol/L BUN (7-17) mg/dL Creatinine (0.52-1.04) mg/dL Glucose (74-99) mg/dL POC Glucose (mg/dL) 156 H 237 H (75-99) mg/dL Calcium (8.4-10.2) mg/dL AST (14-36) U/L Total Protein (6.3-8.2) g/dL Albumin (3.5-5.0) g/dL 01/11/21 01/11/21 01/11/21 Range/Units 04:16 07:05 11:08 WBC (3.8-10.6) k/uL RBC (3.80-5.40) m/uL Hgb (11.4-16.0) gm/dL Hct (34.0-46.0) % Plt Count (150-450) k/uL Neutrophils # (1.3-7.7) k/uL Lymphocytes # (1.0-4.8) k/uL Sodium 132 L (137-145) mmol/L Carbon Dioxide 19 L (22-30) mmol/L BUN 22 H (7-17) mg/dL Creatinine 1.05 H (0.52-1.04) mg/dL Glucose 163 H (74-99) mg/dL POC Glucose (mg/dL) 154 H 160 H (75-99) mg/dL Calcium 8.3 L (8.4-10.2) mg/dL AST 59 H (14-36) U/L Total Protein 5.3 L (6.3-8.2) g/dL Albumin 3.0 L (3.5-5.0) g/dL Assessment and Plan Assessment: -Coronary artery disease/Severe left main disease. status post CABG x2, on 01/08/21 -Preoperative medical ventilation expected. Patient was extubated with in 24 hrs.. -Acute coronary syndrome, patient has critical LAD lesion as mentioned above. Continue with aspirin, statins and beta blockers. Encourage incentive spirometry. -mild acute renal failure, prerenal azotemia. Improved with IV fluids. -Elevated blood sugars likely due to acute illness. A1c 5.4. Continue with insulin sliding scale and drip as needed.. -Paroxysmal A. fib patient is presently in atrial flutter: on metoprolol succinate. On Xarelto at home, -Coronary artery disease history and history of [place]. -Mild elevation of liver enzymes: Secondary to non-alcoholic steato- hepatitis liver enzymes are fairly stable . -Family history of coronary disease. Time with Patient: Greater than 30
[2021-01-12] MEDS: HEPARIN SODIUM,PORCINE/PF 5,000 UNIT/0.5 ML SYRINGE SQ SCH ×2 (00:58→07:57)
[2021-01-12] MEDS: DEXTROSE/WATER 1 250ML.BAG with DOPamine DRIP 800 MG IV SCH (00:59)
[2021-01-12] MEDS: LACTATED RINGERS 1,000 ML IV SCH ×2 (00:59→22:06)
--- NOTE | 2021-01-12 04:33 | P.PN ---
Subjective Progress Note Date: 01/12/21 Principal diagnosis: Coronary artery disease. Pulmonary consultation dated 01/07/2021. 75-year-old female, with anticipated off pump bypass grafting by Dr. Aquino tomorrow. We are asked to see the patient for preop clearance. The patient is a lifelong nonsmoker. She denies a history of any lung issues such as COPD, emphysema, chronic bronchitis, or asthma. She denies any breathing or pulmonary symptoms such as shortness of breath, cough, wheezing, phlegm production, tig htness, or any other complaints for that matter. The patient has been in the hospital for a number of days. She apparently was admitted back on December 31. She had a cardiac catheterization performed by Dr. Lewis on January 03. I explained to the patient what our role in the bypass surgery would be. It would include 2 major things, initially getting the patient off the mechanical ventilator. The second thing would be watching her throughout her hospitalization to make sure she did not develop a primary complication such as pleural effusion, atelectasis, lobar collapse, or pneumonia. Lab data includes a CBC which is essentially normal. Platelet count a bit low 134. Electrolyte profile is also relatively normal. AST and ALTs are bit elevated at 190 and 119 respectively. A chest x-ray done on the day of admission showed no acute cardiopulmonary process. Progress note dated 01/08/2021. The patient will have surgery today. She is postop having off pump bypass grafting done by Dr. Aquino. I again explained the role of the pulmonary/critical care doctor in the process. She understands that she'll be coming back from the operating room on the mechanical ventilator. It's our goal to get her off the ventilator as quickly as possible. In addition, I told that we will see her each step of the way, to make sure that her lungs remain in good shape while here. I emphasized the importance of using incentive spirometer. She has no clearcut evidence of any lung issues or lung disease. He is a lifelong nonsmoker. She should do well. The patient is seen today 01/09/2021 in follow-up in the intensive care unit. She is awake and alert in no acute distress. Sitting up in a chair at the bedside. Postoperative day #1 of coronary artery bypass grafting 2 with a WASSERMAN to the LAD, SVG to the OM. She is currently on 4 L/m per nasal cannula and maintaining O2 saturation in the 90s. Chest x-ray reveals bilateral infiltrates/atelectasis with effusion. Chest tube remains in place. No sizable pneumothorax. Working with the incentive spirometer. She remains on a nitroglycerin drip at 5 mg/m. Insulin drip at 5 units per hour. Lactated Ringer's at 50 MLS per hour. White count 12.4. Hemoglobin 9.5. Platelets 103. Sodium 140. Potassium 4.0. Creatinine 0.71. AST 89. ALT 57. Current blood pressure 124/38, PA pressure 29/8. Mean of 15. CVP 3. Cardiac output 4.7. Cardiac index 2.2. She remains on bronchodilators, heparin for DVT prophylaxis. Protonix for GI prophylaxis. The patient is seen today 01/10/2021 in follow-up in the intensive care unit. This is postoperative day #2 of her two-vessel coronary artery bypass surgery. She is sitting up in a chair at the bedside. She is maintaining O2 saturations in the low 90s on 4 L/m per nasal cannula. Chest x-ray shows bilateral atelectasis, small effusions. Chest tube currently in place. She is on l actated Ringer's at 30 mL per hour. Insulin drip at 3 units per hour. Dopamine at 2 mcg/kg/m. She is currently in sinus rhythm. White count 11.0. Hemoglobin 8.3. Platelet count 86,000. Sodium 137. Potassium 3.7. Creatinine 1.25. Glucose 105. AST 57. ALT 23. Albumin 3.4. She remains on heparin for DVT prophylaxis. Protonix for GI prophylaxis. Progress note dated 01/11/2021. 75-year-old female again seen in room 257. She is postoperative day #3, status post 2 vessel bypass grafting. The patient is currently sitting in bed. She is currently on 2 L nasal cannula. She's getting lactated Ringer's at 30 mL an hour, dopamine at 2 mcg/kg/m, and amiodarone 0.5 mg/m. Today's laboratory data includes a white count 10.7, hemoglobin 8.9, hematocrit 26.8, and platelet count 115,000. Sodium 132, potassium 3.9, chlorides 104, CO2 19, anion gap 9, BUN 22, and creatinine 1.05. Chest x-ray from today is currently pending. She has no major complaints. She seemed to be doing relatively well. Encouraged hourly use of the incentive spirometer. Progress note dated 01/12/2021. 75-year-old female seen in room 257. She is postoperative day #4 status post 2 vessel bypass grafting. Currently, she is doing well. She's getting lactated Ringer's at 20 mL an hour. She is on 2 L nasal cannula. The amiodarone and dopamine that were running yesterday have been turned off. She denies any chest pain or chest discomfort. She's not having any breathing issues. She sitting up in a chair next to the bed. She seems to be progressing quite well. Labs from yesterday show white count of 10.7, hemoglobin 8.9, and a platelet count of 115,000. BUN and creatinine from yesterday were 22 and 1.05. Labs from today are not yet up. Chest x-ray from yesterday shows bilateral infiltrates or atelectasis. Objective - Vital Signs Vital signs: Vital Signs Temp 98.7 F 01/12/21 04:00 Pulse 93 01/12/21 04:00 Resp 14 01/12/21 04:00 BP 169/69 01/12/21 04:00 Pulse Ox 98 01/12/21 04:00 Intake & Output 01/11/21 01/11/21 01/12/21 06:59 18:59 06:59 Intake Total 1585 432 580 Output Total 668 335 322 Balance 917 97 258 Weight 118.1 kg Intake: IV 1035 332 230 Amiodarone 360 mg In 204 Dextrose 5% in Water 200 ml @ 1 MG/MIN 34.533 mls/ hr IV .Q6H PRN Rx#: [id number] Amiodarone 450 mg In 32 16 Dextrose 5% in Water 250 ml @ 0.5 MG/MIN 16.667 mls/hr IV .Q15H PRN Rx#: [id number] Amiodarone Bolus 100 Lactated Ringers 1,000 ml 633 280 200 @ 20 mls/hr IV .Q24H GOEVANNA Rx#:[id number] Pressure Bags 66 36 30 Oral 550 100 350 Output: Urine 668 335 322 Other: Voiding Method Indwelling Catheter Indwelling Catheter Indwelling Catheter # Bowel Movements 1 ABP, PAP, CO, CI - Last Documented Arterial Blood Pressure 184/39 Pulmonary Artery Pressure 38/11 Cardiac Output 4.7 Cardiac Index 2.2 - Exam No acute distress, oriented 3. Currently on 2 L nasal cannula. No c onversational dyspnea or use of accessory muscles. Saturations are 98%. HEENT examination is grossly unremarkable. Neck supple. Full range of motion. No adenopathy thyromegaly or neck vein dist ention. Cardiovascular examination reveals regular rhythm rate. S1-S2 normal. No S3 or S4. No discernible murmur noted. Heart rate 93 bpm. Heart sounds are distant. Lungs reveal mostly clear breath sounds. Some scattered rhonchi are noted. No wheezes or crackles. Breath sounds are equal bilaterally. Abdomen soft bowel sounds are heard. No masses or tenderness. Extremities are intact. No cyanosis clubbing or edema. Skin is without rash or lesion. Neurologic examination is brief but nonfocal. - Labs CBC & Chem 7: 01/11/21 04:16 01/11/21 04:16 Labs: Abnormal Lab Results - Last 24 Hours (Table) 01/11/21 01/11/21 01/11/21 Range/Units 04:16 07:05 11:08 Sodium 132 L (137-145) mmol/L Carbon Dioxide 19 L (22-30) mmol/L BUN 22 H (7-17) mg/dL Creatinine 1.05 H (0.52-1.04) mg/dL Glucose 163 H (74-99) mg/dL POC Glucose (mg/dL) 154 H 160 H (75-99) mg/dL Calcium 8.3 L (8.4-10.2) mg/dL AST 59 H (14-36) U/L Total Protein 5.3 L (6.3-8.2) g/dL Albumin 3.0 L (3.5-5.0) g/dL 01/11/21 01/11/21 Range/Units 16:46 21:06 Sodium (137-145) mmol/L Carbon Dioxide (22-30) mmol/L BUN (7-17) mg/dL Creatinine (0.52-1.04) mg/dL Glucose (74-99) mg/dL POC Glucose (mg/dL) 142 H 173 H (75-99) mg/dL Calcium (8.4-10.2) mg/dL AST (14-36) U/L Total Protein (6.3-8.2) g/dL Albumin (3.5-5.0) g/dL Assessment and Plan Assessment: Status post two-vessel bypass grafting, including WASSERMAN to LAD and saphenous vein graft to the obtuse marginal, postop day #4 Routine postoperative ventilator management with extubation on 01/09/2021. Lifelong nontobacco use. History of heart failure. History of hyperlipidemia. History of hypertension. Prior history of myocardial infarction. History of CAD with previous stent placement. Plan: Plan dated 01/07/2021. The patient should do very well. She has no history of any lung issues. She is a lifelong nontobacco user. She denies a prior history of asthma, COPD, chronic bronchitis, or emphysema. The patient denies all pulmonary complaints including shortness of breath, cough, wheezing, chest tightness, and phlegm production. I did explain our role in the process. She understands. Plan dated 01/08/2021. The patient will be going to the operating room to much later today. They will probably call me with blood gases, and we'll make adjustments accordingly. Hopefully, we can get the patient extubated quickly. Our goal is to get the patient extubated in less than 4 hours, and certainly less than 6 hours. No additional recommendations are made. Patient is again counseled about the importance of using the incentive spirometer. Additional recommendations and suggestions are forthcoming. Plan dated 01/11/2021. Continues to do very well. We will continue to follow the patient and make recommendations where appropriate. Is currently on 2 L. She remains on lactated Ringer's at 30 mL an hour, dopamine at 2 mcg/kg/m, and amiodarone at 0.5 mg/m. We encouraged hourly use of the incentive spirometer, and deep breathing, coughing, and clearing of secretions. Plan dated 01/12/2021. The patient's doing well. She continues on 2 L nasal cannula. Saturations are 98%. She still on lactated Ringer's at 20 mL an hour. The dopamine and ami odarone that were on yesterday have been turned off. Clinically she looks well. She continues to work on incentive spirometer. We also encourage deep breathing, coughing, clearing her secretions. Prognosis is thought to be good. Time with Patient: Less than 30
[2021-01-12] MEDS: CLEVIDIPINE BUTYRATE 25 MG in EMPTY BAG 1 BAG IV SCH ×3 (05:30→08:18)
[2021-01-12] MEDS: DEXTROSE 5% IN WATER 100 ML with AMIODARONE 150 MG IV PRN (06:31)
--- NOTE | 2021-01-12 07:03 | P.PN ---
Subjective Progress Note Date: 01/12/21 Principal diagnosis: This is a very pleasant 75-year-old female patient who is status post coronary artery bypass grafting after she was admitted to the hospital with unstable chato na and underwent a heart catheterization which revealed severe disease involving the left main coronary artery. The patient was seen this morning. Apparently she went into A. fib with RVR and subsequently converted to normal sinus mechanism last night. She was started on amiodarone IV. On examination she seems to be hypervolemic with JVD and also by basilar crackles. Also she is slightly tachypneic. The chest x-ray was reviewed and showed bilateral pleural effusion. I advise giving the patient some IV diuretics. Also she is hypertensive and I advised to start her on calcium channel maxi by mouth. I'm going to obtain an NT proBNP as well for better clarification. We will continue following up with the patient. Objective - Vital Signs Vital signs: Vital Signs Temp 98.7 F 01/12/21 04:00 Pulse 87 01/12/21 05:00 Resp 23 01/12/21 05:00 BP 162/103 01/12/21 05:00 Pulse Ox 96 01/12/21 05:00 Intake & Output 01/11/21 01/12/21 01/12/21 18:59 06:59 18:59 Intake Total 432 610.334 Output Total 335 322 Balance 97 288.334 Intake: IV 332 230 Amiodarone 450 mg In 16 Dextrose 5% in Water 250 ml @ 0.5 MG/MIN 16.667 mls/hr IV .Q15H PRN Rx#: [id number] Lactated Ringers 1,000 ml 280 200 @ 20 mls/hr IV .Q24H GEOVANNA Rx#:[id number] Pressure Bags 36 30 Intake, IV Titration 30.334 Amount Clevidipine Butyrate 25 30.334 mg In Empty Bag 1 bag @ 1 MG/HR 2 mls/hr IV .Q24H GEOVANNA Rx#:[id number] Oral 100 350 Output: Urine 335 322 Other: Voiding Method Indwelling Catheter Indwelling Catheter # Bowel Movements 1 ABP, PAP, CO, CI - Last Documented Arterial Blood Pressure 184/39 Pulmonary Artery Pressure 38/11 Cardiac Output 4.7 Cardiac Index 2.2 - Constitutional General appearance: Present: no acute distress - Respiratory Respiratory: bilateral: rales - Cardiovascular Rhythm: regular Heart sounds: normal: S1, S2 - Labs CBC & Chem 7: 01/11/21 04:16 01/11/21 04:16 Labs: Abnormal Lab Results - Last 24 Hours (Table) 01/11/21 01/11/21 01/11/21 Range/Units 07:05 11:08 16:46 POC Glucose (mg/dL) 154 H 160 H 142 H (75-99) mg/dL 01/11/21 Range/Units 21:06 POC Glucose (mg/dL) 173 H (75-99) mg/dL Assessment and Plan Assessment: Assessment #1 coronary artery disease and status post CABG #2 paroxysmal atrial fibrillation #3 hypertension #4 dyslipidemia Plan #1 I advise giving the patient IV diuretics #2 start the patient on calcium channel maxi #3 obtain NT proBNP #4 follow-up with the patient
[2021-01-12] MEDS: IPRATROPIUM-ALBUTEROL 3 ML NEB INHALATION SCH ×4 (07:15→21:08)
[2021-01-12] MEDS ORDERED: FUROSEMIDE 10 MG/ML 2 ML VIAL IV STA (07:46)
[2021-01-12 07:54] LABS: Glucose,Whole Blood 218 mg/dL (75-99)
[2021-01-12] MEDS: PANTOPRAZOLE 40 MG TABLET PO SCH (07:56)
[2021-01-12] MEDS: CLOPIDOGREL 75 MG TAB PO SCH (07:57)
[2021-01-12] MEDS: amLODIPine 5 MG TAB PO SCH (07:57)
[2021-01-12] MEDS: METOPROLOL TARTRATE 50 MG TAB PO SCH ×2 (07:57→21:24)
[2021-01-12] MEDS: AMIODARONE 200 MG TAB PO SCH ×2 (07:57→21:25)
[2021-01-12] MEDS: ATORVASTATIN 40 MG TAB PO SCH (07:57)
[2021-01-12] MEDS: ASPIRIN 325 MG TAB PO SCH (07:57)
[2021-01-12] MEDS: INSULIN ASPART (NovoLOG) 100 UNIT/ML VIAL SQ SCH ×4 (07:58→21:24)
[2021-01-12 08:14] LABS: HCT 28.7 % (34.0-46.0); HGB 9.8 gm/dL (11.4-16.0); MCH 31.4 pg (25.0-35.0); MCHC 34.2 g/dL (31.0-37.0); MCV 91.8 fL (80.0-100.0); Mean Platelet Volume 8.9; Platelet Count 213 k/uL (150-450); RBC 3.12 m/uL (3.80-5.40); RDW 14.5 % (11.5-15.5)
--- NOTE | 2021-01-12 08:23 | XR ---
EXAMINATION TYPE: XR chest 1V portable DATE OF EXAM: 01/12/2021 Comparison: 01/11/2021 Clinical History: 75-year-old female post cardiac surgery Findings: Median sternotomy wires are present with post-CABG clips in the mediastinum. Heart margins are partia lly obscured by adjacent pleural parenchymal opacity. There may be underlying moderate effusions. Int erstitial prominence. Overlying external artifacts. Impression: Hypoventilatory changes. There may be continued small to moderate effusions with adjacent atelectasis and/or consolidation. Correlate for the development of mild pulmonary vascular congestion.
[2021-01-12 08:29] LABS: Calcium 7.9 mg/dL (8.4-10.2); Potassium 4.5 mmol/L (3.5-5.1)
[2021-01-12] MEDS ORDERED: amLODIPine 2.5 MG TAB PO SCH (09:00)
--- NOTE | 2021-01-12 10:08 | P.PN ---
Subjective Progress Note Date: 01/12/21 Principal diagnosis: Coronary artery disease with left main disease, acute kidney injury on admission. Past medical history significant for myocardial infarction with multivessel angioplasty, hypertension, hyperlipidemia, paroxysmal atrial fibrillation on Xarelto for anticoagulation, fatty liver with transaminitis, and family history of coronary artery disease. POD #4 off-pump coronary artery bypass graft 2 with left internal mammary artery to the left anterior descending artery, reverse saphenous vein graft to the obtuse marginal artery, ligation of the left atrial appendage using a 35 mm AtriClip, endovascular vein harvest of the left greater saphenous vein from the knee to the groin, intraoperative transesophageal echocardiogram. Postoperative acute blood loss anemia and thrombocytopenia, expected given hemodilution. Paroxysmal atrial fibrillation, known common occurrence after open heart surgery especially given the patient's history of paroxysmal atrial fibrillation. The patient is seen in follow-up today 01/12/2021 at her bedside in the intensive care unit. Currently she is sitting up to the bedside chair, is awake, alert and oriented 3. The patient this morning is complaining of some shortness of breath with wheezing and is slightly tachypneic with some scattered crackles to her bilateral bases. Yesterday 01/12/2012 the patient went into at [facility] fibrillation and this morning her bedside telemetry is showing sinus tachycardia heart rate 102 BPM. She denies any complaints of pain at this time, although reports she feels quite anxious due to her breathing. She remains afebrile the last 24 hours. She remains hemodynamically stable, although became quite hypertensive throughout the evening and was started on a Cleviprex drip which is currently on 16 mg/h. Right IJ cordis remains in place with continuous CVP monitoring, current CVP pressure 12 mmHg. Oxygen saturation are 96% on 4 L nasal cannula and she is only able to achieve 500-750 mL on her incentive spirometry with much encouragement. She reports she was doing quite well in her opinion yesterday, and was up ambulating in the intensive care unit hallway with minimal assistance from nursing and physical therapy staff. Laboratory results this morning show a WBC count of 14.0, hemoglobin 9.8, hematocrit 28.7, platelets 213, CO2 17, BUN 21, and creatinine 0.95. Objective - Vital Signs Vital signs: Vital Signs Temp 98.7 F 01/12/21 04:00 Pulse 98 01/12/21 07:25 Resp 21 01/12/21 07:00 BP 151/50 01/12/21 07:00 Pulse Ox 90 L 01/12/21 07:00 Intake & Output 01/11/21 01/12/21 01/12/21 18:59 06:59 18:59 Intake Total 432 656.334 94.067 Output Total 335 422 25 Balance 97 234.334 69.067 Weight 117.5 kg Intake: IV 332 276 23 Amiodarone 450 mg In 16 Dextrose 5% in Water 250 ml @ 0.5 MG/MIN 16.667 mls/hr IV .Q15H PRN Rx#: [id number] Lactated Ringers 1,000 ml 280 240 20 @ 20 mls/hr IV .Q24H GEOVANNA Rx#:[id number] Pressure Bags 36 36 3 Intake, IV Titration 30.334 71.067 Amount Clevidipine Butyrate 25 30.334 71.067 mg In Empty Bag 1 bag @ 1 MG/HR 2 mls/hr IV .Q24H GEOVANNA Rx#:[id number] Oral 100 350 Output: Urine 335 422 25 Other: Voiding Method Indwelling Catheter Indwelling Catheter # Bowel Movements 1 ABP, PAP, CO, CI - Last Documented Arterial Blood Pressure 184/39 Pulmonary Artery Pressure 38/11 Cardiac Output 4.7 Cardiac Index 2.2 - Exam CONSTITUTIONAL: Sitting up to the bedside chair in the intensive care unit, appears tachypneic, cooperative, and slightly short of breath. HEENT: Neck is supple, positive JVD to her left side, no lymphadenopathy. Right IJ Cordis in place and functioning. RESPIRATORY: Lungs sounds with few scattered crackles throughout and expiratory wheezes throughout, diminished bilateral bases. Respirations are symmetrical and tachypneic. Currently on 4 L nasal cannula with oxygen saturations 96%. Able to achieve 500-750 mL on her incentive spirometry. Strong cough. CARDIOVASCULAR: Regular rhythm and tachycardic rate. S1 and S2 present, negative for S3, gallop or murmur. Bedside telemetry showing sinus tachycardia heart rate 102 BPM. Sternum is stable. Palpable peripheral pulses bilaterally. No calf pain or tenderness noted. Heart hugger in place with patient demonstrating appropriate use. Knee-high EDY hose and sequential compression devices in place to his bilateral lower extremities. GASTROINTESTINAL: Abdomen soft, nontender, nondistended. Active bowel sounds present 4 quadrants. Tolerating diet. Passing flatus. No guarding or rigidity. Bowel movement yesterday 01/11/2021. GENITOURINARY: Blackwood present draining clear, yellow urine. Marginal urine output with 140 mL in the last 8 hours. INTEGUMENTARY: Skin is warm and dry with no clubbing or cyanosis present. Midline sternal incision clean dry and well approximated, covered with dry intact dressing. Left lower extremity EVH site well approximated without redness or drainage. NEUROLOGIC: Cranial nerves II through XII intact. No focal deficits. MUSKULOSKELETAL: Able to move all extremities, strength equal bilaterally, generalized weakness. PSYCHIATRIC: Alert and oriented to person place and time, appropriate affect, intact judgment and insight. INVASIVE LINES AND TUBES: Right internal jugular Cordis, with current CVP pressure 12 mmHg. - Labs CBC & Chem 7: 01/12/21 08:02 01/12/21 08:02 Labs: Abnormal Lab Results - Last 24 Hours (Table) 01/11/21 01/11/21 01/11/21 Range/Units 11:08 16:46 21:06 WBC (3.8-10.6) k/uL RBC (3.80-5.40) m/uL Hgb (11.4-16.0) gm/dL Hct (34.0-46.0) % Sodium (137-145) mmol/L Carbon Dioxide (22-30) mmol/L BUN (7-17) mg/dL Glucose (74-99) mg/dL POC Glucose (mg/dL) 160 H 142 H 173 H (75-99) mg/dL Calcium (8.4-10.2) mg/dL CK-MB (CK-2) (0.0-2.4) ng/mL 01/12/21 01/12/21 01/12/21 Range/Units 07:52 08:02 08:02 WBC 14.0 H (3.8-10.6) k/uL RBC 3.12 L (3.80-5.40) m/uL Hgb 9.8 L (11.4-16.0) gm/dL Hct 28.7 L (34.0-46.0) % Sodium 130 L (137-145) mmol/L Carbon Dioxide 17 L (22-30) mmol/L BUN 21 H (7-17) mg/dL Glucose 207 H (74-99) mg/dL POC Glucose (mg/dL) 218 H (75-99) mg/dL Calcium 7.9 L (8.4-10.2) mg/dL CK-MB (CK-2) (0.0-2.4) ng/mL 01/12/21 Range/Units 08:02 WBC (3.8-10.6) k/uL RBC (3.80-5.40) m/uL Hgb (11.4-16.0) gm/dL Hct (34.0-46.0) % Sodium (137-145) mmol/L Carbon Dioxide (22-30) mmol/L BUN (7-17) mg/dL Glucose (74-99) mg/dL POC Glucose (mg/dL) (75-99) mg/dL Calcium (8.4-10.2) mg/dL CK-MB (CK-2) 3.8 H (0.0-2.4) ng/mL Assessment and Plan Assessment: 1. Symptomatic coronary artery disease with left main disease, status post 2 vessel coronary artery bypass grafting 2. Acute kidney injury on admission 3. History of myocardial infarction, history of multivessel angioplasty 4. Hypertension 5. Hyperlipidemia, treated, cholesterol 139, LDL 91 6. History of persistent paroxysmal atrial fibrillation on Xarelto for anticoagulation on an outpatient, status post left atrial appendage ligation 7. History of fatty liver with elevation of her transaminase enzymes 8. Family history of coronary artery disease 9. Lifetime nonsmoker with the preoperative FEV1 57% of predicted value 10. Postoperative acute blood loss anemia and thrombocytopenia, expected 11. Paroxysmal atrial fibrillation, known common occurrence after cardiac surgery and given her known history of persistent paroxysmal atrial fibrillation as an outpatient Plan: 1. Continue aspirin, Plavix, statin, and beta maxi. Will increase her metoprolol tartrate to 50 mg by mouth twice a day. 2. Start Norvasc 5 mg by mouth daily and wean off Cleviprex drip. 3. Wean O2 as tolerated. Encourage incentive spirometry use 10 times every hour while awake. Bronchodilators per pulmonology. 3. Increase activity, ambulate as tolerated. PT/OT/cardiac rehab following. 4. Will monitor daily labs and chest x-rays. Electrolyte replacement per protocol. 5. GI/DVT prophylaxis. 6. Insulin management per primary care service. Patient is not diabetic, hemoglobin A1c 5.4%. 7. Pain controlled with current medication regimen. 8. Discontinue right IJ Cordis once the patient Cleviprex drip is weaned off. 9. Lasix 20 mg IV every 12 hours. 10. Continue Blackwood catheter for another 24 hours. Continue to record strict accurate intake and output. Daily weights 11. More recommendations to follow based on patient's clinical course. Time with Patient: Greater than 30
[2021-01-12 11:37] LABS: Glucose,Whole Blood 161 mg/dL (75-99)
--- NOTE | 2021-01-12 12:46 | US ---
EXAMINATION TYPE: US chest DATE OF EXAM: 01/12/2021 COMPARISON: Radiograph 01/12/2021 CLINICAL HISTORY: 75-year-old female pleural effusion TECHNIQUE: Targeted ultrasound of the posterior lower bilateral hemithoraces FINDINGS: EXAM MEASUREMENTS: Right Pleural Effusion pocket size: 10.9 cm - lung noted anteriorly Right skin surface to fluid distance: 4.4 cm Left Pleural Effusion pocket size: 9.3 cm -lung noted anteriorly Left skin surface to fluid distance: 3.5 cm Right side marked for possible thoracentesis outside the dept. Left side marked for possible thoracentesis outside the dept. Pulmonologists are able to review the images in the patient?s EMR. IMPRESSIONS: Moderate bilateral pleural effusions. Some interposed atelectatic lung is noted on both sides.
--- NOTE | 2021-01-12 14:19 | P.PN ---
Subjective Progress Note Date: 01/12/21 Principal diagnosis: Left main coronary artery disease. Ms. Zaidi is a 75-year-old female with the past medical history of coronary artery disease status post multiple stents, hypertension, hyperlipidemia, MS, atrial fibrillation admitted to the hospital with a chief complaint of increased fatigue and exertional dyspnea. Patient had 2-D echocardiogram showing LV systolic function EF of 55-50% with right ventricular being severely enlarged right atrium is mildly enlarged with mild aortic regurgitation along with mild mitral and tricuspid regurgitation. Cardiology was on board and eventually she had cardiac catheterization done on 01/02/2021 showing severe left main ostial stenosis with focal critical stenosis in the LAD. Coronary artery bypass grafting was recommended and CT surgery was consulted. Patient had coronary artery bypass grafting done on 01/08/2021 and since then been in the ICU. On 01/12/2021-patient is seen at the bedside in the ICU today. As per discussion with the nursing staff early this morning patient was having difficulty in breathing and felt anxious, at that time she was in atrial fibrillation. Amiodarone drip was started, chest x-ray showed bilateral pleural effusion. So patient received IV 20 mg of Lasix this morning. Currently patient is sitting up in a chair by the bedside states that she had a very rough morning. Patient denies having any chest pain or palpitations. She states that she has soreness in her chest wall. Patient denies having any abdominal pain nausea vomiting. No difficulty in breathing. Denies having any fevers chills or rigors. On reviewing the vitals blood pressure 151/50, heart rate 90s to 100 100s, saturating at 90% on 4 L of nasal cannula. Labs this morning showing white count of 14, hemoglobin 9.8, platelets 216. Sodium 1:30, pretension. 0.5, chloride 103, bicarb 17, BUN 21, creatinine 0.95. Patient's medications have been reviewed she is on Tylenol, DuoNeb, amiodarone, Norvasc, aspirin, Lipitor, Dulcolax, Plavix, Lasix, heparin subcu, NovoLog, milk of magnesia, melatonin, Reglan, Lopressor, Zofran, Protonix, Senokot. Objective - Vital Signs Vital signs: Vital Signs Temp 98.7 F 01/12/21 04:00 Pulse 74 06/12/21 11:09 Resp 21 01/12/21 07:00 BP 151/50 01/12/21 07:00 Pulse Ox 90 L 01/12/21 07:00 Intake & Output 01/11/21 01/12/21 01/12/21 18:59 06:59 18:59 Intake Total 432 656.334 94.067 Output Total 335 422 25 Balance 97 234.334 69.067 Weight 117.5 kg Intake: IV 332 276 23 Amiodarone 450 mg In 16 Dextrose 5% in Water 250 ml @ 0.5 MG/MIN 16.667 mls/hr IV .Q15H PRN Rx#: [id number] Lactated Ringers 1,000 ml 280 240 20 @ 20 mls/hr IV .Q24H GEOVANNA Rx#:[id number] Pressure Bags 36 36 3 Intake, IV Titration 30.334 71.067 Amount Clevidipine Butyrate 25 30.334 71.067 mg In Empty Bag 1 bag @ 1 MG/HR 2 mls/hr IV .Q24H GEOVANNA Rx#:[id number] Oral 100 350 Output: Urine 335 422 25 Other: Voiding Method Indwelling Catheter Indwelling Catheter # Bowel Movements 1 ABP, PAP, CO, CI - Last Documented Arterial Blood Pressure 184/39 Pulmonary Artery Pressure 38/11 Cardiac Output 4.7 Cardiac Index 2.2 - Exam PHYSICAL EXAMINATION: GENERAL: Sitting up in a chair by the bedside, slightly tachypneic HEENT: No pallor, no icterus. Positive for JVD. Right IJ Cordis in place CARDIOVASCULAR: Tachycardia, Midsternal surgical site is bandaged. PULMONARY: Positive for bilateral crackles with expiratory wheezes. ABDOMEN: Soft, nontender, nondistended, normoactive bowel sounds. Blackwood's catheter in place MUSCULOSKELETAL: No joint swelling or deformity. EXTREMITIES: Mild pitting edema bilaterally NEUROLOGICAL: Gross neurological examination did not reveal any focal deficits. SKIN: No rashes. - Labs CBC & Chem 7: 01/12/21 08:02 01/12/21 08:02 Labs: Abnormal Lab Results - Last 24 Hours (Table) 01/11/21 01/11/21 01/12/21 Range/Units 16:46 21:06 07:52 WBC (3.8-10.6) k/uL RBC (3.80-5.40) m/uL Hgb (11.4-16.0) gm/dL Hct (34.0-46.0) % Sodium (137-145) mmol/L Carbon Dioxide (22-30) mmol/L BUN (7-17) mg/dL Glucose (74-99) mg/dL POC Glucose (mg/dL) 142 H 173 H 218 H (75-99) mg/dL Calcium (8.4-10.2) mg/dL CK-MB (CK-2) (0.0-2.4) ng/mL 01/12/21 01/12/21 01/12/21 Range/Units 08:02 08:02 08:02 WBC 14.0 H (3.8-10.6) k/uL RBC 3.12 L (3.80-5.40) m/uL Hgb 9.8 L (11.4-16.0) gm/dL Hct 28.7 L (34.0-46.0) % Sodium 130 L (137-145) mmol/L Carbon Dioxide 17 L (22-30) mmol/L BUN 21 H (7-17) mg/dL Glucose 207 H (74-99) mg/dL POC Glucose (mg/dL) (75-99) mg/dL Calcium 7.9 L (8.4-10.2) mg/dL CK-MB (CK-2) 3.8 H (0.0-2.4) ng/mL 01/12/21 Range/Units 11:26 WBC (3.8-10.6) k/uL RBC (3.80-5.40) m/uL Hgb (11.4-16.0) gm/dL Hct (34.0-46.0) % Sodium (137-145) mmol/L Carbon Dioxide (22-30) mmol/L BUN (7-17) mg/dL Glucose (74-99) mg/dL POC Glucose (mg/dL) 161 H (75-99) mg/dL Calcium (8.4-10.2) mg/dL CK-MB (CK-2) (0.0-2.4) ng/mL Assessment and Plan Assessment: ASSESSMENT Coronary artery disease/severe left main disease/status post CABG on 01/08/2021- postoperative day 4 Paroxysmal atrial fibrillation status post cardiac surgery History of MS with multivessel angioplasty Mild prerenal a calorie improving Mild transaminitis Family history of coronary artery disease Hyponatremia Acute blood loss anemia and thrombocytopenia status post cardiac surgery Mild leukocytosis-probably reactive Hypertension Hyperlipidemia PLAN: Patient was found to be in A. fib with rapid ventricular rate this morning, amiodarone drip has been started and heart rate is under better control. Metoprolol dose has been increased to 50 mg twice a day. Patient's creatinine is slowly improving. Chest x-ray this morning showing pulmonary vascular congestion, patient received a dose of IV Lasix. Continue with aspirin and Plavix statin. Hyperglycemia to be controlled with sliding scale of insulin. Postoperative care as per CT surgery recommendations. Patient encouraged to continue using incentive spirometry. Overall prognosis is guarded. Further recommendations to follow depending on the progress of the patient.
[2021-01-12 16:15] LABS: Calcium 8.4 mg/dL (8.4-10.2)
[2021-01-12 16:40] LABS: Potassium 4.5 mmol/L (3.5-5.1)
[2021-01-12 16:50] LABS: Glucose,Whole Blood 141 mg/dL (75-99)
[2021-01-12 20:27] LABS: Glucose,Whole Blood 160 mg/dL (75-99)
[2021-01-12] MEDS: FUROSEMIDE 10 MG/ML 2 ML VIAL IV SCH (21:24)
[2021-01-12] MEDS: MELATONIN 3 MG TABLET PO PRN (21:24)
[2021-01-12] MEDS: SENNOSIDES-DOCUSATE SODIUM 1 EACH TAB PO SCH (21:24)
[2021-01-12] MEDS: ACETAMINOPHEN TAB 325 MG TAB PO PRN (21:25)
[2021-01-13 04:59] LABS: Basophils # (A) 0.1 k/uL (0-0.2); Basophils % (A) 1 %; Eosinophils # (A) 0.3 k/uL (0-0.7); Eosinophils % (A) 3 %; HCT 28.2 % (34.0-46.0); HGB 9.6 gm/dL (11.4-16.0); Lymphocytes # (A) 0.9 k/uL (1.0-4.8); Lymphocytes % (A) 9 %; MCH 31.1 pg (25.0-35.0); MCV 91.5 fL (80.0-100.0); Mean Platelet Volume 8.1; Monocytes % (A) 10 %; Neutrophils # (A) 6.9 k/uL (1.3-7.7); Neutrophils % (A) 74 %; Platelet Count 227 k/uL (150-450); RBC 3.08 m/uL (3.80-5.40); RDW 14.5 % (11.5-15.5); WBC 9.4 k/uL (3.8-10.6)
[2021-01-13 05:11] LABS: Potassium 4.1 mmol/L (3.5-5.1)
[2021-01-13 05:12] LABS: Albumin 3.1 g/dL (3.5-5.0); Calcium 8.3 mg/dL (8.4-10.2); Magnesium 2.1 mg/dL (1.6-2.3); Total Bilirubin 1.3 mg/dL (0.2-1.3); Total Protein 5.7 g/dL (6.3-8.2)
--- NOTE | 2021-01-13 06:53 | P.PN ---
Subjective Progress Note Date: 01/13/21 Principal diagnosis: This is a very pleasant 75-year-old female patient who is status post coronary artery bypass grafting after she was admitted to the hospital with unstable chato na and underwent a heart catheterization which revealed severe disease involving the left main coronary artery. The patient was seen today. She has been maintaining normal sinus mechanism. She is definitely looking better clinically because yesterday she was in mild respiratory distress. She continues to have on examination by basilar crackles on the chest x-ray showed mild bilateral pleural effusion. Currently she is on Lasix IV which I would continue at this point for at least the next 24 hours. Her blood pressure has improved significantly. The GFR is 51. Hemoglobin is a stable. I would advise the patient to be started also clopidogrel in addition to aspirin and also I would advise increasing the dose of Lipitor to 80 mg by mouth daily at bedtime. Objective - Vital Signs Vital signs: Vital Signs Temp 97.7 F 01/13/21 04:00 Pulse 73 01/13/21 04:00 Resp 19 01/13/21 04:00 BP 134/51 01/13/21 04:00 Pulse Ox 98 01/13/21 04:00 Intake & Output 01/12/21 01/12/21 01/13/21 06:59 18:59 06:59 Intake Total 715.715 5682.067 480 Output Total 422 910 970 Balance 234.334 281.067 -490 Weight 117.5 kg Intake: IV 276 276 230 Lactated Ringers 1,000 ml 240 240 200 @ 20 mls/hr IV .Q24H GEOVANNA Rx#:[id number] Pressure Bags 36 36 30 Intake, IV Titration 30.334 71.067 Amount Clevidipine Butyrate 25 30.334 71.067 mg In Empty Bag 1 bag @ 1 MG/HR 2 mls/hr IV .Q24H GEOVANNA Rx#:[id number] Oral 350 844 250 Output: Urine 422 910 970 Other: Voiding Method Indwelling Catheter Indwelling Catheter Indwelling Catheter # Bowel Movements 1 ABP, PAP, CO, CI - Last Documented Arterial Blood Pressure 184/39 Pulmonary Artery Pressure 38/11 Cardiac Output 4.7 Cardiac Index 2.2 - Constitutional General appearance: Present: no acute distress - Respiratory Respiratory: bilateral: rales - Cardiovascular Rhythm: regular Heart sounds: normal: S1, S2 - Labs CBC & Chem 7: 01/13/21 04:30 01/13/21 04:30 Labs: Abnormal Lab Results - Last 24 Hours (Table) 01/12/21 01/12/21 01/12/21 Range/Units 07:52 08:02 08:02 WBC 14.0 H (3.8-10.6) k/uL RBC 3.12 L (3.80-5.40) m/uL Hgb 9.8 L (11.4-16.0) gm/dL Hct 28.7 L (34.0-46.0) % Lymphocytes # (1.0-4.8) k/uL Sodium 130 L (137-145) mmol/L Carbon Dioxide 17 L (22-30) mmol/L BUN 21 H (7-17) mg/dL Creatinine (0.52-1.04) mg/dL Glucose 207 H (74-99) mg/dL POC Glucose (mg/dL) 218 H (75-99) mg/dL Calcium 7.9 L (8.4-10.2) mg/dL AST (14-36) U/L CK-MB (CK-2) (0.0-2.4) ng/mL Total Protein (6.3-8.2) g/dL Albumin (3.5-5.0) g/dL 01/12/21 01/12/21 01/12/21 Range/Units 08:02 11:26 15:55 WBC (3.8-10.6) k/uL RBC (3.80-5.40) m/uL Hgb (11.4-16.0) gm/dL Hct (34.0-46.0) % Lymphocytes # (1.0-4.8) k/uL Sodium 130 L (137-145) mmol/L Carbon Dioxide (22-30) mmol/L BUN 23 H (7-17) mg/dL Creatinine (0.52-1.04) mg/dL Glucose 137 H (74-99) mg/dL POC Glucose (mg/dL) 161 H (75-99) mg/dL Calcium (8.4-10.2) mg/dL AST (14-36) U/L CK-MB (CK-2) 3.8 H (0.0-2.4) ng/mL Total Protein (6.3-8.2) g/dL Albumin (3.5-5.0) g/dL 01/12/21 01/12/21 01/13/21 Range/Units 16:49 20:26 04:30 WBC (3.8-10.6) k/uL RBC 3.08 L (3.80-5.40) m/uL Hgb 9.6 L (11.4-16.0) gm/dL Hct 28.2 L (34.0-46.0) % Lymphocytes # 0.9 L (1.0-4.8) k/uL Sodium (137-145) mmol/L Carbon Dioxide (22-30) mmol/L BUN (7-17) mg/dL Creatinine (0.52-1.04) mg/dL Glucose (74-99) mg/dL POC Glucose (mg/dL) 141 H 160 H (75-99) mg/dL Calcium (8.4-10.2) mg/dL AST (14-36) U/L CK-MB (CK-2) (0.0-2.4) ng/mL Total Protein (6.3-8.2) g/dL Albumin (3.5-5.0) g/dL 01/13/21 Range/Units 04:30 WBC (3.8-10.6) k/uL RBC (3.80-5.40) m/uL Hgb (11.4-16.0) gm/dL Hct (34.0-46.0) % Lymphocytes # (1.0-4.8) k/uL Sodium 133 L (137-145) mmol/L Carbon Dioxide (22-30) mmol/L BUN 23 H (7-17) mg/dL Creatinine 1.06 H (0.52-1.04) mg/dL Glucose (74-99) mg/dL POC Glucose (mg/dL) (75-99) mg/dL Calcium 8.3 L (8.4-10.2) mg/dL AST 46 H (14-36) U/L CK-MB (CK-2) (0.0-2.4) ng/mL Total Protein 5.7 L (6.3-8.2) g/dL Albumin 3.1 L (3.5-5.0) g/dL Assessment and Plan Assessment: Assessment #1 coronary artery disease and status post CABG #2 paroxysmal atrial fibrillation #3 hypertension #4 dyslipidemia Plan #1 continue the current medical regimen #2 continue IV diuretics for additional 24 hours #3 I would advise increasing the dose of Lipitor to 80 mg by mouth daily at bedtime #4 I would advise adding clopidogrel to the current medical regimen #5 follow-up with the patient
[2021-01-13] MEDS: IPRATROPIUM-ALBUTEROL 3 ML NEB INHALATION SCH ×4 (07:53→19:30)
[2021-01-13 08:05] LABS: Glucose,Whole Blood 145 mg/dL (75-99)
[2021-01-13] MEDS: INSULIN ASPART (NovoLOG) 100 UNIT/ML VIAL SQ SCH ×4 (08:22→21:26)
[2021-01-13] MEDS: ATORVASTATIN 40 MG TAB PO SCH (08:28)
[2021-01-13] MEDS: METOPROLOL TARTRATE 50 MG TAB PO SCH ×2 (08:28→21:25)
[2021-01-13] MEDS: PANTOPRAZOLE 40 MG TABLET PO SCH (08:29)
[2021-01-13] MEDS: amLODIPine 5 MG TAB PO SCH (08:29)
[2021-01-13] MEDS: AMIODARONE 200 MG TAB PO SCH ×2 (08:29→21:25)
[2021-01-13] MEDS: FUROSEMIDE 10 MG/ML 2 ML VIAL IV SCH ×2 (08:30→21:25)
--- NOTE | 2021-01-13 08:34 | XR ---
EXAMINATION TYPE: XR chest 2V DATE OF EXAM: 01/13/2021 COMPARISON: 01/12/2021 HISTORY: 75-year-old female postop CABG TECHNIQUE: PA and lateral views FINDINGS: Median sternotomy wires are present with post-CABG clips. Heart borderline enlarged. Small to moderat e effusions remain with adjacent opacity. IMPRESSION: Similar small to moderate effusions with adjacent atelectasis and/or consolidation.
[2021-01-13] MEDS: ACETAMINOPHEN TAB 325 MG TAB PO PRN (09:17)
--- NOTE | 2021-01-13 09:42 | P.PN ---
Subjective Progress Note Date: 01/13/21 Principal diagnosis: Coronary artery disease with left main disease, acute kidney injury on admission. Past medical history significant for myocardial infarction with multivessel angioplasty, hypertension, hyperlipidemia, paroxysmal atrial fibrillation on Xarelto for anticoagulation, fatty liver with transaminitis, and family history of coronary artery disease. POD #5 off-pump coronary artery bypass graft 2 with left internal mammary artery to the left anterior descending artery, reverse saphenous vein graft to the obtuse marginal artery, ligation of the left atrial appendage using a 35 mm AtriClip, endovascular vein harvest of the left greater saphenous vein from the knee to the groin, intraoperative transesophageal echocardiogram. Postoperative acute blood loss anemia and thrombocytopenia, expected given hemodilution. Paroxysmal atrial fibrillation, known common occurrence after open heart surgery especially given the patient's history of paroxysmal atrial fibrillation. Bilateral pleural effusions, status post right sided thoracentesis today 01/13/2021 with removal of 800 mL thin serosanguineous drainage. The patient is seen in follow-up today 01/13/2021 at her bedside in the intensive care unit. Currently she is sitting up to the bedside chair, is awake, alert and oriented 3. This morning the patient reports that she feels much improved from yesterday. Denies any complaints of pain or shortness of breath at this time. She does although report she does have some shortness of breath with ambulating. Oxygen saturation are 93% on room air and she is achieving 500-750 mL on her incentive spirometry. She remained hemodynamically stable and is currently on no inotropic or pressor support. An ultrasound of her chest was completed yesterday 01/12/2021 which showed a 10.9 cm right pleural effusion pocket and a 9.3 cm left pleural effusion pocket. Lasix 20 mg IV every 12 hours was started yesterday with good diuresis. No further episodes of atrial fibrillation have been reported, currently the patient is in normal sinus rhythm with a heart rate 76 BPM. The patient has been up ambulating in the intensive care unit hallway 3 yesterday with assistance from nursing staff and therapy staff. She remains afebrile the last 24 hours. Laboratory results this morning show a WBC count 9.4, hemoglobin 9.6, platelets 227, sodium 133, potassium 4.1, BUN 23, creatinine 1.06 and AST 46. Objective - Vital Signs Vital signs: Vital Signs Temp 97.7 F 06/13/21 04:00 Pulse 80 01/13/21 08:05 Resp 14 01/13/21 08:00 BP 134/69 01/13/21 08:00 Pulse Ox 93 L 01/13/21 08:00 Intake & Output 01/12/21 01/13/21 01/13/21 18:59 06:59 18:59 Intake Total 1191.067 526 46 Output Total 910 1025 60 Balance 281.067 -499 -14 Weight 117.5 kg Intake: IV 276 276 46 Lactated Ringers 1,000 ml 240 240 40 @ 20 mls/hr IV .Q24H GEOVANNA Rx#:[id number] Pressure Bags 36 36 6 Intake, IV Titration 71.067 Amount Clevidipine Butyrate 25 71.067 mg In Empty Bag 1 bag @ 1 MG/HR 2 mls/hr IV .Q24H GEOVANNA Rx#:[id number] Oral 844 250 Output: Urine 910 1025 60 Other: Voiding Method Indwelling Catheter Indwelling Catheter ABP, PAP, CO, CI - Last Documented Arterial Blood Pressure 184/39 Pulmonary Artery Pressure 38/11 Cardiac Output 4.7 Cardiac Index 2.2 - Exam CONSTITUTIONAL: Sitting up to the bedside chair in the intensive care unit, no acute distress, comfortable and cooperative. HEENT: Neck is supple, positive JVD to her left side, no lymphadenopathy. RESPIRATORY: Lungs sounds with few scattered crackles throughout and scattered expiratory wheezes, diminished bilateral bases. Respirations are symmetrical and nonlabored. Currently on room air with oxygen saturations 93%. Able to achieve 500-750 mL on her incentive spirometry. Strong cough. CARDIOVASCULAR: Regular rhythm and rate. S1 and S2 present, negative for S3, gallop or murmur. Bedside telemetry showing normal sinus rhythm heart rate 76 BPM. Sternum is stable. Palpable peripheral pulses bilaterally. No calf pain or tenderness noted. Heart hugger in place with patient demonstrating appropriate use. Knee-high EDY hose and sequential compression devices in place to his bilateral lower extremities. GASTROINTESTINAL: Abdomen soft, nontender, nondistended. Active bowel sounds present 4 quadrants. Tolerating diet. Passing flatus. No guarding or rigidity. Bowel movement this morning 01/13/2021. GENITOURINARY: Bruce present draining clear, yellow urine. Urine output with 700 mL in the last 8 hours. INTEGUMENTARY: Skin is warm and dry with no clubbing or cyanosis present. Midline sternal incision clean dry and well approximated, covered with dry intact dressing. Left lower extremity EVH site well approximated without redness or drainage. NEUROLOGIC: Cranial nerves II through XII intact. No focal deficits. MUSKULOSKELETAL: Able to move all extremities, strength equal bilaterally, generalized weakness. PSYCHIATRIC: Alert and oriented to person place and time, appropriate affect, intact judgment and insight. - Labs CBC & Chem 7: 01/13/21 04:30 01/13/21 04:30 Labs: Abnormal Lab Results - Last 24 Hours (Table) 01/12/21 01/12/21 01/12/21 Range/Units 08:02 08:02 11:26 RBC (3.80-5.40) m/uL Hgb (11.4-16.0) gm/dL Hct (34.0-46.0) % Lymphocytes # (1.0-4.8) k/uL Sodium 130 L (137-145) mmol/L Carbon Dioxide 17 L (22-30) mmol/L BUN 21 H (7-17) mg/dL Creatinine (0.52-1.04) mg/dL Glucose 207 H (74-99) mg/dL POC Glucose (mg/dL) 161 H (75-99) mg/dL Calcium 7.9 L (8.4-10.2) mg/dL AST (14-36) U/L CK-MB (CK-2) 3.8 H (0.0-2.4) ng/mL Total Protein (6.3-8.2) g/dL Albumin (3.5-5.0) g/dL 01/12/21 01/12/21 01/12/21 Range/Units 15:55 16:49 20:26 RBC (3.80-5.40) m/uL Hgb (11.4-16.0) gm/dL Hct (34.0-46.0) % Lymphocytes # (1.0-4.8) k/uL Sodium 130 L (137-145) mmol/L Carbon Dioxide (22-30) mmol/L BUN 23 H (7-17) mg/dL Creatinine (0.52-1.04) mg/dL Glucose 137 H (74-99) mg/dL POC Glucose (mg/dL) 141 H 160 H (75-99) mg/dL Calcium (8.4-10.2) mg/dL AST (14-36) U/L CK-MB (CK-2) (0.0-2.4) ng/mL Total Protein (6.3-8.2) g/dL Albumin (3.5-5.0) g/dL 01/13/21 01/13/21 01/13/21 Range/Units 04:30 04:30 08:03 RBC 3.08 L (3.80-5.40) m/uL Hgb 9.6 L (11.4-16.0) gm/dL Hct 28.2 L (34.0-46.0) % Lymphocytes # 0.9 L (1.0-4.8) k/uL Sodium 133 L (137-145) mmol/L Carbon Dioxide (22-30) mmol/L BUN 23 H (7-17) mg/dL Creatinine 1.06 H (0.52-1.04) mg/dL Glucose (74-99) mg/dL POC Glucose (mg/dL) 145 H (75-99) mg/dL Calcium 8.3 L (8.4-10.2) mg/dL AST 46 H (14-36) U/L CK-MB (CK-2) (0.0-2.4) ng/mL Total Protein 5.7 L (6.3-8.2) g/dL Albumin 3.1 L (3.5-5.0) g/dL Assessment and Plan Assessment: 1. Symptomatic coronary artery disease with left main disease, status post 2 vessel coronary artery bypass grafting 2. Acute kidney injury on admission 3. History of myocardial infarction, history of multivessel angioplasty 4. Hypertension 5. Hyperlipidemia, treated, cholesterol 139, LDL 91 6. History of persistent paroxysmal atrial fibrillation on Xarelto for anticoagulation on an outpatient, status post left atrial appendage ligation 7. History of fatty liver with elevation of her transaminase enzymes 8. Family history of coronary artery disease 9. Lifetime nonsmoker with the preoperative FEV1 57% of predicted value 10. Postoperative acute blood loss anemia and thrombocytopenia, expected 11. Paroxysmal atrial fibrillation, known common occurrence after cardiac surgery and given her known history of persistent paroxysmal atrial fibrillation as an outpatient, currently in normal sinus rhythm Plan: 1. Continue aspirin, statin and beta maxi. Will increase her metoprolol tartrate as tolerated. Her atorvastatin has been increased to 80 mg by mouth daily. 2. Continue Norvasc 5 mg by mouth daily. 3. Encourage incentive spirometry use 10 times every hour while awake. Bronchodilators per pulmonology. 3. Increase activity, ambulate as tolerated. PT/OT/cardiac rehab following. 4. Will monitor daily labs and chest x-rays. Electrolyte replacement per protocol. 5. GI/DVT prophylaxis. 6. Insulin management per primary care service. Patient is not diabetic, hemoglobin A1c 5.4%. 7. Pain controlled with current medication regimen. 8. Plavix and heparin subcu are on hold at this time as Dr. Waterman is planning a thoracentesis. We will restart the Plavix and heparin subcu once the t horacentesis has been completed. 9. Continue Lasix 20 mg IV every 12 hours. 10. Discontinue bruce catheter. Continue to record strict accurate intake and output. Daily weights 11. Status post right-sided thoracentesis completed by Dr. Waterman, she will undergo a left-sided thoracentesis tomorrow 01/14/[address] Hamilton. 12. More recommendations to follow based on patient's clinical course. Time with Patient: Greater than 30
--- NOTE | 2021-01-13 10:29 | XR ---
EXAMINATION TYPE: XR chest 1V portable DATE OF EXAM: 01/13/2021 Comparison: 01/13/2021 Clinical History: 75-year-old female S/P Right thoracentesis Findings: Median sternotomy wires with postoperative clips in the mediastinum. Heart is enlarged. Improving eff usion on the right. Continued small to moderate left effusion with left basilar opacity. No appreciab le pneumothorax. Impression: A trace right pleural effusion remains. Similar small to moderate left effusion. No appreciable pneum othorax.
--- NOTE | 2021-01-13 11:16 | P.PN ---
Subjective Progress Note Date: 01/13/21 Principal diagnosis: Coronary artery disease. Pulmonary consultation dated 01/07/2021. 75-year-old female, with anticipated off pump bypass grafting by Dr. Aquino tomorrow. We are asked to see the patient for preop clearance. The patient is a lifelong nonsmoker. She denies a history of any lung issues such as COPD, emphysema, chronic bronchitis, or asthma. She denies any breathing or pulmonary symptoms such as shortness of breath, cough, wheezing, phlegm production, tig htness, or any other complaints for that matter. The patient has been in the hospital for a number of days. She apparently was admitted back on December 31. She had a cardiac catheterization performed by Dr. Lewis on January 03. I explained to the patient what our role in the bypass surgery would be. It would include 2 major things, initially getting the patient off the mechanical ventilator. The second thing would be watching her throughout her hospitalization to make sure she did not develop a primary complication such as pleural effusion, atelectasis, lobar collapse, or pneumonia. Lab data includes a CBC which is essentially normal. Platelet count a bit low 134. Electrolyte profile is also relatively normal. AST and ALTs are bit elevated at 190 and 119 respectively. A chest x-ray done on the day of admission showed no acute cardiopulmonary process. Progress note dated 01/08/2021. The patient will have surgery today. She is postop having off pump bypass grafting done by Dr. Aquino. I again explained the role of the pulmonary/critical care doctor in the process. She understands that she'll be coming back from the operating room on the mechanical ventilator. It's our goal to get her off the ventilator as quickly as possible. In addition, I told that we will see her each step of the way, to make sure that her lungs remain in good shape while here. I emphasized the importance of using incentive spirometer. She has no clearcut evidence of any lung issues or lung disease. He is a lifelong nonsmoker. She should do well. The patient is seen today 01/09/2021 in follow-up in the intensive care unit. She is awake and alert in no acute distress. Sitting up in a chair at the bedside. Postoperative day #1 of coronary artery bypass grafting 2 with a WASSERMAN to the LAD, SVG to the OM. She is currently on 4 L/m per nasal cannula and maintaining O2 saturation in the 90s. Chest x-ray reveals bilateral infiltrates/atelectasis with effusion. Chest tube remains in place. No sizable pneumothorax. Working with the incentive spirometer. She remains on a nitroglycerin drip at 5 mg/m. Insulin drip at 5 units per hour. Lactated Ringer's at 50 MLS per hour. White count 12.4. Hemoglobin 9.5. Platelets 103. Sodium 140. Potassium 4.0. Creatinine 0.71. AST 89. ALT 57. Current blood pressure 124/38, PA pressure 29/8. Mean of 15. CVP 3. Cardiac output 4.7. Cardiac index 2.2. She remains on bronchodilators, heparin for DVT prophylaxis. Protonix for GI prophylaxis. The patient is seen today 01/10/2021 in follow-up in the intensive care unit. This is postoperative day #2 of her two-vessel coronary artery bypass surgery. She is sitting up in a chair at the bedside. She is maintaining O2 saturations in the low 90s on 4 L/m per nasal cannula. Chest x-ray shows bilateral atelectasis, small effusions. Chest tube currently in place. She is on l actated Ringer's at 30 mL per hour. Insulin drip at 3 units per hour. Dopamine at 2 mcg/kg/m. She is currently in sinus rhythm. White count 11.0. Hemoglobin 8.3. Platelet count 86,000. Sodium 137. Potassium 3.7. Creatinine 1.25. Glucose 105. AST 57. ALT 23. Albumin 3.4. She remains on heparin for DVT prophylaxis. Protonix for GI prophylaxis. Progress note dated 01/11/2021. 75-year-old female again seen in room 257. She is postoperative day #3, status post 2 vessel bypass grafting. The patient is currently sitting in bed. She is currently on 2 L nasal cannula. She's getting lactated Ringer's at 30 mL an hour, dopamine at 2 mcg/kg/m, and amiodarone 0.5 mg/m. Today's laboratory data includes a white count 10.7, hemoglobin 8.9, hematocrit 26.8, and platelet count 115,000. Sodium 132, potassium 3.9, chlorides 104, CO2 19, anion gap 9, BUN 22, and creatinine 1.05. Chest x-ray from today is currently pending. She has no major complaints. She seemed to be doing relatively well. Encouraged hourly use of the incentive spirometer. Progress note dated 01/12/2021. 75-year-old female seen in room 257. She is postoperative day #4 status post 2 vessel bypass grafting. Currently, she is doing well. She's getting lactated Ringer's at 20 mL an hour. She is on 2 L nasal cannula. The amiodarone and dopamine that were running yesterday have been turned off. She denies any chest pain or chest discomfort. She's not having any breathing issues. She sitting up in a chair next to the bed. She seems to be progressing quite well. Labs from yesterday show white count of 10.7, hemoglobin 8.9, and a platelet count of 115,000. BUN and creatinine from yesterday were 22 and 1.05. Labs from today are not yet up. Chest x-ray from yesterday shows bilateral infiltrates or atelectasis. Progress note dated 01/13/2021. 75-year-old female, seen in room 257. She is postop day #5, status post two- vessel bypass grafting. Currently she is doing well. The patient's receiving lactated Ringer's at 20 mL an hour. She is on room air. The patient had a right-sided thoracentesis performed today. 800 mL of bloody fluid was removed from the right pleural space. The patient tolerated it well. White count 9.4, hemoglobin 9.6, hematocrit 28.2, platelet count 227,000. Sodium 133. Potassium chloride CO2 anion gap all normal. BUN was 23, creatinine 1.06. Objective - Vital Signs Vital signs: Vital Signs Temp 97.6 F 01/13/21 08:00 Pulse 75 01/13/21 10:00 Resp 16 01/13/21 10:00 BP 119/49 01/13/21 10:00 Pulse Ox 95 01/13/21 10:00 Intake & Output 01/12/21 01/13/21 01/13/21 18:59 06:59 18:59 Intake Total 1191.067 526 69 Output Total 910 1025 1020 Balance 281.067 -499 -951 Weight 117.5 kg Intake: IV 276 276 69 Lactated Ringers 1,000 ml 240 240 60 @ 20 mls/hr IV .Q24H GEOVANNA Rx#:[id number] Pressure Bags 36 36 9 Intake, IV Titration 71.067 Amount Clevidipine Butyrate 25 71.067 mg In Empty Bag 1 bag @ 1 MG/HR 2 mls/hr IV .Q24H GEOVANNA Rx#:[id number] Oral 844 250 Output: Drainage 800 Right sided thoracentesis 800 Urine 910 1025 220 Other: Voiding Method Indwelling Catheter Indwelling Catheter Indwelling Catheter ABP, PAP, CO, CI - Last Documented Arterial Blood Pressure 184/39 Pulmonary Artery Pressure 38/11 Cardiac Output 4.7 Cardiac Index 2.2 - Exam No acute distress, oriented 3. Currently on room air. No conversational dyspnea or use of accessory muscles. Saturations are 98%. HEENT examination is grossly unremarkable. Neck supple. Full range of motion. No adenopathy thyromegaly or neck vein distention. Cardiovascular examination reveals regular rhythm rate. S1-S2 normal. No S3 or S4. No discernible murmur noted. Heart rate 75 bpm. Heart sounds are distant. Lungs reveal mostly clear breath sounds. Some scattered rhonchi are noted. No wheezes or crackles. Breath sounds are equal bilaterally. Abdomen soft bowel sounds are heard. No masses or tenderness. Extremities are intact. No cyanosis clubbing or edema. Skin is without rash or lesion. Neurologic examination is brief but nonfocal. - Labs CBC & Chem 7: 01/13/21 04:30 01/13/21 04:30 Labs: Abnormal Lab Results - Last 24 Hours (Table) 01/12/21 01/12/21 01/12/21 Range/Units 11:26 15:55 16:49 RBC (3.80-5.40) m/uL Hgb (11.4-16.0) gm/dL Hct (34.0-46.0) % Lymphocytes # (1.0-4.8) k/uL Sodium 130 L (137-145) mmol/L BUN 23 H (7-17) mg/dL Creatinine (0.52-1.04) mg/dL Glucose 137 H (74-99) mg/dL POC Glucose (mg/dL) 161 H 141 H (75-99) mg/dL Calcium (8.4-10.2) mg/dL AST (14-36) U/L Total Protein (6.3-8.2) g/dL Albumin (3.5-5.0) g/dL 01/12/21 01/13/21 01/13/21 Range/Units 20:26 04:30 04:30 RBC 3.08 L (3.80-5.40) m/uL Hgb 9.6 L (11.4-16.0) gm/dL Hct 28.2 L (34.0-46.0) % Lymphocytes # 0.9 L (1.0-4.8) k/uL Sodium 133 L (137-145) mmol/L BUN 23 H (7-17) mg/dL Creatinine 1.06 H (0.52-1.04) mg/dL Glucose (74-99) mg/dL POC Glucose (mg/dL) 160 H (75-99) mg/dL Calcium 8.3 L (8.4-10.2) mg/dL AST 46 H (14-36) U/L Total Protein 5.7 L (6.3-8.2) g/dL Albumin 3.1 L (3.5-5.0) g/dL 01/13/21 Range/Units 08:03 RBC (3.80-5.40) m/uL Hgb (11.4-16.0) gm/dL Hct (34.0-46.0) % Lymphocytes # (1.0-4.8) k/uL Sodium (137-145) mmol/L BUN (7-17) mg/dL Creatinine (0.52-1.04) mg/dL Glucose (74-99) mg/dL POC Glucose (mg/dL) 145 H (75-99) mg/dL Calcium (8.4-10.2) mg/dL AST (14-36) U/L Total Protein (6.3-8.2) g/dL Albumin (3.5-5.0) g/dL Assessment and Plan Assessment: Status post two-vessel bypass grafting, including WASSERMAN to LAD and saphenous vein graft to the obtuse marginal, postop day #5. Routine postoperative ventilator management with extubation on 01/09/2021. Lifelong nontobacco use. History of heart failure. History of hyperlipidemia. History of hypertension. Prior history of myocardial infarction. History of CAD with previous stent placement. Status post right-sided thoracentesis on January 13, with 800 mL of bloody fluid removed. Plan: Plan dated 01/07/2021. The patient should do very well. She has no history of any lung issues. She is a lifelong nontobacco user. She denies a prior history of asthma, COPD, chronic bronchitis, or emphysema. The patient denies all pulmonary complaints including shortness of breath, cough, wheezing, chest tightness, and phlegm production. I did explain our role in the process. She understands. Plan dated 01/08/2021. The patient will be going to the operating room to much later today. They will probably call me with blood gases, and we'll make adjustments accordingly. Hopefully, we can get the patient extubated quickly. Our goal is to get the patient extubated in less than 4 hours, and certainly less than 6 hours. No additional recommendations are made. Patient is again counseled about the importance of using the incentive spirometer. Additional recommendations and suggestions are forthcoming. Plan dated 01/11/2021. Continues to do very well. We will continue to follow the patient and make recommendations where appropriate. Is currently on 2 L. She remains on lactated Ringer's at 30 mL an hour, dopamine at 2 mcg/kg/m, and amiodarone at 0.5 mg/m. We encouraged hourly use of the incentive spirometer, and deep breathing, coughing, and clearing of secretions. Plan dated 01/12/2021. The patient's doing well. She continues on 2 L nasal cannula. Saturations are 98%. She still on lactated Ringer's at 20 mL an hour. The dopamine and amiodarone that were on yesterday have been turned off. Clinically she looks well. She continues to work on incentive spirometer. We also encourage deep breathing, coughing, clearing her secretions. Prognosis is thought to be good. Plan dated 01/13/2021. The patient's doing well. The patient's on room air. Today we did a right- sided thoracentesis. 800 mL of bloody fluid was removed. It was not sent for analysis. The patient tolerated the procedure well. She is getting lactated Ringer's at 20 mL an hour. Today is postop day #5. All in all, the patient's progressing very nicely. We again recommend deep breathing, coughing, and clearing of secretions. Time with Patient: Less than 30
--- NOTE | 2021-01-13 11:22 | PCN ---
PROCEDURE NOTE RIGHT-SIDED THORACENTESIS: RESOURCE FORESTER: Dr. Waterman and Dr. Newsome. Indication Pleural effusion. A time-out was completed verifying correct patient, procedure, site, positioning , and implant (s) or special equipment if applicable. Ultrasound guidance was used and appropriate fluid pocket was identified and marked. Patient was positioned, prepped and draped in usual sterile fashion. Lidocaine was used to anesthetize the area. A Thoracentesis catheter was introduced into the pleural space and fluid was removed. Blood loss was none. A chest x-ray was ordered to evaluate for pneumothorax. Total Fluid Removed: 800 mL Color of Fluid: Bloody Fluid will not be sent for appropriate laboratory tests. Patient tolerated the procedure well and there were no complications. The posterior chest was marked by ultrasound. There was no immediate complication. 800 mL of bloody fluid was removed from the pleural space. It would not be sent for analysis. The patient tolerated the procedure well. A postprocedure chest x-ray was ordered. There was no immediate complication. MMODL / IJN: [id number] /
[2021-01-13] MEDS ORDERED: ATORVASTATIN 40 MG TAB PO STA (11:33)
[2021-01-13] MEDS: ATORVASTATIN 80 MG TAB PO SCH (11:34)
[2021-01-13 11:49] LABS: Glucose,Whole Blood 118 mg/dL (75-99)
[2021-01-13] MEDS: ASPIRIN 325 MG TAB PO SCH (11:53)
--- NOTE | 2021-01-13 12:47 | P.PN ---
Subjective Progress Note Date: 01/13/21 Principal diagnosis: Left main coronary artery disease. Ms. Zaidi is a 75-year-old female with the past medical history of coronary artery disease status post multiple stents, hypertension, hyperlipidemia, [place], atrial fibrillation admitted to the hospital with a chief complaint of increased fatigue and exertional dyspnea. Patient had 2-D echocardiogram showing LV systolic function EF of 55-50% with right ventricular being severely enlarged right atrium is mildly enlarged with mild aortic regurgitation along with mild mitral and tricuspid regurgitation. Cardiology was on board and eventually she had cardiac catheterization done on 01/02/2021 showing severe left main ostial stenosis with focal critical stenosis in the LAD. Coronary artery bypass grafting was recommended and CT surgery was consulted. Patient had coronary artery bypass grafting done on 01/08/2021 and since then been in the ICU. On 01/12/2021-patient is seen at the bedside in the ICU today. As per discussion with the nursing staff early this morning patient was having difficulty in breathing and felt anxious, at that time she was in atrial fibrillation. Amiodarone drip was started, chest x-ray showed bilateral pleural effusion. So patient received IV 20 mg of Lasix this morning. Currently patient is sitting up in a chair by the bedside states that she had a very rough morning. Patient denies having any chest pain or palpitations. She states that she has soreness in her chest wall. Patient denies having any abdominal pain nausea vomiting. No difficulty in breathing. Denies having any fevers chills or rigors. On reviewing the vitals blood pressure 151/50, heart rate 90s to 100 100s, saturating at 90% on 4 L of nasal cannula. Labs this morning showing white count of 14, hemoglobin 9.8, platelets 216. Sodium 1:30, pretension. 0.5, chloride 103, bicarb 17, BUN 21, creatinine 0.95. On 01/13/2021 - patient is seen and examined at bedside in the ICU. She is comfortably sitting up in a chair at the bedside.Patient states that her difficulty in breathing has improved since having the thoracentesis done this morning. She denies having any chest pain or palpitations. She complains of chest soreness. No cough or difficulty in breathing. She denies having abdominal pain nausea vomiting or diarrhea. On reviewing the vitals temperature of 97.6, heart rate 78, respiratory 14, blood pressure 138/69, saturating at 95% on room air. Reviewing the labs from this morning white count of 9.4, hemoglobin 9.6, platelets 227. Sodium 133, potassium 4.1, chloride 101, bicarbo abigail 27, BUN 23, creatinine 1.06. Albumin of 3.1 Patient's medications have been reviewed she is on Tylenol, DuoNeb, amiodarone, Norvasc, aspirin, Lipitor, Dulcolax, Plavix, Lasix, heparin subcu, NovoLog, milk of magnesia, melatonin, Reglan, Lopressor, Zofran, Protonix, Senokot. Objective - Vital Signs Vital signs: Vital Signs Temp 97.6 F 01/13/21 08:00 Pulse 70 01/13/21 11:56 Resp 16 01/13/21 10:00 BP 119/49 01/13/21 10:00 Pulse Ox 95 01/13/21 10:00 Intake & Output 01/12/21 01/13/21 01/13/21 18:59 06:59 18:59 Intake Total 1191.067 526 92 Output Total 910 1025 1160 Balance 281.067 -499 -1068 Weight 117.5 kg Intake: IV 276 276 92 Lactated Ringers 1,000 ml 240 240 80 @ 20 mls/hr IV .Q24H [facility] Rx#:[id number] Pressure Bags 36 36 12 Intake, IV Titration 71.067 Amount Clevidipine Butyrate 25 71.067 mg In Empty Bag 1 bag @ 1 MG/HR 2 mls/hr IV .Q24H GE[facility]NA Rx#:[id number] Oral 844 250 Output: Drainage 800 Right sided thoracentesis 800 Urine 910 1025 360 Other: Voiding Method Indwelling Catheter Indwelling Catheter Indwelling Catheter ABP, PAP, CO, CI - Last Documented Arterial Blood Pressure 184/39 Pulmonary Artery Pressure 38/11 Cardiac Output 4.7 Cardiac Index 2.2 - Exam PHYSICAL EXAMINATION: GENERAL: Sitting up in a chair by the bedside HEENT: No pallor, no icterus. Positive for JVD. Right IJ Cordis in place CARDIOVASCULAR: S1 and S2 were regular rate and rhythm., Midsternal surgical site is bandaged. PULMONARY: Positive for bilateral crackles with expiratory wheezes. ABDOMEN: Soft, nontender, nondistended, normoactive bowel sounds. Blackwood's catheter in place MUSCULOSKELETAL: No joint swelling or deformity. EXTREMITIES: Mild pitting edema bilaterally NEUROLOGICAL: Gross neurological examination did not reveal any focal deficits. SKIN: No rashes. - Labs CBC & Chem 7: 01/13/21 04:30 01/13/21 04:30 Labs: Abnormal Lab Results - Last 24 Hours (Table) 01/12/21 01/12/21 01/12/21 Range/Units 15:55 16:49 20:26 RBC (3.80-5.40) m/uL Hgb (11.4-16.0) gm/dL Hct (34.0-46.0) % Lymphocytes # (1.0-4.8) k/uL Sodium 130 L (137-145) mmol/L BUN 23 H (7-17) mg/dL Creatinine (0.52-1.04) mg/dL Glucose 137 H (74-99) mg/dL POC Glucose (mg/dL) 141 H 160 H (75-99) mg/dL Calcium (8.4-10.2) mg/dL AST (14-36) U/L Total Protein (6.3-8.2) g/dL Albumin (3.5-5.0) g/dL 01/13/21 01/13/21 01/13/21 Range/Units 04:30 04:30 08:03 RBC 3.08 L (3.80-5.40) m/uL Hgb 9.6 L (11.4-16.0) gm/dL Hct 28.2 L (34.0-46.0) % Lymphocytes # 0.9 L (1.0-4.8) k/uL Sodium 133 L (137-145) mmol/L BUN 23 H (7-17) mg/dL Creatinine 1.06 H (0.52-1.04) mg/dL Glucose (74-99) mg/dL POC Glucose (mg/dL) 145 H (75-99) mg/dL Calcium 8.3 L (8.4-10.2) mg/dL AST 46 H (14-36) U/L Total Protein 5.7 L (6.3-8.2) g/dL Albumin 3.1 L (3.5-5.0) g/dL 01/13/21 Range/Units 11:48 RBC (3.80-5.40) m/uL Hgb (11.4-16.0) gm/dL Hct (34.0-46.0) % Lymphocytes # (1.0-4.8) k/uL Sodium (137-145) mmol/L BUN (7-17) mg/dL Creatinine (0.52-1.04) mg/dL Glucose (74-99) mg/dL POC Glucose (mg/dL) 118 H (75-99) mg/dL Calcium (8.4-10.2) mg/dL AST (14-36) U/L Total Protein (6.3-8.2) g/dL Albumin (3.5-5.0) g/dL Assessment and Plan Assessment: ASSESSMENT Coronary artery disease/severe left main disease/status post CABG on 01/08/2021- postoperative day #5 Paroxysmal atrial fibrillation status post cardiac surgery History of [place] with multivessel angioplasty Mild prerenal a calorie improving Mild transaminitis Family history of coronary artery disease Hyponatremia Acute blood loss anemia and thrombocytopenia status post cardiac surgery Mild leukocytosis-probably reactive Hypertension Hyperlipidemia PLAN: Patient was found to be in A. fib with rapid ventricular rate on 01/12/21, amiodarone drip has been started and heart rate is under better control. Metoprolol dose has been increased to 50 mg twice a day yesterday. Patient's creatinine trending towards baseline. Continue with aspirin and Plavix statin. Hyperglycemia to be controlled with sliding scale of insulin. Patient had an ultrasound of the chest done yesterday showing bilateral pleural effusion. She had thoracentesis done by Dr. Waterman this morning with 800ml of fluid removed from the right side. Pleural fluid analysis pending. Postoperative care as per CT surgery recommendations. Patient encouraged to continue using incentive spirometry. Overall prognosis is guarded. Further recommendations to follow depending on the progress of the patient.
[2021-01-13 17:42] LABS: Glucose,Whole Blood 163 mg/dL (75-99)
[2021-01-13] MEDS: LACTATED RINGERS 1,000 ML IV SCH (17:50)
[2021-01-13 21:21] LABS: Glucose,Whole Blood 146 mg/dL (75-99)
[2021-01-13] MEDS: SENNOSIDES-DOCUSATE SODIUM 1 EACH TAB PO SCH (21:25)
[2021-01-14] MEDS: ACETAMINOPHEN TAB 325 MG TAB PO PRN ×3 (02:25→21:43)
[2021-01-14 03:59] LABS: Basophils # (A) 0.1 k/uL (0-0.2); Basophils % (A) 1 %; Eosinophils # (A) 0.3 k/uL (0-0.7); Eosinophils % (A) 3 %; HCT 30.3 % (34.0-46.0); HGB 10.1 gm/dL (11.4-16.0); Hypochromasia Slight; Lymphocytes # (A) 0.7 k/uL (1.0-4.8); Lymphocytes % (A) 7 %; MCH 31.3 pg (25.0-35.0); MCHC 33.2 g/dL (31.0-37.0); MCV 94.4 fL (80.0-100.0); Mean Platelet Volume 7.7; Monocytes % (A) 11 %; Neutrophils # (A) 6.8 k/uL (1.3-7.7); Neutrophils % (A) 75 %; Platelet Count 260 k/uL (150-450); RBC 3.21 m/uL (3.80-5.40); RDW 14.5 % (11.5-15.5); WBC 9.1 k/uL (3.8-10.6)
[2021-01-14 04:32] LABS: Calcium 8.2 mg/dL (8.4-10.2); Total Bilirubin 1.6 mg/dL (0.2-1.3); Total Protein 5.7 g/dL (6.3-8.2)
[2021-01-14 06:58] LABS: Glucose,Whole Blood 137 mg/dL (75-99)
[2021-01-14] MEDS: INSULIN ASPART (NovoLOG) 100 UNIT/ML VIAL SQ SCH ×4 (07:09→21:45)
[2021-01-14] MEDS: PANTOPRAZOLE 40 MG TABLET PO SCH (07:12)
[2021-01-14] MEDS: IPRATROPIUM-ALBUTEROL 3 ML NEB INHALATION SCH ×4 (07:46→20:01)
--- NOTE | 2021-01-14 08:01 | P.PN ---
Subjective Progress Note Date: 01/14/21 Today's evaluation, the patient is postop day #6 following 2 vessel bypass surgery. The patient postop developed bilateral pleural effusion. The right- sided pleural effusion was drained yesterday and total of 800 mL of fluid was removed. Chest x-ray from today shows no evidence of any pneumothorax. There are some atelectatic change in the right lung base. Otherwise the patient is doing well. She is on oxygen at room air and she is using incentive spirometer and she is pulling approximately 750. The sternum is intact for now. Her blood work is showing a white cell count 9.1 with a hemoglobin of 10.1. Platelet count is at 260. Creatinine is normal. Electrolytes are normal. LFTs are nor mal. Medication borges, the patient is on aspirin, Plavix, metoprolol 50 mg twice a day, Norvasc 5 mg by mouth daily for blood pressure control. The patient is also on amiodarone 400 mg by mouth twice a day and her cardiac rhythm is sinus. Objective - Vital Signs Vital signs: Vital Signs Temp 97.9 F 01/14/21 04:00 Pulse 86 01/14/21 07:48 Resp 18 01/14/21 07:48 BP 124/57 01/14/21 07:00 Pulse Ox 94 L 01/14/21 07:48 Intake & Output 01/13/21 01/14/21 01/14/21 18:59 06:59 18:59 Intake Total 161 480 Output Total 1420 1350 0 Balance -1259 -870 0 Weight 117.6 kg Intake: IV 161 Lactated Ringers 1,000 ml 140 @ 20 mls/hr IV .Q24H [facility] Rx#:[id number] Pressure Bags 21 Oral 480 Output: Drainage 800 Right sided thoracentesis 800 Urine 620 1350 0 Other: Voiding Method Indwelling Catheter Toilet Bedside Commode ABP, PAP, CO, CI - Last Documented Arterial Blood Pressure 184/39 Pulmonary Artery Pressure 38/11 Cardiac Output 4.7 Cardiac Index 2.2 - Exam CONSTITUTIONAL: Sitting up to the bedside chair in the intensive care unit, no acute distress, comfortable and cooperative. HEENT: Neck is supple, positive JVD to her left side, no lymphadenopathy. RESPIRATORY: Lungs sounds with few scattered crackles throughout and scattered expiratory wheezes, diminished bilateral bases. Respirations are symmetrical and nonlabored. Currently on room air with oxygen saturations 93%. Able to achieve 500-750 mL on her incentive spirometry. Strong cough. CARDIOVASCULAR: Regular rhythm and rate. S1 and S2 present, negative for S3, gallop or murmur. Palpable peripheral pulses bilaterally. No calf pain or tenderness noted. Heart hugger in place with patient demonstrating appropriate use. Knee-high EDY hose and sequential compression devices in place to his bilateral lower extremities. GASTROINTESTINAL: Abdomen soft, nontender, nondistended. Active bowel sounds present 4 quadrants. Tolerating diet. Passing flatus. No guarding or rigidity. Bowel movement this morning 01/13/2021. GENITOURINARY: [place] present draining clear, yellow urine. INTEGUMENTARY: Skin is warm and dry with no clubbing or cyanosis present. Midline sternal incision clean dry and well approximated, covered with dry intact dressing. Left lower extremity EVH site well approximated without redness or drainage. NEUROLOGIC: Cranial nerves II through XII intact. No focal deficits. MUSKULOSKELETAL: Able to move all extremities, strength equal bilaterally, generalized weakness. PSYCHIATRIC: Alert and oriented to person place and time, appropriate affect, intact judgment and insight. - Labs CBC & Chem 7: 01/14/21 03:28 01/14/21 03:28 Labs: Abnormal Lab Results - Last 24 Hours (Table) 01/13/21 01/13/21 01/13/21 Range/Units 08:03 11:48 17:40 RBC (3.80-5.40) m/uL Hgb (11.4-16.0) gm/dL Hct (34.0-46.0) % Lymphocytes # (1.0-4.8) k/uL Sodium (137-145) mmol/L Carbon Dioxide (22-30) mmol/L BUN (7-17) mg/dL Creatinine (0.52-1.04) mg/dL Glucose (74-99) mg/dL POC Glucose (mg/dL) 145 H 118 H 163 H (75-99) mg/dL Calcium (8.4-10.2) mg/dL Total Bilirubin (0.2-1.3) mg/dL AST (14-36) U/L Total Protein (6.3-8.2) g/dL Albumin (3.5-5.0) g/dL 01/13/21 01/14/21 01/14/21 Range/Units 21:19 03:28 03:28 RBC 3.21 L (3.80-5.40) m/uL Hgb 10.1 L (11.4-16.0) gm/dL Hct 30.3 L (34.0-46.0) % Lymphocytes # 0.7 L (1.0-4.8) k/uL Sodium 133 L (137-145) mmol/L Carbon Dioxide 21 L (22-30) mmol/L BUN 25 H (7-17) mg/dL Creatinine 1.09 H (0.52-1.04) mg/dL Glucose 127 H (74-99) mg/dL POC Glucose (mg/dL) 146 H (75-99) mg/dL Calcium 8.2 L (8.4-10.2) mg/dL Total Bilirubin 1.6 H (0.2-1.3) mg/dL AST 54 H (14-36) U/L Total Protein 5.7 L (6.3-8.2) g/dL Albumin 3.0 L (3.5-5.0) g/dL 01/14/21 Range/Units 06:55 RBC (3.80-5.40) m/uL Hgb (11.4-16.0) gm/dL Hct (34.0-46.0) % Lymphocytes # (1.0-4.8) k/uL Sodium (137-145) mmol/L Carbon Dioxide (22-30) mmol/L BUN (7-17) mg/dL Creatinine (0.52-1.04) mg/dL Glucose (74-99) mg/dL POC Glucose (mg/dL) 137 H (75-99) mg/dL Calcium (8.4-10.2) mg/dL Total Bilirubin (0.2-1.3) mg/dL AST (14-36) U/L Total Protein (6.3-8.2) g/dL Albumin (3.5-5.0) g/dL Assessment and Plan Plan: 1 Status post two-vessel bypass grafting, including WASSERMAN to LAD and saphenous vein graft to the obtuse marginal, postop day #6. 2 Routine postoperative ventilator management with extubation on 01/09/2021. 3 Lifelong nontobacco use. 4 History of heart failure. 5 History of hyperlipidemia. 6 History of hypertension. 7 Prior history of myocardial infarction. 8 History of CAD with previous stent placement. 9 Status post right-sided thoracentesis on January 13, with 800 mL of bloody fluid removed. 10 Atrial fibrillation, expected outcome of surgery, current rhythm is sinus. Patient is on by mouth amiodarone. Plan Reviewed the chest x-ray from today. Amount of left-sided pleural effusion is small. She is actually taking well on room air. She is been also diuresed with Lasix. As such, no immediate need for another thoracentesis. We'll discuss this with the surgical team. Continue rest of the treatment. Continue using incentive spirometer. She'll be transferred out of the intensive care unit today.
[2021-01-14] MEDS: ATORVASTATIN 80 MG TAB PO SCH (08:05)
[2021-01-14] MEDS: AMIODARONE 200 MG TAB PO SCH ×2 (08:05→21:43)
[2021-01-14] MEDS: FUROSEMIDE 10 MG/ML 2 ML VIAL IV SCH (08:05)
[2021-01-14] MEDS: ASPIRIN 325 MG TAB PO SCH (08:05)
[2021-01-14] MEDS: amLODIPine 5 MG TAB PO SCH (08:05)
[2021-01-14] MEDS: METOPROLOL TARTRATE 50 MG TAB PO SCH ×2 (08:05→21:42)
--- NOTE | 2021-01-14 08:55 | XR ---
EXAMINATION TYPE: XR chest 1V portable DATE OF EXAM: 01/14/2021 COMPARISON: 01/13/2021 HISTORY: Status post thoracentesis TECHNIQUE: Single frontal view of the chest is obtained. FINDINGS: Bilateral infiltrate and pleural effusion are noted. No sizable pneumothorax. Postoperativ e change and cardiomegaly stable. Interstitium unchanged. IMPRESSION: 1. Bilateral infiltrate and small effusion.
[2021-01-14] MEDS ORDERED: FUROSEMIDE 10 MG/ML 2 ML VIAL IV SCH (09:00)
--- NOTE | 2021-01-14 09:53 | P.PN ---
Subjective Progress Note Date: 01/14/21 Principal diagnosis: Coronary artery disease with left main disease, acute kidney injury on admission. Previous medical history of myocardial infarction with multivessel angioplasty, hypertension, hyperlipidemia, paroxysmal atrial fibrillation on Xarelto for anticoagulation, fatty liver with transaminitis, and family history of coronary artery disease POD #6 off-pump coronary artery bypass graft 2 with left internal mammary artery to the left anterior descending artery, reverse saphenous vein graft to the obtuse marginal artery, ligation of the left atrial appendage using a 35 mm AtriClip, endovascular vein harvest of the left greater saphenous vein from the knee to the groin, intraoperative transesophageal echocardiogram Postoperative acute blood loss anemia and thrombocytopenia, expected given hemodilution Paroxysmal atrial fibrillation, known common occurrence after open heart surgery, especially given patient has history of PAF Bilateral pleural effusions, status post right sided thoracentesis 01/13/2021 with removal of 800 mL of thin serosanguineous drainage The patient's currently sitting up in a recliner in the intensive care unit in no acute distress. She post surgical pain is controlled on current medication regimen, denies shortness of breath. Currently in sinus rhythm and hemodynamically stable. She is oxygenating well on room air but is only achieving 750 mL on her incentive spirometry. Ambulated in hallway 3 times yesterday with standby assist. No other new concerns. Objective - Vital Signs Vital signs: Vital Signs Temp 98.1 F 01/14/21 08:00 Pulse 80 01/14/21 09:00 Resp 15 01/14/21 09:00 BP 105/50 01/14/21 09:00 Pulse Ox 94 L 01/14/21 09:00 Intake & Output 01/13/21 01/14/21 01/14/21 18:59 06:59 18:59 Intake Total 161 480 Output Total 1420 1350 0 Balance -1259 -870 0 Weight 117.6 kg Intake: IV 161 Lactated Ringers 1,000 ml 140 @ 20 mls/hr IV .Q24H [facility] Rx#:[id number] Pressure Bags 21 Oral 480 Output: Drainage 800 Right sided thoracentesis 800 Urine 620 1350 0 Other: Voiding Method Indwelling Catheter Toilet Bedside Commode ABP, PAP, CO, CI - Last Documented Arterial Blood Pressure 184/39 Pulmonary Artery Pressure 38/11 Cardiac Output 4.7 Cardiac Index 2.2 - Exam CONSTITUTIONAL: Appears comfortable, cooperative, no acute distress RESPIRATORY: Lungs sounds diminished bilaterally. Respirations even, nonlabored. Currently on room air with oxygen saturation 95%. Able to achieve 750 mL on incentive spirometry. Strong productive cough. CARDIOVASCULAR: S1, S2 present. Regular rate and rhythm, sinus rhythm on telemetry. Sternum stable. Palpable peripheral pulses bilaterally. Trace bilateral lower extremity edema present. No calf pain or tenderness noted. Heart hugger in place with patient demonstrating appropriate use. Antiembolism stockings, SCDs present. GASTROINTESTINAL: Abdomen soft, nontender, nondistended. Active bowel sounds present 4 quadrants. Tolerating diet. Positive bowel movement 01/12 GENITOURINARY: Continues to void INTEGUMENTARY: Skin is warm and dry with evidence of good perfusion. Anterior chest incision well approximated and covered with dry intact dressing. EVH site well approximated without redness or drainage. NEUROLOGIC: Cranial nerves II through XII intact MUSKULOSKELETAL: Able to move all extremities, strength equal bilaterally, gait normal PSYCHIATRIC: Alert and oriented to person place and time, appropriate affect, intact judgment and insight - Allied health notes Allied health notes reviewed: nursing - Labs CBC & Chem 7: 01/14/21 03:28 01/14/21 03:28 Labs: Abnormal Lab Results - Last 24 Hours (Table) 01/13/21 01/13/21 01/13/21 Range/Units 11:48 17:40 21:19 RBC (3.80-5.40) m/uL Hgb (11.4-16.0) gm/dL Hct (34.0-46.0) % Lymphocytes # (1.0-4.8) k/uL Sodium (137-145) mmol/L Carbon Dioxide (22-30) mmol/L BUN (7-17) mg/dL Creatinine (0.52-1.04) mg/dL Glucose (74-99) mg/dL POC Glucose (mg/dL) 118 H 163 H 146 H (75-99) mg/dL Calcium (8.4-10.2) mg/dL Total Bilirubin (0.2-1.3) mg/dL AST (14-36) U/L Total Protein (6.3-8.2) g/dL Albumin (3.5-5.0) g/dL 01/14/21 01/14/21 01/14/21 Range/Units 03:28 03:28 06:55 RBC 3.21 L (3.80-5.40) m/uL Hgb 10.1 L (11.4-16.0) gm/dL Hct 30.3 L (34.0-46.0) % Lymphocytes # 0.7 L (1.0-4.8) k/uL Sodium 133 L (137-145) mmol/L Carbon Dioxide 21 L (22-30) mmol/L BUN 25 H (7-17) mg/dL Creatinine 1.09 H (0.52-1.04) mg/dL Glucose 127 H (74-99) mg/dL POC Glucose (mg/dL) 137 H (75-99) mg/dL Calcium 8.2 L (8.4-10.2) mg/dL Total Bilirubin 1.6 H (0.2-1.3) mg/dL AST 54 H (14-36) U/L Total Protein 5.7 L (6.3-8.2) g/dL Albumin 3.0 L (3.5-5.0) g/dL - Imaging and Cardiology Chest x-ray: report reviewed, image reviewed Assessment and Plan Assessment: 1. Symptomatic coronary artery disease with left main disease, status post 2 vessel CABG 2. Acute kidney injury on admission, resolved 3. History of myocardial infarction with multivessel angioplasty 4. Hypertension 5. Hyperlipidemia, treated, cholesterol 139, LDL 91 6. Paroxysmal atrial fibrillation on Xarelto for anticoagulation, status post left atrial appendage ligation 7. Fatty liver with transaminitis 8. Never smoker, preoperative FEV1 57% of predicted 9. Family history of coronary artery disease 10. Postoperative acute blood loss anemia and thrombocytopenia, expected 11. Bilateral pleural effusions, status post right sided thoracentesis Plan: 1. Continue aspirin, Plavix, statin, Norvasc, beta maxi therapy. Will increase beta maxi therapy as tolerated. 2. Continue amiodarone for A. fib prophylaxis. No anticoagulation necessary 3. Encourage incentive spirometry use 10 times every hour while awake. Bronchodilators per pulmonology. Decision for left-sided thoracentesis per pulmonology 3. Increase activity, ambulate as tolerated. PT/OT/cardiac rehab consulted 4. Will monitor daily labs and x-rays. Electrolyte replacement per protocol. 5. GI/DVT prophylaxis 6. Insulin management per primary care service. Patient is not diabetic, hemoglobin A1c 5.4% 7. Pain control with current medication regimen 8. We'll decrease Lasix to 20 mg IV push daily 9. Transfer orders placed for 3 cells cardiac stepdown unit, May transfer when bed available 10. Discharge planning in progress, anticipate discharge to home with home care in the next 24-48 hours 11. More recommendations to follow based on patient's progress Time with Patient: Greater than 30
[2021-01-14 11:38] LABS: Glucose,Whole Blood 127 mg/dL (75-99)
[2021-01-14] MEDS: CLOPIDOGREL 75 MG TAB PO SCH (12:13)
--- NOTE | 2021-01-14 12:33 | P.PN ---
Subjective HISTORY OF PRESENTING ILLNESS This is a pleasant 75-year-old female past medical history significant for paroxysmal atrial fibrillation on long-term anticoagulation, coronary artery disease status post PCI to the circumflex and OM 2017, hypertension, dyslipidemia and obesity. She follows in the office with Dr. Lewis. We have been asked to see in consultation for shortness of breath. She states for the previous few weeks she has been experiencing increased shortness of breath with activity. It mostly has been manageable until 2 days ago when it was causing her more distress. She denies chest pain, dizziness, palpitations, nausea, vomiting or diaphoresis. Overall she feels generalized fatigue as well. Most recent echocardiogram obtained in 2017 reveals preserved LV systolic function with ejection fraction 55-60%, mild MR, mild TR and mild pulmonary hypertension with RVSP of 37 mmHg. 01/14/2021 Patient seen and examined sitting up in recliner in no acute distress. She complains of feeling short of breath and tired. She underwent right-sided thoracentesis yesterday with 800 mL's of fluid removed. She is scheduled for po ssible left-sided thoracentesis today. Anticoagulation remains on hold. Blood pressure 105/50 heart rate 85 afebrile maintaining oxygen saturation on nasal cannula. Laboratory data reviewed, WBC 9.1, hemoglobin 10.1, platelets 260, sodium 133, potassium 4.0, creatinine 1.09. Currently maintained on amiodarone 400 mg twice a day, aspirin 325 mg daily, amlodipine 5 mg daily, atorvastatin 80 mg daily, Plavix 75 mg daily, metoprolol 50 mg twice a day and lasix 20 mg IV BID. PHYSICAL EXAMINATION CONSTITUTIONAL: No apparent distress. Obese. HEENT: Head is normocephalic. Pupils are equal, round. Sclerae anicteric. Mucous membranes of the mouth are moist. No JVD. No carotid bruit. CHEST EXAMINATION: Lungs are clear to auscultation. Diminished on the let. No wheezes or rhonchi. No chest wall tenderness is noted on palpation or with deep breathing. Heart hugger in place. Mid-sternal incision site dressing in place. HEART EXAMINATION: Regular rate and rhythm. S1, S2 heard. Soft systolic ejection murmur at the base, no gallops or rub. EXTREMITIES: 2+ peripheral pulses, trace non-pitting lower extremity edema and no calf tenderness.. ASSESSMENT Generalized fatigue and shortness of breath Coronary artery disease s/p bypass grafting Transaminitis, resolved Hyperkalemia, resolved Acute kidney injury Coronary artery disease Hypertension Dyslipidemia Paroxysmal atrial fibrillation on long-term anticoagulation currently maintaining sinus mechanism PLAN Discussed with pulmonology, ok to resume xarelto as there are no plans currently for thoracentesis. CrCl 79ml/min. CT surgery would like to wait another 24 hrs before resuming pending possible thoracentesis. Follow CBC, BMP in the morning. Nurse Practitioner note has been reviewed, I agree with a documented findings and plan of care. Patient was seen and examined. Objective - Vital Signs Vital signs: Vital Signs Temp 98.1 F 01/14/21 08:00 Pulse 85 01/14/21 10:52 Resp 18 01/14/21 10:52 BP 105/50 01/14/21 09:00 Pulse Ox 94 L 01/14/21 09:00 Intake & Output 01/13/21 01/14/21 01/14/21 18:59 06:59 18:59 Intake Total 161 480 Output Total 1420 1350 1 Balance -1259 -870 -1 Weight 117.6 kg Intake: IV 161 Lactated Ringers 1,000 ml 140 @ 20 mls/hr IV .Q24H [facility] Rx#:[id number] Pressure Bags 21 Oral 480 Output: Drainage 800 Right sided thoracentesis 800 Urine 620 1350 0 Stool 1 Other: Voiding Method Indwelling Catheter Toilet Bedside Commode # Voids 2 ABP, PAP, CO, CI - Last Documented Arterial Blood Pressure 184/39 Pulmonary Artery Pressure 38/11 Cardiac Output 4.7 Cardiac Index 2.2 - Labs CBC & Chem 7: 01/14/21 03:28 01/14/21 03:28 Labs: Abnormal Lab Results - Last 24 Hours (Table) 01/13/21 01/13/21 01/14/21 Range/Units 17:40 21:19 03:28 RBC 3.21 L (3.80-5.40) m/uL Hgb 10.1 L (11.4-16.0) gm/dL Hct 30.3 L (34.0-46.0) % Lymphocytes # 0.7 L (1.0-4.8) k/uL Sodium (137-145) mmol/L Carbon Dioxide (22-30) mmol/L BUN (7-17) mg/dL Creatinine (0.52-1.04) mg/dL Glucose (74-99) mg/dL POC Glucose (mg/dL) 163 H 146 H (75-99) mg/dL Calcium (8.4-10.2) mg/dL Total Bilirubin (0.2-1.3) mg/dL AST (14-36) U/L Total Protein (6.3-8.2) g/dL Albumin (3.5-5.0) g/dL 01/14/21 01/14/21 01/14/21 Range/Units 03:28 06:55 11:36 RBC (3.80-5.40) m/uL Hgb (11.4-16.0) gm/dL Hct (34.0-46.0) % Lymphocytes # (1.0-4.8) k/uL Sodium 133 L (137-145) mmol/L Carbon Dioxide 21 L (22-30) mmol/L BUN 25 H (7-17) mg/dL Creatinine 1.09 H (0.52-1.04) mg/dL Glucose 127 H (74-99) mg/dL POC Glucose (mg/dL) 137 H 127 H (75-99) mg/dL Calcium 8.2 L (8.4-10.2) mg/dL Total Bilirubin 1.6 H (0.2-1.3) mg/dL AST 54 H (14-36) U/L Total Protein 5.7 L (6.3-8.2) g/dL Albumin 3.0 L (3.5-5.0) g/dL
--- NOTE | 2021-01-14 14:21 | P.PN ---
Subjective Progress Note Date: 01/14/21 Principal diagnosis: Left main coronary artery disease S/p CABG Ms. Zaidi is a 75-year-old female with the past medical history of coronary artery disease status post multiple stents, hypertension, hyperlipidemia, MO, atrial fibrillation admitted to the hospital with a chief complaint of increased fatigue and exertional dyspnea. Patient had 2-D echocardiogram showing LV syst olic function EF of 55-50% with right ventricular being severely enlarged right atrium is mildly enlarged with mild aortic regurgitation along with mild mitral and tricuspid regurgitation. Cardiology was on board and eventually she had cardiac catheterization done on 01/02/2021 showing severe left main ostial stenosis with focal critical stenosis in the LAD. Coronary artery bypass grafting was recommended and CT surgery was consulted. Patient had coronary artery bypass grafting done on 01/08/2021 and since then been in the ICU. On 01/12/2021-patient is seen at the bedside in the ICU today. As per discussion with the nursing staff early this morning patient was having difficulty in breathing and felt anxious, at that time she was in atrial fibrillation. Amiodarone drip was started, chest x-ray showed bilateral pleural effusion. So patient received IV 20 mg of Lasix this morning. Currently patient is sitting up in a chair by the bedside states that she had a very rough morning. Patient denies having any chest pain or palpitations. She states that she has soreness in her chest wall. Patient denies having any abdominal pain nausea vomiting. No difficulty in breathing. Denies having any fevers chills or rigors. On reviewing the vitals blood pressure 151/50, heart rate 90s to 100 100s, saturating at 90% on 4 L of nasal cannula. Labs this morning showing white count of 14, hemoglobin 9.8, platelets 216. Sodium 1:30, pretension. 0.5, chloride 103, bicarb 17, BUN 21, creatinine 0.95. On 01/13/2021 - patient is seen and examined at bedside in the ICU. She is comfortably sitting up in a chair at the bedside.Patient states that her difficulty in breathing has improved since having the thoracentesis done this morning. She denies having any chest pain or palpitations. She complains of chest soreness. No cough or difficulty in breathing. She denies having abdo julio pain nausea vomiting or diarrhea. On reviewing the vitals temperature of 97.6, heart rate 78, respiratory 14, blood pressure 138/69, saturating at 95% on room air. Reviewing the labs from this morning white count of 9.4, hemoglobin 9.6, platelets 227. Sodium 133, potassium 4.1, chloride 101, bicarbonate 27, BUN 23, creatinine 1.06. Albumin of 3.1 On 01/14/2021 - patient is seen and examined at the bedside. She is sitting up in a recliner at bedside. Patient denies having any chest pain or difficulty in breathing. She has chest soreness due to the heart hugger that is in place. S he states that her lower extremity swelling has improved. She also states that her energy levels are slowly getting better. On looking at her vitals, she is currently in sinus rhythm with heart rate between 70s to 80s, T-max 98.2, respiratory rate 18, blood pressure 117/98 , sustaining a 95% on room air. On reviewing her labs white count of 9.1, hemoglobin 10.1, platelets 260. Sodium 133, duration 4, chloride 103, bicarbonate 21, BUN 25, creatinine 1.09. AST 54, ALT 16, alk phos 122, albumin 3.0 Patient's medications have been reviewed she is on Tylenol, DuoNeb, amiodarone, Norvasc, aspirin, Lipitor, Dulcolax, Plavix, Lasix, heparin subcu, NovoLog, milk of magnesia, melatonin, Reglan, Lopressor, Zofran, Protonix, Senokot. Objective - Vital Signs Vital signs: Vital Signs Temp 98.2 F 01/14/21 12:00 Pulse 76 01/14/21 12:00 Resp 18 01/14/21 12:00 BP 117/98 01/14/21 12:00 Pulse Ox 95 01/14/21 12:00 Intake & Output 01/13/21 01/14/21 01/14/21 18:59 06:59 18:59 Intake Total 161 480 Output Total 1420 1350 1 Balance -1259 -870 -1 Weight 117.6 kg Intake: IV 161 Lactated Ringers 1,000 ml 140 @ 20 mls/hr IV .Q24H [facility] Rx#:[id number] Pressure Bags 21 Oral 480 Output: Drainage 800 Right sided thoracentesis 800 Urine 620 1350 0 Stool 1 Other: Voiding Method Indwelling Catheter Toilet Bedside Commode # Voids 2 ABP, PAP, CO, CI - Last Documented Arterial Blood Pressure 184/39 Pulmonary Artery Pressure 38/11 Cardiac Output 4.7 Cardiac Index 2.2 - Exam PHYSICAL EXAMINATION: GENERAL: Sitting up in a chair by the bedside HEENT: No pallor, no icterus. CARDIOVASCULAR: S1 and S2 were regular rate and rhythm., Midsternal surgical site is bandaged. PULMONARY: Bilateral breath sounds are positive. Diminished on the right compared to the left lower lung bases ABDOMEN: Soft, nontender, nondistended, normoactive bowel sounds. MUSCULOSKELETAL: No joint swelling or deformity. EXTREMITIES: Mild pitting edema bilaterally NEUROLOGICAL: Gross neurological examination did not reveal any focal deficits. SKIN: No rashes. - Labs CBC & Chem 7: 01/14/21 03:28 01/14/21 03:28 Labs: Abnormal Lab Results - Last 24 Hours (Table) 01/13/21 01/13/21 01/14/21 Range/Units 17:40 21:19 03:28 RBC 3.21 L (3.80-5.40) m/uL Hgb 10.1 L (11.4-16.0) gm/dL Hct 30.3 L (34.0-46.0) % Lymphocytes # 0.7 L (1.0-4.8) k/uL Sodium (137-145) mmol/L Carbon Dioxide (22-30) mmol/L BUN (7-17) mg/dL Creatinine (0.52-1.04) mg/dL Glucose (74-99) mg/dL POC Glucose (mg/dL) 163 H 146 H (75-99) mg/dL Calcium (8.4-10.2) mg/dL Total Bilirubin (0.2-1.3) mg/dL AST (14-36) U/L Total Protein (6.3-8.2) g/dL Albumin (3.5-5.0) g/dL 01/14/21 01/14/21 01/14/21 Range/Units 03:28 06:55 11:36 RBC (3.80-5.40) m/uL Hgb (11.4-16.0) gm/dL Hct (34.0-46.0) % Lymphocytes # (1.0-4.8) k/uL Sodium 133 L (137-145) mmol/L Carbon Dioxide 21 L (22-30) mmol/L BUN 25 H (7-17) mg/dL Creatinine 1.09 H (0.52-1.04) mg/dL Glucose 127 H (74-99) mg/dL POC Glucose (mg/dL) 137 H 127 H (75-99) mg/dL Calcium 8.2 L (8.4-10.2) mg/dL Total Bilirubin 1.6 H (0.2-1.3) mg/dL AST 54 H (14-36) U/L Total Protein 5.7 L (6.3-8.2) g/dL Albumin 3.0 L (3.5-5.0) g/dL Assessment and Plan Assessment: ASSESSMENT Coronary artery disease/severe left main disease/status post CABG on 01/08/2021- postoperative day #6 Paroxysmal atrial fibrillation status post cardiac surgery History of MO with multivessel angioplasty Mild prerenal a calorie improving Mild transaminitis Family history of coronary artery disease Hyponatremia Acute blood loss anemia and thrombocytopenia status post cardiac surgery Mild leukocytosis-probably reactive Hypertension Hyperlipidemia PLAN: Patient currently in sinus rhythm with heart rate between 70s to 80s, controlled on amiodarone by mouth. Patient's creatinine trending towards baseline. Continue with aspirin and Plavix statin. Hyperglycemia to be controlled with sliding scale of insulin. She had thoracentesis done by Dr. Waterman on 01/13/2021 with 800ml of fluid removed from the right side. Pleural fluid analysis pending. Postoperative care as per CT surgery recommendations. Patient encouraged to continue using incentive spirometry. Overall prognosis is guarded. Patient is being transferred from the ICU to telemetry floor today .Further recommendations to follow depending on the progress of the patient.
[2021-01-14] MEDS ORDERED: HEPARIN SODIUM,PORCINE/PF 5,000 UNIT/0.5 ML SYRINGE SQ SCH (16:00)
[2021-01-14] MEDS: HEPARIN SODIUM,PORCINE/PF 5,000 UNIT/0.5 ML SYRINGE SQ SCH (16:22)
[2021-01-14 17:24] LABS: Glucose,Whole Blood 133 mg/dL (75-99)
[2021-01-14] MEDS ORDERED: RIVAROXABAN 20 MG TAB PO SCH (17:30)
[2021-01-14 21:27] LABS: Glucose,Whole Blood 174 mg/dL (75-99)
[2021-01-14] MEDS: SENNOSIDES-DOCUSATE SODIUM 1 EACH TAB PO SCH (21:52)
[2021-01-15] MEDS: HEPARIN SODIUM,PORCINE/PF 5,000 UNIT/0.5 ML SYRINGE SQ SCH ×2 (00:37→09:07)
[2021-01-15 03:34] LABS: HCT 29.9 % (34.0-46.0); Hypochromasia Slight; MCH 31.1 pg (25.0-35.0); MCHC 33.4 g/dL (31.0-37.0); MCV 93.1 fL (80.0-100.0); Mean Platelet Volume 7.5; Platelet Count 264 k/uL (150-450); RBC 3.21 m/uL (3.80-5.40); RDW 14.8 % (11.5-15.5); WBC 8.6 k/uL (3.8-10.6)
[2021-01-15 03:54] LABS: Potassium 3.7 mmol/L (3.5-5.1)
[2021-01-15] MEDS ORDERED: POTASSIUM CHLORIDE ER 20 MEQ TAB.ER PO SCH (06:00)
[2021-01-15 06:36] LABS: Glucose,Whole Blood 154 mg/dL (75-99)
[2021-01-15] MEDS: PANTOPRAZOLE 40 MG TABLET PO SCH (06:44)
[2021-01-15] MEDS: INSULIN ASPART (NovoLOG) 100 UNIT/ML VIAL SQ SCH ×2 (06:44→12:49)
--- NOTE | 2021-01-15 07:52 | XR ---
EXAMINATION TYPE: XR chest 2V DATE OF EXAM: 01/15/2021 COMPARISON: 01/14/2021 HISTORY: Postcardiac surgery TECHNIQUE: Frontal and lateral views of the chest are obtained. FINDINGS: Left greater than right bibasilar pleural-parenchymal disease appears similar to the prior exam. Postoperative changes overlie the cardiac LAT. IMPRESSION: No significant change since the prior exam.
[2021-01-15] MEDS: IPRATROPIUM-ALBUTEROL 3 ML NEB INHALATION SCH ×2 (08:04→11:23)
[2021-01-15 08:06] VITALS: RESP 16
[2021-01-15] MEDS ORDERED: FUROSEMIDE 10 MG/ML 2 ML VIAL IV SCH (09:00)
[2021-01-15] MEDS: METOPROLOL TARTRATE 50 MG TAB PO SCH (09:07)
[2021-01-15] MEDS: CLOPIDOGREL 75 MG TAB PO SCH (09:07)
[2021-01-15] MEDS: AMIODARONE 200 MG TAB PO SCH (09:07)
[2021-01-15] MEDS: ATORVASTATIN 80 MG TAB PO SCH (09:07)
[2021-01-15] MEDS: amLODIPine 5 MG TAB PO SCH (09:07)
[2021-01-15] MEDS: ASPIRIN 325 MG TAB PO SCH (09:07)
--- NOTE | 2021-01-15 09:34 | P.PN ---
Subjective Progress Note Date: 01/15/21 Today's evaluation, the patient is postop day #6 following 2 vessel bypass surgery. The patient postop developed bilateral pleural effusion. The right- sided pleural effusion was drained yesterday and total of 800 mL of fluid was removed. Chest x-ray from today shows no evidence of any pneumothorax. There are some atelectatic change in the right lung base. Otherwise the patient is doing well. She is on oxygen at room air and she is using incentive spirometer and she is pulling approximately 750. The sternum is intact for now. Her blood work is showing a white cell count 9.1 with a hemoglobin of 10.1. Platelet count is at 260. Creatinine is normal. Electrolytes are normal. LFTs are nor mal. Medication borges, the patient is on aspirin, Plavix, metoprolol 50 mg twice a day, Norvasc 5 mg by mouth daily for blood pressure control. The patient is also on amiodarone 400 mg by mouth twice a day and her cardiac rhythm is sinus. On today's evaluation of 01/15/2021 the patient is postop day #7. The patient underwent three-vessel bypass surgery. Postop, she was extubated. She develope d a right-sided pleural effusion. Initial drainage was done and a total of 800 mL of fluid was removed from the right lung. The chest x-ray still showing some residual effusion on the left. Doing well. Using incentive spirometer. Her blood work is showing no significant abnormalities. Sodium level is at 133. BUN is at 23 with a creatinine of 1.01. Her current rhythm is sinus and the patient remains on amiodarone 400 mg by mouth twice a day. She remains on a combination of aspirin, Plavix and metoprolol. He is also on Norvasc 5 mg by mouth daily for blood pressure control. Current cardiac rhythm is sinus. She is awake and alert. She is sitting up on a chair. No signs of any significant respiratory distress. The left-sided pleural effusion has been marked and the patient has a surgical wound site over the sternum is dry clean and intact. Objective - Vital Signs Vital signs: Vital Signs Temp 97.9 F 01/15/21 04:00 Pulse 88 01/15/21 08:14 Resp 16 01/15/21 08:14 BP 137/55 01/15/21 04:00 Pulse Ox 95 01/15/21 04:00 Intake & Output 01/14/21 01/15/21 01/15/21 18:59 06:59 18:59 Intake Total 620 Output Total 1 100 1200 Balance -1 -100 -580 Weight 116 kg Intake: Oral 620 Output: Urine 0 100 1200 Stool 1 Other: Voiding Method Toilet Toilet Bedside Commode # Voids 2 1 ABP, PAP, CO, CI - Last Documented Arterial Blood Pressure 184/39 Pulmonary Artery Pressure 38/11 Cardiac Output 4.7 Cardiac Index 2.2 - Exam CONSTITUTIONAL: Sitting up to the bedside chair in the intensive care unit, no acute distress, comfortable and cooperative. HEENT: Neck is supple, positive JVD to her left side, no lymphadenopathy. RESPIRATORY: Lungs sounds with few scattered crackles throughout and scattered expiratory wheezes, diminished bilateral bases. Respirations are symmetrical and nonlabored. Currently on room air with oxygen saturations 93%. Able to achieve 500-750 mL on her incentive spirometry. Strong cough. CARDIOVASCULAR: Regular rhythm and rate. S1 and S2 present, negative for S3, gallop or murmur. Palpable peripheral pulses bilaterally. No calf pain or tenderness noted. Heart hugger in place with patient demonstrating appropriate use. Knee-high EDY hose and sequential compression devices in place to his bilateral lower extremities. GASTROINTESTINAL: Abdomen soft, nontender, nondistended. Active bowel sounds present 4 quadrants. Tolerating diet. Passing flatus. No guarding or rigidity. Bowel movement this morning 01/13/2021. GENITOURINARY: Blackwood present draining clear, yellow urine. INTEGUMENTARY: Skin is warm and dry with no clubbing or cyanosis present. Midline sternal incision clean dry and well approximated, covered with dry intact dressing. Left lower extremity EVH site well approximated without redness or drainage. NEUROLOGIC: Cranial nerves II through XII intact. No focal deficits. MUSKULOSKELETAL: Able to move all extremities, strength equal bilaterally, generalized weakness. PSYCHIATRIC: Alert and oriented to person place and time, appropriate affect, intact judgment and insight. - Labs CBC & Chem 7: 01/15/21 03:01 01/15/21 03:01 Labs: Abnormal Lab Results - Last 24 Hours (Table) 01/14/21 01/14/21 01/14/21 Range/Units 11:36 17:23 21:25 RBC (3.80-5.40) m/uL Hgb (11.4-16.0) gm/dL Hct (34.0-46.0) % Sodium (137-145) mmol/L Carbon Dioxide (22-30) mmol/L BUN (7-17) mg/dL Glucose (74-99) mg/dL POC Glucose (mg/dL) 127 H 133 H 174 H (75-99) mg/dL Calcium (8.4-10.2) mg/dL 01/15/21 01/15/21 01/15/21 Range/Units 03:01 03:01 06:34 RBC 3.21 L (3.80-5.40) m/uL Hgb 10.0 L (11.4-16.0) gm/dL Hct 29.9 L (34.0-46.0) % Sodium 133 L (137-145) mmol/L Carbon Dioxide 20 L (22-30) mmol/L BUN 23 H (7-17) mg/dL Glucose 132 H (74-99) mg/dL POC Glucose (mg/dL) 154 H (75-99) mg/dL Calcium 8.0 L (8.4-10.2) mg/dL Assessment and Plan Plan: 1 Status post two-vessel bypass grafting, including WASSERMAN to LAD and saphenous vein graft to the obtuse marginal, postop day #7 2 Routine postoperative ventilator management with extubation on 01/09/2021. Chest x-ray showing a residual left-sided pleural effusion. Right-sided pleural effusion was already drained. 3 Lifelong nontobacco use. 4 History of heart failure. 5 History of hyperlipidemia. 6 History of hypertension. 7 Prior history of myocardial infarction. 8 History of CAD with previous stent placement. 9 Status post right-sided thoracentesis on January 13, with 800 mL of bloody fluid removed. 10 Atrial fibrillation, expected outcome of surgery, current rhythm is sinus. Patient is on by mouth amiodarone. Plan Reviewed the chest x-ray from today. Continue same management Continue using incentive spirometer We will proceed with a left-sided pleural effusion We'll continue to follow. Keep the same treatment
--- NOTE | 2021-01-15 09:50 | P.PN ---
Subjective Progress Note Date: 01/15/21 Principal diagnosis: Coronary artery disease with left main disease, acute kidney injury on admission. Past medical history significant for myocardial infarction with multivessel angioplasty, hypertension, hyperlipidemia, paroxysmal atrial fibrillation on Xarelto for anticoagulation, fatty liver with transaminitis, and family history of coronary artery disease. POD #7 off-pump coronary artery bypass graft 2 with left internal mammary artery to the left anterior descending artery, reverse saphenous vein graft to the obtuse marginal artery, ligation of the left atrial appendage using a 35 mm AtriClip, endovascular vein harvest of the left greater saphenous vein from the knee to the groin, intraoperative transesophageal echocardiogram. Postoperative acute blood loss anemia and thrombocytopenia, expected given hemodilution. Paroxysmal atrial fibrillation, known common occurrence after open heart surgery especially given the patient's history of paroxysmal atrial fibrillation. Bilateral pleural effusions, status post right sided thoracentesis today 01/13/2021 with removal of 800 mL thin serosanguineous drainage. The patient is seen in follow-up today 01/15/2021 at her bedside in the intensive care unit. Currently she is sitting up to the bedside chair, is awake, alert and oriented 3. Denies any complaints of pain or shortness of breath at this time. Continues to report she feels much better on a daily basis and is anxious to be discharged home. Oxygen saturations are 95% on room air and she is achieving 1000 mL on her incentive spirometry. Remote telemetry showing normal sinus rhythm heart rate 87 BPM. She reports she ambulated in the intensive care unit hallway with minimal assistance yesterday from therapy and nursing staff. She remains hemodynamically stable and is currently on no inotropic or pressor support. Discharge instructions were reviewed with the patient. Objective - Vital Signs Vital signs: Vital Signs Temp 97.9 F 01/15/21 04:00 Pulse 88 01/15/21 08:14 Resp 16 01/15/21 08:14 BP 137/55 01/15/21 04:00 Pulse Ox 95 01/15/21 04:00 Intake & Output 01/14/21 01/15/21 01/15/21 18:59 06:59 18:59 Intake Total 620 Output Total 1 100 1200 Balance -1 -100 -580 Weight 116 kg Intake: Oral 620 Output: Urine 0 100 1200 Stool 1 Other: Voiding Method Toilet Toilet Bedside Commode # Voids 2 1 ABP, PAP, CO, CI - Last Documented Arterial Blood Pressure 184/39 Pulmonary Artery Pressure 38/11 Cardiac Output 4.7 Cardiac Index 2.2 - Exam CONSTITUTIONAL: Sitting up to the bedside chair in the intensive care unit, no acute distress, comfortable and cooperative. HEENT: Neck is supple, positive JVD to her left side, no lymphadenopathy. RESPIRATORY: Lungs sounds essentially clear throughout, diminished bilateral bases left greater than right. Respirations are symmetrical and nonlabored. Currently on room air with oxygen saturations 95%. Able to achieve 1000 mL on her incentive spirometry. Strong cough. CARDIOVASCULAR: Regular rhythm and rate. S1 and S2 present, negative for S3, gallop or murmur. Remote telemetry showing normal sinus rhythm heart rate 87 BPM. Sternum is stable. Palpable peripheral pulses bilaterally. No calf pain or tenderness noted. Heart hugger in place with patient demonstrating appropriate use. Knee-high DEY hose and sequential compression devices in place to his bilateral lower extremities. GASTROINTESTINAL: Abdomen soft, nontender, nondistended. Active bowel sounds present 4 quadrants. Tolerating diet. Passing flatus. No guarding or rigidity. GENITOURINARY: Blackwood present draining clear, yellow urine. Urine output with 700 mL in the last 8 hours. INTEGUMENTARY: Skin is warm and dry with no clubbing or cyanosis present. Midline sternal incision clean dry and well approximated, covered with dry intact dressing. Left lower extremity EVH site well approximated without redness or drainage. NEUROLOGIC: Cranial nerves II through XII intact. No focal deficits. MUSKULOSKELETAL: Able to move all extremities, strength equal bilaterally, generalized weakness. PSYCHIATRIC: Alert and oriented to person place and time, appropriate affect, intact judgment and insight. - Labs CBC & Chem 7: 01/15/21 03:01 01/15/21 03:01 Labs: Abnormal Lab Results - Last 24 Hours (Table) 01/14/21 01/14/21 01/14/21 Range/Units 11:36 17:23 21:25 RBC (3.80-5.40) m/uL Hgb (11.4-16.0) gm/dL Hct (34.0-46.0) % Sodium (137-145) mmol/L Carbon Dioxide (22-30) mmol/L BUN (7-17) mg/dL Glucose (74-99) mg/dL POC Glucose (mg/dL) 127 H 133 H 174 H (75-99) mg/dL Calcium (8.4-10.2) mg/dL 01/15/21 01/15/21 01/15/21 Range/Units 03:01 03:01 06:34 RBC 3.21 L (3.80-5.40) m/uL Hgb 10.0 L (11.4-16.0) gm/dL Hct 29.9 L (34.0-46.0) % Sodium 133 L (137-145) mmol/L Carbon Dioxide 20 L (22-30) mmol/L BUN 23 H (7-17) mg/dL Glucose 132 H (74-99) mg/dL POC Glucose (mg/dL) 154 H (75-99) mg/dL Calcium 8.0 L (8.4-10.2) mg/dL Assessment and Plan Assessment: 1. Symptomatic coronary artery disease with left main disease, status post 2 vessel coronary artery bypass grafting 2. Acute kidney injury on admission 3. History of myocardial infarction, history of multivessel angioplasty 4. Hypertension 5. Hyperlipidemia, treated, cholesterol 139, LDL 91 6. History of persistent paroxysmal atrial fibrillation on Xarelto for anticoagulation on an outpatient, status post left atrial appendage ligation 7. History of fatty liver with elevation of her transaminase enzymes 8. Family history of coronary artery disease 9. Lifetime nonsmoker with the preoperative FEV1 57% of predicted value 10. Postoperative acute blood loss anemia and thrombocytopenia, expected 11. Bilateral pleural effusions, status post right-sided thoracentesis Plan: 1. Continue aspirin, Plavix, Norvasc, statin and beta maxi. Will increase her metoprolol tartrate as tolerated. 2. Continue amiodarone for atrial fibrillation prophylaxis. Upon discharge we will restart her Xarelto, decrease her aspirin to 81 mg by mouth daily and discontinue her Plavix. 3. Encourage incentive spirometry use 10 times every hour while awake. Bronchodilators per pulmonology. 3. Increase activity, ambulate as tolerated. PT/OT/cardiac rehab following. 4. Will monitor daily labs and chest x-rays. Electrolyte replacement per protocol. 5. GI/DVT prophylaxis. 6. Insulin management per primary care service. Patient is not diabetic, hemoglobin A1c 5.4%. 7. Pain controlled with current medication regimen. 8. Dr. Hamilton is planning to complete a thoracentesis to her left chest today. Post thoracentesis if her chest x-ray shows no pneumothorax she will be discharged home with home health care today. 9. Continue Lasix 20 mg IV daily. We will discharge her home on Lasix 20 mg by mouth daily. 10. Continue to record strict accurate intake and output. Daily weights 11. More recommendations to follow based on patient's clinical course. Time with Patient: Greater than 30
--- NOTE | 2021-01-15 09:54 | P.PCN ---
Date of Procedure: 01/15/21 Preoperative Diagnosis: Left-sided pleural effusion Postoperative Diagnosis: left-sided pleural effusion Procedure(s) Performed: left thoracentesis Anesthesia: local Surgeon: Mala Hamilton Estimated Blood Loss (ml): 0 Pathology: other Condition: stable Disposition: floor Operative Findings: A time out was performed and the chest x-ray was reviewed, the appropriate side was confirmed and marked. My hands were washed immediately prior to the procedure. I wore a surgical cap, mask with protective eyewear, sterile gown and sterile gloves throughout the procedure. The patient was prepped and draped in a sterile manner using chlorhexidine scrub after the appropriate level was percussed and confirmed by ultrasound. 1% lidocaine was used to anesthesize the skin, subcutaneous tissue, superior aspect of the rib periosteum and parietal pleura. A finder needle was then introduced over the superior aspect of the rib to locate the pleural fluid; 2colored fluid was aspirated at a depth of approximately 2 cm. A 10-blade scalpel was used to pa the skin at the insertion site. The [id number] needle was then introduced through the skin incision into the pleural space using negative aspiration pressure and the red colometric indicator to confirm appropriate positioning of the needle. The thoracentesis catheter was then threaded without difficulty. 600 ml of turbid colored fluid was removed without difficulty. The catheter was then removed. No immediate complications were noted during the procedure. A post-procedure chest x-ray is pending at the time of this note. The fluid will not be sent for studies. Estimated blood loss is 0cc
--- NOTE | 2021-01-15 10:33 | XR ---
EXAMINATION TYPE: XR chest 1V portable DATE OF EXAM: 01/15/2021 COMPARISON: Chest x-ray 01/15/2021 at earlier time HISTORY: Status post left thoracentesis TECHNIQUE: Single frontal view of the chest is obtained. FINDINGS: There is no evident pneumothorax. Patient is rotated. There is improved aeration at the le ft lung base. No other significant interval change. IMPRESSION: No evident complication status post thoracentesis.
--- NOTE | 2021-01-15 11:51 | P.PN ---
Subjective HISTORY OF PRESENTING ILLNESS This is a pleasant 75-year-old female past medical history significant for paroxysmal atrial fibrillation on long-term anticoagulation, coronary artery disease status post PCI to the circumflex and OM 2017, hypertension, dyslipidemia and obesity. She follows in the office with Dr. Lewis. We have been asked to see in consultation for shortness of breath. She states for the previous few weeks she has been experiencing increased shortness of breath with activity. It mostly has been manageable until 2 days ago when it was causing her more distress. She denies chest pain, dizziness, palpitations, nausea, vomiting or diaphoresis. Overall she feels generalized fatigue as well. Most recent echocardiogram obtained in 2017 reveals preserved LV systolic function with ejection fraction 55-60%, mild MR, mild TR and mild pulmonary hypertension with RVSP of 37 mmHg. 01/14/2021 Patient seen and examined sitting up in recliner in no acute distress. She appears comfortable. She denies chest pain, shortness of breath, dizziness or palpitations. Blood pressure 116/67 heart rate 87 afebrile and maintaining o xygen saturation on room air. Laboratory data reviewed, WBC 8.6, hemoglobin 10, platelets 264, sodium 133, potassium 3.7 and creatinine 1.01. She underwent a left sided thoracentesis this morning with 600, pulse of turbid fluid removed. PHYSICAL EXAMINATION CONSTITUTIONAL: No apparent distress. Obese. HEENT: Head is normocephalic. Pupils are equal, round. Sclerae anicteric. Mucous membranes of the mouth are moist. No JVD. No carotid bruit. CHEST EXAMINATION: Lungs are clear to auscultation. Diminished on the let. No wheezes or rhonchi. No chest wall tenderness is noted on palpation or with deep breathing. Heart hugger in place. Mid-sternal incision site dressing in place. HEART EXAMINATION: Regular rate and rhythm. S1, S2 heard. Soft systolic ejection murmur at the base, no gallops or rub. EXTREMITIES: 2+ peripheral pulses, trace non-pitting lower extremity edema and no calf tenderness.. ASSESSMENT Generalized fatigue and shortness of breath Coronary artery disease s/p bypass grafting Transaminitis, resolved Hyperkalemia, resolved Acute kidney injury Coronary artery disease Hypertension Dyslipidemia Paroxysmal atrial fibrillation on long-term anticoagulation currently main taining sinus mechanism PLAN Stable on current medical regimen. Discussed with CT surgery resuming anti-coagulation. Nurse Practitioner note has been reviewed, I agree with a documented findings a nd plan of care. Patient was seen and examined. Objective - Vital Signs Vital signs: Vital Signs Temp 98.0 F 01/15/21 08:00 Pulse 88 01/15/21 08:14 Resp 16 01/15/21 08:14 BP 116/67 01/15/21 08:00 Pulse Ox 94 L 01/15/21 08:00 Intake & Output 01/14/21 01/15/21 01/15/21 18:59 06:59 18:59 Intake Total 620 Output Total 1 100 1400 Balance -1 -100 -780 Weight 116 kg Intake: Oral 620 Output: Urine 0 100 1400 Stool 1 Other: Voiding Method Toilet Toilet Toilet Bedside Commode # Voids 2 1 # Bowel Movements 1 ABP, PAP, CO, CI - Last Documented Arterial Blood Pressure 184/39 Pulmonary Artery Pressure 38/11 Cardiac Output 4.7 Cardiac Index 2.2 - Labs CBC & Chem 7: 01/15/21 03:01 01/15/21 03:01 Labs: Abnormal Lab Results - Last 24 Hours (Table) 01/14/21 01/14/21 01/15/21 Range/Units 17:23 21:25 03:01 RBC 3.21 L (3.80-5.40) m/uL Hgb 10.0 L (11.4-16.0) gm/dL Hct 29.9 L (34.0-46.0) % Sodium (137-145) mmol/L Carbon Dioxide (22-30) mmol/L BUN (7-17) mg/dL Glucose (74-99) mg/dL POC Glucose (mg/dL) 133 H 174 H (75-99) mg/dL Calcium (8.4-10.2) mg/dL 01/15/21 01/15/21 Range/Units 03:01 06:34 RBC (3.80-5.40) m/uL Hgb (11.4-16.0) gm/dL Hct (34.0-46.0) % Sodium 133 L (137-145) mmol/L Carbon Dioxide 20 L (22-30) mmol/L BUN 23 H (7-17) mg/dL Glucose 132 H (74-99) mg/dL POC Glucose (mg/dL) 154 H (75-99) mg/dL Calcium 8.0 L (8.4-10.2) mg/dL
[2021-01-15 11:58] LABS: Glucose,Whole Blood 97 mg/dL (75-99)
[2021-01-15 12:49] VITALS: BP 116/57; PULSE 76; TEMP 98.2
--- NOTE | 2021-01-15 14:18 | P.DS ---
Providers Date of admission: 01/03/21 09:36 Expected date of discharge: 01/15/21 Attending physician: Curtis Aquino Consults: 12/31/20 14:08 Consult Physician Urgent Consulting Provider: Suraj Chand Consult Reason/Comments: Exertional dyspnea Do you want consulting provider notified?: Yes 01/03/21 09:51 Consult Physician Urgent Consulting Provider: Curtis Aquino Consult Reason/Comments: left main disease Do you want consulting provider notified?: Already Contacted 01/07/21 10:25 Consult Physician Routine Consulting Provider: Alin Waterman Consult Reason/Comments: preop cabg Do you want consulting provider notified?: Yes Consult to Anesthesia Routine Consulting Provider: Anesthesia,Services Consult Reason/Comments: Cardiac Surgery Pre-Op 01/08/21 17:49 Consult Physician Routine Consulting Provider: Kierra Story Consult Reason/Comments: med mgmt Do you want consulting provider notified?: Already Contacted Primary care physician: Stated None Hospital Course: FINAL DIAGNOSIS: 1. Symptomatic coronary artery disease with left main disease, status post off- pump coronary artery bypass grafting surgery 2 2. Acute kidney injury on admission 3. History of myocardial infarction with multivessel angioplasty 4. Hypertension 5. Hyperlipidemia, treated, cholesterol 139, LDL 91 6. History of paroxysmal atrial fibrillation on Xarelto for anticoagulation, status post ligation of the left atrial appendage using a 35 mm Atriclip 7. Fatty liver with transaminitis 8. Lifetime nonsmoker, preoperative FEV1 57% predicted value 9. Family history of coronary artery disease 10. Postoperative acute blood loss anemia and thrombocytopenia, expected 11. Postoperative paroxysmal atrial fibrillation, no uncommon occurrence after open heart surgery, especially given patient's previous history of paroxysmal atrial fibrillation 12. Bilateral pleural effusions, status post bilateral thoracentesis PRINCIPAL PROCEDURE: 1. Off-pump coronary artery bypass grafting 2 with left internal mammary artery to left anterior descending coronary artery and a reverse greater saphenous vein graft to the obtuse marginal coronary artery. 2. Ligation of the left atrial appendage using a 35 mm Atriclip. 3. Endovascular vein harvest of the left greater saphenous vein from the knee to the groin. 4. Intraoperative transesophageal echocardiogram. 5. Right-sided thoracentesis with removal of 800 mL of bloody fluid on 01/13/2021. 6. Left-sided thoracentesis with removal of 500 mL of turbid colored fluid on 01/15/2021. HISTORY OF PRESENT ILLNESS: This is a 76-year-old female patient who does not follow with any particular primary care physician on an outpatient basis. She had complaints progressive shortness of breath, fatigue and generalized weakness with profound exhaustion for 1 week. Subsequently she presented to the emergency department here at [facility] for evaluation and treatment of the above-mentioned symptoms. Due to her presenting symptoms a transthoracic echocardiogram was performed revealing a low to normal left ventricular systolic function with an ejection fraction of 50-55%, trace to mild aortic valve regurgitation, mild mitral valve regurgitation and mild tricuspid valve regurgitation. For further workup she was recommended to undergo a heart catheterization which demonstrated a 70-80% left main coronary artery stenosis with an 80-90% focal stenosis in the mid left anterior descending coronary artery. Due to the findings on the heart catheterization a consult was placed t garo Aquino from cardiothoracic surgery. Dr. Aquino reviewed the findings on the heart catheterization with the patient and her family, treatment options were discussed including myocardial revascularization surgery. Risks and benefits including the STS risk score of surgery were discussed with the patient and knowing and understanding these risks the patient wished to proceed with the surgical option. All questions were answered and consent was obtained to proceed with myocardial revascularization surgery. The patient was As an inpatient due to the nature of her disease process. HOSPITAL COURSE: On 01/08/2021 the patient was brought to the preoperative area, prepared in the usual fashion and subsequently taken to the operating room where Dr. Curtis Aquino performed an urgent off-pump coronary artery bypass grafting surgery. Upon completion of the surgery the patient was transferred to the cardiovascular intensive care unit where she was recovered and monitored hemodynamically. She was extubated, all lines, tubes and supportive drips were discontinued when appropriate. She did experience acute postoperative blood loss anemia and thrombocytopenia requiring no transfusion, paroxysmal atrial fibrillation which was treated with amiodarone and bilateral pleural effusions which was treated with bilateral thoracentesis. She was eventually stabilized and transfer orders were placed to the cardiac stepdown unit, however there is no bed availability on the cardiac stepdown unit and the patient remained in the intensive care unit as a stepdown patient until discharge. Her oxygen was titrated down, she continued to work with physical/occupational therapy, cardiac rehabilitation, she was tolerating an oral diet, her pain was well controlled and she was ready to be discharged home with [facility] on postoperative day #7. She has received verbal and written instructions regarding her medications, activity restrictions, signs and symptoms requiring physician notification and her follow-up appointments. COMPLICATIONS: The patient experienced some postoperative acute blood loss anemia and thrombocytopenia, paroxysmal atrial fibrillation with conversion to normal sinus rhythm and bilateral pleural effusions, all of which were treated accordingly. Plan - Discharge Summary Discharge Rx Participant: No New Discharge Prescriptions: New Aspirin 81 mg PO DAILY #30 chew Amiodarone [Cordarone] 400 mg PO BID #35 tab Potassium Chloride ER [K-Dur 10] 10 meq PO DAILY #30 tab Furosemide [Lasix] 20 mg PO DAILY #30 tab Metoprolol Tartrate [Lopressor] 50 mg PO BID #60 tab amLODIPine [Norvasc] 5 mg PO DAILY #30 tab Pantoprazole [Protonix] 40 mg PO AC-BRKFST #30 tablet.dr Caballero-Docusate Sodium [Senokot-S] 2 each PO HS #14 tab Acetaminophen Tab [Tylenol] 650 mg PO Q4HR PRN tab PRN Reason: Fever And/ Or Pain Continue Atorvastatin [Lipitor] 40 mg PO HS Rivaroxaban [Xarelto] 15 mg PO HS #0 Discontinued Metoprolol Succinate (ER) [Toprol XL] 100 mg PO DAILY Losartan [Cozaar] 25 mg PO DAILY Discharge Medication List Atorvastatin [Lipitor] 40 mg PO HS 12/31/20 [History] Aspirin 81 mg PO DAILY #30 chew 01/03/21 [Rx] Rivaroxaban [Xarelto] 15 mg PO HS #0 01/03/21 [Rx] Acetaminophen Tab [Tylenol] 650 mg PO Q4HR PRN tab 01/15/21 [Rx] Amiodarone [Cordarone] 400 mg PO BID #35 tab 01/15/21 [Rx] Furosemide [Lasix] 20 mg PO DAILY #30 tab 01/15/21 [Rx] Metoprolol Tartrate [Lopressor] 50 mg PO BID #60 tab 01/15/21 [Rx] Pantoprazole [Protonix] 40 mg PO AC-BRKFST #30 tablet. 01/15/21 [Rx] Potassium Chloride ER [K-Dur 10] 10 meq PO DAILY #30 tab 01/15/21 [Rx] Sennosides-Docusate Sodium [Senokot-S] 2 each PO HS #14 tab 01/15/21 [Rx] amLODIPine [Norvasc] 5 mg PO DAILY #30 tab 01/15/21 [Rx] Follow up Appointment(s)/Referral(s): [facility]Cardiac [NON-STAFF] - 4 Weeks Fernando Snow NPC [REFERRING] - 01/18/21 2:15 pm (This is that [facility] medicine and follow-up with Dr. Payne) [facility]Equipment [NON-STAFF] - As Needed (Supplier of 4 wheeled walker with seat) Edouard Delgado NPC [Nurse Practitioner] - 01/24/21 11:00 am (Please follow-up at the office on [address] [place] [address], [address], [place] [address]. The office number is [phone].) Alin Waterman DO [Doctor of Osteopathic Medicine] - 01/24/21 1:10 pm [facility], [NON-STAFF] - 1-2 Days Martin Lewis MD [STAFF PHYSICIAN] - 01/21/21 8:45 am Ambulatory/Diagnostic Orders: Complete Blood Count w/diff [LAB.AMB] Time Frame: 01/18/21, Facility: [facility], Location: Laboratory Main [facility] Comprehensive Metabolic Panel [LAB.AMB] Time Frame: 01/18/21, Facility: [facility], Location: [facility] Activity/Diet/Wound Care/Special Instructions: DISCHARGE INSTRUCTIONS: 1. No driving for 4 weeks, or until physician gives their ok. 2. The patient should sleep in their own bed, no medical bed needed. 3. Stairs are not an issue. If the bedroom is upstairs, it is advised that the patient go up at night and down in the morning for the first week. Go slowly, using handrail and take 1 step at a time. 4. EDY hose are to be worn for 30 days or until physician discontinues. 5. Heart hugger is to be worn 100% of the time until physician discontinues.(except when showering) 6. No lifting, pushing, or pulling more than 10 pounds for 12 weeks. The phys ician will advise of any restriction changes. 7. The patient is expected to continue the prescribed walking program. 8. Continue pain control per as needed orders. 9. Continue with incentive spirometry and splinting/heart hugger until otherwise directed by the physician. 10. Must shower daily using liquid antibacterial soap and a separate white washcloth for each individual incision. 11. Routine sternal incision care. No powders, lotions, ointments on incisions. No dressings are necessary on incisions unless they are draining. Dermabond tape is to remain on sternal incision until surgeon follow-up. 12. Please call surgeon/MOBILE SECURITY SPECIALIST for temp greater than 101 F or purulent drainage from incisions. 13. All prescriptions given by surgeon for 30 days. Refills need to be filled t hrough air intercept controller supervisor/primary care physician. 14. A Red armband has been placed on the patient. It should be worn for 30 days post surgery and will be removed by the cardiac surgeons. If an ER visit is necessary, please make sure the number on the Red armband is called. 15. You have been referred to and are expected to begin Cardiac Rehab in approximately 4-6 weeks. HOME HEALTH SERVICES TO PROVIDE: RN SKILLED HOME CARE SERVICES FOR POST-OP SURGICAL PATIENTS WITH THE FOLLOWING: Coronary Artery Bypass Surgery (CABG), Mitral Valve Replacement/Repair ( MVR), Aortic Valve Replacement/Repair (AVR) RN TO CONTINUE EDUCATION FROM ``ROAD TO A HEALTH HEART PATIENT EDUCATION MANUAL (GIVEN TO PATIENT IN THE HOSPITAL) MEDICATION RECONCILIATION WITH EDUCATION NEEDED ON FIRST HOME VISIT EMPHASIZE IMPORTANCE OF WEARING BREAST SUPPORT/HEART HUGGER ENCOURAGE USE OF INCENTIVE SPIROMETER 10 X EVERY HOUR WHILE AWAKE ENCOURAGE UTILIZATION OF LOWER EXTREMITY COMPRESSION STOCKINGS/EDY HOSE and ELEVATE LEGS ABOVE LEVEL OF HEART WHILE AT REST. ENCOURAGE AMBULATION 3-5x/day INCREASING TOLERATES, WHILE AVOIDING EXTREMES IN TEMPERATURE FREQUENCY: RN TO OPEN THE PATIENT WITHIN 24 HOURS OF DISCHARGE FROM THE HOSPITAL WITH [place] [facility] [place]ISIT 2-3 X A WEEK FOR 4 WEEKS ESTABLISHED BY PATIENT NEEDS. LABORATORY: CBC, CMP TO BE DRAWN ON THE THIRD DAY HOME, (RAN STAT) FAX RESULTS TO [phone]. TELEHEALTH PARAMETERS: WEIGHT: NOTIFY MD OF WEIGHT GAIN OF 2 LBS IN 24 HOURS OR 5 LBS IN ONE WEEK HR: NOTIFY MD OF HR <55 BPM OR HR>100 BPM BP: NOTIFY MD IF BP <90/55 OR BP>140/100 O2 SAT: NOTIFY MD IF PO2<93% ON ROOM AIR SEND TELEHEALTH REPORT TO BEAUTY SPECIALIST AND CARDIOVASCULAR SURGEON THE FIRST WEEK OF CARE AND THEN BI-WEEKLY. PLEASE ADDITIONALLY COMMUNICATE ANY ABNORMALS AND NEW FINDINGS TO THE SURGEONS OFFICE. For any questions or concerns please call plush cutter Cher @ or Kodi @ Discharge Disposition: HOME WITH HOME HEALTH SERVICES
--- NOTE | 2021-01-17 10:44 | CONS ---
CONSULTATION DATE OF SERVICE: 01/03/21 I have seen, examined, and agree with the midlevel's findings. MMODL / IJN: [id number] / -77
--- NOTE | 2021-03-08 09:01 | P.PN ---
Subjective Progress Note Date: 01/15/21 Principal diagnosis: Left main coronary artery disease.s/P CABG Ms. Zaidi is a 75-year-old female with the past medical history of coronary artery disease status post multiple stents, hypertension, hyperlipidemia, LA, atrial fibrillation admitted to the hospital with a chief complaint of increased fatigue and exertional dyspnea. Patient had 2-D echocardiogram showing LV systo lic function EF of 55-50% with right ventricular being severely enlarged right atrium is mildly enlarged with mild aortic regurgitation along with mild mitral and tricuspid regurgitation. Cardiology was on board and eventually she had cardiac catheterization done on 01/02/2021 showing severe left main ostial stenosis with focal critical stenosis in the LAD. Coronary artery bypass grafting was recommended and CT surgery was consulted. Patient had coronary artery bypass grafting done on 01/08/2021 and since then been in the ICU. On 01/12/2021-patient is seen at the bedside in the ICU today. As per discussion with the nursing staff early this morning patient was having difficulty in breathing and felt anxious, at that time she was in atrial fibrillation. Amiodarone drip was started, chest x-ray showed bilateral pleural effusion. So patient received IV 20 mg of Lasix this morning. Currently patient is sitting up in a chair by the bedside states that she had a very rough morning. Patient denies having any chest pain or palpitations. She states that she has soreness in her chest wall. Patient denies having any abdominal pain nausea vomiting. No difficulty in breathing. Denies having any fevers chills or rigors. On reviewing the vitals blood pressure 151/50, heart rate 90s to 100 100s, saturating at 90% on 4 L of nasal cannula. Labs this morning showing white count of 14, hemoglobin 9.8, platelets 216. Sodium 1:30, pretension. 0.5, chloride 103, bicarb 17, BUN 21, creatinine 0.95. On 01/13/2021 - patient is seen and examined at bedside in the ICU. She is comfortably sitting up in a chair at the bedside.Patient states that her difficulty in breathing has improved since having the thoracentesis done this morning. She denies having any chest pain or palpitations. She complains of chest soreness. No cough or difficulty in breathing. She denies having abdom inal pain nausea vomiting or diarrhea. On reviewing the vitals temperature of 97.6, heart rate 78, respiratory 14, blood pressure 138/69, saturating at 95% on room air. Reviewing the labs from this morning white count of 9.4, hemoglobin 9.6, platelets 227. Sodium 133, potassium 4.1, chloride 101, bicarbonate 27, BUN 23, creatinine 1.06. Albumin of 3.1 On 01/14/2021 - patient is seen and examined at the bedside. She is sitting up in a recliner at bedside. Patient denies having any chest pain or difficulty in breathing. She has chest soreness due to the heart hugger that is in place. Sh e states that her lower extremity swelling has improved. She also states that her energy levels are slowly getting better. On looking at her vitals, she is currently in sinus rhythm with heart rate between 70s to 80s, T-max 98.2, respiratory rate 18, blood pressure 117/98 , sustaining a 95% on room air. On reviewing her labs white count of 9.1, hemoglobin 10.1, platelets 260. Sodium 133, duration 4, chloride 103, bicarbonate 21, BUN 25, creatinine 1.09. AST 54, ALT 16, alk phos 122, albumin 3.0 Patient's medications have been reviewed she is on Tylenol, DuoNeb, amiodarone, Norvasc, aspirin, Lipitor, Dulcolax, Plavix, Lasix, heparin subcu, NovoLog, milk of magnesia, melatonin, Reglan, Lopressor, Zofran, Protonix, Senokot. 01/15/2021 Patient is status post CABG three-vessel. Postoperative day 7. Patient developed right-sided pleural effusion and initial drainage was done and a total of 800 mm of fluid was removed from the right lung. Chest x-ray still showing some residual effusion on the left. Otherwise patient is awake alert and oriented x3. Breathing status is improving. Laboratory data showed FVC 8.6 hemoglobin 10.0 and platelets 264 Sodium 133 potassium 3.7 BUN 23 and creatinine 1.02 and blood sugar is 132. Patient remains in sinus rhythm. Patient did have left-sided thoracentesis today. Otherwise patient is being discharged home. Discharge medications revi ewed. Constitutional: Denied any fatigue denied any fever. Cardio vascular: denied any chest pain, palpitations Gastrointestinal denied any nausea vomiting Pulmonary: Denied any shortness of breath cough Neurologic denied any new focal deficits All inpatient medications were reviewed and appropriate changes in these medications as dictated in the interval history and assessment and plan. Objective - Vital Signs Vital signs: Vital Signs Temp 98.2 F 01/15/21 12:00 Pulse 76 01/15/21 12:00 Resp 16 01/15/21 12:00 BP 116/57 01/15/21 12:00 Pulse Ox 94 L 01/15/21 12:00 Intake & Output 01/14/21 01/15/21 01/15/21 18:59 06:59 18:59 Intake Total 620 Output Total 1 100 2100 Balance -1 100 -1480 Weight 116 kg Intake: Oral 620 Output: Drainage 600 left thoracen 600 Urine 0 100 1500 Stool 1 Other: Voiding Method Toilet Toilet Toilet Bedside Commode # Voids 2 1 # Bowel Movements 1 ABP, PAP, CO, CI - Last Documented Arterial Blood Pressure 184/39 Pulmonary Artery Pressure 38/11 Cardiac Output 4.7 Cardiac Index 2.2 - Exam PHYSICAL EXAMINATION: GENERAL: Sitting up in a chair by the bedside HEENT: No pallor, no icterus. CARDIOVASCULAR: S1 and S2 were regular rate and rhythm., Midsternal surgical site is bandaged. PULMONARY: Bilateral breath sounds are positive. Diminished on the right compared to the left lower lung bases ABDOMEN: Soft, nontender, nondistended, normoactive bowel sounds. MUSCULOSKELETAL: No joint swelling or deformity. EXTREMITIES: Mild pitting edema bilaterally NEUROLOGICAL: Gross neurological examination did not reveal any focal deficits. SKIN: No rashes. - Labs CBC & Chem 7: 01/15/21 03:01 01/15/21 03:01 Labs: Abnormal Lab Results - Last 24 Hours (Table) 01/14/21 01/14/21 01/15/21 Range/Units 17:23 21:25 03:01 RBC 3.21 L (3.80-5.40) m/uL Hgb 10.0 L (11.4-16.0) gm/dL Hct 29.9 L (34.0-46.0) % Sodium (137-145) mmol/L Carbon Dioxide (22-30) mmol/L BUN (7-17) mg/dL Glucose (74-99) mg/dL POC Glucose (mg/dL) 133 H 174 H (75-99) mg/dL Calcium (8.4-10.2) mg/dL 01/15/21 01/15/21 Range/Units 03:01 06:34 RBC (3.80-5.40) m/uL Hgb (11.4-16.0) gm/dL Hct (34.0-46.0) % Sodium 133 L (137-145) mmol/L Carbon Dioxide 20 L (22-30) mmol/L BUN 23 H (7-17) mg/dL Glucose 132 H (74-99) mg/dL POC Glucose (mg/dL) 154 H (75-99) mg/dL Calcium 8.0 L (8.4-10.2) mg/dL Assessment and Plan Assessment: Coronary artery disease/severe left main disease/status post CABG on 01/08/2021- postoperative day #7 Paroxysmal atrial fibrillation status post cardiac surgery History of LA with multivessel angioplasty Mild prerenal a calorie improving Mild transaminitis Family history of coronary artery disease Hyponatremia Acute blood loss anemia and thrombocytopenia status post cardiac surgery Mild leukocytosis-probably reactive Hypertension Hyperlipidemia PLAN: Patient currently in sinus rhythm with heart rate between 70s to 80s, controlled on amiodarone by mouth. Patient's creatinine trending towards baseline. Continue with aspirin and Plavix statin. Hyperglycemia to be controlled with sliding scale of insulin. She had thoracentesis done by Dr. Waterman on 01/13/2021 with 800ml of fluid removed from the right side. Pleural fluid analysis pending. Postoperative care as per CT surgery recommendations. Patient encouraged to continue using incentive spirometry. Overall prognosis is guarded. Patient was transferred from the ICU to telemetry floor. Pt. is being discharged home today. Time with Patient: Greater than 30
== END 2021-01-15 15:41 | disposition home health service (06) | DRG 234 ==
LOC: EC 11:42 → 6NMEDSUR 14:08 → OBSVTOIN 01-03 09:36 → 3SCARD 01-04 20:30 → 2SICU 01-08 12:20
PROVIDERS: ADMIT Thoracic Surgery (Cardiothoracic Vascular Surgery); ATTEND Thoracic Surgery (Cardiothoracic Vascular Surgery)
PROC: B2111ZZ Fluoroscopy of Multiple Coronary Arteries using Low Osmolar Contrast (ICD-10-PCS; 2021-01-03)
PROC: 4A023N7 Measurement of Cardiac Sampling and Pressure, Left Heart, Percutaneous Approach (ICD-10-PCS; 2021-01-03)
PROC: B24BZZ4 Ultrasonography of Heart with Aorta, Transesophageal (ICD-10-PCS; principal; 2021-01-08 14:15)
PROC: 02100Z9 Bypass Coronary Artery, One Artery from Left Internal Mammary, Open Approach (ICD-10-PCS; principal; 2021-01-08 14:15)
PROC: 06BQ4ZZ Excision of Left Saphenous Vein, Percutaneous Endoscopic Approach (ICD-10-PCS; principal; 2021-01-08 14:15)
PROC: 02L70CK Occlusion of Left Atrial Appendage with Extraluminal Device, Open Approach (ICD-10-PCS; principal; 2021-01-08 14:15)
PROC: 0210093 Bypass Coronary Artery, One Artery from Coronary Artery with Autologous Venous Tissue, Open Approach (ICD-10-PCS; principal; 2021-01-08 14:15)
PROC: 0W9B3ZZ Drainage of Left Pleural Cavity, Percutaneous Approach (ICD-10-PCS; 2021-01-13)
DX: I25.110 Atherosclerotic heart disease of native coronary artery with unstable angina pectoris (principal); N17.9 Acute kidney failure, unspecified; D62 Acute posthemorrhagic anemia; J98.11 Atelectasis; J90 Pleural effusion, not elsewhere classified; I48.0 Paroxysmal atrial fibrillation; I11.9 Hypertensive heart disease without heart failure; I27.20 Pulmonary hypertension, unspecified; D69.6 Thrombocytopenia, unspecified; Z20.822 Contact with and (suspected) exposure to COVID-19; K75.81 Nonalcoholic steatohepatitis (NASH); E87.5 Hyperkalemia; I08.3 Combined rheumatic disorders of mitral, aortic and tricuspid valves; K75.9 Inflammatory liver disease, unspecified; G89.29 Other chronic pain; M54.9 Dorsalgia, unspecified; E66.9 Obesity, unspecified; Z68.38 Body mass index [BMI] 38.0-38.9, adult; I25.2 Old myocardial infarction; Z95.5 Presence of coronary angioplasty implant and graft; Z90.711 Acquired absence of uterus with remaining cervical stump; Z82.49 Family history of ischemic heart disease and other diseases of the circulatory system; Z79.82 Long term (current) use of aspirin; Z79.899 Other long term (current) drug therapy; Z88.2 Allergy status to sulfonamides
CPT/HCPCS: 36415; 71045; 71046; 76604; 76705; 80048; 80053; 80061; 80074; 81001; 82330; 82553; 82805; 83036; 83605; 83735; 83880; 84443; 84484; 85025; 85027; 85379; 85520; 85610; 85730; 86850; 86891; 86900; 86901; 86920; 87070; 87635; 93005; 93306; 93458; 93880; 93970; 94002; 94150; 94640; 99285

== ENCOUNTER → 2021-01-25 | Outpatient (CLI) | payer MEDICARE ==
--- NOTE | 2021-01-25 07:44 | US ---
EXAMINATION TYPE: US chest DATE OF EXAM: 01/25/2021 COMPARISON: NONE CLINICAL HISTORY: J90 Pleural effusion. Hx bilateral thoracentesis TECHNIQUE: Targeted ultrasound of the posterior lower bilateral hemithoraces EXAM MEASUREMENTS: Right Pleural Effusion pocket size: 4.9 cm with anterior lung Left Pleural Effusion pocket size: 10.5 cm Left skin surface to fluid distance: 3.4 cm Right side NOT marked for possible thoracentesis outside the dept due to lung position within fluid p ocket. Left side marked for possible thoracentesis outside the dept. Pulmonologists are able to review the images in the patient?s EMR. IMPRESSIONS: Bilateral pleural effusions. Left side only marked due to lung position.
== END | disposition home or self-care (01) ==
LOC: RADUSWWP 07:04
PROVIDERS: ATTEND Internal Medicine Critical Care Medicine
DX: J90 Pleural effusion, not elsewhere classified (principal)
CPT/HCPCS: 76604

== ENCOUNTER → 2021-01-28 | Day surgery (SDC) | payer MEDICARE ==
[~2021-01-28] MED LIST: SODIUM CHLORIDE 0.9% 500 ML 500 ML in EMPTY BAG 1 BAG IV PRN
[2021-01-28 12:00] VITALS: BP 126/71; PULSE 73; TEMP 97.6
[2021-01-28 12:13] VITALS: RESP 18
--- NOTE | 2021-01-28 12:38 | XR ---
EXAMINATION TYPE: XR chest 1V portable DATE OF EXAM: 01/28/2021 COMPARISON: 01/15/2021 HISTORY: Postthoracentesis TECHNIQUE: Single frontal view of the chest is obtained. FINDINGS: Arthropathy of the shoulders. Postoperative change. Heart enlarged there is bilateral infi ltrate and small effusion. Mild interstitial prominence. Biapical pleural thickening. IMPRESSION: 1. Bilateral infiltrate and small effusion. There is no sizable pneumothorax postthoracentesis. Could not exclude mild venous congestion.
--- NOTE | 2021-01-28 22:01 | PCN ---
PROCEDURE NOTE PROCEDURE PERFORMED: Left-sided thoracentesis. OPERATORS: Dr. Waterman and Dr. Kearns. Indication Pleural effusion. A time-out was completed verifying correct patient, procedure, site, positioning , and implant (s) or special equipment if applicable. Ultrasound guidance was used and appropriate fluid pocket was identified and marked. Patient was positioned, prepped and draped in usual sterile fashion. Lidocaine was used to anesthetize the area. A Thoracentesis catheter was introduced into the pleural space and fluid was removed. Blood loss was none. A chest x-ray was ordered to evaluate for pneumothorax. Total Fluid Removed: 550 mL Color of Fluid: Brown, bloody Fluid was not sent for appropriate laboratory tests. Patient tolerated the procedure well and there were no complications. The left posterior chest was marked by ultrasound. 550 mL of brown bloody fluid was removed from the left pleural space. The patient tolerated the procedure well. The fluid was previously sent for analysis so this fluid can be discarded. A chest x-ray will be ordered to rule out pneumothorax. There was no immediate complication. There was informed consent and universal timeout. MMODL / IJN: [id number] /
== END ==
LOC: PROCWHC3 11:42
PROVIDERS: ATTEND Internal Medicine Critical Care Medicine
DX: J90 Pleural effusion, not elsewhere classified (principal); E78.5 Hyperlipidemia, unspecified; I10 Essential (primary) hypertension; I25.2 Old myocardial infarction; I25.110 Atherosclerotic heart disease of native coronary artery with unstable angina pectoris; I48.91 Unspecified atrial fibrillation; Z87.19 Personal history of other diseases of the digestive system; R42 Dizziness and giddiness; Z90.89 Acquired absence of other organs; Z95.1 Presence of aortocoronary bypass graft; Z98.890 Other specified postprocedural states; Z79.01 Long term (current) use of anticoagulants; Z79.82 Long term (current) use of aspirin; Z79.899 Other long term (current) drug therapy; Z88.2 Allergy status to sulfonamides
CPT/HCPCS: 32554; 71045

== ENCOUNTER → 2021-10-14 | Outpatient (CLI) | payer MEDICARE ==
[2021-10-14 18:51] LABS: African American GFR (CKD) 55.7 (60.0-200.0); Albumin 3.6 g/dL (3.8-4.9); Albumin/Globulin Ratio 0.92 (1.60-3.17); BUN/Creat Ratio 19.64 Ratio (12.00-20.00); Blood Urea Nitrogen 21.6 mg/dL (9.0-27.0); Calcium 8.8 mg/dL (8.7-10.3); Globulin 3.9 g/dL (1.6-3.3); Potassium 4.6 mmol/L (3.5-5.5); Total Bilirubin 0.7 mg/dL (0.30-1.20); Total Protein 7.5 g/dL (6.2-8.2)
[2021-10-14 19:06] LABS: Basophils # (A) 0.05 X 10*3/uL (0.00-0.10); Basophils % (A) 0.8 %; Eosinophils # (A) 0.12 X 10*3/uL (0.04-0.35); HGB 13.3 g/dL (12.0-15.0); Immature Grans, Automated 0.5 %; Lymphocytes # (A) 1.26 X 10*3/uL (0.90-5.00); Lymphocytes % (A) 21.4 %; MCH 25.2 pg (27.0-32.0); MCHC 30.2 g/dL (32.0-37.0); MCV 83.5 fL (80.0-97.0); Mean Platelet Volume 11.1 fL (9.5-12.2); Monocytes # (A) 0.59 X 10*3/uL (0.20-1.00); NRBC Per 100 WBC 0 /100 WBCS (0.0-0.0); Neutrophils # (A) 3.85 X 10*3/uL (1.80-7.70); Neutrophils % (A) 65.3 %; Platelet Count 257 X 10*3/uL (140-440); RBC 5.27 X 10*6/uL (4.10-5.20); RDW 18.1 % (11.5-14.5)
== END | disposition home or self-care (01) ==
LOC: LABWHC1 11:32
PROVIDERS: ATTEND Internal Medicine Gastroenterology
DX: R74.01 Elevation of levels of liver transaminase levels (principal)
CPT/HCPCS: 36415; 80053; 85025